=== PATIENT | female | born 1975 | race Hispanic/Latino ===

== ENCOUNTER 2018-03-28 14:39 | Observation (INO) | payer OTHER ==
[~2018-03-28] VITALS: Ht 162.6 cm; Wt 95.3 kg
[~2018-03-28 14:39] MED LIST: ASPIR 8181 MG PO; ATORVASTATIN CA20 MG PO; HYDROCHLOROTHIA25 MG PO; LORAZEPAM1 MG PO; LOSARTAN POTAS100 MG PO; METFORMIN HCL500 M2 PO; PEPCID20 MG PO; PLAVIX75 MG PO; REGLAN10 MG PO; VITAMIN B-12500 MCG PO; VITAMIN D250000 UNIT PO
[2018-03-28 15:24] LABS: BASOPHILS % 0.4 % (0.0-1.0); EOSINOPHILS # (AUTO) 0.1 (0.0-0.4); EOSINOPHILS % 0.4 % (0.0-6.0); HEMATOCRIT 39.6 % (34.2-44.1); HEMOGLOBIN 13.5 g/dL (12.0-16.0); LYMPHOCYTES # (AUTO) 2.6 (1.0-3.2); LYMPHOCYTES % 22.9 % (18.0-39.1); MEAN CORPUSCULAR HEMOGLOBIN 28.6 pg (28-32); MEAN CORPUSCULAR HGB CONC 34.1 g/dL (31-35); MEAN CORPUSCULAR VOLUME 83.9 fL (81-99); MONOCYTES # (AUTO) 0.6 (0.2-0.8); MONOCYTES % 5.4 % (4.4-11.3); NEUTROPHILS # (AUTO) 7.9 (2.1-6.9); NEUTROPHILS % 70.1 % (38.7-80.0); PLATELET COUNT 529 x10e3/uL (140-360); RED BLOOD COUNT 4.72 x10e6/uL (3.6-5.1); RED CELL DISTRIBUTION WIDTH 13.9 % (11.7-14.4)
[2018-03-28 15:41] LABS: ALANINE AMINOTRANSFERASE 32 IU/L (0-55); ALBUMIN 4.3 g/dL (3.5-5.0); ALBUMIN/GLOBULIN RATIO 1.2 (0.8-2.0); ALKALINE PHOSPHATASE 72 IU/L (40-150); BLOOD UREA NITROGEN 7 mg/dL (7-26); BUN/CREATININE RATIO 10 (6-25); CALCIUM 9.8 mg/dL (8.4-10.2); CARBON DIOXIDE 26 mmol/L (22-29); CHLORIDE 93 mmol/L (98-107); CREATINE KINASE 114 IU/L (29-168); CREATININE, SERUM 0.68 mg/dL (0.57-1.11); EST GLOMERULAR FILTRATION RATE > 60 ML/MIN (60-); GLUCOSE 130 mg/dL (74-118); SODIUM 135 mmol/L (136-145)
--- NOTE | 2018-03-28 16:10 | Diagnostic Imaging Report ---
Exam: Head CT without contrast History: Headache, hypertension, diabetes, moyamoya disease Comparison studies: Multiple prior head CTs which date to 06/01/2015, most recent 03/20/2017. Brain MRI 04/01/2017 Technique: Axial images were obtained from the skull base to the vertex. Coronal and sagittal images reconstructed from the axial data. Radiation dose: Total DLP: 728 mGy*cm. Estimated effective dose: DLP x 0.015 Intravenous contrast: None Findings: Scalp: No abnormalities. Bones: No fractures, blastic or lytic lesions. Brain sulci: Appropriate for age. Ventricles: Normal in size and configuration. No hydrocephalus. Extra-axial spaces: No masses, no fluid collection. Parenchyma: No mass, acute hemorrhage or acute cortical vascular insults. Small chronic lacunar insult in the head of the right caudate nucleus. A few subtle hypodensities in the supratentorial white matter are nonspecific most compatible with chronic microvascular ischemic changes. Sellar/suprasellar region: No abnormalities. Craniocervical junction: Patent foramen magnum. No Chiari one malformation. IMPRESSION: 1. No acute intracranial abnormalities. 2. No changes from the previous brain MRI of 04/01/2017 when allowing for differences in modality. 3. Small chronic lacunar infarct in the right caudate nucleus. 4. Mild chronic microvascular ischemic changes. Signed by: Dr. Jeremías Gore M.D. on 03/28/2018 4:07 PM
--- NOTE | 2018-03-28 16:23 | Diagnostic Imaging Report ---
EXAMINATION: CHEST 2 VIEWS INDICATION: Heart palpitations, hyperglycemia, hypertension COMPARISON: Chest x-ray 01/09/2017, chest x-ray 01/06/2016 FINDINGS: PA and lateral views TUBES and LINES: None. LUNGS: Lungs are well inflated. There is no evidence of pneumonia or pulmonary edema. PLEURA: No pleural effusion or pneumothorax. HEART AND MEDIASTINUM: The heart is normal in size. Aorta is mildly ectatic and stable in morphology. BONES AND SOFT TISSUES: No focal osseous lesions. Soft tissues are unremarkable. UPPER ABDOMEN: No free air under the diaphragm. IMPRESSION: No acute thoracic abnormality. Signed by: Dr. Kai Echavarria MD on 03/28/2018 4:20 PM
[2018-03-28] MEDS ORDERED: ASPIRIN 81 MG CHEW TAB PO ONE (17:15)
[2018-03-28 17:36] LABS: CLARITY,URINE CLEAR (CLEAR); COLOR,URINE YELLOW (YELLOW)
[2018-03-28 17:37] LABS: BILIRUBIN,URINE NEGATIVE (NEGATIVE); KETONES,URINE 1+ (NEGATIVE); LEUKOCYTE ESTERASE ,URINE NEGATIVE (NEGATIVE); NITRITE,URINE NEGATIVE (NEGATIVE); PROTEIN,URINE DIPSTICK NEGATIVE (NEGATIVE); URINE UROBILINOGEN 0.2 mg/dL (0.2 - 1)
[2018-03-28 17:41] LABS: AMPHETAMINES SCREEN,URINE NEGATIVE (NEGATIVE); BENZODIAZEPINES SCREEN,URINE NEGATIVE (NEGATIVE); PHENCYCLIDINE SCREEN,URINE NEGATIVE (NEGATIVE)
[2018-03-28] MEDS ORDERED: POTASSIUM CHLORIDE 20 MEQ TAB CR PO SCH (17:45)
[2018-03-28 17:50] LABS: BACTERIA,URINE MODERATE /HPF; EPITHELIAL CELLS,URINE FEW /LPF; RBC,URINE 0-5 /HPF (0-5)
[2018-03-28] MEDS ORDERED: DEXTROSE 50% SYRINGE 50 ML IV PRN (21:45)
[2018-03-29 01:45] LABS: CREATINE KINASE MB 0.6 ng/mL (0-5.0)
[2018-03-29 05:31] LABS: BASOPHILS # (AUTO) 0.1 (0.0-0.1); BASOPHILS % 0.6 % (0.0-1.0); EOSINOPHILS # (AUTO) 0.2 (0.0-0.4); EOSINOPHILS % 2.5 % (0.0-6.0); HEMOGLOBIN 11.8 g/dL (12.0-16.0); LYMPHOCYTES % 36.3 % (18.0-39.1); MEAN CORPUSCULAR HEMOGLOBIN 28.4 pg (28-32); MEAN CORPUSCULAR HGB CONC 33.7 g/dL (31-35); MEAN CORPUSCULAR VOLUME 84.1 fL (81-99); MONOCYTES # (AUTO) 0.8 (0.2-0.8); NEUTROPHILS # (AUTO) 4.3 (2.1-6.9); PLATELET COUNT 453 x10e3/uL (140-360); RED BLOOD COUNT 4.16 x10e6/uL (3.6-5.1); RED CELL DISTRIBUTION WIDTH 14.1 % (11.7-14.4)
[2018-03-29 05:49] LABS: ALANINE AMINOTRANSFERASE 26 IU/L (0-55); ALBUMIN 3.2 g/dL (3.5-5.0); ALBUMIN/GLOBULIN RATIO 1.1 (0.8-2.0); ALKALINE PHOSPHATASE 54 IU/L (40-150); ANION GAP 17.2 mmol/L (8-16); BLOOD UREA NITROGEN 7 mg/dL (7-26); BUN/CREATININE RATIO 12 (6-25); CALCIUM 8.4 mg/dL (8.4-10.2); CARBON DIOXIDE 22 mmol/L (22-29); CHLORIDE 101 mmol/L (98-107); CREATININE, SERUM 0.57 mg/dL (0.57-1.11); EST GLOMERULAR FILTRATION RATE > 60 ML/MIN (60-); GLUCOSE 135 mg/dL (74-118); POTASSIUM 3.2 mmol/L (3.5-5.1); SODIUM 137 mmol/L (136-145)
[2018-03-29 06:21] LABS: CREATINE KINASE MB 0.5 ng/mL (0-5.0)
[2018-03-29] MEDS: INSULIN REGULAR, HUMAN 100 UNIT/1 ML 3ML VIAL SQ SCH ×4 (07:30→21:00)
[2018-03-29 09:59] VITALS: BP 141/95
[2018-03-29 10:00] VITALS: BP 141/95
[2018-03-29] MEDS ORDERED: POTASSIUM CHLORIDE 20 MEQ TAB CR PO ONE (10:00)
[2018-03-29] MEDS: HYDROCHLOROTHIAZIDE 25 MG TAB PO SCH (10:25)
[2018-03-29] MEDS: ATORVASTATIN 20 MG TAB PO SCH (10:25)
[2018-03-29] MEDS: ASPIRIN 325 MG TAB PO SCH (10:25)
[2018-03-29] MEDS: LOSARTAN POTASSIUM 25 MG TAB PO SCH (10:25)
[2018-03-29] MEDS ORDERED: GLIPIZIDE5 MG PO (10:35)
[2018-03-29 12:18] VITALS: BP 133/73
[2018-03-29] MEDS: GLIPIZIDE 5 MG TAB PO SCH (12:41)
--- NOTE | 2018-03-29 13:27 | Consultation ---
DATE OF CONSULTATION: REASON FOR CONSULTATION: Chest pain. HISTORY OF PRESENT ILLNESS: Ms. Bain is a 43-year-old lady with a past medical history as listed below. Reportedly, was not feeling too good yesterday morning. She checked her blood sugar. It was 207. Then she went to work. At work, she reportedly developed chest pain. Chest pain lasted about 15-20 20 minutes and recurred a few times. She called EMS who took her to [facility]. They did some tests and wanted her to stay. However, the patient wanted to get here to [facility]. EMS apparently refused to get her here. She left there and a friend brought her home. Then her brought her to the hospital. She states she feels better now. She gets a little tired and some shortness of breath on exertion. No abdominal pain, vomiting or diarrhea. The chest pain has pretty much resolved. REVIEW OF SYSTEMS CONSTITUTIONAL: Has some fatigue and weakness. HEENT: No headache, blurring of vision, seizures, syncope. CARDIOVASCULAR: Had chest pain. Had some dyspnea. No orthopnea or PND. RESPIRATORY: No cough, fever or expectoration. GI: No abdominal pain, vomiting or diarrhea. : No dysuria, frequency or incontinence. ALLERGIES: NO KNOWN DRUG ALLERGIES. MEDICATIONS: See list. PAST MEDICAL HISTORY: History of hypertension, history of diabetes mellitus, history of hyperlipidemia, history of TIA, history of Moyamoya disease. SOCIAL HISTORY: Does not smoke or drink. FAMILY HISTORY: History of hypertension and diabetes. PHYSICAL EXAMINATION GENERAL: Slightly obese lady alert, oriented and not in any obvious distress. VITALS: Heart rate is 75, blood pressure 141/95, respiratory rate 18, temperature 97 8. HEENT: Atraumatic. NECK: No JVD, bruit, thyromegaly, or lymphadenopathy. CARDIOVASCULAR: First and 2nd heart sounds heard. No murmurs, rubs or gallops appreciated. CHEST: Clear to auscultation. ABDOMEN: Soft and nontender. EXTREMITIES: No edema. LABS: EKG shows sinus rhythm at 96 beats per minute. Normal axis. Prolonged QT interval and nonspecific ST-T changes. Sodium is 137, potassium 3.2, chloride 101, bicarb is 22, BUN is 7, creatinine 0.5, glucose 135. Hemoglobin 11.8, hematocrit 35 and platelets are 453,000. White count is 8.3. Total bili is 1.2, AST 32, ALT is 26, alk phos is 54. IMPRESSION 1. Chest pain. 2. Hypertension. 3. Diabetes mellitus. 4. History of transient ischemic attack. 5. History of hyperlipidemia. 6. Hypokalemia. PLAN 1. Follow serial cardiac enzymes. 2. Get echocardiogram to assess LV function and valvular function. 3. Replace potassium. 4. Continue with current medications. 5. If the patient rules out, she can get a stress test as an outpatient. Discussed my impression and plan of management with the patient. She understands. As always, I appreciate and thank you very much for your referral. Job#: [id number] [place]
[2018-03-29 15:23] LABS: CREATINE KINASE MB 0.5 ng/mL (0-5.0)
[2018-03-29 16:13] VITALS: BP 120/70
[2018-03-29 19:30] VITALS: BP 121/56
[2018-03-29] MEDS ORDERED: ASPIRIN 81 MG CHEW TAB PO SCH (21:00)
[2018-03-29] MEDS: CLOPIDOGREL BISULFATE 75 MG TAB PO SCH ×2 (21:46)
[2018-03-29 21:48] VITALS: BP 121/56
[2018-03-30 01:10] VITALS: BP 113/56
[2018-03-30 05:15] VITALS: BP 116/57
[2018-03-30 05:54] LABS: ANION GAP 17.2 mmol/L (8-16); BLOOD UREA NITROGEN 8 mg/dL (7-26); BUN/CREATININE RATIO 12 (6-25); CALCIUM 8.9 mg/dL (8.4-10.2); CARBON DIOXIDE 25 mmol/L (22-29); CHLORIDE 99 mmol/L (98-107); CREATININE, SERUM 0.69 mg/dL (0.57-1.11); EST GLOMERULAR FILTRATION RATE > 60 ML/MIN (60-); GLUCOSE 152 mg/dL (74-118); MAGNESIUM 1.7 MG/DL (1.3-2.1); POTASSIUM 3.2 mmol/L (3.5-5.1); SODIUM 138 mmol/L (136-145)
[2018-03-30 06:19] LABS: FREE T4 (FREE THYROXINE) 1.02 ng/dL (0.9-1.8); THYROID STIMULATING HORMONE 1.128 uIU/mL (0.350-4.940)
[2018-03-30 06:45] LABS: BASOPHILS # (AUTO) 0.1 (0.0-0.1); BASOPHILS % 0.7 % (0.0-1.0); EOSINOPHILS # (AUTO) 0.3 (0.0-0.4); EOSINOPHILS % 3.1 % (0.0-6.0); HEMATOCRIT 36.4 % (34.2-44.1); HEMOGLOBIN 12.2 g/dL (12.0-16.0); LYMPHOCYTES # (AUTO) 3.1 (1.0-3.2); LYMPHOCYTES % 33.7 % (18.0-39.1); MEAN CORPUSCULAR HEMOGLOBIN 28.6 pg (28-32); MEAN CORPUSCULAR HGB CONC 33.5 g/dL (31-35); MEAN CORPUSCULAR VOLUME 85.2 fL (81-99); MONOCYTES # (AUTO) 0.8 (0.2-0.8); MONOCYTES % 8.7 % (4.4-11.3); NEUTROPHILS # (AUTO) 4.8 (2.1-6.9); NEUTROPHILS % 52.9 % (38.7-80.0); PLATELET COUNT 462 x10e3/uL (140-360); RED BLOOD COUNT 4.27 x10e6/uL (3.6-5.1); RED CELL DISTRIBUTION WIDTH 14.4 % (11.7-14.4)
[2018-03-30] MEDS: INSULIN REGULAR, HUMAN 100 UNIT/1 ML 3ML VIAL SQ SCH (07:30)
[2018-03-30] MEDS ORDERED: POTASSIUM CHLORIDE 20 MEQ TAB CR PO STA (07:49)
[2018-03-30 08:02] VITALS: BP 121/59
[2018-03-30] MEDS ORDERED: POTASSIUM CHLORIDE 20 MEQ TAB CR PO ONE (10:00)
[2018-03-30] MEDS: LOSARTAN POTASSIUM 25 MG TAB PO SCH (10:21)
[2018-03-30] MEDS: HYDROCHLOROTHIAZIDE 25 MG TAB PO SCH (10:21)
[2018-03-30] MEDS: ASPIRIN 325 MG TAB PO SCH (10:21)
[2018-03-30] MEDS: ATORVASTATIN 20 MG TAB PO SCH (10:21)
[2018-03-30] MEDS: GLIPIZIDE 5 MG TAB PO SCH (10:32)
--- NOTE | 2018-03-30 22:12 | Discharge Summary ---
ADMISSION DIAGNOSES: 1. Chest pain. 2. Hypertension. 3. Hyperlipidemia. 4. Type 2 diabetes. 5. Hypokalemia. 6. Leukocytosis. 7. Moyamoya. DISCHARGE DIAGNOSES: 1. Chest pain. 2. Hypertension. 3. Hyperlipidemia. 4. Type 2 diabetes. 5. Hypokalemia. 6. Leukocytosis. 7. Moyamoya. 8. Rule out myocardial infarction. HISTORY: The patient has a history of hypertension, hyperlipidemia, type 2 diabetes, GERD, TIA in 2014 and moyamoya disease. Surgical history of hysterectomy. HOSPITAL COURSE: A 43-year-old female, complains of sharp constant left chest pain that started yesterday morning at work. There is no radiation. The pain lasted 25 minutes. No syncope. No diaphoresis. The patient admits to palpitations. She called in ambulance and was taken to [facility]. In the ambulance, the ENT was unable to get a blood pressure due to an arrhythmia. The workup at [facility] was negative. The patient left AMA when they said they wanted to keep her in observation in the hallway. On admission to [facility], the patient's blood pressure was in the 200s. Nothing improves her worsens her pain. On admission, the patient had troponins negative times 3. EKG, normal sinus rhythm, 96. Normal TSH and free T4. Cardiology was consulted who did not want to do a workup. The patient resumed on home medications for hypertension, hyperlipidemia, type 2 diabetes. Her leukocytosis resolved on its own and hypokalemia. Potassium was repleted. The patient was discharged home and per cardio, she is already on the right medications including aspirin, Lipitor and blood pressure medications. The patient remains asymptomatic during hospitalization and is ready and excited to go home. She agrees to discharge plan. The patient will follow up with cardiology in 1 to 2 weeks for stress test and primary care in 1 to 2 weeks. Vital signs stable. The patient afebrile at the time of discharge. Dictated by Alexandria Starr NP. FARZAD MITCHELL MD Job#: [id number] [place]
== END 2018-03-30 10:45 | disposition home or self-care (01) ==
LOC: ER 14:39 → ERHOLD 18:25 → IMCU 03-29 10:52
PROVIDERS: ADMIT Internal Medicine; ATTEND Internal Medicine
DX: R07.9 Chest pain, unspecified (principal); I10 Essential (primary) hypertension; E78.5 Hyperlipidemia, unspecified; E11.9 Type 2 diabetes mellitus without complications; K21.9 Gastro-esophageal reflux disease without esophagitis; Z86.73 Personal history of transient ischemic attack (TIA), and cerebral infarction without residual deficits; I67.5 Moyamoya disease; E87.6 Hypokalemia
CPT/HCPCS: 36415 ×2; 70450; 71046; 80048; 80053 ×2; 80307; 80320; 81001; 82550 ×2; 82553 ×2; 82948 ×2; 83036; 83735; 84439; 84443; 84484 ×2; 84702; 85025 ×3; 93005 ×2; 93306; 99284; G0378 ×3

== ENCOUNTER 2018-04-27 10:38 | Emergency (ER) | payer OTHER ==
[~2018-04-27] VITALS: Ht 162.6 cm; Wt 95.3 kg
[~2018-04-27 10:38] MED LIST changes: +GLIPIZIDE5 MG PO
[2018-04-27 11:16] LABS: BASOPHILS # (AUTO) 0.1 (0.0-0.1); BASOPHILS % 0.7 % (0.0-1.0); EOSINOPHILS # (AUTO) 0.1 (0.0-0.4); EOSINOPHILS % 1.6 % (0.0-6.0); HEMATOCRIT 39.5 % (34.2-44.1); HEMOGLOBIN 12.9 g/dL (12.0-16.0); LYMPHOCYTES # (AUTO) 2.6 (1.0-3.2); LYMPHOCYTES % 31.2 % (18.0-39.1); MEAN CORPUSCULAR HEMOGLOBIN 28.5 pg (28-32); MEAN CORPUSCULAR HGB CONC 32.7 g/dL (31-35); MEAN CORPUSCULAR VOLUME 87.2 fL (81-99); MONOCYTES # (AUTO) 0.6 (0.2-0.8); MONOCYTES % 7.1 % (4.4-11.3); NEUTROPHILS # (AUTO) 4.8 (2.1-6.9); NEUTROPHILS % 59.2 % (38.7-80.0); PLATELET COUNT 511 x10e3/uL (140-360); RED BLOOD COUNT 4.53 x10e6/uL (3.6-5.1)
[2018-04-27 11:23] LABS: INR 1.09; PROTHROMBIN TIME 13.3 seconds (11.9-14.5)
[2018-04-27 11:24] LABS: PARTIAL THROMBOPLASTIN TIME 27.5 seconds (23.8-35.5)
[2018-04-27 11:31] LABS: CLARITY,URINE HAZY (CLEAR); COLOR,URINE YELLOW (YELLOW); KETONES,URINE 2+ (NEGATIVE); LEUKOCYTE ESTERASE ,URINE NEGATIVE (NEGATIVE); NITRITE,URINE NEGATIVE (NEGATIVE); PROTEIN,URINE DIPSTICK NEGATIVE (NEGATIVE)
[2018-04-27 11:32] LABS: ALANINE AMINOTRANSFERASE 30 IU/L (0-55); ALBUMIN 4.1 g/dL (3.5-5.0); ALBUMIN/GLOBULIN RATIO 1.2 (0.8-2.0); ALKALINE PHOSPHATASE 53 IU/L (40-150); ANION GAP 14.8 mmol/L (8-16); BACTERIA,URINE MANY /HPF; BILIRUBIN,URINE NEGATIVE (NEGATIVE); BLOOD UREA NITROGEN 7 mg/dL (7-26); BUN/CREATININE RATIO 10 (6-25); CALCIUM 9.6 mg/dL (8.4-10.2); CARBON DIOXIDE 23 mmol/L (22-29); CHLORIDE 101 mmol/L (98-107); CREATINE KINASE 37 IU/L (29-168); CREATININE, SERUM 0.73 mg/dL (0.57-1.11); EPITHELIAL CELLS,URINE MANY /LPF; EST GLOMERULAR FILTRATION RATE > 60 ML/MIN (60-); GLUCOSE 133 mg/dL (74-118); POTASSIUM 3.8 mmol/L (3.5-5.1); SODIUM 135 mmol/L (136-145); URINE UROBILINOGEN 1 mg/dL (0.2 - 1)
[2018-04-27] MEDS ORDERED: SODIUM CHLORIDE 0.9% 1000ML 1,000 ML IV STA (11:38)
[2018-04-27 11:54] LABS: AMYLASE 42 U/L (25-125); LIPASE 14 U/L (8-78)
--- NOTE | 2018-04-27 12:04 | Diagnostic Imaging Report ---
EXAMINATION: CHEST SINGLE (PORTABLE) COMPARISON: Chest x-ray 03/28/2018 INDICATION: Chest pain, weakness DISCUSSION: Frontal view of the chest obtained at 1126 hours. HEART AND MEDIASTINUM: The cardiomediastinal silhouette is unremarkable. LINES: None. LUNGS: The lungs are well inflated and clear. No pneumonia or pulmonary edema. PLEURA: No pleural effusion or pneumothorax. BONES AND SOFT TISSUES: No focal osseous lesion. The soft tissues are normal. IMPRESSION: No acute cardiopulmonary disease. Signed by: Dr. Kai Echavarria MD on 04/27/2018 12:01 PM
[2018-04-27] MEDS ORDERED: CEFTRIAXONE SOD 1 GM VIAL IV ONE (12:30)
== END 2018-04-27 13:59 | disposition home or self-care (01) ==
LOC: ER 10:38
DX: R07.89 Other chest pain (principal); R10.12 Left upper quadrant pain; R42 Dizziness and giddiness; R51 Headache; I10 Essential (primary) hypertension; E11.9 Type 2 diabetes mellitus without complications; E78.5 Hyperlipidemia, unspecified
CPT/HCPCS: 36415; 71045; 80053; 81001; 82150; 82550; 82553; 83690; 84484; 85025; 85379; 85610; 85730; 93005; 99284; J0696; J7030

== ENCOUNTER 2019-01-11 11:13 | Emergency (ER) | payer OTHER ==
[~2019-01-11] VITALS: Ht 162.6 cm; Wt 97.1 kg
--- OUTSIDE RECORDS SUMMARY | 2019-01-11 11:15 | XMS REPORT | Clinical Summary ---
Author Author [facility] Organization [facility] Address Unknown Phone Unavailable Care Team Providers Care [employer] Marketing Executive Name Role Phone Rachel Leblanc MD PCP Unavailable Allergies Comments Active Allergy Reactions Severity Noted Date Apple Cider Vinegar Palpitations Low 2017 dizziness Iodine And Iodide Nausea Only 11/05/2014 Containing Products Medications End Date Status Medication Sig Dispensed Refills Start Date Active losartan (COZAAR) 25 MG Take 25 mg by 0 tablet mouth daily. Active atorvastatin (LIPITOR) 10 Take 20 mg by 0 MG tablet mouth nightly . Active aspirin 325 MG tablet Take 325 mg 0 by mouth daily. Active glipiZIDE-metFORMIN Take 2 0 (METAGLIP) 2.5-500 mg per tablets by tablet mouth 2 (two) times daily. Active clopidogrel (PLAVIX) 75 Take 75 mg by 0 mg tablet mouth nightly. Active cyanocobalamin 500 MCG Take 500 mcg 0 tablet by mouth every morning With food . Active ergocalciferol Take 50,000 0 (ERGOCALCIFEROL) 50,000 Units by unit capsule mouth once a week On . Active hydroCHLOROthiazide Take 25 mg by 0 (HYDRODIURIL) 25 MG mouth every tablet morning. Active omeprazole (PRILOSEC) 20 Take 20 mg by 0 MG capsule mouth 2 (two) times daily 1 tablet in the morning 30 minutes before breakfast 1 tablet at bedtime 1 hour before atorvastatin and plavix . Active Problems Problem Noted Date TIA (transient ischemic attack) 2017 Vasculitis 11/05/2014 Social History Date Tobacco Use Types Packs/Day Years Used Never Smoker Alcohol Use Drinks/Week oz/Week Comments No Sex Assigned at Date Recorded Not on file Industry Job Start Date Occupation Not on file Not on file Not on file Travel End Travel History Travel Start No recent travel history available. Last Filed Vital Signs Not on file Plan of Treatment Not on file Results Not on fileafter 01/10/2018 Insurance Payer Benefit Subscriber ID Type Phone Address Plan / Group [employer] - [employer] C[employer] xxxxxxxxxxx LOCAL PLUS Advance Directives For more information, please contact: [facility] [address] [place] [address] Date Inactivated Comments Code Status Date Activated 03/22/2017 3:31 PM Full Code 03/21/2017 6:35 PM This code status was determined by: Patient 03/21/2017 6:35 PM Full Code 2017 5:22 PM This code status was determined by: Patient 11/05/2014 8:21 PM Full Code 11/05/2014 4:12 PM This code status was determined by: Patient
--- OUTSIDE RECORDS SUMMARY | 2019-01-11 11:16 | XMS REPORT | Continuity of Care Document ---
Author Author [facility] Interface Address Unknown Phone Unavailable Problems Problem Status Onset Date Classification Date Reported Comments Source Chest pain, unspecified 04/04/2018 10/15/2018 [facility] OTHER Active 03/28/2018 [facility] MOYAMOYA DISEASE Active 12/25/2016 [facility] NUMBNESS Active 12/25/2016 [facility] TIA Active 03/29/2015 [facility] NOSE BLEEDS/OTHER Active 03/29/2015 [facility] Discharge Diagnosis: TIA 11/09/2014 11/12/2014 [facility] CHEST PAIN Active 11/09/2014 [facility] TIA, PARESTHESIAS Active 09/01/2014 [facility] WEAKNESS/HIGH BLOOD PRESSURE Active 09/01/2014 [facility] ALLERGIC REACTION Active 08/31/2014 [facility] HTN (<span ID="[id number]">Confirmed</span>) Active Problem 10/15/2018 [facility] Diabetes Resolved Problem 10/15/2018 [facility] HTN (<span ID="[id number]">Confirmed</span>) Resolved Problem 10/15/2018 [facility] Hyperlipidemia Resolved Problem 10/15/2018 [facility] Moyamoya disease Resolved Problem 10/15/2018 [facility] TRANS CEREB ISCHEMIA NEC Active [facility] MOYAMOYA DISEASE Active [facility] Medications Medication Details Route Status Patient Instructions Ordering Provider Order Date Source Losartan 50 mg, Route: PO, Drug form: TAB, Daily, Dosing Weight 97, kg, Start date: 12/27/16 9:00:00 CDT, Duration: 30 day, Stop date: 01/25/17 9:00:00 CDT No Longer Active 12/27/2016 [facility] Plavix 75 mg, Route: PO, Drug form: TAB, Daily, Dosing Weight 97, kg, Start date: 12/27/16 9:00:00 CDT, Duration: 30 day, Stop date: 01/25/17 9:00:00 CDT No Longer Active 12/27/2016 [facility] Aspirin 325 MG Oral Tablet 325 mg, 1 tab, Route: PO, Drug form: TAB, Daily, Dosing Weight 97, kg, Start date: 12/27/16 9:00:00 CDT, Duration: 30 day, Stop date: 01/25/17 9:00:00 CDT No Longer Active 12/27/2016 [facility] Valproic Acid 100 MG/ML Injectable Solution 500 mg, 5 mL, Route: IVPB, ONCE, Dosing Weight 97, kg, Start date: 12/26/16 9:52:00 CDT, Stop date: 12/26/16 9:52:00 CDTNotes: Dilute in at least 50ml D5W or NS. Infusion rate=20 mg/min (Same As: Depacon) Inactive 12/26/2016 [facility] Magnesium Sulfate 2 gm, 50 mL, Route: IVPB, Drug form: INJ, ONCE, Dosing Weight 97, kg, Start date: 12/26/16 9:52:00 CDT, Duration: 2 hr, Stop date: 12/26/16 9:52:00 CDTNotes: WASTE: F/P - Sink; E - Municipal Trash Bin Inactive 12/26/2016 [facility] Reglan 10 mg, 2 mL, Route: IVP, Drug form: INJ, ONCE, Dosing Weight 97, kg, Start date: 12/26/16 9:51:00 CDT, Stop date: 12/26/16 9:51:00 CDTNotes: (Same as: Reglan) Inactive 12/26/2016 [facility] Plavix 75 mg, 1 tab, Route: PO, Drug form: TAB, Daily, Dosing Weight 97, kg, Start date: 12/26/16 9:30:00 CDT, Duration: 30 day, Stop date: 01/25/17 9:00:00 CDTNotes: (Same As: Plavix) Inactive 12/26/2016 [facility] Aspirin 325 mg, 1 tab, Route: PO, Drug form: TAB, Daily, Dosing Weight 97, kg, Start date: 12/26/16 9:00:00 CDT, Duration: 30 day, Stop date: 01/24/17 9:00:00 CDTNotes: Take with food. Inactive 12/26/2016 [facility] Losartan 50 mg, 1 tab, Route: PO, Drug form: TAB, Daily, Dosing Weight 98.182, kg, Start date: 12/26/16 9:00:00 CDT, Duration: 30 day, Stop date: 01/24/17 9:00:00 CDTNotes: (Same as: Muna) Inactive 12/26/2016 [facility] Aspirin 325 MG Oral Tablet 325 mg=1 tab, PO, Daily, 0 Refill(s) Active 12/26/2016 [facility] clopidogrel 75 MG Oral Tablet [Plavix] 75 mg=1 tab, PO, Daily, 0 Refill(s) Active 12/26/2016 [facility] losartan 50 mg oral tablet 50 mg=1 tab, PO, Daily, 0 Refill(s) Active 12/26/2016 [facility] Morphine 1 mg, 0.5 mL, Route: IVP, Drug form: INJ, Q6H, Dosing Weight 98.182, kg, PRN Pain Score 6-10, Start date: 12/25/16 19:26:00 CDT, Duration: 30 day, Stop date: 01/24/17 19:25:00 CDTNotes: (Same as:MORPhine Sulfate) No Longer Active 12/26/2016 [facility] Tylenol 650 mg, 2 tab, Route: PO, Drug form: TAB, Q6H, Dosing Weight 98.182, kg, PRN Pain Score 1-3, Start date: 12/25/16 19:26:00 CDT, Duration: 30 day, Stop date: 01/24/17 19:25:00 CDTNotes: Do not exceed 4 gm/day. (Same as: Tylenol) No Longer Active 12/26/2016 [facility] sodium chloride 0.9% 1000 ml INJ 1,000 mL 1,000 mL, Rate: 40 ml/hr, Infuse over: 25 hr, Route: IV, Dosing Weight 98.182 kg, Total Volume: 1,000, Start date: 12/25/16 19:25:00 CDT, Duration: 30 day, Stop date: 01/24/17 19:24:00 CDT No Longer Active 12/26/2016 [facility] Morphine 4 mg, Route: IVP, ONCE, Dosing Weight 98.182, kg, Priority: STAT, Start date: 12/25/16 17:55:00 CDT, Stop date: 12/25/16 17:55:00 CDT Inactive 12/25/2016 [facility] Omnipaque 350 injectable solution 125 mL, Route: IVP, Drug Form: SOLN, Dosing Weight 98.182, kg, ONCALL, For CTA exam with GFR > 45 mL/min, STAT, Start date: 12/25/16 15:14:00 CDT, Duration: 1 doses or timesNotes: (same as:Omnipaque 350). WASTE: F/P - Black; E - Municipal Trash Bin Inactive 12/25/2016 [facility] Saline Flush 0.9% 10 mL, Route: IVP, Drug Form: INJ, Dosing Weight 100, kg, PRN, PRN Line Flush, Start date: 03/29/15 12:13:00, Duration: 30 day, Stop date: 04/28/15 12:12:00Notes: (Same as: BD Posiflush) No Longer Active 03/29/2015 [facility] Aspirin 81 MG Enteric Coated Tablet 81 mg=1 tab, PO, Daily, # 30 tab, 0 Refill(s) Active 09/04/2014 [facility] atorvastatin 20 mg oral tablet 20 mg=1 tab, PO, Bedtime, # 30 tab, 0 Refill(s) Active 09/04/2014 [facility] losartan 25 mg oral tablet 25 mg=1 tab, PO, Daily, # 30 tab, 0 Refill(s) Active 09/04/2014 [facility] Cozaar 25 mg, 1 tab, Route: PO, Drug form: TAB, Daily, Start date: 09/03/14 9:00:00, Duration: 30 day, Stop date: 10/02/14 9:00:00Notes: (Same as: Cozaar) No Longer Active 09/03/2014 [facility] atorvastatin 20 mg, 1 tab, Route: PO, Drug form: TAB, Bedtime, Dosing Weight 100, kg, Start date: 09/02/14 21:00:00, Duration: 30 day, Stop date: 10/01/14 21:00:00Notes: (Same As: Lipitor) No Longer Active 09/03/2014 [facility] Cozaar 25 mg, 1 tab, Route: PO, Drug form: TAB, ONCE, Start date: 09/02/14 21:00:00, Stop date: 09/02/14 21:00:00Notes: (Same as: Cozaar) Inactive 09/03/2014 [facility] Lovenox 40 mg, 0.4 mL, Route: SUB-Q, Drug form: INJ, Q24H, Start date: 09/02/14 17:00:00, Duration: 30 day, Stop date: 10/01/14 17:00:00Notes: (Same as: Lovenox) No Longer Active 09/02/2014 [facility] Protonix 40 mg, 1 tab, Route: PO, Drug form: ECTAB, Before Dinner, Start date: 09/02/14 16:30:00, Duration: 30 day, Stop date: 10/01/14 16:30:00Notes: Tablet should not be chewed or crushed. (Same as: Protonix) No Longer Active 09/02/2014 [facility] aspirin 81 mg, 1 tab, Route: PO, Drug form: ECTAB, Daily, Dosing Weight 100, kg, Start date: 09/02/14 12:42:00, Duration: 30 day, Stop date: 10/02/14 9:00:00Notes: Do not crush or chew. (Same As: Ecotrin) No Longer Active 09/02/2014 [facility] Rocephin 2 gm, Route: IVPB, [id number], Dosing Weight 100, kg, Start date: 09/02/14 6:00:00, Duration: 30 day, Stop date: 10/01/14 18:00:00Notes: (Same As: Rocephin). Inactive 09/02/2014 [facility] Sodium Chloride 0.9% IV 250 mL, Route: IVPB, Start date: 09/01/14 22:43:00, Duration: 30 day, Stop date: 10/01/14 22:42:00, PRN Line Flush No Longer Active 09/02/2014 [facility] BD Normal Saline Flush 10 mL, Route: IVP, Drug Form: INJ, PRN, PRN Line Flush, Start date: 09/01/14 22:43:00, Duration: 30 day, Stop date: 10/01/14 22:42:00Notes: (Same as: BD Posiflush) No Longer Active 09/02/2014 [facility] Saline Flush 0.9% 10 ml, Route: IVP, Drug Form: INJ, Dosing Weight 100, kg, PRN, PRN Line Flush, Start date: 09/01/14 22:40:00, Duration: 30 day, Stop date: 10/01/14 22:39:00Notes: (Same as: BD Posiflush) No Longer Active 09/02/2014 [facility] Tylenol 650 mg, 2 tab, Route: PO, Drug form: TAB, Q6H, Dosing Weight 100, kg, PRN Pain Score 1-3, Start date: 09/01/14 17:56:00, Duration: 30 day, Stop date: 10/01/14 17:55:00Notes: Do not exceed 4 gm/day. (Same as: Tylenol) No Longer Active 09/01/2014 [facility] NS 1,000 mL 1,000 mL, Rate: 40 ml/hr, Infuse over: 25 hr, Route: IV, Dosing Weight 100 kg, Total Volume: 1,000, Start date: 09/01/14 17:56:00, Duration: 30 day, Stop date: 10/01/14 17:55:00 No Longer Active 09/01/2014 [facility] Versed 3 mg, Route: IVP, ONCE, Dosing Weight 100, kg, Start date: 09/01/14 17:35:00, Stop date: 09/01/14 17:35:00 Inactive 09/01/2014 [facility] Lidocaine Hydrochloride 10 MG/ML Injectable Solution 1 mL, Route: SUB-Q, Drug Form: INJ, Dosing Weight 100, kg, ONCE, STAT, Start date: 09/01/14 17:25:00, Stop date: 09/01/14 17:25:00Notes: (Same as: Xylocaine) Inactive 09/01/2014 [facility] Vancomycin 1 gm, 200 mL, Route: IV, Drug form: INJ, ONCE, Dosing Weight 100, kg, Start date: 09/01/14 17:24:00, Stop date: 09/01/14 17:24:00 Inactive 09/01/2014 [facility] Rocephin 1 gm, Route: IVPB, Drug form: PDR/INJ, ONCE, Dosing Weight 100, kg, Start date: 09/01/14 17:24:00, Stop date: 09/01/14 17:24:00 Inactive 09/01/2014 [facility] aspirin 324 mg, 4 tab, Route: CHEW, Drug form: CHEWTAB, ONCE, Dosing Weight 100, kg, Priority: STAT, Start date: 09/01/14 13:09:00, Stop date: 09/01/14 13:09:00Notes: Take with food. Inactive 09/01/2014 [facility] Saline Flush 0.9% 10 mL, Route: IVP, Drug Form: INJ, Dosing Weight 100, kg, PRN, PRN Line Flush, Start date: 09/01/14 13:09:00, Duration: 30 day, Stop date: 10/01/14 13:08:00Notes: (Same as: BD Posiflush) No Longer Active 09/01/2014 [facility] Losartan 12.5 mg, PO, Daily, 0 Refill(s) No Longer Active 09/01/2014 [facility] Allergies, Adverse Reactions, Alerts Substance Category Reaction Severity Reaction type Status Date Reported Comments Source Immunizations Immunization Date Given Site Status Last Updated Comments Source Results Order Name Results Value Reference Range Date Interpretation Comments Source HEMATOLOGY Eosinophils # 0.2 K/CMM 0.0 - 0.5 12/26/2016 [facility] HEMATOLOGY Monocytes # 0.8 K/CMM 0.0 - 0.8 12/26/2016 [facility] HEMATOLOGY Basophils # 0.1 K/CMM 0.0 - 0.2 12/26/2016 [facility] Lymphocytes # 3.8 K/CMM 1.0 - 5.5 12/26/2016 [facility] Eosinophils 1.9 % 0.0 - 4.0 12/26/2016 [facility] Basophils 0.8 % 0.0 - 1.0 12/26/2016 [facility] Segs-Bands # 5.8 K/CMM 1.5 - 8.1 12/26/2016 [facility] Monocytes 7.9 % 2.0 - 12.0 12/26/2016 [facility] HEMATOLOGY Segs 54.2 % 45.0 - 75.0 12/26/2016 [facility] Lymphocytes 35.2 % 20.0 - 40.0 12/26/2016 [facility] RBC Morph Normal (12/26/16 4:27 AM) 12/26/2016 [facility] Plt Morph Normal (12/26/16 4:27 AM) 12/26/2016 [facility] WBC 10.7 K/CMM 3.7 - 10.4 12/26/2016 [facility] RBC 4.53 M/CMM 4.20 - 5.40 12/26/2016 [facility] Platelet 428 K/CMM 133 - 450 12/26/2016 [facility] MPV 7.8 fL 7.4 - 10.4 12/26/2016 [facility] Hgb 12.8 g/dL 12.0 - 16.0 12/26/2016 [facility] MCV 83.7 fL 80.0 - 98.0 12/26/2016 [facility] Hct 37.9 % 36.0 - 48.0 12/26/2016 [facility] MCHC 33.7 g/dL 32.0 - 36.0 12/26/2016 [facility] MCH 28.2 pg 27.0 - 31.0 12/26/2016 [facility] RDW 14.3 % 11.5 - 14.5 12/26/2016 [facility] Brain wo contrast MRI Brain wo contrast MRI EXAM: MRI BRAIN WITHOUT CONTRAST DATE: 12/25/2016 6:34 PM CDT INDICATION: Headache with Transient Cerebral Ischemia - stroke protocol ADDITIONAL INFORMATION AND CONTRAST: None. COMPARISON: CT angiogram head and neck of 12/25/2016. TECHNIQUE: Multiplanar, mutisequence MRI of the brain without contrast. FINDINGS: Diffusion weighted images demonstrate no focal signal abnormality. There are several scattered nonspecific foci of T2/FLAIR signal abnormality may reflect early minimal chronic small vessel ischemic change or migraine-related change. No acute intracranial hemorrhage detected. The ventricles are normal in size and symmetric. No extra-axial fluid collection identified. Richardson-white distinction is preserved. No mass lesion or midline shift detected. Stigmata of moyamoya is again noted. Mild mucosal thickening of the ethmoid air cells. Small anterior right maxillary mucous retention cyst or polyp is present. Minimal partial opacification of the inferior mastoid air cells. IMPRESSION: 1. No definite acute infarct or intracranial hemorrhage detected. 2. Several scattered nonspecific foci of T2/FLAIR signal abnormality may reflect early minimal chronic small vessel ischemic change or migraine-related change. 3. Stigmata of moyamoya is again noted. SL: JNGUYEN-PC 12/25/2016 - - Read by: Hector Chow MD Dictated Date/time: 12/25/16 20:02 Electronically Signed by: Hector Chow MD 12/25/16 20:07 FINAL REPORT [facility] CHEM PANEL Phosphorus 2.9 mg/dL 2.5 - 4.5 12/25/2016 [facility] CHEM PANEL Magnesium Lvl 2.1 mg/dL 1.8 - 2.4 12/25/2016 [facility] ELECTROLYTES AGAP 11.1 meq/L 10.0 - 20.0 12/25/2016 [facility] ELECTROLYTES Chloride Lvl 103 meq/L 95 - 109 12/25/2016 [facility] ELECTROLYTES CO2 27 meq/L 24 - 32 12/25/2016 [facility] ELECTROLYTES Calcium Lvl 9.0 mg/dL 8.5 - 10.5 12/25/2016 [facility] ELECTROLYTES Glucose Lvl 115 mg/dL 70 - 99 12/25/2016 [facility] ELECTROLYTES BUN 7 mg/dL 7 - 22 12/25/2016 [facility] ELECTROLYTES Creatinine Lvl 0.57 mg/dL 0.50 - 1.40 12/25/2016 [facility] ELECTROLYTES eGFR 117 mL/min/1.73m2 12/25/2016 Result Comment: The eGFR is calculated using the CKD-EPI formula. In most young, healthy individuals the eGFR will be >90 mL/min/1.73m2. The eGFR declines with age. An eGFR of 60-89 may be normal in some populations, particularly the elderly, for whom the CKD-EPI formula has not been extensively validated. Use of the eGFR is not recommended in the following populations: Individuals with unstable creatinine concentrations, including patients and those with serious co-morbid conditions. Patients with extremes in muscle mass or diet. The data above are obtained from the National Kidney Disease Education Program (NKDEP) which additionally recommends that when the eGFR is used in patients with extremes of body mass index for purposes of drug dosing, the eGFR should be multiplied by the estimated BMI. [facility] ELECTROLYTES Potassium Lvl 4.1 meq/L 3.5 - 5.1 12/25/2016 [facility] ELECTROLYTES Sodium Lvl 137 meq/L 135 - 145 12/25/2016 [facility] HEMATOLOGY MCV 84.7 fL 80.0 - 98.0 12/25/2016 [facility] HEMATOLOGY Hct 42.2 % 36.0 - 48.0 12/25/2016 [facility] HEMATOLOGY RBC 4.98 M/CMM 4.20 - 5.40 12/25/2016 [facility] HEMATOLOGY Hgb 13.9 g/dL 12.0 - 16.0 12/25/2016 [facility] HEMATOLOGY Platelet 465 K/CMM 133 - 450 12/25/2016 [facility] MCH 27.8 pg 27.0 - 31.0 12/25/2016 [facility] MPV 7.7 fL 7.4 - 10.4 12/25/2016 [facility] RDW 14.3 % 11.5 - 14.5 12/25/2016 [facility] MCHC 32.8 g/dL 32.0 - 36.0 12/25/2016 [facility] WBC 11.7 K/CMM 3.7 - 10.4 12/25/2016 [facility] PT 12.8 s 12.0 - 14.7 12/25/2016 [facility] INR 0.94 0.85 - 1.17 12/25/2016 [facility] Monocytes 5.0 % 2.0 - 12.0 12/25/2016 [facility] [place] Lymphocytes 21.4 % 20.0 - 40.0 12/25/2016 [facility] Segs 72.6 % 45.0 - 75.0 12/25/2016 [facility] Eosinophils 0.4 % 0.0 - 4.0 12/25/2016 [facility] [place] Basophils # 0.1 K/CMM 0.0 - 0.2 12/25/2016 [facility] [place] Eosinophils # 0.1 K/CMM 0.0 - 0.5 12/25/2016 [facility] [place] Monocytes # 0.6 K/CMM 0.0 - 0.8 12/25/2016 [facility] [place] Lymphocytes # 2.5 K/CMM 1.0 - 5.5 12/25/2016 [facility] [place] Basophils 0.6 % 0.0 - 1.0 12/25/2016 [facility] [place] Segs-Bands # 8.5 K/CMM 1.5 - 8.1 12/25/2016 [facility] URINE AND STOOL UA Urobilinogen <=1.0 mg/dL 0.1 - 1.0 12/25/2016 [facility] URINE AND STOOL UA Mucus Few /LPF None Seen /LPF 12/25/2016 [facility] URINE AND STOOL UA RBC 2 /HPF 0 - 2 12/25/2016 [facility] URINE AND STOOL UA Bacteria Moderate /HPF None Seen /HPF 12/25/2016 [facility] URINE AND STOOL UA WBC 1 /HPF 0 - 5 12/25/2016 [facility] URINE AND STOOL UA Sq Epi Many /LPF Few /LPF 12/25/2016 [facility] URINE AND STOOL UA Nitrite Negative (12/25/16 2:31 PM) Negative 12/25/2016 [facility] URINE AND STOOL UA Leuk Est Negative (12/25/16 2:31 PM) Negative 12/25/2016 [facility] URINE AND STOOL UA Blood Moderate *ABN* (12/25/16 2:31 PM) Negative 12/25/2016 [facility] URINE AND STOOL UA Bili Negative *NA* (12/25/16 2:31 PM) Negative 12/25/2016 [facility] URINE AND STOOL UA Ketones Negative mg/dL Negative mg/dL 12/25/2016 [facility] URINE AND STOOL UA Glucose Negative mg/dL Negative mg/dL 12/25/2016 [facility] URINE AND STOOL UA Protein Negative mg/dL Negative mg/dL 12/25/2016 [facility] URINE AND STOOL UA pH 6.0 5.0 - 8.0 12/25/2016 [facility] URINE AND STOOL UA Spec Grav 1.004 <=1.030 12/25/2016 [facility] URINE AND STOOL UA Turbidity Clear (12/25/16 2:31 PM) Clear 12/25/2016 [facility] URINE AND STOOL UA Color Light Yellow *NA* (12/25/16 2:31 PM) Yellow 12/25/2016 [facility] URINE CHEM U Preg Negative (12/25/16 2:31 PM) Negative 12/25/2016 [facility] Brain/Neck CTA Brain/Neck CTA EXAM: CTA BRAIN EXAM: CTA NECK Exam: CT brain DATE: 12/25/2016 2:23 PM CDT INDICATION: haley/ h/o gillespie gillespie - haley/ h/o gillespie gillespie. left arm weakness. injected 96 ml of omnipaque 350 via IV. DLP: 1204.65 mGy-cm COMPARISON: CT head of 03/29/2015. TECHNIQUE: Multiple contiguous axial CT brain were performed. Subsequently, Rapid acquisition spiral CT images of the brain and neck were obtained between the aortic arch and the cranial vertex during intravenous infusion of iodinated contrast for the purposes of CT angiography. 3-D CT angiographic images are created using MIP technique at the acquisition workstation. The source images are also presented for interpretation. 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 No origin stenosis is identified. The vertebral artery origins are patent bilaterally. Carotid arteries: The cervical common carotid arteries and cervical internal carotid arteries have a normal course, caliber, and contour. No hemodynamically significant stenosis of the carotid bifurcations or internal carotid arteries is present by NASCET criteria. There is no evidence of vascular injury. Vertebral arteries: The vertebral arteries are codominant. The vertebral arteries have a normal course, caliber and contour. The soft tissues of the neck and other incidental structures are normal. BRAIN CTA: Severe bilateral supraclinoid and carotid terminus intracranial internal carotid artery narrowing with small caliber cavernous and petrous segments. Significantly diminutive appearance of bilateral middle cerebral arteries with extensive collateral flows via prominent thalamostriate vasculatures compatible with clinically reported moyamoya appearance. Small diminutive flow is present within the bilateral MCA branches along the sylvian fissures. Small right and tiny left P-comm's are present. Aplastic right A1 segment is present. The deep cerebral veins and major venous sinuses are normal. CT head: No acute territorial infarction or intracranial hemorrhage detected. Stable ventricular system. IMPRESSION: 1. 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 Significantly diminutive appearance of bilateral middle cerebral arteries with extensive collateral flows via prominent thalamostriate vasculatures compatible with clinically reported moyamoya appearance. Etiology for moyamoya includes idiopathic, sickle cell disease, radiation induced or others. Please correlate clinically with patient's history. 2. No internal carotid artery stenosis detected. (All qualitative and quantitative assessments of carotid bifurcation and proximal internal carotid artery stenosis are made referencing the distal internal carotid artery {NASCET criteria}.) SL: JNGUYEN-PC 12/25/2016 - - Read by: Hector Chow MD Dictated Date/time: 12/25/16 16:44 Electronically Signed by: Hector Chow MD 12/25/16 16:52 FINAL REPORT [facility] CARDIAC ENZYMES Total CK 68 unit/L 12 - 191 03/29/2015 [facility] CARDIAC ENZYMES CK MB null 0.5 - 3.6 03/29/2015 [facility] CARDIAC ENZYMES Troponin-I null 0.00 - 0.40 03/29/2015 [facility] CARDIAC ENZYMES CK MB Index null 0.0 - 2.5 03/29/2015 [facility] CHEM PANEL eGFR 109 mL/min/1.73m2 03/29/2015 Result Comment: The eGFR is calculated using the CKD-EPI formula. In most young, healthy individuals the eGFR will be >90 mL/min/1.73m2. The eGFR declines with age. An eGFR of 60-89 may be normal in some populations, particularly the elderly, for whom the CKD-EPI formula has not been extensively validated. Use of the eGFR is not recommended in the following populations: Individuals with unstable creatinine concentrations, including patients and those with serious co-morbid conditions. Patients with extremes in muscle mass or diet. The data above are obtained from the National Kidney Disease Education Program (NKDEP) which additionally recommends that when the eGFR is used in patients with extremes of body mass index for purposes of drug dosing, the eGFR should be multiplied by the estimated BMI. [facility] CHEM PANEL Globulin 4.1 g/dL 2.0 - 4.0 03/29/2015 [facility] CHEM PANEL A/G Ratio 0.9 0.7 - 1.6 03/29/2015 [facility] CHEM PANEL B/C Ratio 9 6 - 25 03/29/2015 [facility] CHEM PANEL Alk Phos 93 unit/L 39 - 136 03/29/2015 [facility] CHEM PANEL Bili Total 0.8 mg/dL 0.2 - 1.3 03/29/2015 [facility] CHEM PANEL AGAP 8.6 meq/L 10.0 - 20.0 03/29/2015 [facility] CHEM PANEL Total Protein 7.8 g/dL 6.4 - 8.4 03/29/2015 [facility] CHEM PANEL Albumin Lvl 3.7 g/dL 3.5 - 5.0 03/29/2015 [facility] CHEM PANEL Calcium Lvl 8.7 mg/dL 8.5 - 10.5 03/29/2015 [facility] CHEM PANEL ALT 16 unit/L 0 - 65 03/29/2015 [facility] CHEM PANEL AST 12 unit/L 0 - 37 03/29/2015 [facility] CHEM PANEL Sodium Lvl 137 meq/L 135 - 145 03/29/2015 [facility] CHEM PANEL CO2 27 meq/L 24 - 32 03/29/2015 [facility] CHEM PANEL Potassium Lvl 3.6 meq/L 3.5 - 5.1 03/29/2015 [facility] CHEM PANEL Chloride Lvl 105 meq/L 95 - 109 03/29/2015 [facility] CHEM PANEL Creatinine Lvl 0.7 mg/dL 0.5 - 1.4 03/29/2015 [facility] CHEM PANEL Glucose Lvl 111 mg/dL 70 - 99 03/29/2015 [facility] CHEM PANEL BUN 6 mg/dL 7 - 22 03/29/2015 [facility] ENDOCRINOLOGY S Preg Negative *NA* (03/29/15 12:26 PM) Negative 03/29/2015 [facility] [place] INR 1.02 0.85 - 1.17 03/29/2015 [facility] [place] PT 13.4 s 12.0 - 14.7 03/29/2015 [facility] [place] PTT 32.6 s 22.9 - 35.8 03/29/2015 [facility] [place] RDW 14.5 % 11.5 - 14.5 03/29/2015 [facility] [place] Platelet 430 K/CMM 133 - 450 03/29/2015 [facility] [place] MCHC 32.3 g/dL 32.0 - 36.0 03/29/2015 [facility] [place] MPV 7.8 fL 7.4 - 10.4 03/29/2015 [facility] [place] MCV 85.7 fL 80.0 - 98.0 03/29/2015 [facility] [place] MCH 27.7 pg 27.0 - 31.0 03/29/2015 [facility] [place] Hgb 12.6 g/dL 12.0 - 16.0 03/29/2015 [facility] [place] Hct 38.9 % 36.0 - 48.0 03/29/2015 [facility] [place] RBC 4.54 M/CMM 4.20 - 5.40 03/29/2015 [facility] [place] WBC 10.1 K/CMM 3.7 - 10.4 03/29/2015 [facility] [place] Sed Rate 18 mm/h 0 - 20 03/29/2015 [facility] [place] Basophils # 0.1 K/CMM 0.0 - 0.2 03/29/2015 [facility] HEMATOLOGY Eosinophils # 0.1 K/CMM 0.0 - 0.5 03/29/2015 [facility] [place] Basophils 0.7 % 0.0 - 1.0 03/29/2015 [facility] [place] Segs-Bands # 7.0 K/CMM 1.5 - 8.1 03/29/2015 [facility] [place] Monocytes # 0.5 K/CMM 0.0 - 0.8 03/29/2015 [facility] [place] Lymphocytes # 2.4 K/CMM 1.0 - 5.5 03/29/2015 [facility] HEMATOLOGY Monocytes 5.4 % 2.0 - 12.0 03/29/2015 [facility] HEMATOLOGY Eosinophils 0.9 % 0.0 - 4.0 03/29/2015 [facility] HEMATOLOGY Lymphocytes 23.9 % 20.0 - 40.0 03/29/2015 [facility] HEMATOLOGY Segs 69.1 % 45.0 - 75.0 03/29/2015 [facility] Chest 1view DX Chest 1view DX EXAM: CHEST 1 VIEW DATE: Mar 29, 2015 01:16:36 PM INDICATION: Focal neurological deficit COMPARISON: None. TECHNIQUE: AP chest radiograph. FINDINGS: Lungs are clear bilaterally No pleural effusion or pneumothorax is identified . Prominence of cardio mediastinal contours is likely related to low lung volumes and AP technique.. The skeleton is intact IMPRESSION: 1. No acute intrathoracic abnormality SL: 12 03/29/2015 - - Read by: Jesika Kee MD Dictated Date/time: 03/29/15 13:25 Electronically Signed by: Jesika Kee MD 03/29/15 13:26 FINAL REPORT [facility] Brain wo contrast CT Brain wo contrast CT CRANIAL CT (without contrast) HISTORY: Focal neurologic deficit, left-sided arm and left lower extremity weakness. History of hypertension. TECHNIQUE: Helical CT images were obtained from the foramen magnum to the vertex without the use of intravenous contrast. Sagittal and coronal reconstructions were provided. The examination was performed from the emergency department. A prior study of 11/09/2014 was reviewed. FINDINGS: There is normal appearance of the ventricular system and extraventricular CSF spaces. There is no evidence of mass, midline shift, hemorrhage, extra-axial fluid collection, acute infarction, or other focal abnormal attenuation within the brain parenchyma. The calvarium is intact. The visualized sinuses and mastoids are clear. CONCLUSION: 1. Negative noncontrast cranial CT. Coding: Brain wo contrast CT CPT Code: 66792 SL: 13 Wally Harris M.D. 03/29/2015 - - Read by: Wally Harris MD Dictated Date/time: 03/29/15 13:03 Electronically Signed by: Wally Harris MD 03/29/15 13:05 FINAL REPORT [facility] CARDIAC ENZYMES BNP 2 pg/mL <=100 pg/mL 11/09/2014 3Interpretive Data: Elevated results are in line with increasing severity of congestive heart failure. Minor elevations between 100 and 300 may be seen with Myocardial Ischemia, Sodium retaining drugs, and compensated/treated heart failure. [facility] CARDIAC ENZYMES Troponin-I null 0.00 - 0.40 11/09/2014 [facility] CHEM PANEL Magnesium Lvl 1.6 mg/dL 1.8 - 2.4 11/09/2014 [facility] CHEM PANEL eGFR 110 mL/min/1.73m2 11/09/2014 1Result Comment: The eGFR is calculated using the CKD-EPI formula. In most young, healthy individuals the eGFR will be >90 mL/min/1.73m2. The eGFR declines with age. An eGFR of 60-89 may be normal in some populations, particularly the elderly, for whom the CKD-EPI formula has not been extensively validated. Use of the eGFR is not recommended in the following populations: Individuals with unstable creatinine concentrations, including patients and those with serious co-morbid conditions. Patients with extremes in muscle mass or diet. The data above are obtained from the National Kidney Disease Education Program (NKDEP) which additionally recommends that when the eGFR is used in patients with extremes of body mass index for purposes of drug dosing, the eGFR should be multiplied by the estimated BMI. [facility] CHEM PANEL Chloride Lvl 103 meq/L 95 - 109 11/09/2014 [facility] CHEM PANEL CO2 27 meq/L 24 - 32 11/09/2014 [facility] CHEM PANEL Calcium Lvl 9.1 mg/dL 8.5 - 10.5 11/09/2014 [facility] CHEM PANEL Sodium Lvl 137 meq/L 135 - 145 11/09/2014 [facility] CHEM PANEL Potassium Lvl 3.7 meq/L 3.5 - 5.1 11/09/2014 [facility] CHEM PANEL BUN 9 mg/dL 7 - 22 11/09/2014 [facility] CHEM PANEL Creatinine Lvl 0.7 mg/dL 0.5 - 1.4 11/09/2014 [facility] CHEM PANEL Glucose Lvl 103 mg/dL 70 - 99 11/09/2014 2Interpretive Data: Adult reference range values reflect the clinical guidelines of the [place] [employer]. [facility] CHEM PANEL AGAP 10.7 meq/L 10.0 - 20.0 11/09/2014 [facility] HEMATOLOGY MPV 7.4 fL 7.4 - 10.4 11/09/2014 [facility] HEMATOLOGY Platelet 457 K/CMM 133 - 450 11/09/2014 [facility] [place] RDW 13.8 % 11.5 - 14.5 11/09/2014 [facility] [place] MCHC 33.4 g/dL 32.0 - 36.0 11/09/2014 [facility] [place] WBC 13.5 K/CMM 3.7 - 10.4 11/09/2014 [facility] [place] RBC 4.34 M/CMM 4.20 - 5.40 11/09/2014 [facility] [place] Hgb 12.7 g/dL 12.0 - 16.0 11/09/2014 [facility] [place] MCH 29.2 pg 27.0 - 31.0 11/09/2014 [facility] [place] Hct 37.9 % 36.0 - 48.0 11/09/2014 [facility] [place] MCV 87.3 fL 80.0 - 98.0 11/09/2014 [facility] [place] PT 13.1 s 12.0 - 14.7 11/09/2014 [facility] [place] INR 0.99 0.85 - 1.17 11/09/2014 4Interpretive Data: RECOMMENDED RANGES FOR PROTIME INR: 2.0-3.0 for most medical and surgical thromboembolic states. 2.5-3.5 for artificial heart valves and recurrent embolism. INR SHOULD BE USED ONLY FOR PATIENTS ON STABLE ANTICOAGULANT THERAPY. [facility] [place] PTT 29.8 s 22.9 - 35.8 11/09/2014 5Interpretive Data: Heparin Therapeutic Range: 57 - 92 Seconds [facility] [place] Monocytes 5.1 % 2.0 - 12.0 11/09/2014 [facility] [place] Lymphocytes 16.4 % 20.0 - 40.0 11/09/2014 [facility] [place] Segs 77.0 % 45.0 - 75.0 11/09/2014 [facility] [place] Monocytes # 0.7 K/CMM 0.0 - 0.8 11/09/2014 [facility] [place] Lymphocytes # 2.2 K/CMM 1.0 - 5.5 11/09/2014 [facility] [place] Segs-Bands # 10.4 K/CMM 1.5 - 8.1 11/09/2014 [facility] [place] Basophils 0.9 % 0.0 - 1.0 11/09/2014 [facility] [place] Eosinophils 0.6 % 0.0 - 4.0 11/09/2014 [facility] [place] Basophils # 0.1 K/CMM 0.0 - 0.2 11/09/2014 [facility] HEMATOLOGY Eosinophils # 0.1 K/CMM 0.0 - 0.5 11/09/2014 [facility] URINE AND STOOL Micro? Not Indicated (11/09/14 3:50 PM) 11/09/2014 [facility] URINE AND STOOL UA Leuk Est Negative (11/09/14 3:50 PM) Negative 11/09/2014 [facility] URINE AND STOOL UA Blood Negative (11/09/14 3:50 PM) Negative 11/09/2014 [facility] URINE AND STOOL UA Urobilinogen 0.2 EU/dL 0.1 - 1.0 11/09/2014 [facility] URINE AND STOOL UA Nitrite Negative (11/09/14 3:50 PM) Negative 11/09/2014 [facility] URINE AND STOOL UA pH 6.0 5.0 - 8.0 11/09/2014 [facility] URINE AND STOOL UA Turbidity Clear (11/09/14 3:50 PM) Clear 11/09/2014 [facility] URINE AND STOOL UA Spec Grav <=1.005
*NA*
(11/09/14 3:50 PM) <=1.030 11/09/2014 [facility] URINE AND STOOL UA Color Yellow *NA* (11/09/14 3:50 PM) Yellow 11/09/2014 [facility] URINE AND STOOL UA Ketones Trace *ABN* (11/09/14 3:50 PM) Negative 11/09/2014 [facility] URINE AND STOOL UA Bili Negative *NA* (11/09/14 3:50 PM) Negative 11/09/2014 [facility] URINE AND STOOL UA Protein Negative (11/09/14 3:50 PM) Negative 11/09/2014 [facility] URINE AND STOOL UA Glucose Negative (11/09/14 3:50 PM) Negative 11/09/2014 [facility] URINE CHEM U Preg Negative (11/09/14 3:50 PM) Negative 11/09/2014 [facility] ELECTROLYTES AGAP 11.5 meq/L 10.0 - 20.0 09/04/2014 [facility] ELECTROLYTES eGFR 94 mL/min/1.73m2 09/04/2014 1Result Comment: The eGFR is calculated using the CKD-EPI formula. In most young, healthy individuals the eGFR will be >90 mL/min/1.73m2. The eGFR declines with age. An eGFR of 60-89 may be normal in some populations, particularly the elderly, for whom the CKD-EPI formula has not been extensively validated. Use of the eGFR is not recommended in the following populations: Individuals with unstable creatinine concentrations, including patients and those with serious co-morbid conditions. Patients with extremes in muscle mass or diet. The data above are obtained from the National Kidney Disease Education Program (NKDEP) which additionally recommends that when the eGFR is used in patients with extremes of body mass index for purposes of drug dosing, the eGFR should be multiplied by the estimated BMI. [facility] ELECTROLYTES Glucose Lvl 113 mg/dL 70 - 99 09/04/2014 4Interpretive Data: Adult reference range values reflect the clinical guidelines of the [place] [employer]. [facility] ELECTROLYTES Creatinine Lvl 0.8 mg/dL 0.5 - 1.4 09/04/2014 [facility] ELECTROLYTES BUN 14 mg/dL 7 - 22 09/04/2014 [facility] ELECTROLYTES Calcium Lvl 8.7 mg/dL 8.5 - 10.5 09/04/2014 [facility] ELECTROLYTES CO2 24 meq/L 24 - 32 09/04/2014 [facility] ELECTROLYTES Chloride Lvl 105 meq/L 95 - 109 09/04/2014 [facility] ELECTROLYTES Potassium Lvl 3.5 meq/L 3.5 - 5.1 09/04/2014 [facility] ELECTROLYTES Sodium Lvl 137 meq/L 135 - 145 09/04/2014 [facility] HEMATOLOGY Monocytes # 0.8 K/CMM 0.0 - 0.8 09/04/2014 [facility] HEMATOLOGY Eosinophils # 0.2 K/CMM 0.0 - 0.5 09/04/2014 [facility] [place] Lymphocytes # 3.3 K/CMM 1.0 - 5.5 09/04/2014 [facility] HEMATOLOGY Segs 61.0 % 45.0 - 75.0 09/04/2014 [facility] HEMATOLOGY Lymphocytes 29.8 % 20.0 - 40.0 09/04/2014 [facility] HEMATOLOGY Basophils # 0.1 K/CMM 0.0 - 0.2 09/04/2014 [facility] [place] Segs-Bands # 6.8 K/CMM 1.5 - 8.1 09/04/2014 [facility] HEMATOLOGY Eosinophils 1.6 % 0.0 - 4.0 09/04/2014 [facility] HEMATOLOGY Basophils 0.6 % 0.0 - 1.0 09/04/2014 [facility] [place] Monocytes 7.0 % 2.0 - 12.0 09/04/2014 [facility] [place] MPV 7.8 fL 7.4 - 10.4 09/04/2014 [facility] [place] RDW 14.4 % 11.5 - 14.5 09/04/2014 [facility] [place] Platelet 371 K/CMM 133 - 450 09/04/2014 [facility] [place] Hct 36.7 % 36.0 - 48.0 09/04/2014 [facility] [place] MCV 89.3 fL 80.0 - 98.0 09/04/2014 [facility] [place] MCH 29.7 pg 27.0 - 31.0 09/04/2014 [facility] [place] MCHC 33.3 g/dL 32.0 - 36.0 09/04/2014 [facility] [place] Hgb 12.2 g/dL 12.0 - 16.0 09/04/2014 [facility] [place] WBC 11.1 K/CMM 3.7 - 10.4 09/04/2014 [facility] [place] RBC 4.11 M/CMM 4.20 - 5.40 09/04/2014 [facility] CHEM PANEL eGFR 110 mL/min/1.73m2 09/03/2014 2Result Comment: The eGFR is calculated using the CKD-EPI formula. In most young, healthy individuals the eGFR will be >90 mL/min/1.73m2. The eGFR declines with age. An eGFR of 60-89 may be normal in some populations, particularly the elderly, for whom the CKD-EPI formula has not been extensively validated. Use of the eGFR is not recommended in the following populations: Individuals with unstable creatinine concentrations, including patients and those with serious co-morbid conditions. Patients with extremes in muscle mass or diet. The data above are obtained from the National Kidney Disease Education Program (NKDEP) which additionally recommends that when the eGFR is used in patients with extremes of body mass index for purposes of drug dosing, the eGFR should be multiplied by the estimated BMI. [facility] CHEM PANEL Calcium Lvl 8.6 mg/dL 8.5 - 10.5 09/03/2014 [facility] CHEM PANEL CO2 25 meq/L 24 - 32 09/03/2014 [facility] CHEM PANEL Chloride Lvl 106 meq/L 95 - 109 09/03/2014 [facility] CHEM PANEL Sodium Lvl 138 meq/L 135 - 145 09/03/2014 [facility] CHEM PANEL Potassium Lvl 3.4 meq/L 3.5 - 5.1 09/03/2014 [facility] CHEM PANEL Creatinine Lvl 0.7 mg/dL 0.5 - 1.4 09/03/2014 [facility] CHEM PANEL BUN 10 mg/dL 7 - 22 09/03/2014 [facility] CHEM PANEL Glucose Lvl 119 mg/dL 70 - 99 09/03/2014 5Interpretive Data: Adult reference range values reflect the clinical guidelines of the [place] [employer]. [facility] CHEM PANEL AGAP 10.4 meq/L 10.0 - 20.0 09/03/2014 [facility] HEMATOLOGY WBC 10.8 K/CMM 3.7 - 10.4 09/03/2014 [facility] [place] MCHC 33.7 g/dL 32.0 - 36.0 09/03/2014 [facility] [place] RDW 14.8 % 11.5 - 14.5 09/03/2014 [facility] [place] Platelet 336 K/CMM 133 - 450 09/03/2014 [facility] [place] MPV 7.6 fL 7.4 - 10.4 09/03/2014 [facility] [place] Hgb 12.4 g/dL 12.0 - 16.0 09/03/2014 [facility] [place] RBC 4.14 M/CMM 4.20 - 5.40 09/03/2014 [facility] [place] MCV 89.1 fL 80.0 - 98.0 09/03/2014 [facility] [place] Hct 36.9 % 36.0 - 48.0 09/03/2014 [facility] [place] MCH 30.0 pg 27.0 - 31.0 09/03/2014 [facility] [place] Eosinophils 0.9 % 0.0 - 4.0 09/03/2014 [facility] HEMATOLOGY Segs-Bands # 6.1 K/CMM 1.5 - 8.1 09/03/2014 [facility] HEMATOLOGY Basophils 0.6 % 0.0 - 1.0 09/03/2014 [facility] HEMATOLOGY Monocytes # 0.9 K/CMM 0.0 - 0.8 09/03/2014 [facility] HEMATOLOGY Lymphocytes # 3.5 K/CMM 1.0 - 5.5 09/03/2014 [facility] HEMATOLOGY Eosinophils # 0.1 K/CMM 0.0 - 0.5 09/03/2014 [facility] HEMATOLOGY Segs 57.0 % 45.0 - 75.0 09/03/2014 [facility] HEMATOLOGY Lymphocytes 33.0 % 20.0 - 40.0 09/03/2014 [facility] HEMATOLOGY Monocytes 8.5 % 2.0 - 12.0 09/03/2014 [facility] HEMATOLOGY Basophils # 0.1 K/CMM 0.0 - 0.2 09/03/2014 [facility] Brain/Neck CTA Brain/Neck CTA CTA HEAD AND NECK: CLINICAL HISTORY: Facial numbness TECHNIQUE AND FINDINGS: Multiple contiguous transaxial postcontrast CT images were obtained through the head neck. Additionally, 2 dimensional and 3 dimensional reformatted images were prepared. Any reported ICA stenoses reference the distal internal carotid diameter as the denominator for stenosis measurement. COMPARISON: No prior similar examinations are currently available for comparison. CTA NECK: 1. Aortic arch: The visualized portions of the aortic arch, brachiocephalic artery origin, left common carotid artery origin, and left subclavian artery origin are normal after accounting for mild streak artifact related to dense contrast in the adjacent vessels. 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 The right common carotid artery arises directly from the aortic arch immediately adjacent to the left common carotid artery origin. Mild streak artifact partially obscures the proximal aspect of the right common carotid artery. 2. Brachiocephalic trunk and visualized portions of the subclavian arteries: No abnormality. 3. Right carotid artery: No focal stenosis. 4. Left carotid artery: No focal stenosis. 5. Vertebral arteries: No focal stenosis. 6. Soft tissue findings: Scattered subcentimeter bilateral cervical lymph nodes without lymphadenopathy or mass. The parotid glands, submandibular glands, and thyroid are normal. The airway and visualized portions of the lung apices are clear. tiny mucous retention cyst in the right maxillary sinus. The visualized portions of the remaining paranasal sinuses and mastoids are clear. No acute fracture, dislocation, or focal osseous lesion is appreciated. CTA HEAD: 1. Internal carotid arteries: Right cervical internal carotid artery siphon extending into the supraclinoid ICA. Much milder irregularity and narrowing is questioned in the left supraclinoid ICA, most likely artifactual. 2. Middle cerebral arteries: The distal right supraclinoid ICA and right M1 segment are diffusely irregular and abnormal with multiple small adjacent irregular collateral vessels suspected. Irregularity is also seen extending into the right MCA bifurcation. Mild irregularity is seen peripherally in the right MCA branches. The left MCA is normal. 3. Anterior cerebral arteries: A normal right A1 segment is never identified. Some irregular collateral vessels are present at the expected location of the right A1 segment. The left A1 segment both A2 segments are normal with a normal anterior communicating artery. 4. Vertebrobasilar system: No focal stenosis or aneurysm. 5. Bilateral [employer]INEER, SCA, AICA, and PICA: No focal stenosis or aneurysm. 6. General findings: The brain volume and ventricle size are appropriate for age. Scattered areas of low-attenuation are seen in the right frontal lobe and right temporal lobe distribution similar to recent MRI findings. No definite intracranial hemorrhage, mass, mass-effect, or extra-axial fluid collection is appreciated. IMPRESSION: 1. Irregularity and narrowing seen involving the right internal carotid artery distally extending into the right MCA and right A1 segment with suspected small collateral vessels. Findings may be related to thrombosis with collaterals, vasculitis, or a moyamoya type pattern. Follow-up conventional angiogram would likely be helpful. 2. Scattered areas of low-attenuation in the right frontal lobe and right temporal lobe corresponding to recent MRI abnormality likely representing areas of ischemia. 3. 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 4. Minimal chronic sinusitis. Critical findings were discussed with Dr. Roca on 09/03/2014 at 0818 hours. SL:17 09/02/2014 - - Read by: Sandip Reid MD Dictated Date/time: 09/03/14 07:03 Electronically Signed by: Sandip Reid MD 09/03/14 08:18 FINAL REPORT [facility] ELECTROLYTES AGAP 14.7 meq/L 10.0 - 20.0 09/02/2014 [facility] ELECTROLYTES eGFR 110 mL/min/1.73m2 09/02/2014 3Result Comment: The eGFR is calculated using the CKD-EPI formula. In most young, healthy individuals the eGFR will be >90 mL/min/1.73m2. The eGFR declines with age. An eGFR of 60-89 may be normal in some populations, particularly the elderly, for whom the CKD-EPI formula has not been extensively validated. Use of the eGFR is not recommended in the following populations: Individuals with unstable creatinine concentrations, including patients and those with serious co-morbid conditions. Patients with extremes in muscle mass or diet. The data above are obtained from the National Kidney Disease Education Program (NKDEP) which additionally recommends that when the eGFR is used in patients with extremes of body mass index for purposes of drug dosing, the eGFR should be multiplied by the estimated BMI. [facility] ELECTROLYTES Calcium Lvl 8.7 mg/dL 8.5 - 10.5 09/02/2014 [facility] ELECTROLYTES Chloride Lvl 105 meq/L 95 - 109 09/02/2014 [facility] ELECTROLYTES CO2 23 meq/L 24 - 32 09/02/2014 [facility] ELECTROLYTES Sodium Lvl 139 meq/L 135 - 145 09/02/2014 [facility] ELECTROLYTES Potassium Lvl 3.7 meq/L 3.5 - 5.1 09/02/2014 [facility] ELECTROLYTES BUN 15 mg/dL 7 - 22 09/02/2014 [facility] ELECTROLYTES Creatinine Lvl 0.7 mg/dL 0.5 - 1.4 09/02/2014 [facility] ELECTROLYTES Glucose Lvl 114 mg/dL 70 - 99 09/02/2014 6Interpretive Data: Adult reference range values reflect the clinical guidelines of the [place] [employer]. [facility] Monocytes 2.0 % 2.0 - 12.0 09/02/2014 [facility] [place] Lymphocytes 42.0 % 20.0 - 40.0 09/02/2014 [facility] HEMATOLOGY Bands 0.0 % 0.0 - 11.0 09/02/2014 [facility] [place] Segs 56.0 % 45.0 - 75.0 09/02/2014 [facility] [place] RBC Morph Normal (09/02/14 4:42 AM) 09/02/2014 [facility] [place] Atypical Lymphs 0.0 % <=0.0 % 09/02/2014 [facility] [place] Plt Morph Normal (09/02/14 4:42 AM) 09/02/2014 [facility] [place] Monocytes # 0.2 K/CMM 0.0 - 0.8 09/02/2014 [facility] [place] Lymphocytes # 4.3 K/CMM 1.0 - 5.5 09/02/2014 [facility] [place] Segs-Bands # 5.8 K/CMM 1.5 - 8.1 09/02/2014 [facility] [place] MCHC 33.2 g/dL 32.0 - 36.0 09/02/2014 [facility] [place] MCH 29.6 pg 27.0 - 31.0 09/02/2014 [facility] [place] Platelet 333 K/CMM 133 - 450 09/02/2014 [facility] [place] MPV 7.7 fL 7.4 - 10.4 09/02/2014 [facility] HEMATOLOGY RDW 14.6 % 11.5 - 14.5 09/02/2014 [facility] HEMATOLOGY Hct 34.2 % 36.0 - 48.0 09/02/2014 [facility] HEMATOLOGY MCV 89.1 fL 80.0 - 98.0 09/02/2014 [facility] HEMATOLOGY Hgb 11.4 g/dL 12.0 - 16.0 09/02/2014 [facility] HEMATOLOGY RBC 3.84 M/CMM 4.20 - 5.40 09/02/2014 [facility] HEMATOLOGY WBC 10.3 K/CMM 3.7 - 10.4 09/02/2014 [facility] LIPIDS LDL (Calculated) 121 mg/dL <=99 mg/dL 09/02/2014 [facility] LIPIDS VLDL 53 09/02/2014 [facility] LIPIDS CHD Risk 6.12 3.90 - 5.80 09/02/2014 [facility] LIPIDS Chol 208 mg/dL <=199 mg/dL 09/02/2014 [facility] LIPIDS Trig 263 mg/dL <=149 mg/dL 09/02/2014 [facility] LIPIDS HDL 34 mg/dL >=61 mg/dL 09/02/2014 [facility] SPECIAL CHEMISTRY Hgb A1C 6.7 % <=5.6 % 09/02/2014 [facility] BODY FLUIDS RBC CSF 4 /mm3 0 - 03 09/02/2014 [facility] BODY FLUIDS Color CSF Colorless (09/01/14 6:10 PM) Colorless 09/02/2014 [facility] BODY FLUIDS WBC CSF 2 /mm3 0 - 53 09/02/2014 [facility] BODY FLUIDS Clarity CSF Clear (09/01/14 6:10 PM) Clear 09/02/2014 [facility] BODY FLUIDS Supernat CSF Colorless (09/01/14 6:10 PM) Colorless 09/02/2014 [facility] BODY FLUIDS Tube Num CSF 3 09/02/2014 [facility] BODY FLUIDS Protein CSF 49 mg/dL 15 - 45 09/02/2014 [facility] BODY FLUIDS Glucose CSF 74 mg/dL 45 - 80 09/02/2014 [facility] FUNGAL - SEROLOGY Crypto Ag CSF Negative (09/01/14 6:10 PM) Negative 09/02/2014 [facility] IMMUNOLOGY CSF Men A Negative (09/01/14 6:10 PM) Negative 09/02/2014 [facility] IMMUNOLOGY CSF H Influ B Negative 7 (09/01/14 6:10 PM) Negative 09/02/2014 7Interpretive Data: Testing includes polyclonal antibody to Haemophilus influenzae type b. [facility] CSF S pneumo Negative (09/01/14 6:10 PM) Negative 09/02/2014 [facility] CSF Men C Negative (09/01/14 6:10 PM) Negative 09/02/2014 [facility] CSF Strep B Negative (09/01/14 6:10 PM) Negative 09/02/2014 [facility] CSF Men B Negative (09/01/14 6:10 PM) Negative 09/02/2014 [facility] MOLECULAR DIAGNOSTIC Source HSV Cerebral Spinal Fluid 09/02/2014 [facility] MOLECULAR DIAGNOSTIC HSV 2 by PCR Not Performed 9, 10 (09/01/14 6:10 PM) Negative 09/02/2014 10Interpretive Data: All results should be used as an aid in diagnosis and used in correlation with clinical findings and patient symptoms. A negative result does not rule out the presence of Herpes Simplex Virus. The specimen may contain HSV below the detectable limits of the assay. An indeterminate result will be obtained if inhibitors of PCR are present. The test is performed using Analyte Specific Reagents (ASRs) for Real-Time nucleic acid amplification (PCR) from [employer] The performance characteristics of this assay were validated by the [facility] within [facility]. The [facility] is authorized under the Clinical Improvement Amendments of 1988 (CLIA-88) to perform high-complexity testing. This test has not been cleared by the U.S. Food and Drug Administration (FDA). However, FDA approval is not required and the use should not be considered investigational or research. [facility] MOLECULAR DIAGNOSTIC HSV 1 by PCR Not Performed 8 (09/01/14 6:10 PM) Negative 09/02/2014 8Result Comment: CSF contains less than 5 WBC'S and has a normal Protein level. [facility] VIRAL - SEROLOGY Enterovirus PCR CSF Negative 11 (09/01/14 6:10 PM) Negative 09/02/2014 11Interpretive Data: Interpretation: Negative.....No enterovirus DNA detected by PCR Positive.....Enterovirus DNA detected by PCR Assay Limitations: A negative result does not rule out the presence of PCR inhibitors in the patient specimen or Enterovirus nucleic acid in concentrations below the level of detection of the assay. [facility] CARDIAC ENZYMES Troponin-I null 0.00 - 0.40 09/01/2014 [facility] CARDIAC ENZYMES CK MB 0.6 ng/mL 0.5 - 3.6 09/01/2014 [facility] CARDIAC ENZYMES Total CK 61 unit/L 12 - 191 09/01/2014 [facility] CARDIAC ENZYMES CK MB Index 1.0 0.0 - 2.5 09/01/2014 [facility] CHEM PANEL A/G Ratio 1.0 0.7 - 1.6 09/01/2014 [facility] CHEM PANEL Globulin 4.2 g/dL 2.0 - 4.0 09/01/2014 [facility] CHEM PANEL Bili Total 0.8 mg/dL 0.2 - 1.3 09/01/2014 [facility] CHEM PANEL B/C Ratio 14 6 - 25 09/01/2014 [facility] CHEM PANEL Albumin Lvl 4.1 g/dL 3.5 - 5.0 09/01/2014 [facility] CHEM PANEL Total Protein 8.3 g/dL 6.4 - 8.4 09/01/2014 [facility] CHEM PANEL ALT 28 unit/L 0 - 65 09/01/2014 [facility] CHEM PANEL Alk Phos 77 unit/L 39 - 136 09/01/2014 [facility] CHEM PANEL AST 17 unit/L 0 - 37 09/01/2014 [facility] HEMATOLOGY Basophils # 0.0 K/CMM 0.0 - 0.2 09/01/2014 [facility] HEMATOLOGY Eosinophils # 0.0 K/CMM 0.0 - 0.5 09/01/2014 [facility] HEMATOLOGY Eosinophils 0.1 % 0.0 - 4.0 09/01/2014 [facility] HEMATOLOGY Basophils 0.1 % 0.0 - 1.0 09/01/2014 [facility] SPECIAL CHEMISTRY Hgb A1C 6.8 % <=5.6 % 09/01/2014 [facility] THYROID PANEL TSH 1.710 uIU/mL 0.360 - 3.740 09/01/2014 [facility] Brain wo contrast MRI Brain wo contrast MRI PROCEDURE: Brain wo contrast MRI CLINICAL INFORMATION Facial numbness COMPARISON: CAT scan 08/31/2014. Sulcal hyperintensity is noted in the right frontal lobe, temporal lobe, parietal lobe. Scattered foci of restricted diffusion in the right posterior temporal lobe. No midline shift. The sella and foramen magnum regions are normal. No definite mass. IMPRESSION: 1. 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 Superimposed small infarction is considered less likely. These findings are communicated to Dr. Clayton at 5:11 p.m. SL: 14 09/01/2014 - - Read by: Prince Fitzgreald MD Dictated Date/time: 09/01/14 16:59 Electronically Signed by: Prince Fitzgerald MD 09/01/14 17:12 FINAL REPORT [facility] Vital Signs Vital Sign Value Date Comments Source Weight 95.909 03/28/2018 [facility] BMI Calculated 36.29 03/28/2018 [facility] Height 162.56 cm 03/28/2018 [facility] Temperature Oral (F) 98.7 F 03/28/2018 [facility] Heart Rate 99 03/28/2018 [facility] Respitory Rate 16 03/28/2018 [facility] Systolic (mm Hg) 150 03/28/2018 [facility] Diastolic (mm Hg) 77 03/28/2018 [facility] Systolic (mm Hg) 127 12/26/2016 [facility] Diastolic (mm Hg) 80 12/26/2016 [facility] Respitory Rate 20 12/26/2016 [facility] Temperature Oral (F) 98.6 F 12/26/2016 [facility] Heart Rate 63 12/26/2016 [facility] Heart Rate 64 12/26/2016 [facility] Temperature Oral (F) 98.5 F 12/26/2016 [facility] Respitory Rate 20 12/26/2016 [facility] Systolic (mm Hg) 139 12/26/2016 [facility] Diastolic (mm Hg) 83 12/26/2016 [facility] Respitory Rate 20 12/26/2016 [facility] Systolic (mm Hg) 122 12/26/2016 [facility] Diastolic (mm Hg) 86 12/26/2016 [facility] Heart Rate 89 12/26/2016 [facility] Temperature Oral (F) 97.7 F 12/26/2016 [facility] Weight 97 12/26/2016 [facility] Height 162.56 cm 12/25/2016 [facility] Weight 98.182 12/25/2016 [facility] BMI Calculated 37.15 12/25/2016 [facility] Respitory Rate 20 03/29/2015 [facility] Systolic (mm Hg) 126 03/29/2015 [facility] Diastolic (mm Hg) 66 03/29/2015 [facility] Temperature Oral (F) 98.3 F 03/29/2015 [facility] Heart Rate 66 03/29/2015 [facility] Respitory Rate 18 03/29/2015 [facility] Heart Rate 77 03/29/2015 [facility] Systolic (mm Hg) 167 03/29/2015 [facility] Diastolic (mm Hg) 97 03/29/2015 [facility] Weight 100 03/29/2015 [facility] BMI Calculated 37.84 03/29/2015 [facility] Height 162.56 cm 03/29/2015 [facility] Temperature Oral (F) 99.1 F 03/29/2015 [facility] Respitory Rate 18 03/29/2015 [facility] Heart Rate 76 03/29/2015 [facility] Systolic (mm Hg) 183 03/29/2015 [facility] Diastolic (mm Hg) 101 03/29/2015 [facility] Heart Rate 66 11/09/2014 [facility] Respitory Rate 18 11/09/2014 [facility] Temperature Oral (F) 98.3 F 11/09/2014 [facility] Systolic (mm Hg) 137 11/09/2014 [facility] Diastolic (mm Hg) 66 11/09/2014 [facility] Heart Rate 67 11/09/2014 [facility] Respitory Rate 18 11/09/2014 [facility] Systolic (mm Hg) 135 11/09/2014 [facility] Diastolic (mm Hg) 73 11/09/2014 [facility] Systolic (mm Hg) 138 11/09/2014 [facility] Diastolic (mm Hg) 83 11/09/2014 [facility] Respitory Rate 16 11/09/2014 [facility] Heart Rate 77 11/09/2014 [facility] Weight 97.727 11/09/2014 [facility] BMI Calculated 36.98 11/09/2014 [facility] Height 162.56 cm 11/09/2014 [facility] Temperature Oral (F) 98.2 F 11/09/2014 [facility] Diastolic (mm Hg) 84 09/04/2014 [facility] Systolic (mm Hg) 131 09/04/2014 [facility] Respitory Rate 20 09/04/2014 [facility] Temperature Oral (F) 98.5 F 09/04/2014 [facility] Heart Rate 67 09/04/2014 [facility] Temperature Oral (F) 98.1 F 09/04/2014 [facility] Systolic (mm Hg) 140 09/04/2014 [facility] Heart Rate 61 09/04/2014 [facility] Respitory Rate 20 09/04/2014 [facility] Diastolic (mm Hg) 89 09/04/2014 [facility] Diastolic (mm Hg) 81 09/04/2014 [facility] Temperature Oral (F) 99.1 F 09/04/2014 [facility] Heart Rate 61 09/04/2014 [facility] Respitory Rate 20 09/04/2014 [facility] Systolic (mm Hg) 124 09/04/2014 [facility] Weight 101.7 09/03/2014 [facility] BMI Calculated 37.84 09/01/2014 [facility] Height 162.56 cm 09/01/2014 [facility] Weight 100 09/01/2014 [facility] Encounters Location Location Details Encounter Type Encounter Number Reason For Visit Attending Provider ADM Date DC Date Status Source [facility] Inpatient [id number] Papa Jesse 09/01/2014 09/05/2014 [facility] [id number] Mildredscout Reyes 11/09/2014 11/09/2014 [facility] OBS Observation Patient [id number] Miguelito Salazar 03/29/2015 03/29/2015 [facility] Observation [id number] Rachel Leblanc 12/25/2016 12/26/2016 [facility] Emergency [id number] Jeronimo Fowler 03/28/2018 03/28/2018 [facility] Procedures Procedure Code Date Perfomer Comments Source Partial hysterectomy [id number] [facility] Tubal ligation [id number] [facility]
--- OUTSIDE RECORDS SUMMARY | 2019-01-11 11:17 | XMS REPORT | Summary of Care ---
Author Author [facility] Organization [facility] Address Unknown Phone Unavailable Encounter LADONNA Ramesh(CODEY) [id number] Date(s): 03/28/18 - 03/28/18 [facility] [address] [place] [address]- [phone] Encounter Diagnosis Chest pain, unspecified (Final) - 04/03/18 Discharge Disposition: Left Without Being Seen Attending Physician: Jeronimo Fowler MD Vital Signs Most recent to 1 oldest [Reference Range]: Height 162.56 cm (03/28/18 12:34 PM) Temperature Oral 98.7 DegF [96.4-99.1 DegF] (03/28/18 12:34 PM) Blood Pressure 150/77 mmHg [90-140/60-90 mmHg] *HI* (03/28/18 12:34 PM) Respiratory Rate 16 BRMIN [14-20 BRMIN] (03/28/18 12:34 PM) Peripheral Pulse 99 bpm Rate [60-100 bpm] (03/28/18 12:34 PM) Weight 95.909 kg (03/28/18 12:34 PM) Body Mass Index 36.29 m2 (03/28/18 12:34 PM) Problem List Condition Effective Dates Status Health Status Informant Diabetes(Confirmed) Resolved HTN Resolved (hypertension)(Confi rmed) HTN Active (hypertension)(Confi rmed) Hyperlipidemia(Confi Resolved rmed) [place] Resolved disease(Confirmed) Allergies, Adverse Reactions, Alerts Substance Reaction Severity Status NKDA Active Medications No data available for this section Results No data available for this section Immunizations No data available for this section Procedures Procedure Date Related Diagnosis Body Site Status Partial hysterectomy Completed Tubal ligation Completed Social History Social History Type Response Alcohol Past Smoking Status Never smoker; Exposure to Tobacco Smoke None; Cigarette Smoking Last 365 Days No; Reg Smoking Cessation Counseling No entered on: 12/25/16 Assessment and Plan No data available for this section
[2019-01-11] MEDS ORDERED: CLONIDINE HCL 0.1 MG TAB PO NR (11:45)
[2019-01-11 12:53] LABS: BASOPHILS # (AUTO) 0.1 (0.0-0.1); BASOPHILS % 0.6 % (0.0-1.0); EOSINOPHILS # (AUTO) 0.2 (0.0-0.4); EOSINOPHILS % 1.7 % (0.0-6.0); HEMATOCRIT 39.3 % (34.2-44.1); HEMOGLOBIN 12.5 g/dL (12.0-16.0); LYMPHOCYTES # (AUTO) 2.4 (1.0-3.2); LYMPHOCYTES % 24.8 % (18.0-39.1); MEAN CORPUSCULAR HEMOGLOBIN 27.8 pg (28-32); MEAN CORPUSCULAR HGB CONC 31.8 g/dL (31-35); MEAN CORPUSCULAR VOLUME 87.3 fL (81-99); MONOCYTES # (AUTO) 0.6 (0.2-0.8); MONOCYTES % 6.4 % (4.4-11.3); NEUTROPHILS # (AUTO) 6.3 (2.1-6.9); NEUTROPHILS % 65.5 % (38.7-80.0); PLATELET COUNT 489 x10e3/uL (140-360); RED CELL DISTRIBUTION WIDTH 13.9 % (11.7-14.4)
--- NOTE | 2019-01-11 12:58 | Diagnostic Imaging Report ---
EXAMINATION: CHEST SINGLE (PORTABLE) INDICATION: ^HTN ^[id number] ^[id number] COMPARISON: 04/27/2018 FINDINGS: AP view TUBES and LINES: None. LUNGS: Limited by body habitus. Lungs are well inflated. There is no evidence of pneumonia or pulmonary edema. PLEURA: No pleural effusion or pneumothorax. HEART AND MEDIASTINUM: The cardiomediastinal silhouette is unremarkable. BONES AND SOFT TISSUES: No acute osseous lesion. Soft tissues are unremarkable. UPPER ABDOMEN: No free air under the diaphragm. IMPRESSION: No acute thoracic abnormality. Signed by: Dr. Salvatore Morris MD on 01/11/2019 12:55 PM
[2019-01-11 13:11] LABS: INR 0.94; PROTHROMBIN TIME 13.1 seconds (11.9-14.5)
[2019-01-11 13:12] LABS: PARTIAL THROMBOPLASTIN TIME 26.9 seconds (23.8-35.5)
[2019-01-11 13:19] LABS: ALANINE AMINOTRANSFERASE 16 IU/L (0-55); ALBUMIN 3.9 g/dL (3.5-5.0); ALBUMIN/GLOBULIN RATIO 1.2 (0.8-2.0); ALKALINE PHOSPHATASE 74 IU/L (40-150); ANION GAP 12.6 mmol/L (8-16); BLOOD UREA NITROGEN 5 mg/dL (7-26); BUN/CREATININE RATIO 8 (6-25); CALCIUM 8.8 mg/dL (8.4-10.2); CARBON DIOXIDE 22 mmol/L (22-29); CHLORIDE 103 mmol/L (98-107); CREATINE KINASE 65 IU/L (29-168); CREATININE, SERUM 0.65 mg/dL (0.57-1.11); EST GLOMERULAR FILTRATION RATE > 60 ML/MIN (60-); GLUCOSE 129 mg/dL (74-118); MAGNESIUM 1.9 MG/DL (1.3-2.1); POTASSIUM 3.6 mmol/L (3.5-5.1); SODIUM 134 mmol/L (136-145)
--- NOTE | 2019-01-11 13:33 | Diagnostic Imaging Report ---
Exam: Head CT without contrast History: Left-sided facial numbness Comparison studies: Head CT 03/28/2018. Technique: Axial images were obtained from the skull base to the vertex. Coronal and sagittal images reconstructed from the axial data. Dose modulation, iterative reconstruction, and/or weight based adjustment of the mA/kV was utilized to reduce the radiation dose to as low as reasonably achievable. Radiation dose: Total DLP: 921 mGy*cm. Estimated effective dose: DLP x 0.015 Intravenous contrast: None Findings: Scalp: No abnormalities. Bones: No fractures, blastic or lytic lesions. Brain sulci: Appropriate for age. Ventricles: Normal in size and configuration. No hydrocephalus. Extra-axial spaces: No masses, no fluid collection. Parenchyma: No mass, acute hemorrhage or acute or chronic cortical insults. Chronic lacunar infarct in head of the right caudate nucleus is unchanged. A few scattered subtle hypodensities in the supratentorial white matter are nonspecific most compatible chronic microvascular ischemic changes. Sellar/suprasellar region: No abnormalities. Craniocervical junction: Patent foramen magnum. No Chiari one malformation. IMPRESSION: 1. No acute intracranial abnormalities. 2. No changes from the prior head CT of 03/28/2018. 3. Small chronic lacunar infarct in the right caudate nucleus. 4. Mild chronic microvascular ischemic changes. Signed by: Dr. Jeremías Gore M.D. on 01/11/2019 1:29 PM
== END 2019-01-11 14:59 | disposition home or self-care (01) ==
LOC: ER 11:13
DX: R20.2 Paresthesia of skin (principal); I10 Essential (primary) hypertension; E11.9 Type 2 diabetes mellitus without complications; K21.9 Gastro-esophageal reflux disease without esophagitis
CPT/HCPCS: 36415; 70450; 71045; 80053; 82550; 82553; 83735; 84484; 85025; 85610; 85730; 93005; 99284

== ENCOUNTER 2019-01-19 12:55 | Emergency (ER) | payer OTHER ==
[~2019-01-19] VITALS: Ht 162.6 cm; Wt 97.1 kg
--- OUTSIDE RECORDS SUMMARY | 2019-01-19 12:57 | XMS REPORT | Clinical Summary ---
Author Author [facility] Organization [facility] Address Unknown Phone Unavailable Care Team Providers Care Block Mechanic Name Role Phone Rachel Leblanc MD PCP [...] Not on file Results Not on fileafter 01/18/2018 Insurance Payer Benefit Subscriber ID Type Phone Address Plan / Group [employer] - [employer] CARE C[employer] xxxxxxxxxxx LOCAL PLUS Advance Directives For more information, please contact: [facility] [address] [place] [address] Date Inactivated Comments Code Status Date Activated 03/22/2017 3:31 PM Full Code 03/21/2017 6:35 PM This code status was determined by: Patient 03/21/2017 6:35 PM Full Code 2017 5:22 PM This code status was determined by: Patient 11/05/2014 8:21 PM Full Code 11/05/2014 4:12 PM This code status was determined by: Patient
[2019-01-19] MEDS ORDERED: DEXAMETHASONE SOD PHOS 10 MG/1 ML VIAL IM ONE (13:15)
== END 2019-01-19 15:17 | disposition home or self-care (01) ==
LOC: ER 12:55
DX: T78.3XXA Angioneurotic edema, initial encounter (principal); I10 Essential (primary) hypertension; E11.9 Type 2 diabetes mellitus without complications; I67.5 Moyamoya disease
CPT/HCPCS: 99283; J1100

== ENCOUNTER 2019-02-15 10:40 | Emergency (ER) | payer OTHER ==
[~2019-02-15] VITALS: Ht 162.6 cm; Wt 97.1 kg
--- OUTSIDE RECORDS SUMMARY | 2019-02-15 10:43 | XMS REPORT | Clinical Summary ---
Author Author [facility] Organization [facility] Address Unknown Phone Unavailable Care Team Providers Care Sericulturist Name Role Phone Rachel Leblanc MD PCP [...] Not on file Results Not on fileafter 02/14/2018 Insurance Payer Benefit Subscriber ID Type Phone Address Plan / Group [employer] - [employer] CARE C[employer] xxxxxxxxxxx LOCAL PLUS Advance Directives For more information, please contact: [facility] [address] [place] [address] Date Inactivated Comments Code Status Date Activated 03/22/2017 3:31 PM Full Code 03/21/2017 6:35 PM This code status was determined by: Patient 03/21/2017 6:35 PM Full Code 2017 5:22 PM This code status was determined by: Patient 11/05/2014 8:21 PM Full Code 11/05/2014 4:12 PM This code status was determined by: Patient
--- OUTSIDE RECORDS SUMMARY | 2019-02-15 10:44 | XMS REPORT | Continuity of Care Document ---
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 Phone [employer] [facility]formerly [employer] Information Wote Unavailable Unavailable Problems Problem Status Onset Date Classification Date Reported Comments Source Chest pain, unspecified 04/04/2018 10/15/2018 [facility] OTHER Active 03/28/2018 [facility] NUMBNESS Active 12/25/2016 [facility] MOYAMOYA DISEASE Active 12/25/2016 [facility] NOSE BLEEDS/OTHER Active 03/29/2015 [facility] TIA Active 03/29/2015 [facility] Discharge Diagnosis: TIA 11/09/2014 11/12/2014 [facility] CHEST PAIN Active 11/09/2014 [facility] WEAKNESS/HIGH BLOOD PRESSURE Active 09/01/2014 [facility] TIA, PARESTHESIAS Active 09/01/2014 [facility] ALLERGIC REACTION Active 08/31/2014 [facility] HTN (Confirmed) Active Problem 10/15/2018 [facility] Diabetes Resolved Problem 10/15/2018 [facility] HTN (Confirmed) Resolved Problem 10/15/2018 [facility] Hyperlipidemia Resolved Problem 10/15/2018 [facility] Moyamoya disease Resolved Problem 10/15/2018 [facility] TRANS CEREB ISCHEMIA NEC Active [facility] MOYAMOYA DISEASE Active [facility] Medications Medication Details Route Status Patient Instructions Ordering Provider Order Date Source Losartan 50 mg, Route: PO, Drug form: TAB, Daily, Dosing Weight 97, kg, Start date: 12/27/16 9:00:00 CDT, Duration: 30 day, Stop date: 01/25/17 9:00:00 CDT No Longer Active 12/27/2016 [facility] Plavix 75 mg, Route: PO, Drug form: TAB, Daily, Dosing Weight 97, kg, Start date: 12/27/16 9:00:00 CDT, Duration: 30 day, Stop date: 01/25/17 9:00:00 CDT No Longer Active 12/27/2016 [facility] Aspirin 325 MG Oral Tablet 325 mg, 1 tab, Route: PO, Drug form: TAB, Daily, Dosing Weight 97, kg, Start date: 12/27/16 9:00:00 CDT, Duration: 30 day, Stop date: 01/25/17 9:00:00 CDT No Longer Active 12/27/2016 [facility] Valproic Acid 100 MG/ML Injectable Solution 500 mg, 5 mL, Route: IVPB, ONCE, Dosing Weight 97, kg, Start date: 12/26/16 9:52:00 CDT, Stop date: 12/26/16 9:52:00 CDTNotes: Dilute in at least 50ml D5W or NS. Infusion rate=20 mg/min (Same As: Depacon) Inactive 12/26/2016 [facility] Magnesium Sulfate 2 gm, 50 mL, Route: IVPB, Drug form: INJ, ONCE, Dosing Weight 97, kg, Start date: 12/26/16 9:52:00 CDT, Duration: 2 hr, Stop date: 12/26/16 9:52:00 CDTNotes: WASTE: F/P - Sink; E - Municipal Trash Bin Inactive 12/26/2016 [facility] Reglan 10 mg, 2 mL, Route: IVP, Drug form: INJ, ONCE, Dosing Weight 97, kg, Start date: 12/26/16 9:51:00 CDT, Stop date: 12/26/16 9:51:00 CDTNotes: (Same as: Reglan) Inactive 12/26/2016 [facility] Plavix 75 mg, 1 tab, Route: PO, Drug form: TAB, Daily, Dosing Weight 97, kg, Start date: 12/26/16 9:30:00 CDT, Duration: 30 day, Stop date: 01/25/17 9:00:00 CDTNotes: (Same As: Plavix) Inactive 12/26/2016 [facility] Aspirin 325 mg, 1 tab, Route: PO, Drug form: TAB, Daily, Dosing Weight 97, kg, Start date: 12/26/16 9:00:00 CDT, Duration: 30 day, Stop date: 01/24/17 9:00:00 CDTNotes: Take with food. Inactive 12/26/2016 [facility] Losartan 50 mg, 1 tab, Route: PO, Drug form: TAB, Daily, Dosing Weight 98.182, kg, Start date: 12/26/16 9:00:00 CDT, Duration: 30 day, Stop date: 01/24/17 9:00:00 CDTNotes: (Same as: Cozaar) Inactive 12/26/2016 [facility] Aspirin 325 MG Oral Tablet 325 mg=1 tab, PO, Daily, 0 Refill(s) Active 12/26/2016 [facility] clopidogrel 75 MG Oral Tablet [Plavix] 75 mg=1 tab, PO, Daily, 0 Refill(s) Active 12/26/2016 [facility] losartan 50 mg oral tablet 50 mg=1 tab, PO, Daily, 0 Refill(s) Active 12/26/2016 [facility] Morphine 1 mg, 0.5 mL, Route: IVP, Drug form: INJ, Q6H, Dosing Weight 98.182, kg, PRN Pain Score 6-10, Start date: 12/25/16 19:26:00 CDT, Duration: 30 day, Stop date: 01/24/17 19:25:00 CDTNotes: (Same as:MORPhine Sulfate) No Longer Active 12/26/2016 [facility] Tylenol 650 mg, 2 tab, Route: PO, Drug form: TAB, Q6H, Dosing Weight 98.182, kg, PRN Pain Score 1-3, Start date: 12/25/16 19:26:00 CDT, Duration: 30 day, Stop date: 01/24/17 19:25:00 CDTNotes: Do not exceed 4 gm/day. (Same as: Tylenol) No Longer Active 12/26/2016 [facility] sodium chloride 0.9% 1000 ml INJ 1,000 mL 1,000 mL, Rate: 40 ml/hr, Infuse over: 25 hr, Route: IV, Dosing Weight 98.182 kg, Total Volume: 1,000, Start date: 12/25/16 19:25:00 CDT, Duration: 30 day, Stop date: 01/24/17 19:24:00 CDT No Longer Active 12/26/2016 [facility] Morphine 4 mg, Route: IVP, ONCE, Dosing Weight 98.182, kg, Priority: STAT, Start date: 12/25/16 17:55:00 CDT, Stop date: 12/25/16 17:55:00 CDT Inactive 12/25/2016 [facility] Omnipaque 350 injectable solution 125 mL, Route: IVP, Drug Form: SOLN, Dosing Weight 98.182, kg, ONCALL, For CTA exam with GFR > 45 mL/min, STAT, Start date: 12/25/16 15:14:00 CDT, Duration: 1 doses or timesNotes: (same as:Omnipaque 350). WASTE: F/P - Black; E - Municipal Trash Bin Inactive 12/25/2016 [facility] Saline Flush 0.9% 10 mL, Route: IVP, Drug Form: INJ, Dosing Weight 100, kg, PRN, PRN Line Flush, Start date: 03/29/15 12:13:00, Duration: 30 day, Stop date: 04/28/15 12:12:00Notes: (Same as: BD Posiflush) No Longer Active 03/29/2015 [facility] Aspirin 81 MG Enteric Coated Tablet 81 mg=1 tab, PO, Daily, # 30 tab, 0 Refill(s) Active 09/04/2014 [facility] atorvastatin 20 mg oral tablet 20 mg=1 tab, PO, Bedtime, # 30 tab, 0 Refill(s) Active 09/04/2014 [facility] losartan 25 mg oral tablet 25 mg=1 tab, PO, Daily, # 30 tab, 0 Refill(s) Active 09/04/2014 [facility] Cozaar 25 mg, 1 tab, Route: PO, Drug form: TAB, Daily, Start date: 09/03/14 9:00:00, Duration: 30 day, Stop date: 10/02/14 9:00:00Notes: (Same as: Cozaar) No Longer Active 09/03/2014 [facility] atorvastatin 20 mg, 1 tab, Route: PO, Drug form: TAB, Bedtime, Dosing Weight 100, kg, Start date: 09/02/14 21:00:00, Duration: 30 day, Stop date: 10/01/14 21:00:00Notes: (Same As: Lipitor) No Longer Active 09/03/2014 [facility] Cozaar 25 mg, 1 tab, Route: PO, Drug form: TAB, ONCE, Start date: 09/02/14 21:00:00, Stop date: 09/02/14 21:00:00Notes: (Same as: Cozaar) Inactive 09/03/2014 [facility] Lovenox 40 mg, 0.4 mL, Route: SUB-Q, Drug form: INJ, Q24H, Start date: 09/02/14 17:00:00, Duration: 30 day, Stop date: 10/01/14 17:00:00Notes: (Same as: Lovenox) No Longer Active 09/02/2014 [facility] Protonix 40 mg, 1 tab, Route: PO, Drug form: ECTAB, Before Dinner, Start date: 09/02/14 16:30:00, Duration: 30 day, Stop date: 10/01/14 16:30:00Notes: Tablet should not be chewed or crushed. (Same as: Protonix) No Longer Active 09/02/2014 [facility] aspirin 81 mg, 1 tab, Route: PO, Drug form: ECTAB, Daily, Dosing Weight 100, kg, Start date: 09/02/14 12:42:00, Duration: 30 day, Stop date: 10/02/14 9:00:00Notes: Do not crush or chew. (Same As: Ecotrin) No Longer Active 09/02/2014 [facility] Rocephin 2 gm, Route: IVPB, [id number], Dosing Weight 100, kg, Start date: 09/02/14 6:00:00, Duration: 30 day, Stop date: 10/01/14 18:00:00Notes: (Same As: Rocephin). Inactive 09/02/2014 [facility] Sodium Chloride 0.9% IV 250 mL, Route: IVPB, Start date: 09/01/14 22:43:00, Duration: 30 day, Stop date: 10/01/14 22:42:00, PRN Line Flush No Longer Active 09/02/2014 [facility] BD Normal Saline Flush 10 mL, Route: IVP, Drug Form: INJ, PRN, PRN Line Flush, Start date: 09/01/14 22:43:00, Duration: 30 day, Stop date: 10/01/14 22:42:00Notes: (Same as: BD Posiflush) No Longer Active 09/02/2014 [facility] Saline Flush 0.9% 10 ml, Route: IVP, Drug Form: INJ, Dosing Weight 100, kg, PRN, PRN Line Flush, Start date: 09/01/14 22:40:00, Duration: 30 day, Stop date: 10/01/14 22:39:00Notes: (Same as: BD Posiflush) No Longer Active 09/02/2014 [facility] Tylenol 650 mg, 2 tab, Route: PO, Drug form: TAB, Q6H, Dosing Weight 100, kg, PRN Pain Score 1-3, Start date: 09/01/14 17:56:00, Duration: 30 day, Stop date: 10/01/14 17:55:00Notes: Do not exceed 4 gm/day. (Same as: Tylenol) No Longer Active 09/01/2014 [facility] NS 1,000 mL 1,000 mL, Rate: 40 ml/hr, Infuse over: 25 hr, Route: IV, Dosing Weight 100 kg, Total Volume: 1,000, Start date: 09/01/14 17:56:00, Duration: 30 day, Stop date: 10/01/14 17:55:00 No Longer Active 09/01/2014 [facility] Versed 3 mg, Route: IVP, ONCE, Dosing Weight 100, kg, Start date: 09/01/14 17:35:00, Stop date: 09/01/14 17:35:00 Inactive 09/01/2014 [facility] Lidocaine Hydrochloride 10 MG/ML Injectable Solution 1 mL, Route: SUB-Q, Drug Form: INJ, Dosing Weight 100, kg, ONCE, STAT, Start date: 09/01/14 17:25:00, Stop date: 09/01/14 17:25:00Notes: (Same as: Xylocaine) Inactive 09/01/2014 [facility] Vancomycin 1 gm, 200 mL, Route: IV, Drug form: INJ, ONCE, Dosing Weight 100, kg, Start date: 09/01/14 17:24:00, Stop date: 09/01/14 17:24:00 Inactive 09/01/2014 [facility] Rocephin 1 gm, Route: IVPB, Drug form: PDR/INJ, ONCE, Dosing Weight 100, kg, Start date: 09/01/14 17:24:00, Stop date: 09/01/14 17:24:00 Inactive 09/01/2014 [facility] aspirin 324 mg, 4 tab, Route: CHEW, Drug form: CHEWTAB, ONCE, Dosing Weight 100, kg, Priority: STAT, Start date: 09/01/14 13:09:00, Stop date: 09/01/14 13:09:00Notes: Take with food. Inactive 09/01/2014 [facility] Saline Flush 0.9% 10 mL, Route: IVP, Drug Form: INJ, Dosing Weight 100, kg, PRN, PRN Line Flush, Start date: 09/01/14 13:09:00, Duration: 30 day, Stop date: 10/01/14 13:08:00Notes: (Same as: BD Posiflush) No Longer Active 09/01/2014 [facility] Losartan 12.5 mg, PO, Daily, 0 Refill(s) No Longer Active 09/01/2014 [facility] Allergies, Adverse Reactions, Alerts No Known Medication Allergies Immunizations No Data Provided for This Section Results Order Name Results Value Reference Range Date Interpretation Comments [facility] HEMATOLOGY Eosinophils # 0.2 0.0 - 0.5 12/26/2016 [facility] HEMATOLOGY Monocytes # 0.8 0.0 - 0.8 12/26/[address] [facility] Basophils # 0.1 0.0 - 0.2 12/26/[address] [facility] Lymphocytes # 3.8 1.0 - 5.5 12/26/[address] [facility] Eosinophils 1.9 0.0 - 4.0 12/26/[address] [facility] Basophils 0.8 0.0 - 1.0 12/26/[address] [facility] Segs-Bands # 5.8 1.5 - 8.1 12/26/[address] [facility] Monocytes 7.9 2.0 - 12.0 12/26/[address] [facility] Segs 54.2 45.0 - 75.0 12/26/[address] [facility] Lymphocytes 35.2 20.0 - 40.0 12/26/[address] [facility] RBC Morph Normal (12/26/16 4:27 AM) 12/26/[address] [facility] Plt Morph Normal (12/26/16 4:27 AM) 12/26/[address] [facility] WBC 10.7 3.7 - 10.4 12/26/[address] [facility] RBC 4.53 4.20 - 5.40 12/26/[address] [facility] Platelet 428 133 - 450 12/26/[address] [facility] MPV 7.8 7.4 - 10.4 12/26/2016 [facility] HEMATOLOGY Hgb 12.8 12.0 - 16.0 12/26/2016 [facility] HEMATOLOGY MCV 83.7 80.0 - 98.0 12/26/2016 [facility] HEMATOLOGY Hct 37.9 36.0 - 48.0 12/26/[address] [facility] MCHC 33.7 32.0 - 36.0 12/26/[address] [facility] MCH 28.2 27.0 - 31.0 12/26/[address] [facility] RDW 14.3 11.5 - 14.5 12/26/2016 [facility] CHEM PANEL Phosphorus 2.9 2.5 - 4.5 12/25/2016 [facility] CHEM PANEL Magnesium Lvl 2.1 1.8 - 2.4 12/25/2016 [facility] ELECTROLYTES AGAP 11.1 10.0 - 20.0 12/25/2016 [facility] ELECTROLYTES Chloride Lvl 103 95 - 109 12/25/2016 [facility] ELECTROLYTES CO2 27 24 - 32 12/25/2016 [facility] ELECTROLYTES Calcium Lvl 9.0 8.5 - 10.5 12/25/2016 [facility] ELECTROLYTES Glucose Lvl 115 70 - 99 12/25/2016 [facility] ELECTROLYTES BUN 7 7 - 22 12/25/2016 [facility] ELECTROLYTES Creatinine Lvl 0.57 0.50 - 1.40 12/25/2016 [facility] ELECTROLYTES eGFR 117 12/25/2016 Result Comment: The eGFR is calculated [...] should be multiplied by the estimated BMI. [facility] ELECTROLYTES Potassium Lvl 4.1 3.5 - 5.1 12/25/2016 [facility] ELECTROLYTES Sodium Lvl 137 135 - 145 12/25/[address] [facility] MCV 84.7 80.0 - 98.0 12/25/[address] [facility] Hct 42.2 36.0 - 48.0 12/25/[address] [facility] RBC 4.98 4.20 - 5.40 12/25/[address] [facility] Hgb 13.9 12.0 - 16.0 12/25/[address] [facility] Platelet 465 133 - 450 12/25/[address] [facility] MCH 27.8 27.0 - 31.0 12/25/[address] [facility] MPV 7.7 7.4 - 10.4 12/25/[address] [facility] RDW 14.3 11.5 - 14.5 12/25/[address] [facility] MCHC 32.8 32.0 - 36.0 12/25/[address] [facility] WBC 11.7 3.7 - 10.4 12/25/[address] [facility] PT 12.8 12.0 - 14.7 12/25/[address] [facility] INR 0.94 0.85 - 1.17 12/25/[address] [facility] Monocytes 5.0 2.0 - 12.0 12/25/[address] [facility] Lymphocytes 21.4 20.0 - 40.0 12/25/[address] [facility] Segs 72.6 45.0 - 75.0 12/25/[address] [facility] Eosinophils 0.4 0.0 - 4.0 12/25/[address] [facility] Basophils # 0.1 0.0 - 0.2 12/25/[address] [facility] Eosinophils # 0.1 0.0 - 0.5 12/25/[address] [facility] [place] Monocytes # 0.6 0.0 - 0.8 12/25/[address] [facility] [place] Lymphocytes # 2.5 1.0 - 5.5 12/25/[address] [facility] Basophils 0.6 0.0 - 1.0 12/25/[address] [facility] Segs-Bands # 8.5 1.5 - 8.1 12/25/2016 [facility] URINE AND STOOL UA Urobilinogen <=1.0 mg/dL 0.1 - 1.0 12/25/2016 [facility] URINE AND STOOL UA Mucus Few /LPF None Seen /LPF 12/25/2016 [facility] URINE AND STOOL UA RBC 2 0 - 2 12/25/2016 [facility] URINE AND STOOL UA Bacteria Moderate /HPF None Seen /HPF 12/25/2016 [facility] URINE AND STOOL UA WBC 1 0 - 5 12/25/2016 [facility] URINE AND STOOL UA Sq Epi Many /LPF Few /LPF 12/25/2016 [facility] URINE AND STOOL UA Nitrite Negative (12/25/16 2:31 PM) Negative 12/25/2016 [facility] URINE AND STOOL UA Leuk Est Negative (12/25/16 2:31 PM) Negative 12/25/2016 [facility] URINE AND STOOL UA Blood Moderate *ABN* (12/25/16 2:31 PM) Negative 12/25/2016 [facility] URINE AND STOOL UA Bili Negative *NA* (12/25/16 2:31 PM) Negative 12/25/2016 [facility] URINE AND STOOL UA Ketones Negative mg/dL Negative mg/dL 12/25/2016 [facility] URINE AND STOOL UA Glucose Negative mg/dL Negative mg/dL 12/25/2016 [facility] URINE AND STOOL UA Protein Negative mg/dL Negative mg/dL 12/25/2016 [facility] URINE AND STOOL UA pH 6.0 5.0 - 8.0 12/25/2016 [facility] URINE AND STOOL UA Spec Grav 1.004 <=1.030 12/25/2016 [facility] URINE AND STOOL UA Turbidity Clear (12/25/16 2:31 PM) Clear 12/25/2016 [facility] URINE AND STOOL UA Color Light Yellow *NA* (12/25/16 2:31 PM) Yellow 12/25/2016 [facility] URINE CHEM U Preg Negative (12/25/16 2:31 PM) Negative 12/25/2016 [facility] CARDIAC ENZYMES Total CK 68 12 - 191 03/29/2015 [facility] CARDIAC ENZYMES CK MB <0.5 0.5 - 3.6 03/29/2015 [facility] CARDIAC ENZYMES Troponin-I <0.02 0.00 - 0.40 03/29/2015 [facility] CARDIAC ENZYMES CK MB Index <0.7 0.0 - 2.5 03/29/2015 [facility] CHEM PANEL eGFR 109 03/29/2015 Result Comment: The eGFR is calculated [...] should be multiplied by the estimated BMI. [facility] CHEM PANEL Globulin 4.1 2.0 - 4.0 03/29/2015 [facility] CHEM PANEL A/G Ratio 0.9 0.7 - 1.6 03/29/2015 [facility] CHEM PANEL B/C Ratio 9 6 - 25 03/29/2015 [facility] CHEM PANEL Alk Phos 93 39 - 136 03/29/2015 [facility] CHEM PANEL Bili Total 0.8 0.2 - 1.3 03/29/2015 [facility] CHEM PANEL AGAP 8.6 10.0 - 20.0 03/29/2015 [facility] CHEM PANEL Total Protein 7.8 6.4 - 8.4 03/29/2015 [facility] CHEM PANEL Albumin Lvl 3.7 3.5 - 5.0 03/29/2015 [facility] CHEM PANEL Calcium Lvl 8.7 8.5 - 10.5 03/29/2015 [facility] CHEM PANEL ALT 16 0 - 65 03/29/2015 [facility] CHEM PANEL AST 12 0 - 37 03/29/2015 [facility] CHEM PANEL Sodium Lvl 137 135 - 145 03/29/2015 [facility] CHEM PANEL CO2 27 24 - 32 03/29/2015 [facility] CHEM PANEL Potassium Lvl 3.6 3.5 - 5.1 03/29/2015 [facility] CHEM PANEL Chloride Lvl 105 95 - 109 03/29/2015 [facility] CHEM PANEL Creatinine Lvl 0.7 0.5 - 1.4 03/29/2015 [facility] CHEM PANEL Glucose Lvl 111 70 - 99 03/29/2015 [facility] CHEM PANEL BUN 6 7 - 22 03/29/2015 [facility] ENDOCRINOLOGY S Preg Negative *NA* (03/29/15 12:26 PM) Negative 03/29/2015 [facility] HEMATOLOGY INR 1.02 0.85 - 1.17 03/29/2015 [facility] HEMATOLOGY PT 13.4 12.0 - 14.7 03/29/[address] [facility] PTT 32.6 22.9 - 35.8 03/29/2015 [facility] HEMATOLOGY RDW 14.5 11.5 - 14.5 03/29/[address] [facility] Platelet 430 133 - 450 03/29/[address] [facility] MCHC 32.3 32.0 - 36.0 03/29/[address] [facility] MPV 7.8 7.4 - 10.4 03/29/[address] [facility] MCV 85.7 80.0 - 98.0 03/29/[address] [facility] MCH 27.7 27.0 - 31.0 03/29/[address] [facility] Hgb 12.6 12.0 - 16.0 03/29/[address] [facility] Hct 38.9 36.0 - 48.0 03/29/[address] [facility] RBC 4.54 4.20 - 5.40 03/29/[address] [facility] WBC 10.1 3.7 - 10.4 03/29/[address] [facility] Sed Rate 18 0 - 20 03/29/[address] [facility] Basophils # 0.1 0.0 - 0.2 03/29/2015 [facility] HEMATOLOGY Eosinophils # 0.1 0.0 - 0.5 03/29/2015 [facility] HEMATOLOGY Basophils 0.7 0.0 - 1.0 03/29/2015 [facility] HEMATOLOGY Segs-Bands # 7.0 1.5 - 8.1 03/29/[address] [facility] [place] Monocytes # 0.5 0.0 - 0.8 03/29/[address] [facility] Lymphocytes # 2.4 1.0 - 5.5 03/29/[address] [facility] Monocytes 5.4 2.0 - 12.0 03/29/2015 [facility] HEMATOLOGY Eosinophils 0.9 0.0 - 4.0 03/29/2015 [facility] HEMATOLOGY Lymphocytes 23.9 20.0 - 40.0 03/29/2015 [facility] HEMATOLOGY Segs 69.1 45.0 - 75.0 03/29/2015 [facility] CARDIAC ENZYMES BNP 2 <=100 pg/mL 11/09/2014 <sup>3</sup>Interpretive Data: Elevated results are in line with increasing severity of
congestive heart failure. Minor elevations between 100 and 300
may be seen with Myocardial Ischemia, Sodium retaining drugs,
and compensated/treated heart failure. [facility] CARDIAC ENZYMES Troponin-I <0.02 0.00 - 0.40 11/09/2014 [facility] CHEM PANEL Magnesium Lvl 1.6 1.8 - 2.4 11/09/2014 [facility] CHEM PANEL eGFR 110 11/09/2014 <sup>1</sup>Result Comment: The eGFR is calculated using the CKD-EPI formula. In most young, healthy individuals the eGFR will be >90 mL/min/1.73m2. The eGFR declines with age. An eGFR of 60-89 may be normal in some populations, particularly the elderly, for whom the CKD-EPI formula has not been extensively validated. Use of the eGFR is not recommended in the following populations:& lt;br/>
Individuals with unstable creatinine concentrations, including patients [...] should be multiplied by the estimated BMI. [facility] CHEM PANEL Chloride Lvl 103 95 - 109 11/09/2014 [facility] CHEM PANEL CO2 27 24 - 32 11/09/2014 [facility] CHEM PANEL Calcium Lvl 9.1 8.5 - 10.5 11/09/2014 [facility] CHEM PANEL Sodium Lvl 137 135 - 145 11/09/2014 [facility] CHEM PANEL Potassium Lvl 3.7 3.5 - 5.1 11/09/2014 [facility] CHEM PANEL BUN 9 7 - 22 11/09/2014 [facility] CHEM PANEL Creatinine Lvl 0.7 0.5 - 1.4 11/09/2014 [facility] CHEM PANEL Glucose Lvl 103 70 - 99 11/09/2014 <sup>2</sup>Interpretive Data: Adult reference range values reflect the clinical guidelines
of the [place] [employer]. [facility] CHEM PANEL AGAP 10.7 10.0 - 20.0 11/09/2014 [facility] HEMATOLOGY MPV 7.4 7.4 - 10.4 11/09/2014 [facility] HEMATOLOGY Platelet 457 133 - 450 11/09/2014 [facility] HEMATOLOGY RDW 13.8 11.5 - 14.5 11/09/[address] [facility] MCHC 33.4 32.0 - 36.0 11/09/[address] [facility] WBC 13.5 3.7 - 10.4 11/09/[address] [facility] RBC 4.34 4.20 - 5.40 11/09/[address] [facility] Hgb 12.7 12.0 - 16.0 11/09/[address] [facility] MCH 29.2 27.0 - 31.0 11/09/[address] [facility] Hct 37.9 36.0 - 48.0 11/09/[address] [facility] MCV 87.3 80.0 - 98.0 11/09/[address] [facility] PT 13.1 12.0 - 14.7 11/09/[address] [facility] INR 0.99 0.85 - 1.17 11/09/2014 <sup>4</sup>Interpretive Data: RECOMMENDED RANGES FOR PROTIME INR:
2.0-3.0 for most medical and surgical thromboembolic states.
2.5-3.5 for artificial heart valves and recurrent embolism.

INR SHOULD BE USED ONLY FOR PATIENTS ON STABLE ANTICOAGULANT THERAPY. [facility] PTT 29.8 22.9 - 35.8 11/09/2014 <sup>5</sup>Interpretive Data: Heparin Therapeutic Range: 57 - [address] [facility] Monocytes 5.1 2.0 - 12.0 11/09/[address] [facility] Lymphocytes 16.4 20.0 - 40.0 11/09/[address] [facility] Segs 77.0 45.0 - 75.0 11/09/[address] [facility] Monocytes # 0.7 0.0 - 0.8 11/09/[address] [facility] Lymphocytes # 2.2 1.0 - 5.5 11/09/[address] [facility] [place] Segs-Bands # 10.4 1.5 - 8.1 11/09/[address] [facility] Basophils 0.9 0.0 - 1.0 11/09/2014 [facility] HEMATOLOGY Eosinophils 0.6 0.0 - 4.0 11/09/[address] [facility] [place] Basophils # 0.1 0.0 - 0.2 11/09/[address] [facility] Eosinophils # 0.1 0.0 - 0.5 11/09/2014 [facility] URINE AND STOOL Micro? Not Indicated (11/09/14 3:50 PM) 11/09/2014 [facility] URINE AND STOOL UA Leuk Est Negative (11/09/14 3:50 PM) Negative 11/09/2014 [facility] URINE AND STOOL UA Blood Negative (11/09/14 3:50 PM) Negative 11/09/2014 [facility] URINE AND STOOL UA Urobilinogen 0.2 0.1 - 1.0 11/09/2014 [facility] URINE AND STOOL UA Nitrite Negative (11/09/14 3:50 PM) Negative 11/09/2014 [facility] URINE AND STOOL UA pH 6.0 5.0 - 8.0 11/09/2014 [facility] URINE AND STOOL UA Turbidity Clear (11/09/14 3:50 PM) Clear 11/09/2014 [facility] URINE AND STOOL UA Spec Grav <=1.005 *NA* (11/09/14 3:50 PM) <=1.030 11/09/2014 [facility] URINE AND STOOL UA Color Yellow *NA* (11/09/14 3:50 PM) Yellow 11/09/2014 [facility] URINE AND STOOL UA Ketones Trace *ABN* (11/09/14 3:50 PM) Negative 11/09/2014 [facility] URINE AND STOOL UA Bili Negative *NA* (11/09/14 3:50 PM) Negative 11/09/2014 [facility] URINE AND STOOL UA Protein Negative (11/09/14 3:50 PM) Negative 11/09/2014 [facility] URINE AND STOOL UA Glucose Negative (11/09/14 3:50 PM) Negative 11/09/2014 [facility] URINE CHEM U Preg Negative (11/09/14 3:50 PM) Negative 11/09/2014 [facility] ELECTROLYTES AGAP 11.5 10.0 - 20.0 09/04/2014 [facility] ELECTROLYTES eGFR 94 09/04/2014 <sup>1</sup>Result Comment: The eGFR is calculated using the CKD-EPI formula. In most young, healthy individuals the eGFR will be >90 mL/min/1.73m2. The eGFR declines with age. An eGFR of 60-89 may be normal in some populations, particularly the elderly, for whom the CKD-EPI formula has not been extensively validated. Use of the eGFR is not recommended in the following populations:& lt;br/>
Individuals with unstable creatinine concentrations, including patients [...] should be multiplied by the estimated BMI. [facility] ELECTROLYTES Glucose Lvl 113 70 - 99 09/04/2014 <sup>4</sup>Interpretive Data: Adult reference range values reflect the clinical guidelines
of the [place] [employer]. [facility] ELECTROLYTES Creatinine Lvl 0.8 0.5 - 1.4 09/04/2014 [facility] ELECTROLYTES BUN 14 7 - 22 09/04/2014 [facility] ELECTROLYTES Calcium Lvl 8.7 8.5 - 10.5 09/04/2014 [facility] ELECTROLYTES CO2 24 24 - 32 09/04/2014 [facility] ELECTROLYTES Chloride Lvl 105 95 - 109 09/04/2014 [facility] ELECTROLYTES Potassium Lvl 3.5 3.5 - 5.1 09/04/2014 [facility] ELECTROLYTES Sodium Lvl 137 135 - 145 09/04/[address] [facility] Monocytes # 0.8 0.0 - 0.8 09/04/2014 [facility] HEMATOLOGY Eosinophils # 0.2 0.0 - 0.5 09/04/[address] [facility] Lymphocytes # 3.3 1.0 - 5.5 09/04/2014 [facility] HEMATOLOGY Segs 61.0 45.0 - 75.0 09/04/[address] [facility] Lymphocytes 29.8 20.0 - 40.0 09/04/2014 [facility] HEMATOLOGY Basophils # 0.1 0.0 - 0.2 09/04/[address] [facility] Segs-Bands # 6.8 1.5 - 8.1 09/04/2014 [facility] HEMATOLOGY Eosinophils 1.6 0.0 - 4.0 09/04/2014 [facility] HEMATOLOGY Basophils 0.6 0.0 - 1.0 09/04/[address] [facility] Monocytes 7.0 2.0 - 12.0 09/04/[address] [facility] MPV 7.8 7.4 - 10.4 09/04/[address] [facility] RDW 14.4 11.5 - 14.5 09/04/2014 [facility] HEMATOLOGY Platelet 371 133 - 450 09/04/2014 [facility] HEMATOLOGY Hct 36.7 36.0 - 48.0 09/04/2014 [facility] HEMATOLOGY MCV 89.3 80.0 - 98.0 09/04/2014 [facility] HEMATOLOGY MCH 29.7 27.0 - 31.0 09/04/2014 [facility] HEMATOLOGY MCHC 33.3 32.0 - 36.0 09/04/2014 [facility] HEMATOLOGY Hgb 12.2 12.0 - 16.0 09/04/2014 [facility] HEMATOLOGY WBC 11.1 3.7 - 10.4 09/04/2014 [facility] HEMATOLOGY RBC 4.11 4.20 - 5.40 09/04/2014 [facility] CHEM PANEL eGFR 110 09/03/2014 <sup>2</sup>Result Comment: The eGFR is calculated using the CKD-EPI formula. In most young, healthy individuals the eGFR will be >90 mL/min/1.73m2. The eGFR declines with age. An eGFR of 60-89 may be normal in some populations, particularly the elderly, for whom the CKD-EPI formula has not been extensively validated. Use of the eGFR is not recommended in the following populations:& lt;br/>
Individuals with unstable creatinine concentrations, including patients [...] should be multiplied by the estimated BMI. [facility] CHEM PANEL Calcium Lvl 8.6 8.5 - 10.5 09/03/2014 [facility] CHEM PANEL CO2 25 24 - 32 09/03/2014 [facility] CHEM PANEL Chloride Lvl 106 95 - 109 09/03/2014 [facility] CHEM PANEL Sodium Lvl 138 135 - 145 09/03/2014 [facility] CHEM PANEL Potassium Lvl 3.4 3.5 - 5.1 09/03/2014 [facility] CHEM PANEL Creatinine Lvl 0.7 0.5 - 1.4 09/03/2014 [facility] CHEM PANEL BUN 10 7 - 22 09/03/2014 [facility] CHEM PANEL Glucose Lvl 119 70 - 99 09/03/2014 <sup>5</sup>Interpretive Data: Adult reference range values reflect the clinical guidelines
of the [place] [employer]. [facility] CHEM PANEL AGAP 10.4 10.0 - 20.0 09/03/2014 [facility] HEMATOLOGY WBC 10.8 3.7 - 10.4 09/03/[address] [facility] MCHC 33.7 32.0 - 36.0 09/03/[address] [facility] RDW 14.8 11.5 - 14.5 09/03/[address] [facility] Platelet 336 133 - 450 09/03/[address] [facility] MPV 7.6 7.4 - 10.4 09/03/[address] [facility] Hgb 12.4 12.0 - 16.0 09/03/[address] [facility] RBC 4.14 4.20 - 5.40 09/03/[address] [facility] MCV 89.1 80.0 - 98.0 09/03/[address] [facility] Hct 36.9 36.0 - 48.0 09/03/[address] [facility] MCH 30.0 27.0 - 31.0 09/03/2014 [facility] HEMATOLOGY Eosinophils 0.9 0.0 - 4.0 09/03/2014 [facility] HEMATOLOGY Segs-Bands # 6.1 1.5 - 8.1 09/03/2014 [facility] HEMATOLOGY Basophils 0.6 0.0 - 1.0 09/03/[address] [facility] Monocytes # 0.9 0.0 - 0.8 09/03/[address] [facility] Lymphocytes # 3.5 1.0 - 5.5 09/03/2014 [facility] HEMATOLOGY Eosinophils # 0.1 0.0 - 0.5 09/03/2014 [facility] HEMATOLOGY Segs 57.0 45.0 - 75.0 09/03/[address] [facility] Lymphocytes 33.0 20.0 - 40.0 09/03/[address] [facility] Monocytes 8.5 2.0 - 12.0 09/03/[address] [facility] Basophils # 0.1 0.0 - 0.2 09/03/2014 [facility] ELECTROLYTES AGAP 14.7 10.0 - 20.0 09/02/2014 [facility] ELECTROLYTES eGFR 110 09/02/2014 <sup>3</sup>Result Comment: The eGFR is calculated using the CKD-EPI formula. In most young, healthy individuals the eGFR will be >90 mL/min/1.73m2. The eGFR declines with age. An eGFR of 60-89 may be normal in some populations, particularly the elderly, for whom the CKD-EPI formula has not been extensively validated. Use of the eGFR is not recommended in the following populations:& lt;br/>
Individuals with unstable creatinine concentrations, including patients [...] should be multiplied by the estimated BMI. [facility] ELECTROLYTES Calcium Lvl 8.7 8.5 - 10.5 09/02/2014 [facility] ELECTROLYTES Chloride Lvl 105 95 - 109 09/02/2014 [facility] ELECTROLYTES CO2 23 24 - 32 09/02/2014 [facility] ELECTROLYTES Sodium Lvl 139 135 - 145 09/02/2014 [facility] ELECTROLYTES Potassium Lvl 3.7 3.5 - 5.1 09/02/2014 [facility] ELECTROLYTES BUN 15 7 - 22 09/02/2014 [facility] ELECTROLYTES Creatinine Lvl 0.7 0.5 - 1.4 09/02/2014 [facility] ELECTROLYTES Glucose Lvl 114 70 - 99 09/02/2014 <sup>6</sup>Interpretive Data: Adult reference range values reflect the clinical guidelines
of the [place] [employer]. [facility] HEMATOLOGY Monocytes 2.0 2.0 - 12.0 09/02/[address] [facility] Lymphocytes 42.0 20.0 - 40.0 09/02/2014 [facility] HEMATOLOGY Bands 0.0 0.0 - 11.0 09/02/2014 [facility] HEMATOLOGY Segs 56.0 45.0 - 75.0 09/02/2014 [facility] HEMATOLOGY RBC Morph Normal (09/02/14 4:42 AM) 09/02/2014 [facility] HEMATOLOGY Atypical Lymphs 0.0 <=0.0 % 09/02/[address] [facility] Plt Morph Normal (09/02/14 4:42 AM) 09/02/[address] [facility] Monocytes # 0.2 0.0 - 0.8 09/02/[address] [facility] Lymphocytes # 4.3 1.0 - 5.5 09/02/2014 [facility] HEMATOLOGY Segs-Bands # 5.8 1.5 - 8.1 09/02/2014 [facility] HEMATOLOGY MCHC 33.2 32.0 - 36.0 09/02/2014 [facility] HEMATOLOGY MCH 29.6 27.0 - 31.0 09/02/2014 [facility] HEMATOLOGY Platelet 333 133 - 450 09/02/2014 [facility] HEMATOLOGY MPV 7.7 7.4 - 10.4 09/02/2014 [facility] HEMATOLOGY RDW 14.6 11.5 - 14.5 09/02/2014 [facility] HEMATOLOGY Hct 34.2 36.0 - 48.0 09/02/2014 [facility] HEMATOLOGY MCV 89.1 80.0 - 98.0 09/02/2014 [facility] HEMATOLOGY Hgb 11.4 12.0 - 16.0 09/02/2014 [facility] HEMATOLOGY RBC 3.84 4.20 - 5.40 09/02/2014 [facility] HEMATOLOGY WBC 10.3 3.7 - 10.4 09/02/2014 [facility] LIPIDS LDL (Calculated) 121 <=99 mg/dL 09/02/2014 [facility] LIPIDS VLDL 53 09/02/2014 [facility] LIPIDS CHD Risk 6.12 3.90 - 5.80 09/02/2014 [facility] LIPIDS Chol 208 <=199 mg/dL 09/02/2014 [facility] LIPIDS Trig 263 <=149 mg/dL 09/02/2014 [facility] LIPIDS HDL 34 >=61 mg/dL 09/02/2014 [facility] SPECIAL CHEMISTRY Hgb A1C 6.7 <=5.6 % 09/02/2014 [facility] BODY FLUIDS RBC CSF 4 0 - 03 09/02/2014 [facility] BODY FLUIDS Color CSF Colorless (09/01/14 6:10 PM) Colorless 09/02/2014 [facility] BODY FLUIDS WBC CSF 2 0 - 53 09/02/2014 [facility] BODY FLUIDS Clarity CSF Clear (09/01/14 6:10 PM) Clear 09/02/2014 [facility] BODY FLUIDS Supernat CSF Colorless (09/01/14 6:10 PM) Colorless 09/02/2014 [facility] BODY FLUIDS Tube Num CSF 3 09/02/2014 [facility] BODY FLUIDS Protein CSF 49 15 - 45 09/02/2014 [facility] BODY FLUIDS Glucose CSF 74 45 - 80 09/02/2014 [facility] FUNGAL - SEROLOGY Crypto Ag CSF Negative (09/01/14 6:10 PM) Negative 09/02/2014 [facility] IMMUNOLOGY CSF Men A Negative (1/21/15 6:10 PM) Negative 09/02/2014 [facility] CSF H Influ B Negative 7 (09/01/14 6:10 PM) Negative 09/02/2014 <sup>7</sup>Interpretive Data: Testing includes polyclonal antibody to Haemophilus influenzae
type b. [facility] CSF S pneumo Negative (09/01/14 6:10 PM) Negative 09/02/2014 [facility] CSF Men C Negative (09/01/14 6:10 PM) Negative 09/02/2014 [facility] CSF Strep B Negative (09/01/14 6:10 PM) Negative 09/02/2014 [facility] CSF Men B Negative (09/01/14 6:10 PM) Negative 09/02/2014 [facility] MOLECULAR DIAGNOSTIC Source HSV Cerebral Spinal Fluid 09/02/2014 [facility] MOLECULAR DIAGNOSTIC HSV 2 by PCR Not Performed 9, 10 (09/01/14 6:10 PM) Negative 09/02/2014 <sup>9</sup>Result Comment: CSF contains less than 5 WBC'S and has a normal Protein level.
<sup>10</sup>Interpretive Data: All results should be used as [...] for Real-Time nucleic acid amplification (PCR) from [facility] The performance characteristics of this assay were validated by the [facility] within [facility]. The [facility] is authorized under the Clinical Improvement Amendments of 1988 (CLIA-88) to perform high-complexity testing. This test has not been cleared by the U.S. Food and Drug Administration (FDA). However, FDA approval is not required and the use should not be considered investigational or research. [facility] MOLECULAR DIAGNOSTIC HSV 1 by PCR Not Performed 8 (09/01/14 6:10 PM) Negative 09/02/2014 <sup>8</sup>Result Comment: CSF contains less than 5 WBC'S and has a normal Protein level. [facility] VIRAL - SEROLOGY Enterovirus PCR CSF Negative 11 (1/21/15 6:10 PM) Negative 09/02/2014 <sup>11</sup>Interpretive Data: Interpretation:
Negative.....No enterovirus DNA detected by PCR
Positive.....Enterovirus DNA detected by PCR
Assay Limitations:& lt;br/>A negative result does not rule out the presence of PCR inhibitors in the patient specimen or Enterovirus nucleic acid in concentrations below the level of detection of the assay. [facility] CARDIAC ENZYMES Troponin-I <0.02 0.00 - 0.40 09/01/2014 [facility] CARDIAC ENZYMES CK MB 0.6 0.5 - 3.6 09/01/2014 [facility] CARDIAC ENZYMES Total CK 61 12 - 191 09/01/2014 [facility] CARDIAC ENZYMES CK MB Index 1.0 0.0 - 2.5 09/01/2014 [facility] CHEM PANEL A/G Ratio 1.0 0.7 - 1.6 09/01/2014 [facility] CHEM PANEL Globulin 4.2 2.0 - 4.0 09/01/2014 [facility] CHEM PANEL Bili Total 0.8 0.2 - 1.3 09/01/2014 [facility] CHEM PANEL B/C Ratio 14 6 - 25 09/01/2014 [facility] CHEM PANEL Albumin Lvl 4.1 3.5 - 5.0 09/01/2014 [facility] CHEM PANEL Total Protein 8.3 6.4 - 8.4 09/01/2014 [facility] CHEM PANEL ALT 28 0 - 65 09/01/2014 [facility] CHEM PANEL Alk Phos 77 39 - 136 09/01/2014 [facility] CHEM PANEL AST 17 0 - 37 09/01/2014 [facility] HEMATOLOGY Basophils # 0.0 0.0 - 0.2 09/01/2014 [facility] HEMATOLOGY Eosinophils # 0.0 0.0 - 0.5 09/01/2014 [facility] HEMATOLOGY Eosinophils 0.1 0.0 - 4.0 09/01/2014 [facility] HEMATOLOGY Basophils 0.1 0.0 - 1.0 09/01/2014 [facility] SPECIAL CHEMISTRY Hgb A1C 6.8 <=5.6 % 09/01/2014 [facility] THYROID PANEL TSH 1.710 0.360 - 3.740 09/01/2014 [facility] Pathology Reports No Data Provided for This Section Diagnostic Reports Report Value Date Source Brain wo contrast MRI EXAM: MRI BRAIN [...] Stigmata of moyamoya is again noted. SL: JNGUYEJENY 12/25/2016 [facility] Brain/Neck CTA EXAM: CTA BRAIN EXAM: CTA [...] carotid artery {NASCET criteria}.) SL: JNGUYEN-PC 12/25/2016 [facility] Chest 1view DX EXAM: CHEST 1 VIEW [...] No acute intrathoracic abnormality SL: 12 03/29/2015 [facility] Brain wo contrast CT CRANIAL CT (without [...] Coding: Brain wo contrast CT CPT Code: 11077 SL: 13 Wally Harris M.D. 03/29/2015 [facility] Brain/Neck CTA CTA HEAD AND NECK: CLINICAL [...] No focal stenosis or aneurysm. 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 Critical findings were discussed with Dr. Roac on 09/03/2014 at 0818 hours. SL:17 09/02/2014 [facility] Brain wo contrast MRI PROCEDURE: Brain wo [...] Clayton at 5:11 p.m. SL: 14 09/01/2014 [facility] Consultation Notes No Data Provided for This Section Discharge Summaries No Data Provided for This Section History and Physicals No Data Provided for This Section Vital Signs Vital Sign Value Date Comments Source Weight 95.909 03/28/2018 [facility] BMI Calculated 36.29 03/28/2018 [facility] Height 162.56 cm 03/28/2018 [facility] Temperature Oral (F) 98.7 F 03/28/2018 [facility] Heart Rate 99 03/28/2018 [facility] Respitory Rate 16 03/28/2018 [facility] Systolic (mm Hg) 150 03/28/2018 [facility] Diastolic (mm Hg) 77 03/28/2018 [facility] Systolic (mm Hg) 127 12/26/2016 [facility] Diastolic (mm Hg) 80 12/26/2016 [facility] Respitory Rate 20 12/26/2016 [facility] Temperature Oral (F) 98.6 F 12/26/2016 [facility] Heart Rate 63 12/26/2016 [facility] Heart Rate 64 12/26/2016 [facility] Temperature Oral (F) 98.5 F 12/26/2016 [facility] Respitory Rate 20 12/26/2016 [facility] Systolic (mm Hg) 139 12/26/2016 [facility] Diastolic (mm Hg) 83 12/26/2016 [facility] Respitory Rate 20 12/26/2016 [facility] Systolic (mm Hg) 122 12/26/2016 [facility] Diastolic (mm Hg) 86 12/26/2016 [facility] Heart Rate 89 12/26/2016 [facility] Temperature Oral (F) 97.7 F 12/26/2016 [facility] Weight 97 12/26/2016 [facility] Height 162.56 cm 12/25/2016 [facility] Weight 98.182 12/25/2016 [facility] BMI Calculated 37.15 12/25/2016 [facility] Respitory Rate 20 03/29/2015 [facility] Systolic (mm Hg) 126 03/29/2015 [facility] Diastolic (mm Hg) 66 03/29/2015 [facility] Temperature Oral (F) 98.3 F 03/29/2015 [facility] Heart Rate 66 03/29/2015 [facility] Respitory Rate 18 03/29/2015 [facility] Heart Rate 77 03/29/2015 [facility] Systolic (mm Hg) 167 03/29/2015 [facility] Diastolic (mm Hg) 97 03/29/2015 [facility] Weight 100 03/29/2015 [facility] BMI Calculated 37.84 03/29/2015 [facility] Height 162.56 cm 03/29/2015 [facility] Temperature Oral (F) 99.1 F 03/29/2015 [facility] Respitory Rate 18 03/29/2015 [facility] Heart Rate 76 03/29/2015 [facility] Systolic (mm Hg) 183 03/29/2015 [facility] Diastolic (mm Hg) 101 03/29/2015 [facility] Heart Rate 66 11/09/2014 [facility] Respitory Rate 18 11/09/2014 [facility] Temperature Oral (F) 98.3 F 11/09/2014 [facility] Systolic (mm Hg) 137 11/09/2014 [facility] Diastolic (mm Hg) 66 11/09/2014 [facility] Heart Rate 67 11/09/2014 [facility] Respitory Rate 18 11/09/2014 [facility] Systolic (mm Hg) 135 11/09/2014 [facility] Diastolic (mm Hg) 73 11/09/2014 [facility] Systolic (mm Hg) 138 11/09/2014 [facility] Diastolic (mm Hg) 83 11/09/2014 [facility] Respitory Rate 16 11/09/2014 [facility] Heart Rate 77 11/09/2014 [facility] Weight 97.727 11/09/2014 [facility] BMI Calculated 36.98 11/09/2014 [facility] Height 162.56 cm 11/09/2014 [facility] Temperature Oral (F) 98.2 F 11/09/2014 [facility] Diastolic (mm Hg) 84 09/04/2014 [facility] Systolic (mm Hg) 131 09/04/2014 [facility] Respitory Rate 20 09/04/2014 [facility] Temperature Oral (F) 98.5 F 09/04/2014 [facility] Heart Rate 67 09/04/2014 [facility] Temperature Oral (F) 98.1 F 09/04/2014 [facility] Systolic (mm Hg) 140 09/04/2014 [facility] Heart Rate 61 09/04/2014 [facility] Respitory Rate 20 09/04/2014 [facility] Diastolic (mm Hg) 89 09/04/2014 [facility] Diastolic (mm Hg) 81 09/04/2014 [facility] Temperature Oral (F) 99.1 F 09/04/2014 [facility] Heart Rate 61 09/04/2014 [facility] Respitory Rate 20 09/04/2014 [facility] Systolic (mm Hg) 124 09/04/2014 [facility] Weight 101.7 09/03/2014 [facility] BMI Calculated 37.84 09/01/2014 [facility] Height 162.56 cm 09/01/2014 [facility] Weight 100 09/01/2014 [facility] Encounters Location Location Details Encounter Type Encounter Number Reason For Visit Attending Provider ADM Date DC Date Status Source [facility] Inpatient [id number] Papa Molina 09/01/2014 09/05/2014 [facility] [id number] Mildred Reyes 11/09/2014 11/09/2014 [facility] OBS Observation Patient [id number] Miguelito Salazar 03/29/2015 03/29/2015 [facility] Observation [id number] Rachel Leblanc 12/25/2016 12/26/2016 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 Reports bilateral posterior head and neck "pressure;" denies neck pain. also admits to intermittent LUE heaviness; d enies vision changes, denies problems with speech. SBP 130s-140s. MRI Brain negative for acute intracranial abnormality; CTA Brain also without acute findings. Further interivew with patient reveals that headache has gotten progressively better since onset last . Considering the findings above as well as lack of focal neurological deficits per exam, my suspicion for an acute intracranial process is thus low at this point. Impression: Headache, likely primary (?tension) vs. secondary. History of Gillespie Gillespie disease. Recommendations/Plan: -Continue current DAPT (ASA/Plavix) regimen. Recommend agressive BP management per primary team as well. -Recommend prompt outpatient follow-up with previously established neurologist for further surveillance/management/monitoring of Gillespie Gillespie. -Will give one time dose of VPA 500 mg, Reglan 10 mg, and Magnesium 2 mg for headache. The plan of care as above has been discussed with Dr. Jen Orellana, who agrees. Please call with questions/concerns. Thank you for the opportunity to participate in this patient's care. 12/26/2016 [facility] Extracted from:Title: Neurology Progress Note Author: Jennifer Coles NP Date: 09/04/14 Impression and Plan Ms. Penn is a 39 y/o female c PMH of HTN who presented to [facility] after onset of a recurrent episode of L facial and upper extremity numbness c mild L facial droop, now resolved. CT brain was without acute intracranial abnormality. MRI brain was performed and demonstrated small area in R temporal-parietal lobe c diminished perfusion, suggestive of small acute infarction. Flair axial sequences also demonstrated non-specific hyperintensity not well appreciated on coronal view, though possibility of cerebromeningitis was suggested. LP performed without significant findings thus far, though empiric antibiotic treatment was intiated. As pt presented outside of the window of initial onset of her symptoms, and symptoms were resolving, she was not considered an IV tPA candidate. 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 * ASA 81 mg PO daily * MRI of the brain performed, demonstrating R hemispheric acute infarction, c nonspecific R hemispheric hyperintesity, c some concern for meningitis (though, clinically pt has not appearred to be symptomatic) * CTA brain/neck ordered and completed demonstrating narrowing from distal R internal carotid artery to R MCA and A1 segment * conventional angiogram ordered for further evaluation of narrowing- Will not be done till Saturday pt is able to f/u outpt with neurology at [facility] with conventional angiorgram as well. * PT/OT consults. * pt ed reviewed regarding risk factor managment, healthy dietary/exercise habits 2) HTN: * HTN management per primary team, pt was taking Losartan at home, though had run out of this medication and has not taken for the last few days 3) HLP: * Lipid panel completed: LDL 121, HDL 34 * start atrovastatin 20mg qHS 4) DM: * HgB A1C 6.8. * management per primary team 5) Headache, positional, s/p LP * resolved * gentle IV fluid hydration 6) Question of meningitis * LP results reviewed: protein is marginally elevated at 49 in setting of untreated DM and presence of some RBCs in CSF * initial gram stain, bacterial studies negative 7) Prophylaxis: Lovenox, PPI Pt is stable per neurology standpoint and [facility] and S/P stroke. Time: 25 minutes. Extracted from:Title: Neurology Consultation Author: Eleni Jeffers Date: 09/01/14 Impression and Plan Ms. Penn is a 39 y/o female c PMH of HTN who presented to [facility] after onset of a recurrent episode of L facial and upper extremity numbness c mild L facial droop, now resolved. CT brain was performed yesterday and was without acute intracranial abnormality. Further evaluation for potential TIA vs CVA, vs hypertensive event vs other being further evaluated. -- neuro as described above, no focal neurological deficits observed -- CT brain results reviewed and discussed c pt -- MRI brain without contrast ordered and pending -- labs reviewed: cardiac enzymes WNL, elevated glucose and WBC noted, UA negative -- additional lab studies: lipid panel, Hgb A1C- TSH has also been ordered and is pending -- HTN management per primary team -- pt education regarding healthy habits including healthy nutrition and exercise reviewed -- will continue to follow Dictated by Eleni Jeffers PA-C on behalf of Dr. Audelia Roca. Thank you for including us in the care of this patient. Time: 70 minutes. 09/05/2014 [facility] Plan of Care No Data Provided for This Section Social History Social History Date Source Social History TypeResponse Alcohol Past Smoking Status Never smoker; Exposure to Tobacco Smoke None; Cigarette Smoking Last 365 Days No; Reg Smoking Cessation Counseling No entered on: 12/25/16 12/26/2016 [facility] Family History No Data Provided for This Section Advance Directives No Data Provided for This Section Functional Status No Data Provided for This Section
[2019-02-15] MEDS ORDERED: LORAZEPAM 1 MG TAB PO ONE (11:30)
--- NOTE | 2019-02-15 12:00 | Diagnostic Imaging Report ---
History:Right facial numbness Comparison studies: Head CT on 01/11/2019 Technique: Axial images were obtained from the skull base to the vertex. Coronal and sagittal images reconstructed from the axial data. Dose modulation, iterative reconstruction, and/or weight based adjustment of the mA/kV was utilized to reduce the radiation dose to as low as reasonably achievable. Intravenous contrast: None Findings: Scalp/skull: No abnormalities. Extra-axial spaces: No masses. No fluid collections. Brain sulci: Mildly prominent. Ventricles: Mild compensatory dilatation. No hydrocephalus. Parenchyma: Old lacunar insult, centered in the head of the right caudate, is associated with compensatory dilatation of the right frontal horn. Subtle hypodensities in the supratentorial white matter are small vessel ischemic changes. No masses, hemorrhage, acute or chronic cortical vascular insults. Sellar/suprasellar region: No abnormalities. Craniocervical junction: Patent foramen magnum. No Chiari one malformation. Incidental findings: Atherosclerotic calcifications in the carotid siphons . Impression: 1. No acute abnormalities. 2. No changes compared to the head CT on 01/11/2019 Persistent chronic findings: 1. Focal lacunar insult in the head of the right caudate 2. Mild supratentorial white matter small vessel ischemic changes. Signed by: Dr. Jhonathan Bills M.D. on 02/15/2019 11:56 AM
[2019-02-15] MEDS ORDERED: ACETAMIN/BUTALBITAL/CAFFEINE TAB PO ONE (13:30)
[2019-02-15 14:33] VITALS: BP 117/70
== END 2019-02-15 14:34 | disposition home or self-care (01) ==
LOC: ER 10:40
DX: R20.2 Paresthesia of skin (principal); I10 Essential (primary) hypertension; E11.9 Type 2 diabetes mellitus without complications; I67.5 Moyamoya disease
CPT/HCPCS: 70450; 99283

== ENCOUNTER 2019-03-24 07:50 | Emergency (ER) | payer OTHER ==
[~2019-03-24] VITALS: Ht 162.6 cm; Wt 97.1 kg
--- OUTSIDE RECORDS SUMMARY | 2019-03-24 07:54 | XMS REPORT | Continuity of Care Document ---
Author Author [employer] Organization [employer] Address Unknown Phone Unavailable Care Team Providers Care Evp Chief Exploration Officer Name Role Phone [employer] Information [employer] Unavailable Unavailable Problems Problem Status Onset Date Classification Date Reported Comments Source Chest pain, unspecified 04/04/2018 10/15/2018 [facility] OTHER Active 03/28/2018 [facility] NUMBNESS Active 12/25/2016 [facility] MOYAMOYA DISEASE Active 12/25/2016 [facility] NOSE BLEEDS/OTHER Active 03/29/2015 [facility] TIA Active 03/29/2015 [facility] Discharge Diagnosis: TIA 11/09/2014 11/12/2014 [facility] CHEST PAIN Active 11/09/2014 [facility] WEAKNESS/HIGH BLOOD PRESSURE Active 09/01/2014 [facility] TIA, PARESTHESIAS Active 09/01/2014 [facility] ALLERGIC REACTION Active 08/31/2014 [facility] HTN (Confirmed) Active Problem 10/15/2018 [facility] Diabetes Resolved Problem 10/15/2018 [facility] HTN (Confirmed) Resolved Problem 10/15/2018 [facility] Hyperlipidemia Resolved Problem 10/15/2018 [facility] Moyamoya disease Resolved Problem 10/15/2018 [facility] TRANS CEREB ISCHEMIA NEC Active [facility] MOYAMOYA DISEASE Active [facility] Medications Medication Details Route Status Patient Instructions Ordering Provider Order Date Source Losartan 50 mg, Route: PO, Drug form: TAB, Daily, Dosing Weight 97, kg, Start date: 12/27/16 9:00:00 CDT, Duration: 30 day, Stop date: 01/25/17 9:00:00 CDT No Longer Active 12/27/2016 [facility] Plavix 75 mg, Route: PO, Drug form: TAB, Daily, Dosing Weight 97, kg, Start date: 12/27/16 9:00:00 CDT, Duration: 30 day, Stop date: 01/25/17 9:00:00 CDT No Longer Active 12/27/2016 [facility] Aspirin 325 MG Oral Tablet 325 mg, 1 tab, Route: PO, Drug form: TAB, Daily, Dosing Weight 97, kg, Start date: 12/27/16 9:00:00 CDT, Duration: 30 day, Stop date: 01/25/17 9:00:00 CDT No Longer Active 12/27/2016 [facility] Valproic Acid 100 MG/ML Injectable Solution 500 mg, 5 mL, Route: IVPB, ONCE, Dosing Weight 97, kg, Start date: 12/26/16 9:52:00 CDT, Stop date: 12/26/16 9:52:00 CDTNotes: Dilute in at least 50ml D5W or NS. Infusion rate=20 mg/min (Same As: Depacon) Inactive 12/26/2016 [facility] Magnesium Sulfate 2 gm, 50 mL, Route: IVPB, Drug form: INJ, ONCE, Dosing Weight 97, kg, Start date: 12/26/16 9:52:00 CDT, Duration: 2 hr, Stop date: 12/26/16 9:52:00 CDTNotes: WASTE: F/P - Sink; E - Municipal Trash Bin Inactive 12/26/2016 [facility] Reglan 10 mg, 2 mL, Route: IVP, Drug form: INJ, ONCE, Dosing Weight 97, kg, Start date: 12/26/16 9:51:00 CDT, Stop date: 12/26/16 9:51:00 CDTNotes: (Same as: Reglan) Inactive 12/26/2016 [facility] Plavix 75 mg, 1 tab, Route: PO, Drug form: TAB, Daily, Dosing Weight 97, kg, Start date: 12/26/16 9:30:00 CDT, Duration: 30 day, Stop date: 01/25/17 9:00:00 CDTNotes: (Same As: Plavix) Inactive 12/26/2016 [facility] Aspirin 325 mg, 1 tab, Route: PO, Drug form: TAB, Daily, Dosing Weight 97, kg, Start date: 12/26/16 9:00:00 CDT, Duration: 30 day, Stop date: 01/24/17 9:00:00 CDTNotes: Take with food. Inactive 12/26/2016 [facility] Losartan 50 mg, 1 tab, Route: PO, Drug form: TAB, Daily, Dosing Weight 98.182, kg, Start date: 12/26/16 9:00:00 CDT, Duration: 30 day, Stop date: 01/24/17 9:00:00 CDTNotes: (Same as: Cozaar) Inactive 12/26/2016 [facility] Aspirin 325 MG Oral Tablet 325 mg=1 tab, PO, Daily, 0 Refill(s) Active 12/26/2016 [facility] clopidogrel 75 MG Oral Tablet [Plavix] 75 mg=1 tab, PO, Daily, 0 Refill(s) Active 12/26/2016 [facility] losartan 50 mg oral tablet 50 mg=1 tab, PO, Daily, 0 Refill(s) Active 12/26/2016 [facility] Morphine 1 mg, 0.5 mL, Route: IVP, Drug form: INJ, Q6H, Dosing Weight 98.182, kg, PRN Pain Score 6-10, Start date: 12/25/16 19:26:00 CDT, Duration: 30 day, Stop date: 01/24/17 19:25:00 CDTNotes: (Same as:MORPhine Sulfate) No Longer Active 12/26/2016 [facility] Tylenol 650 mg, 2 tab, Route: PO, Drug form: TAB, Q6H, Dosing Weight 98.182, kg, PRN Pain Score 1-3, Start date: 12/25/16 19:26:00 CDT, Duration: 30 day, Stop date: 01/24/17 19:25:00 CDTNotes: Do not exceed 4 gm/day. (Same as: Tylenol) No Longer Active 12/26/2016 [facility] sodium chloride 0.9% 1000 ml INJ 1,000 mL 1,000 mL, Rate: 40 ml/hr, Infuse over: 25 hr, Route: IV, Dosing Weight 98.182 kg, Total Volume: 1,000, Start date: 12/25/16 19:25:00 CDT, Duration: 30 day, Stop date: 01/24/17 19:24:00 CDT No Longer Active 12/26/2016 [facility] Morphine 4 mg, Route: IVP, ONCE, Dosing Weight 98.182, kg, Priority: STAT, Start date: 12/25/16 17:55:00 CDT, Stop date: 12/25/16 17:55:00 CDT Inactive 12/25/2016 [facility] Omnipaque 350 injectable solution 125 mL, Route: IVP, Drug Form: SOLN, Dosing Weight 98.182, kg, ONCALL, For CTA exam with GFR > 45 mL/min, STAT, Start date: 12/25/16 15:14:00 CDT, Duration: 1 doses or timesNotes: (same as:Omnipaque 350). WASTE: F/P - Black; E - Municipal Trash Bin Inactive 12/25/2016 [facility] Saline Flush 0.9% 10 mL, Route: IVP, Drug Form: INJ, Dosing Weight 100, kg, PRN, PRN Line Flush, Start date: 03/29/15 12:13:00, Duration: 30 day, Stop date: 04/28/15 12:12:00Notes: (Same as: BD Posiflush) No Longer Active 03/29/2015 [facility] Aspirin 81 MG Enteric Coated Tablet 81 mg=1 tab, PO, Daily, # 30 tab, 0 Refill(s) Active 09/04/2014 [facility] atorvastatin 20 mg oral tablet 20 mg=1 tab, PO, Bedtime, # 30 tab, 0 Refill(s) Active 09/04/2014 [facility] losartan 25 mg oral tablet 25 mg=1 tab, PO, Daily, # 30 tab, 0 Refill(s) Active 09/04/2014 [facility] Cozaar 25 mg, 1 tab, Route: PO, Drug form: TAB, Daily, Start date: 09/03/14 9:00:00, Duration: 30 day, Stop date: 10/02/14 9:00:00Notes: (Same as: Cozaar) No Longer Active 09/03/2014 [facility] atorvastatin 20 mg, 1 tab, Route: PO, Drug form: TAB, Bedtime, Dosing Weight 100, kg, Start date: 09/02/14 21:00:00, Duration: 30 day, Stop date: 10/01/14 21:00:00Notes: (Same As: Lipitor) No Longer Active 09/03/2014 [facility] Cozaar 25 mg, 1 tab, Route: PO, Drug form: TAB, ONCE, Start date: 09/02/14 21:00:00, Stop date: 09/02/14 21:00:00Notes: (Same as: Cozaar) Inactive 09/03/2014 [facility] Lovenox 40 mg, 0.4 mL, Route: SUB-Q, Drug form: INJ, Q24H, Start date: 09/02/14 17:00:00, Duration: 30 day, Stop date: 10/01/14 17:00:00Notes: (Same as: Lovenox) No Longer Active 09/02/2014 [facility] Protonix 40 mg, 1 tab, Route: PO, Drug form: ECTAB, Before Dinner, Start date: 09/02/14 16:30:00, Duration: 30 day, Stop date: 10/01/14 16:30:00Notes: Tablet should not be chewed or crushed. (Same as: Protonix) No Longer Active 09/02/2014 [facility] aspirin 81 mg, 1 tab, Route: PO, Drug form: ECTAB, Daily, Dosing Weight 100, kg, Start date: 09/02/14 12:42:00, Duration: 30 day, Stop date: 10/02/14 9:00:00Notes: Do not crush or chew. (Same As: Ecotrin) No Longer Active 09/02/2014 [facility] Rocephin 2 gm, Route: IVPB, [id number], Dosing Weight 100, kg, Start date: 09/02/14 6:00:00, Duration: 30 day, Stop date: 10/01/14 18:00:00Notes: (Same As: Rocephin). Inactive 09/02/2014 [facility] Sodium Chloride 0.9% IV 250 mL, Route: IVPB, Start date: 09/01/14 22:43:00, Duration: 30 day, Stop date: 10/01/14 22:42:00, PRN Line Flush No Longer Active 09/02/2014 [facility] BD Normal Saline Flush 10 mL, Route: IVP, Drug Form: INJ, PRN, PRN Line Flush, Start date: 09/01/14 22:43:00, Duration: 30 day, Stop date: 10/01/14 22:42:00Notes: (Same as: BD Posiflush) No Longer Active 09/02/2014 [facility] Saline Flush 0.9% 10 ml, Route: IVP, Drug Form: INJ, Dosing Weight 100, kg, PRN, PRN Line Flush, Start date: 09/01/14 22:40:00, Duration: 30 day, Stop date: 10/01/14 22:39:00Notes: (Same as: BD Posiflush) No Longer Active 09/02/2014 [facility] Tylenol 650 mg, 2 tab, Route: PO, Drug form: TAB, Q6H, Dosing Weight 100, kg, PRN Pain Score 1-3, Start date: 09/01/14 17:56:00, Duration: 30 day, Stop date: 10/01/14 17:55:00Notes: Do not exceed 4 gm/day. (Same as: Tylenol) No Longer Active 09/01/2014 [facility] NS 1,000 mL 1,000 mL, Rate: 40 ml/hr, Infuse over: 25 hr, Route: IV, Dosing Weight 100 kg, Total Volume: 1,000, Start date: 09/01/14 17:56:00, Duration: 30 day, Stop date: 10/01/14 17:55:00 No Longer Active 09/01/2014 [facility] Versed 3 mg, Route: IVP, ONCE, Dosing Weight 100, kg, Start date: 09/01/14 17:35:00, Stop date: 09/01/14 17:35:00 Inactive 09/01/2014 [facility] Lidocaine Hydrochloride 10 MG/ML Injectable Solution 1 mL, Route: SUB-Q, Drug Form: INJ, Dosing Weight 100, kg, ONCE, STAT, Start date: 09/01/14 17:25:00, Stop date: 09/01/14 17:25:00Notes: (Same as: Xylocaine) Inactive 09/01/2014 [facility] Vancomycin 1 gm, 200 mL, Route: IV, Drug form: INJ, ONCE, Dosing Weight 100, kg, Start date: 09/01/14 17:24:00, Stop date: 09/01/14 17:24:00 Inactive 09/01/2014 [facility] Rocephin 1 gm, Route: IVPB, Drug form: PDR/INJ, ONCE, Dosing Weight 100, kg, Start date: 09/01/14 17:24:00, Stop date: 09/01/14 17:24:00 Inactive 09/01/2014 [facility] aspirin 324 mg, 4 tab, Route: CHEW, Drug form: CHEWTAB, ONCE, Dosing Weight 100, kg, Priority: STAT, Start date: 09/01/14 13:09:00, Stop date: 09/01/14 13:09:00Notes: Take with food. Inactive 09/01/2014 [facility] Saline Flush 0.9% 10 mL, Route: IVP, Drug Form: INJ, Dosing Weight 100, kg, PRN, PRN Line Flush, Start date: 09/01/14 13:09:00, Duration: 30 day, Stop date: 10/01/14 13:08:00Notes: (Same as: BD Posiflush) No Longer Active 09/01/2014 [facility] Losartan 12.5 mg, PO, Daily, 0 Refill(s) No Longer Active 09/01/2014 [facility] Allergies, Adverse Reactions, Alerts No Known Medication Allergies Immunizations No Data Provided for This Section Results Order Name Results Value Reference Range Date Interpretation Comments [facility] HEMATOLOGY Eosinophils # 0.2 0.0 - 0.5 12/26/2016 [facility] HEMATOLOGY Monocytes # 0.8 0.0 - 0.8 12/26/2016 [facility] Basophils # 0.1 0.0 - 0.2 12/26/2016 [facility] Lymphocytes # 3.8 1.0 - 5.5 12/26/2016 [facility] Eosinophils 1.9 0.0 - 4.0 12/26/2016 [facility] [place] Basophils 0.8 0.0 - 1.0 12/26/2016 [facility] [place] Segs-Bands # 5.8 1.5 - 8.1 12/26/2016 [facility] [place] Monocytes 7.9 2.0 - 12.0 12/26/2016 [facility] [place] Segs 54.2 45.0 - 75.0 12/26/2016 [facility] [place] Lymphocytes 35.2 20.0 - 40.0 12/26/2016 [facility] [place] RBC Morph Normal (12/26/16 4:27 AM) 12/26/2016 [facility] [place] Plt Morph Normal (12/26/16 4:27 AM) 12/26/2016 [facility] [place] WBC 10.7 3.7 - 10.4 12/26/2016 [facility] [place] RBC 4.53 4.20 - 5.40 12/26/2016 [facility] Platelet 428 133 - 450 12/26/2016 [facility] MPV 7.8 7.4 - 10.4 12/26/2016 [facility] HEMATOLOGY Hgb 12.8 12.0 - 16.0 12/26/2016 [facility] HEMATOLOGY MCV 83.7 80.0 - 98.0 12/26/2016 [facility] HEMATOLOGY Hct 37.9 36.0 - 48.0 12/26/2016 [facility] [place] MCHC 33.7 32.0 - 36.0 12/26/2016 [facility] [place] MCH 28.2 27.0 - 31.0 12/26/2016 [facility] [place] RDW 14.3 11.5 - 14.5 12/26/2016 [facility] CHEM PANEL Phosphorus 2.9 2.5 - 4.5 12/25/2016 [facility] CHEM PANEL Magnesium Lvl 2.1 1.8 - 2.4 12/25/2016 [facility] ELECTROLYTES AGAP 11.1 10.0 - 20.0 12/25/2016 [facility] ELECTROLYTES Chloride Lvl 103 95 - 109 12/25/2016 [facility] ELECTROLYTES CO2 27 24 - 32 12/25/2016 [facility] ELECTROLYTES Calcium Lvl 9.0 8.5 - 10.5 12/25/2016 [facility] ELECTROLYTES Glucose Lvl 115 70 - 99 12/25/2016 [facility] ELECTROLYTES BUN 7 7 - 22 12/25/2016 [facility] ELECTROLYTES Creatinine Lvl 0.57 0.50 - 1.40 12/25/2016 [facility] ELECTROLYTES eGFR 117 12/25/2016 Result Comment: The [...] by the estimated BMI. [facility] ELECTROLYTES Potassium Lvl 4.1 3.5 - 5.1 12/25/2016 [facility] ELECTROLYTES Sodium Lvl 137 135 - 145 12/25/2016 [facility] [place] MCV 84.7 80.0 - 98.0 12/25/2016 [facility] [place] Hct 42.2 36.0 - 48.0 12/25/2016 [facility] [place] RBC 4.98 4.20 - 5.40 12/25/2016 [facility] [place] Hgb 13.9 12.0 - 16.0 12/25/2016 [facility] [place] Platelet 465 133 - 450 12/25/2016 [facility] [place] MCH 27.8 27.0 - 31.0 12/25/2016 [facility] [place] MPV 7.7 7.4 - 10.4 12/25/2016 [facility] [place] RDW 14.3 11.5 - 14.5 12/25/2016 [facility] [place] MCHC 32.8 32.0 - 36.0 12/25/2016 [facility] [place] WBC 11.7 3.7 - 10.4 12/25/2016 [facility] PT 12.8 12.0 - 14.7 12/25/2016 [facility] [place] INR 0.94 0.85 - 1.17 12/25/2016 [facility] [place] Monocytes 5.0 2.0 - 12.0 12/25/2016 [facility] [place] Lymphocytes 21.4 20.0 - 40.0 12/25/2016 [facility] [place] Segs 72.6 45.0 - 75.0 12/25/2016 [facility] [place] Eosinophils 0.4 0.0 - 4.0 12/25/2016 [facility] [place] Basophils # 0.1 0.0 - 0.2 12/25/2016 [facility] [place] Eosinophils # 0.1 0.0 - 0.5 12/25/2016 [facility] [place] Monocytes # 0.6 0.0 - 0.8 12/25/2016 [facility] [place] Lymphocytes # 2.5 1.0 - 5.5 12/25/2016 [facility] [place] Basophils 0.6 0.0 - 1.0 12/25/2016 [facility] [place] Segs-Bands # 8.5 1.5 - 8.1 12/25/2016 [facility] URINE AND STOOL UA Urobilinogen <=1.0 mg/dL 0.1 - 1.0 12/25/2016 [facility] URINE AND STOOL UA Mucus Few /LPF None Seen /LPF 12/25/2016 [facility] URINE AND STOOL UA RBC 2 0 - 2 12/25/2016 [facility] URINE AND STOOL UA Bacteria Moderate /HPF None Seen /HPF 12/25/2016 [facility] URINE AND STOOL UA WBC 1 0 - 5 12/25/2016 [facility] URINE AND STOOL UA Sq Epi Many /LPF Few /LPF 12/25/2016 [facility] URINE AND STOOL UA Nitrite Negative (12/25/16 2:31 PM) Negative 12/25/2016 [facility] URINE AND STOOL UA Leuk Est Negative (12/25/16 2:31 PM) Negative 12/25/2016 [facility] URINE AND STOOL UA Blood Moderate *ABN* (12/25/16 2:31 PM) Negative 12/25/2016 [facility] URINE AND STOOL UA Bili Negative *NA* (12/25/16 2:31 PM) Negative 12/25/2016 [facility] URINE AND STOOL UA Ketones Negative mg/dL Negative mg/dL 12/25/2016 [facility] URINE AND STOOL UA Glucose Negative mg/dL Negative mg/dL 12/25/2016 [facility] URINE AND STOOL UA Protein Negative mg/dL Negative mg/dL 12/25/2016 [facility] URINE AND STOOL UA pH 6.0 5.0 - 8.0 12/25/2016 [facility] URINE AND STOOL UA Spec Grav 1.004 <=1.030 12/25/2016 [facility] URINE AND STOOL UA Turbidity Clear (12/25/16 2:31 PM) Clear 12/25/2016 [facility] URINE AND STOOL UA Color Light Yellow *NA* (12/25/16 2:31 PM) Yellow 12/25/2016 [facility] URINE CHEM U Preg Negative (12/25/16 2:31 PM) Negative 12/25/2016 [facility] CARDIAC ENZYMES Total CK 68 12 - 191 03/29/2015 [facility] CARDIAC ENZYMES CK MB <0.5 0.5 - 3.6 03/29/2015 [facility] CARDIAC ENZYMES Troponin-I <0.02 0.00 - 0.40 03/29/2015 [facility] CARDIAC ENZYMES CK MB Index <0.7 0.0 - 2.5 03/29/2015 [facility] CHEM PANEL eGFR 109 03/29/2015 Result Comment: [...] by the estimated BMI. [facility] CHEM PANEL Globulin 4.1 2.0 - 4.0 03/29/2015 [facility] CHEM PANEL A/G Ratio 0.9 0.7 - 1.6 03/29/2015 [facility] CHEM PANEL B/C Ratio 9 6 - 25 03/29/2015 [facility] CHEM PANEL Alk Phos 93 39 - 136 03/29/2015 [facility] CHEM PANEL Bili Total 0.8 0.2 - 1.3 03/29/2015 [facility] CHEM PANEL AGAP 8.6 10.0 - 20.0 03/29/2015 [facility] CHEM PANEL Total Protein 7.8 6.4 - 8.4 03/29/2015 [facility] CHEM PANEL Albumin Lvl 3.7 3.5 - 5.0 03/29/2015 [facility] CHEM PANEL Calcium Lvl 8.7 8.5 - 10.5 03/29/2015 [facility] CHEM PANEL ALT 16 0 - 65 03/29/2015 [facility] CHEM PANEL AST 12 0 - 37 03/29/2015 [facility] CHEM PANEL Sodium Lvl 137 135 - 145 03/29/2015 [facility] CHEM PANEL CO2 27 24 - 32 03/29/2015 [facility] CHEM PANEL Potassium Lvl 3.6 3.5 - 5.1 03/29/2015 [facility] CHEM PANEL Chloride Lvl 105 95 - 109 03/29/2015 [facility] CHEM PANEL Creatinine Lvl 0.7 0.5 - 1.4 03/29/2015 [facility] CHEM PANEL Glucose Lvl 111 70 - 99 03/29/2015 [facility] CHEM PANEL BUN 6 7 - 22 03/29/2015 [facility] ENDOCRINOLOGY S Preg Negative *NA* (03/29/15 12:26 PM) Negative 03/29/2015 [facility] HEMATOLOGY INR 1.02 0.85 - 1.17 03/29/2015 [facility] HEMATOLOGY PT 13.4 12.0 - 14.7 03/29/2015 [facility] [place] PTT 32.6 22.9 - 35.8 03/29/2015 [facility] HEMATOLOGY RDW 14.5 11.5 - 14.5 03/29/2015 [facility] [place] Platelet 430 133 - 450 03/29/2015 [facility] MCHC 32.3 32.0 - 36.0 03/29/2015 [facility] [place] MPV 7.8 7.4 - 10.4 03/29/2015 [facility] [place] MCV 85.7 80.0 - 98.0 03/29/2015 [facility] [place] MCH 27.7 27.0 - 31.0 03/29/2015 [facility] [place] Hgb 12.6 12.0 - 16.0 03/29/2015 [facility] [place] Hct 38.9 36.0 - 48.0 03/29/2015 [facility] [place] RBC 4.54 4.20 - 5.40 03/29/2015 [facility] [place] WBC 10.1 3.7 - 10.4 03/29/2015 [facility] [place] Sed Rate 18 0 - 20 03/29/2015 [facility] [place] Basophils # 0.1 0.0 - 0.2 03/29/2015 [facility] HEMATOLOGY Eosinophils # 0.1 0.0 - 0.5 03/29/2015 [facility] HEMATOLOGY Basophils 0.7 0.0 - 1.0 03/29/2015 [facility] HEMATOLOGY Segs-Bands # 7.0 1.5 - 8.1 03/29/2015 [facility] [place] Monocytes # 0.5 0.0 - 0.8 03/29/2015 [facility] [place] Lymphocytes # 2.4 1.0 - 5.5 03/29/2015 [facility] [place] Monocytes 5.4 2.0 - 12.0 03/29/2015 [facility] HEMATOLOGY Eosinophils 0.9 0.0 - 4.0 03/29/2015 [facility] HEMATOLOGY Lymphocytes 23.9 20.0 - 40.0 03/29/2015 [facility] HEMATOLOGY Segs 69.1 45.0 - 75.0 03/29/2015 [facility] CARDIAC ENZYMES BNP 2 <=100 pg/mL 11/09/2014 <sup>3</sup>Interpretive Data: Elevated results are in line with increasing severity of
congestive heart failure. Minor elevations between 100 and 300
may be seen with Myocardial Ischemia, Sodium retaining drugs,
and compensated/treated heart failure. [facility] CARDIAC ENZYMES Troponin-I <0.02 0.00 - 0.40 11/09/2014 [facility] CHEM PANEL Magnesium Lvl 1.6 1.8 - 2.4 11/09/2014 [facility] CHEM PANEL eGFR 110 11/09/2014 <sup>1</sup>Result Comment: [...] by the estimated BMI. [facility] CHEM PANEL Chloride Lvl 103 95 - 109 11/09/2014 [facility] CHEM PANEL CO2 27 24 - 32 11/09/2014 [facility] CHEM PANEL Calcium Lvl 9.1 8.5 - 10.5 11/09/2014 [facility] CHEM PANEL Sodium Lvl 137 135 - 145 11/09/2014 [facility] CHEM PANEL Potassium Lvl 3.7 3.5 - 5.1 11/09/2014 [facility] CHEM PANEL BUN 9 7 - 22 11/09/2014 [facility] CHEM PANEL Creatinine Lvl 0.7 0.5 - 1.4 11/09/2014 [facility] CHEM PANEL Glucose Lvl 103 70 - 99 11/09/2014 <sup>2</sup>Interpretive Data: Adult reference range values reflect the clinical guidelines
of the [place] [employer]. [facility] CHEM PANEL AGAP 10.7 10.0 - 20.0 11/09/2014 [facility] HEMATOLOGY MPV 7.4 7.4 - 10.4 11/09/2014 [facility] HEMATOLOGY Platelet 457 133 - 450 11/09/2014 [facility] [facility] HEMATOLOGY RDW 13.8 11.5 - 14.5 11/09/2014 [facility] [place] MCHC 33.4 32.0 - 36.0 11/09/2014 [facility] [place] WBC 13.5 3.7 - 10.4 11/09/2014 [facility] [place] RBC 4.34 4.20 - 5.40 11/09/2014 [facility] [place] Hgb 12.7 12.0 - 16.0 11/09/2014 [facility] [place] MCH 29.2 27.0 - 31.0 11/09/2014 [facility] [place] Hct 37.9 36.0 - 48.0 11/09/2014 [facility] [place] MCV 87.3 80.0 - 98.0 11/09/2014 [facility] [place] PT 13.1 12.0 - 14.7 11/09/2014 [facility] [place] INR 0.99 0.85 - 1.17 11/09/2014 <sup>4</sup>Interpretive Data: RECOMMENDED RANGES FOR PROTIME INR:
2.0-3.0 for most medical and surgical thromboembolic states.
2.5-3.5 for artificial heart valves and recurrent embolism.

INR SHOULD BE USED ONLY FOR PATIENTS ON STABLE ANTICOAGULANT THERAPY. [facility] [place] PTT 29.8 22.9 - 35.8 11/09/2014 <sup>5</sup>Interpretive Data: Heparin Therapeutic Range: 57 - 92 Seconds [facility] [place] Monocytes 5.1 2.0 - 12.0 11/09/2014 [facility] [place] Lymphocytes 16.4 20.0 - 40.0 11/09/2014 [facility] [place] Segs 77.0 45.0 - 75.0 11/09/2014 [facility] [place] Monocytes # 0.7 0.0 - 0.8 11/09/2014 [facility] [place] Lymphocytes # 2.2 1.0 - 5.5 11/09/2014 [facility] [place] Segs-Bands # 10.4 1.5 - 8.1 11/09/2014 [facility] [place] Basophils 0.9 0.0 - 1.0 11/09/2014 [facility] HEMATOLOGY Eosinophils 0.6 0.0 - 4.0 11/09/2014 [facility] [place] Basophils # 0.1 0.0 - 0.2 11/09/2014 [facility] [place] Eosinophils # 0.1 0.0 - 0.5 11/09/2014 [facility] URINE AND STOOL Micro? Not Indicated (11/09/14 3:50 PM) 11/09/2014 [facility] URINE AND STOOL UA Leuk Est Negative (11/09/14 3:50 PM) Negative 11/09/2014 [facility] URINE AND STOOL UA Blood Negative (11/09/14 3:50 PM) Negative 11/09/2014 [facility] URINE AND STOOL UA Urobilinogen 0.2 0.1 - 1.0 11/09/2014 [facility] URINE AND STOOL UA Nitrite Negative (11/09/14 3:50 PM) Negative 11/09/2014 [facility] URINE AND STOOL UA pH 6.0 5.0 - 8.0 11/09/2014 [facility] URINE AND STOOL UA Turbidity Clear (11/09/14 3:50 PM) Clear 11/09/2014 [facility] URINE AND STOOL UA Spec Grav <=1.005 *NA* (11/09/14 3:50 PM) <=1.030 11/09/2014 [facility] URINE AND STOOL UA Color Yellow *NA* (11/09/14 3:50 PM) Yellow 11/09/2014 [facility] URINE AND STOOL UA Ketones Trace *ABN* (11/09/14 3:50 PM) Negative 11/09/2014 [facility] URINE AND STOOL UA Bili Negative *NA* (11/09/14 3:50 PM) Negative 11/09/2014 [facility] URINE AND STOOL UA Protein Negative (11/09/14 3:50 PM) Negative 11/09/2014 [facility] URINE AND STOOL UA Glucose Negative (11/09/14 3:50 PM) Negative 11/09/2014 [facility] URINE CHEM U Preg Negative (11/09/14 3:50 PM) Negative 11/09/2014 [facility] ELECTROLYTES AGAP 11.5 10.0 - 20.0 09/04/2014 [facility] ELECTROLYTES eGFR 94 09/04/2014 <sup>1</sup>Result Comment: The [...] by the estimated BMI. [facility] ELECTROLYTES Glucose Lvl 113 70 - 99 09/04/2014 <sup>4</sup>Interpretive Data: Adult reference range values reflect the clinical guidelines
of the [place] [employer]. [facility] ELECTROLYTES Creatinine Lvl 0.8 0.5 - 1.4 09/04/2014 [facility] ELECTROLYTES BUN 14 7 - 22 09/04/2014 [facility] ELECTROLYTES Calcium Lvl 8.7 8.5 - 10.5 09/04/2014 [facility] ELECTROLYTES CO2 24 24 - 32 09/04/2014 [facility] ELECTROLYTES Chloride Lvl 105 95 - 109 09/04/2014 [facility] ELECTROLYTES Potassium Lvl 3.5 3.5 - 5.1 09/04/2014 [facility] ELECTROLYTES Sodium Lvl 137 135 - 145 09/04/2014 [facility] [place] Monocytes # 0.8 0.0 - 0.8 09/04/2014 [facility] HEMATOLOGY Eosinophils # 0.2 0.0 - 0.5 09/04/2014 [facility] [place] Lymphocytes # 3.3 1.0 - 5.5 09/04/2014 [facility] HEMATOLOGY Segs 61.0 45.0 - 75.0 09/04/2014 [facility] [place] Lymphocytes 29.8 20.0 - 40.0 09/04/2014 [facility] HEMATOLOGY Basophils # 0.1 0.0 - 0.2 09/04/2014 [facility] [place] Segs-Bands # 6.8 1.5 - 8.1 09/04/2014 [facility] HEMATOLOGY Eosinophils 1.6 0.0 - 4.0 09/04/2014 [facility] HEMATOLOGY Basophils 0.6 0.0 - 1.0 09/04/2014 [facility] [place] Monocytes 7.0 2.0 - 12.0 09/04/2014 [facility] [place] MPV 7.8 7.4 - 10.4 09/04/2014 [facility] [place] RDW 14.4 11.5 - 14.5 09/04/2014 [facility] HEMATOLOGY Platelet 371 133 - 450 09/04/2014 [facility] HEMATOLOGY Hct 36.7 36.0 - 48.0 09/04/2014 [facility] HEMATOLOGY MCV 89.3 80.0 - 98.0 09/04/2014 [facility] HEMATOLOGY MCH 29.7 27.0 - 31.0 09/04/2014 [facility] HEMATOLOGY MCHC 33.3 32.0 - 36.0 09/04/2014 [facility] HEMATOLOGY Hgb 12.2 12.0 - 16.0 09/04/2014 [facility] HEMATOLOGY WBC 11.1 3.7 - 10.4 09/04/2014 [facility] HEMATOLOGY RBC 4.11 4.20 - 5.40 09/04/2014 [facility] CHEM PANEL eGFR 110 09/03/2014 <sup>2</sup>Result Comment: [...] by the estimated BMI. [facility] CHEM PANEL Calcium Lvl 8.6 8.5 - 10.5 09/03/2014 [facility] CHEM PANEL CO2 25 24 - 32 09/03/2014 [facility] CHEM PANEL Chloride Lvl 106 95 - 109 09/03/2014 [facility] CHEM PANEL Sodium Lvl 138 135 - 145 09/03/2014 [facility] CHEM PANEL Potassium Lvl 3.4 3.5 - 5.1 09/03/2014 [facility] CHEM PANEL Creatinine Lvl 0.7 0.5 - 1.4 09/03/2014 [facility] CHEM PANEL BUN 10 7 - 22 09/03/2014 [facility] CHEM PANEL Glucose Lvl 119 70 - 99 09/03/2014 <sup>5</sup>Interpretive Data: Adult reference range values reflect the clinical guidelines
of the [place] [employer]. [facility] CHEM PANEL AGAP 10.4 10.0 - 20.0 09/03/2014 [facility] HEMATOLOGY WBC 10.8 3.7 - 10.4 09/03/2014 [facility] [place] MCHC 33.7 32.0 - 36.0 09/03/2014 [facility] [place] RDW 14.8 11.5 - 14.5 09/03/2014 [facility] [place] Platelet 336 133 - 450 09/03/2014 [facility] [place] MPV 7.6 7.4 - 10.4 09/03/2014 [facility] [place] Hgb 12.4 12.0 - 16.0 09/03/2014 [facility] [place] RBC 4.14 4.20 - 5.40 09/03/2014 [facility] [place] MCV 89.1 80.0 - 98.0 09/03/2014 [facility] [place] Hct 36.9 36.0 - 48.0 09/03/2014 [facility] [place] MCH 30.0 27.0 - 31.0 09/03/2014 [facility] HEMATOLOGY Eosinophils 0.9 0.0 - 4.0 09/03/2014 [facility] HEMATOLOGY Segs-Bands # 6.1 1.5 - 8.1 09/03/2014 [facility] HEMATOLOGY Basophils 0.6 0.0 - 1.0 09/03/2014 [facility] [place] Monocytes # 0.9 0.0 - 0.8 09/03/2014 [facility] [place] Lymphocytes # 3.5 1.0 - 5.5 09/03/2014 [facility] HEMATOLOGY Eosinophils # 0.1 0.0 - 0.5 09/03/2014 [facility] HEMATOLOGY Segs 57.0 45.0 - 75.0 09/03/2014 [facility] [place] Lymphocytes 33.0 20.0 - 40.0 09/03/2014 [facility] [place] Monocytes 8.5 2.0 - 12.0 09/03/2014 [facility] [place] Basophils # 0.1 0.0 - 0.2 09/03/2014 [facility] ELECTROLYTES AGAP 14.7 10.0 - 20.0 09/02/2014 [facility] ELECTROLYTES eGFR 110 09/02/2014 <sup>3</sup>Result Comment: The [...] by the estimated BMI. [facility] ELECTROLYTES Calcium Lvl 8.7 8.5 - 10.5 09/02/2014 [facility] ELECTROLYTES Chloride Lvl 105 95 - 109 09/02/2014 [facility] ELECTROLYTES CO2 23 24 - 32 09/02/2014 [facility] ELECTROLYTES Sodium Lvl 139 135 - 145 09/02/2014 [facility] ELECTROLYTES Potassium Lvl 3.7 3.5 - 5.1 09/02/2014 [facility] ELECTROLYTES BUN 15 7 - 22 09/02/2014 [facility] ELECTROLYTES Creatinine Lvl 0.7 0.5 - 1.4 09/02/2014 [facility] ELECTROLYTES Glucose Lvl 114 70 - 99 09/02/2014 <sup>6</sup>Interpretive Data: Adult reference range values reflect the clinical guidelines
of the [place] [employer]. [facility] HEMATOLOGY Monocytes 2.0 2.0 - 12.0 09/02/2014 [facility] [place] Lymphocytes 42.0 20.0 - 40.0 09/02/2014 [facility] HEMATOLOGY Bands 0.0 0.0 - 11.0 09/02/2014 [facility] HEMATOLOGY Segs 56.0 45.0 - 75.0 09/02/2014 [facility] HEMATOLOGY RBC Morph Normal (09/02/14 4:42 AM) 09/02/2014 [facility] HEMATOLOGY Atypical Lymphs 0.0 <=0.0 % 09/02/2014 [facility] [place] Plt Morph Normal (09/02/14 4:42 AM) 09/02/2014 [facility] [place] Monocytes # 0.2 0.0 - 0.8 09/02/2014 [facility] [place] Lymphocytes # 4.3 1.0 - 5.5 09/02/2014 [facility] HEMATOLOGY Segs-Bands # 5.8 1.5 - 8.1 09/02/2014 [facility] HEMATOLOGY MCHC 33.2 32.0 - 36.0 09/02/2014 [facility] HEMATOLOGY MCH 29.6 27.0 - 31.0 09/02/2014 [facility] HEMATOLOGY Platelet 333 133 - 450 09/02/2014 [facility] HEMATOLOGY MPV 7.7 7.4 - 10.4 09/02/2014 [facility] HEMATOLOGY RDW 14.6 11.5 - 14.5 09/02/2014 [facility] HEMATOLOGY Hct 34.2 36.0 - 48.0 09/02/2014 [facility] HEMATOLOGY MCV 89.1 80.0 - 98.0 09/02/2014 [facility] HEMATOLOGY Hgb 11.4 12.0 - 16.0 09/02/2014 [facility] HEMATOLOGY RBC 3.84 4.20 - 5.40 09/02/2014 [facility] HEMATOLOGY WBC 10.3 3.7 - 10.4 09/02/2014 [facility] LIPIDS LDL (Calculated) 121 <=99 mg/dL 09/02/2014 [facility] LIPIDS VLDL 53 09/02/2014 [facility] LIPIDS CHD Risk 6.12 3.90 - 5.80 09/02/2014 [facility] LIPIDS Chol 208 <=199 mg/dL 09/02/2014 [facility] LIPIDS Trig 263 <=149 mg/dL 09/02/2014 [facility] LIPIDS HDL 34 >=61 mg/dL 09/02/2014 [facility] SPECIAL CHEMISTRY Hgb A1C 6.7 <=5.6 % 09/02/2014 [facility] BODY FLUIDS RBC CSF 4 0 - 03 09/02/2014 [facility] BODY FLUIDS Color CSF Colorless (09/01/14 6:10 PM) Colorless 09/02/2014 [facility] BODY FLUIDS WBC CSF 2 0 - 53 09/02/2014 [facility] BODY FLUIDS Clarity CSF Clear (09/01/14 6:10 PM) Clear 09/02/2014 [facility] BODY FLUIDS Supernat CSF Colorless (09/01/14 6:10 PM) Colorless 09/02/2014 [facility] BODY FLUIDS Tube Num CSF 3 09/02/2014 [facility] BODY FLUIDS Protein CSF 49 15 - 45 09/02/2014 [facility] BODY FLUIDS Glucose CSF 74 45 - 80 09/02/2014 [facility] FUNGAL - SEROLOGY Crypto Ag CSF Negative (09/01/14 6:10 PM) Negative 09/02/2014 [facility] IMMUNOLOGY CSF Men A Negative (1/21/15 6:10 PM) Negative 09/02/2014 [facility] CSF H Influ B Negative 7 (09/01/14 6:10 PM) Negative 09/02/2014 <sup>7</sup>Interpretive Data: Testing includes polyclonal antibody to Haemophilus influenzae
type b. [facility] CSF S pneumo Negative (09/01/14 6:10 PM) Negative 09/02/2014 [facility] CSF Men C Negative (09/01/14 6:10 PM) Negative 09/02/2014 [facility] CSF Strep B Negative (09/01/14 6:10 PM) Negative 09/02/2014 [facility] CSF Men B Negative (09/01/14 6:10 PM) Negative 09/02/2014 [facility] MOLECULAR DIAGNOSTIC Source HSV Cerebral Spinal Fluid 09/02/2014 [facility] MOLECULAR DIAGNOSTIC HSV 2 by PCR [...] validated by the [facility] within [facility]. The [facility] is authorized under the Clinical Improvement Amendments of 1988 (CLIA-88) to perform high-complexity testing. This test has not been cleared by the U.S. Food and Drug Administration (FDA). However, FDA approval is not required and the use should not be considered investigational or research. [facility] MOLECULAR DIAGNOSTIC HSV 1 by PCR Not Performed 8 (09/01/14 6:10 PM) Negative 09/02/2014 <sup>8</sup>Result Comment: CSF contains less than 5 WBC'S and has a normal Protein level. [facility] VIRAL - SEROLOGY Enterovirus PCR CSF Negative 11 (1/21/15 6:10 PM) Negative 09/02/2014 <sup>11</sup>Interpretive Data: Interpretation:
Negative.....No enterovirus DNA detected by PCR
Positive.....Enterovirus DNA detected by PCR
Assay Limitations:& lt;br/>A negative result does not rule out the presence of PCR inhibitors in the patient specimen or Enterovirus nucleic acid in concentrations below the level of detection of the assay. [facility] CARDIAC ENZYMES Troponin-I <0.02 0.00 - 0.40 09/01/2014 [facility] CARDIAC ENZYMES CK MB 0.6 0.5 - 3.6 09/01/2014 [facility] CARDIAC ENZYMES Total CK 61 12 - 191 09/01/2014 [facility] CARDIAC ENZYMES CK MB Index 1.0 0.0 - 2.5 09/01/2014 [facility] CHEM PANEL A/G Ratio 1.0 0.7 - 1.6 09/01/2014 [facility] CHEM PANEL Globulin 4.2 2.0 - 4.0 09/01/2014 [facility] CHEM PANEL Bili Total 0.8 0.2 - 1.3 09/01/2014 [facility] CHEM PANEL B/C Ratio 14 6 - 25 09/01/2014 [facility] CHEM PANEL Albumin Lvl 4.1 3.5 - 5.0 09/01/2014 [facility] CHEM PANEL Total Protein 8.3 6.4 - 8.4 09/01/2014 [facility] CHEM PANEL ALT 28 0 - 65 09/01/2014 [facility] CHEM PANEL Alk Phos 77 39 - 136 09/01/2014 [facility] CHEM PANEL AST 17 0 - 37 09/01/2014 [facility] HEMATOLOGY Basophils # 0.0 0.0 - 0.2 09/01/2014 [facility] HEMATOLOGY Eosinophils # 0.0 0.0 - 0.5 09/01/2014 [facility] HEMATOLOGY Eosinophils 0.1 0.0 - 4.0 09/01/2014 [facility] HEMATOLOGY Basophils 0.1 0.0 - 1.0 09/01/2014 [facility] SPECIAL CHEMISTRY Hgb A1C 6.8 <=5.6 % 09/01/2014 [facility] THYROID PANEL TSH 1.710 0.360 - 3.740 09/01/2014 [facility] Pathology Reports No Data Provided for This [...] moyamoya is again noted. SL: JNGUYEJENY 12/25/2016 [facility] Brain/Neck CTA EXAM: CTA BRAIN EXAM: CTA [...] carotid artery {NASCET criteria}.) SL: JNGUYEN-PC 12/25/2016 [facility] Chest 1view DX EXAM: CHEST 1 VIEW [...] No acute intrathoracic abnormality SL: 12 03/29/2015 [facility] Brain wo contrast CT CRANIAL CT (without [...] Coding: Brain wo contrast CT CPT Code: 06770 SL: 13 Wally Harris M.D. 03/29/2015 [facility] Brain/Neck CTA CTA HEAD AND NECK: CLINICAL [...] No focal stenosis or aneurysm. 5. 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 SL:17 09/02/2014 [facility] Brain wo contrast MRI PROCEDURE: Brain wo [...] Clayton at 5:11 p.m. SL: 14 09/01/2014 [facility] Consultation Notes No Data Provided for This Section Discharge Summaries No Data Provided for This Section History and Physicals No Data Provided for This Section Vital Signs Vital Sign Value Date Comments Source Weight 95.909 03/28/2018 [facility] BMI Calculated 36.29 03/28/2018 [facility] Height 162.56 cm 03/28/2018 [facility] Temperature Oral (F) 98.7 F 03/28/2018 [facility] Heart Rate 99 03/28/2018 [facility] Respitory Rate 16 03/28/2018 [facility] Systolic (mm Hg) 150 03/28/2018 [facility] Diastolic (mm Hg) 77 03/28/2018 [facility] Systolic (mm Hg) 127 12/26/2016 [facility] Diastolic (mm Hg) 80 12/26/2016 [facility] Respitory Rate 20 12/26/2016 [facility] Temperature Oral (F) 98.6 F 12/26/2016 [facility] Heart Rate 63 12/26/2016 [facility] Heart Rate 64 12/26/2016 [facility] Temperature Oral (F) 98.5 F 12/26/2016 [facility] Respitory Rate 20 12/26/2016 [facility] Systolic (mm Hg) 139 12/26/2016 [facility] Diastolic (mm Hg) 83 12/26/2016 [facility] Respitory Rate 20 12/26/2016 [facility] Systolic (mm Hg) 122 12/26/2016 [facility] Diastolic (mm Hg) 86 12/26/2016 [facility] Heart Rate 89 12/26/2016 [facility] Temperature Oral (F) 97.7 F 12/26/2016 [facility] Weight 97 12/26/2016 [facility] Height 162.56 cm 12/25/2016 [facility] Weight 98.182 12/25/2016 [facility] BMI Calculated 37.15 12/25/2016 [facility] Respitory Rate 20 03/29/2015 [facility] Systolic (mm Hg) 126 03/29/2015 [facility] Diastolic (mm Hg) 66 03/29/2015 [facility] Temperature Oral (F) 98.3 F 03/29/2015 [facility] Heart Rate 66 03/29/2015 [facility] Respitory Rate 18 03/29/2015 [facility] Heart Rate 77 03/29/2015 [facility] Systolic (mm Hg) 167 03/29/2015 [facility] Diastolic (mm Hg) 97 03/29/2015 [facility] Weight 100 03/29/2015 [facility] BMI Calculated 37.84 03/29/2015 [facility] Height 162.56 cm 03/29/2015 [facility] Temperature Oral (F) 99.1 F 03/29/2015 [facility] Respitory Rate 18 03/29/2015 [facility] Heart Rate 76 03/29/2015 [facility] Systolic (mm Hg) 183 03/29/2015 [facility] Diastolic (mm Hg) 101 03/29/2015 [facility] Heart Rate 66 11/09/2014 [facility] Respitory Rate 18 11/09/2014 [facility] Temperature Oral (F) 98.3 F 11/09/2014 [facility] Systolic (mm Hg) 137 11/09/2014 [facility] Diastolic (mm Hg) 66 11/09/2014 [facility] Heart Rate 67 11/09/2014 [facility] Respitory Rate 18 11/09/2014 [facility] Systolic (mm Hg) 135 11/09/2014 [facility] Diastolic (mm Hg) 73 11/09/2014 [facility] Systolic (mm Hg) 138 11/09/2014 [facility] Diastolic (mm Hg) 83 11/09/2014 [facility] Respitory Rate 16 11/09/2014 [facility] Heart Rate 77 11/09/2014 [facility] Weight 97.727 11/09/2014 [facility] BMI Calculated 36.98 11/09/2014 [facility] Height 162.56 cm 11/09/2014 [facility] Temperature Oral (F) 98.2 F 11/09/2014 [facility] Diastolic (mm Hg) 84 09/04/2014 [facility] Systolic (mm Hg) 131 09/04/2014 [facility] Respitory Rate 20 09/04/2014 [facility] Temperature Oral (F) 98.5 F 09/04/2014 [facility] Heart Rate 67 09/04/2014 [facility] Temperature Oral (F) 98.1 F 09/04/2014 [facility] Systolic (mm Hg) 140 09/04/2014 [facility] Heart Rate 61 09/04/2014 [facility] Respitory Rate 20 09/04/2014 [facility] Diastolic (mm Hg) 89 09/04/2014 [facility] Diastolic (mm Hg) 81 09/04/2014 [facility] Temperature Oral (F) 99.1 F 09/04/2014 [facility] Heart Rate 61 09/04/2014 [facility] Respitory Rate 20 09/04/2014 [facility] Systolic (mm Hg) 124 09/04/2014 [facility] Weight 101.7 09/03/2014 [facility] BMI Calculated 37.84 09/01/2014 [facility] Height 162.56 cm 09/01/2014 [facility] Weight 100 09/01/2014 [facility] Encounters Location Location Details Encounter Type Encounter Number Reason For Visit Attending Provider ADM Date DC Date Status Source [facility] Inpatient [id number] Papa Molina 09/01/2014 09/05/2014 [facility] [id number] Mildred Reyes 11/09/2014 11/09/2014 [facility] OBS Observation Patient [id number] Miguelito Salazar 03/29/2015 03/29/2015 [facility] Observation [id number] Rachel Leblanc 12/25/2016 12/26/2016 [facility] Emergency [id number] Jeronimo Fowler 03/28/2018 03/28/2018 [facility] Procedures Procedure Code Date Perfomer Comments Source Partial hysterectomy [id number] [facility] Tubal ligation [id number] [facility] Assessment and Plan Assessment and Plan Date Source Extracted from:Title: Neurology Consultation Author: Sonia Dietrich EXTRACTOR OPERATOR Date: 12/26/16 Impression and Plan 41 year old female with 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 12/26/2016 [facility] Extracted from:Title: Neurology Progress Note Author: Jennifer Coles NP Date: 09/04/14 Impression and Plan Ms. Penn is a 39 y/o female c PMH of HTN who presented to [facility] after onset of a recurrent [...] able to f/u outpt with neurology at [facility] with conventional angiorgram as well. * [...] [facility] S/P [facility]. Time: 25 minutes. Extracted from:Title: Neurology Consultation Author: Eleni Jeffers Date: 09/01/14 Impression and Plan Ms. Penn is a 39 y/o female c PMH of HTN who presented to [facility] after onset of a recurrent [...] of this patient. Time: 70 minutes. 09/05/2014 [facility] Plan of Care No Data Provided for This Section Social History Social History Date Source Social History TypeResponse Alcohol Past Smoking Status Never smoker; Exposure to Tobacco Smoke None; Cigarette Smoking Last 365 Days No; Reg Smoking Cessation Counseling No entered on: 12/25/16 12/26/2016 [facility] Family History No Data Provided for This Section Advance Directives No Data Provided for This Section Functional Status No Data Provided for This Section
[2019-03-24] MEDS ORDERED: SODIUM CHLORIDE 0.9% 1000ML 1,000 ML IV SCH (08:00)
--- NOTE | 2019-03-24 08:33 | Diagnostic Imaging Report ---
CT BRAIN WO HISTORY: Right-sided numbness COMPARISON: Head CT 02/15/2019 and 01/11/2019; report from MRI of the brain 04/01/2017 and MRA of the head 03/20/2017 (images not available) TECHNIQUE: Noncontrast axial scans were obtained from skull base to the vertex. Coronal and sagittal reconstructions obtained from the axial data. One or more of the following dose reduction techniques were used: Automated exposure control, adjustment of the mA and/or kV according to patient size, and/or utilization of iterative reconstruction technique. DISCUSSION: Scalp/Skull: Unremarkable. Brain sulci: Appropriate for patient's age. Ventricles: Normal in size and configuration. No hydrocephalus. Extra-axial spaces: No masses or fluid collections. Parenchyma: Small hypodensities in the right frontal periventricular white matter and left anterior centrum semiovale are more conspicuous. These may be due to age indeterminate lacunar infarcts. The posterior left middle frontal gyrus is likely involved. Mild periventricular white matter hypodensities are likely chronic microvascular ischemic changes. There is an old right caudate head lacunar infarct. Otherwise, no mass, hemorrhage, or large vascular territory acute infarct. Dural sinuses: No abnormal densities. Sellar/Suprasellar region: Intact. Skull base: Intact. Incidental findings: None. IMPRESSION: 1. More conspicuous, small hypodensities in the right frontal periventricular white matter and left anterior centrum semiovale may be due to age indeterminate lacunar infarcts. 2. Otherwise, no acute intracranial abnormalities. 3. Mild supratentorial chronic microvascular ischemic change. Old right caudate head lacunar infarct. Signed by: Dr. Eugene Granados M.D. on 03/24/2019 8:30 AM
[2019-03-24] MEDS ORDERED: ASPIRIN 325 MG TAB PO ONE (09:00)
[2019-03-24 09:13] LABS: BASOPHILS # (AUTO) 0.1 (0.0-0.1); BASOPHILS % 0.5 % (0.0-1.0); EOSINOPHILS # (AUTO) 0.2 (0.0-0.4); EOSINOPHILS % 2.1 % (0.0-6.0); HEMATOCRIT 39.5 % (34.2-44.1); HEMOGLOBIN 13.1 g/dL (12.0-16.0); LYMPHOCYTES # (AUTO) 2.1 (1.0-3.2); LYMPHOCYTES % 20.6 % (18.0-39.1); MEAN CORPUSCULAR HEMOGLOBIN 28.4 pg (28-32); MEAN CORPUSCULAR HGB CONC 33.2 g/dL (31-35); MEAN CORPUSCULAR VOLUME 85.5 fL (81-99); MONOCYTES # (AUTO) 0.5 (0.2-0.8); MONOCYTES % 5.4 % (4.4-11.3); NEUTROPHILS # (AUTO) 7.1 (2.1-6.9); NEUTROPHILS % 70.7 % (38.7-80.0); PLATELET COUNT 489 x10e3/uL (140-360); RED BLOOD COUNT 4.62 x10e6/uL (3.6-5.1); RED CELL DISTRIBUTION WIDTH 13.4 % (11.7-14.4)
--- NOTE | 2019-03-24 09:13 | Diagnostic Imaging Report ---
EXAMINATION: CHEST SINGLE (PORTABLE) INDICATION: CVA COMPARISON: None FINDINGS: LINES/TUBES:None LUNGS:The lungs are well-inflated. No focal consolidation or pulmonary edema. PLEURA:No pleural effusion or pneumothorax. MEDIASTINUM:The cardiomediastinal silhouette appears normal in size and shape. BONES/SOFT TISSUES:No acute osseous injury. ABDOMEN:No free air under the diaphragm. IMPRESSION: No focal pneumonia or pulmonary edema. Signed by: Tara Tovar MD on 03/24/2019 9:09 AM
[2019-03-24 09:37] LABS: ANION GAP 15.7 mmol/L (8-16); BLOOD UREA NITROGEN 7 mg/dL (7-26); BUN/CREATININE RATIO 11 (6-25); CALCIUM 9.4 mg/dL (8.4-10.2); CARBON DIOXIDE 25 mmol/L (22-29); CHLORIDE 100 mmol/L (98-107); CREATININE, SERUM 0.64 mg/dL (0.57-1.11); EST GLOMERULAR FILTRATION RATE > 60 ML/MIN (60-); GLUCOSE 143 mg/dL (74-118); POTASSIUM 3.7 mmol/L (3.5-5.1); SODIUM 137 mmol/L (136-145)
[2019-03-24 10:24] LABS: BILIRUBIN,URINE NEGATIVE (NEGATIVE); CLARITY,URINE CLEAR (CLEAR); COLOR,URINE YELLOW (YELLOW); KETONES,URINE 1+ (NEGATIVE); LEUKOCYTE ESTERASE ,URINE NEGATIVE (NEGATIVE); NITRITE,URINE NEGATIVE (NEGATIVE); PROTEIN,URINE DIPSTICK NEGATIVE (NEGATIVE); URINE UROBILINOGEN 0.2 mg/dL (0.2 - 1)
[2019-03-24 10:36] LABS: BACTERIA,URINE MODERATE /HPF; EPITHELIAL CELLS,URINE FEW /LPF; WBC,URINE (MAN) 0-5 /HPF (0-5)
== END 2019-03-24 11:08 | disposition home or self-care (01) ==
LOC: ER 07:50
DX: R20.0 Anesthesia of skin (principal); G45.9 Transient cerebral ischemic attack, unspecified
CPT/HCPCS: 36415; 70450; 71045; 80048; 81001; 81025; 85025; 99284; J7030

== ENCOUNTER 2020-04-08 04:11 | Emergency (ER) | payer OTHER ==
[~2020-04-08] VITALS: Ht 162.6 cm; Wt 97.1 kg
--- OUTSIDE RECORDS SUMMARY | 2020-04-08 04:30 | XMS REPORT | Clinical Summary ---
Author Author [facility] Organization [facility] Address Unknown Phone Unavailable Care Team Providers Care Physical Therapist Center Manager Name Role Phone Rachel Leblanc MD PCP Unavailable Rachel Leblanc MD Unavailable Unavailable Allergies Comments Active Allergy Reactions Severity Noted Date hives Apple Cider Vinegar Palpitations Low 2017 Iodinated Contrast Media Nausea Only Low 03/16 dizziness Iodine And Iodide Nausea Only Low 11/05/2014 Containing Products hives Olmesartan Swelling High 03/16/2019 Medications End Date Status Medication Sig Dispensed Refills Start Date Active aspirin 325 MG tablet Take 325 mg 0 by mouth daily. Active cyanocobalamin 500 MCG Take 500 mcg 0 tablet by mouth every morning With food . Active ergocalciferol Take 50,000 0 (ERGOCALCIFEROL) 50,000 Units by unit capsule mouth once a week On . Active atorvastatin (LIPITOR) 10 Take 10 mg by 0 MG tablet mouth daily. Active metFORMIN (GLUMETZA) 500 Take 500 mg 0 MG (MOD) 24 hr tablet by mouth 2 (two) times daily with breakfast and dinner. Active amLODIPine (NORVASC) 5 MG Take 5 mg by 0 tablet mouth daily. Active metoprolol (TOPROL-XL) 50 Take 50 mg by 0 MG 24 hr tablet mouth daily. 06/19/2020 Active acetaminophen (TYLENOL) Take 2 30 tablet 0 325 MG tablet tablets (650 9 mg total) by mouth every 6 (six) hours as needed for up to 360 days. 06/19/2020 Active acetaminophen (TYLENOL) Take 2 30 tablet 0 325 MG tablet tablets (650 9 mg total) by mouth every 6 (six) hours as needed for Pain for up to 360 days. 06/25/2019 Discontinued losartan (COZAAR) 25 MG Take 25 mg by 0 tablet mouth daily. 06/25/2019 Discontinued atorvastatin (LIPITOR) 10 Take 20 mg by 0 MG tablet mouth nightly . 06/25/2019 Discontinued glipiZIDE-metFORMIN Take 2 0 (METAGLIP) 2.5-500 mg per tablets by tablet mouth 2 (two) times daily. 06/25/2019 Discontinued clopidogrel (PLAVIX) 75 Take 75 mg by 0 mg tablet mouth nightly. 06/25/2019 Discontinued hydroCHLOROthiazide Take 25 mg by 0 (HYDRODIURIL) 25 MG mouth every tablet morning. 06/25/2019 Discontinued omeprazole (PRILOSEC) 20 Take 20 mg by 0 MG capsule mouth 2 (two) times daily 1 tablet in the morning 30 minutes before breakfast 1 tablet at bedtime 1 hour before atorvastatin and plavix . 06/25/2019 Discontinued aspirin 325 MG tablet Take 325 mg 0 by mouth daily. 06/25/2019 Discontinued clopidogrel (PLAVIX) 75 Take 75 mg by 0 mg tablet mouth daily. 06/25/2019 Discontinued atorvastatin (LIPITOR) 10 Take 1 tablet 90 tablet 3 06/26/201 MG tablet (10 mg total) 9 by mouth daily. 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 TIA (transient ischemic attack) 2017 Vasculitis 11/05/2014 Encounters Care Team Description Date Type Specialty 06/25/2019 Travel Regan Pretty MD 06/23/2019 Anesthesia Event [facility] Morrison MD BYPASS,EXTRACRANIAL-INTERCRANIAL ARTERIE S 06/23/2019 Surgery [facility] Morrison MD Pre-op testing (Primary Dx) 06/23/2019 Hospital Intensive Care - Encounter 06/25/2019 Adams Morrison MD 06/03/2019 Hospital Encounter Adams Morrison MD 06/03/2019 Hospital Cardiology Encounter Adams Morrison MD Gillespie gillespie disease; Pre-op testing 06/03/2019 Hospital Pre-Admission Testi ng Encounter Rachel Leblanc MD 06/03/2019 Outside Orders Adams Morrison MD Gillespie gillespie disease (Primary Dx); Pre-op testing 06/02/2019 Orders Only Family Medicine after 04/08/2019 Social History Date Tobacco Use Types Packs/Day Years Used Never Smoker Smokeless Tobacco: Never Used Alcohol Use Drinks/Week oz/Week Comments No Alcohol Habits Answer Date Recorded How often do you have a drink containing alcohol? Never 03/19/2019 How many drinks containing alcohol do you have on Not aske d 03/19/2019 a typical day when you are drinking? How often do you have six or more drinks on one Not asked 03/19/2019 occasion? Sex Assigned at Date Recorded Not on file Industry Job Start Date Occupation Not on file Not on file Not on file Travel End Travel History Travel Start No recent travel history available. Last Filed Vital Signs Time Taken Vital Sign Reading 06/25/2019 12:00 PM SBA UNDERWRITER Blood Pressure 127/76 06/25/2019 12:00 PM SBA UNDERWRITER Pulse 60 06/25/2019 11:00 AM SBA UNDERWRITER Temperature 36.9 C (98.5 F) 06/25/2019 12:00 PM SBA UNDERWRITER Respiratory Rate 18 06/25/2019 12:00 PM SBA UNDERWRITER Oxygen Saturation 100% - Inhaled Oxygen - Concentration 06/23/2019 6:12 AM SBA UNDERWRITER Weight 96.5 kg (212 lb 11.9 oz) 06/23/2019 6:12 AM SBA UNDERWRITER Height 162.6 cm (5' 4.02") 06/23/2019 6:12 AM SBA UNDERWRITER Body Mass Index 36.5 Plan of Treatment Not on file Implants Device Identifier Shelf Expiration Date Model / Serial / L ot Implanted Type Area Manufactur er [id number] 08/11/2021 [id number] / / [id number] Graft Matrix Dura Plus 2x2 Dmop22 - IMPLANTS Left: Head COLLAGEN [id number] [employer] Implanted: Qty: 1 on 06/23/2019 by [facility] Morrison MD [id number] / / Plt Str Un3 2h W/Tab [id number] - IMPLANTS Left: Head MARLYS:CR [id number] ANIOMAXILL Implanted: Qty: 2 on 06/23/2019 by [place] Millan MD [id number] / / Cvr [place] Lp 10mm W/Tab [id number] IMPLANTS Left: Head MARLYS:CR - [id number] ANIOMAXILL Implanted: Qty: 1 on 06/23/2019 by [place] Millan MD [id number] / / Scr Un3 [place] Self Drl 1.5x4mm IMPLANTS Left: Head MARLYS:CR [id number] - [id number] ANIOMAXILL Implanted: Qty: 7 on 06/23/2019 by [place] Millan MD Device Identifier Shelf Expiration Date Model / Serial / L ot Explanted Type Area Manufactur er [id number] 06/11/2028 [id number] / 27AWB / Clip Anuer 7.0mm [id number] - [id number] IMPLANTS Left: Head B RODRIGUES Explanted: Qty: 1 on 06/23/2019 by MED:Linsey Craig MD AP:CRANIO Procedures Comments Procedure Name Priority Date/Time Associated Diag nosis RHYTHM STRIP - SCAN 06/26/2019 2:20 PM SBA UNDERWRITER POCT-GLUCOSE METER Routine 06/25/2019 12:12 PM SBA UNDERWRITER POCT-GLUCOSE METER Routine 06/25/2019 7:23 AM SBA UNDERWRITER BASIC METABOLIC PANEL (7) Routine 06/25/2019 1:04 AM SBA UNDERWRITER MAGNESIUM Routine 06/25/2019 1:04 AM SBA UNDERWRITER PHOSPHORUS Routine 06/25/2019 1:04 AM SBA UNDERWRITER CBC (HEMOGRAM ONLY) Routine 06/25/2019 1:04 AM SBA UNDERWRITER POCT-GLUCOSE METER Routine 06/24/2019 9:52 PM SBA UNDERWRITER POCT-GLUCOSE METER Routine 06/24/2019 5:53 PM SBA UNDERWRITER TRANSFUSION SERVICE 06/24/2019 REPORT - SCAN 5:44 PM SBA UNDERWRITER POCT-GLUCOSE METER Routine 06/24/2019 11:41 AM SBA UNDERWRITER CTA BRAIN Routine 06/24/2019 10:26 AM SBA UNDERWRITER POCT-GLUCOSE METER Routine 06/24/2019 8:03 AM SBA UNDERWRITER BASIC METABOLIC PANEL (7) Routine 06/24/2019 5:20 AM SBA UNDERWRITER MAGNESIUM Routine 06/24/2019 5:20 AM SBA UNDERWRITER PHOSPHORUS Routine 06/24/2019 5:20 AM SBA UNDERWRITER CBC (HEMOGRAM ONLY) Routine 06/24/2019 5:20 AM SBA UNDERWRITER POCT-GLUCOSE METER Routine 06/24/2019 1:14 AM SBA UNDERWRITER POCT-GLUCOSE METER Routine 06/23/2019 9:[address] BRAIN WITHOUT IV STAT 06/23/2019 CONTRAST 5:17 PM SBA UNDERWRITER SHORT LATENCY SEP ALL Routine 06/23/2019 LIMBS 2:21 PM SBA UNDERWRITER HGB/HCT (H&H) - STAT LAB STAT 06/23/2019 10:13 AM SBA UNDERWRITER GLUCOSE-STAT LAB STAT 06/23/2019 10:13 AM SBA UNDERWRITER POTASSIUM-STAT LAB STAT 06/23/2019 10:13 AM SBA UNDERWRITER SODIUM NA-STAT LAB STAT 06/23/2019 10:13 AM SBA UNDERWRITER BLOOD GAS, ARTERIAL STAT 06/23/2019 10:13 AM SBA UNDERWRITER CALCIUM, IONIZED STAT 06/23/2019 10:13 AM SBA UNDERWRITER RRL CRITICAL LABS STAT 06/23/2019 (ABG,NA,K,H&H,GLUCOSE) 10:13 AM SBA UNDERWRITER PREPARE LEUKO-REDUCED RBC Routine 06/23/2019 7:31 AM SBA UNDERWRITER PROCEDURE W/ 06/23/2019 Moyamoya disease INTRAOPERATIVE 7:30 AM SBA UNDERWRITER NEUROMONITORING Case Notes EMERGENCY ROOM APPROVED BY MARIMAR Keitajamey goodman Special Needs (NEURO MONITORING : MEP, SSEP,EEG, MICROSCOPE , BYPASS SET, MICRO INSTRUMENT S, ICG, DOPPLER, PALMER CLAMPS, FLOW METER, ICU BED) PROCEDURE W/ OPERATING 06/23/2019 Moyamoya disea se MICROSCOPE 7:30 AM SBA UNDERWRITER Case Notes EMERGENCY ROOM APPROVED BY MARIMAR Keitajamey goodman Special Needs (NEURO MONITORING : MEP, SSEP,EEG, MICROSCOPE , BYPASS SET, MICRO INSTRUMENT S, ICG, DOPPLER, PALMER CLAMPS, FLOW METER, ICU BED) BYPASS,EXTRACRANIAL-INTER 06/23/2019 Moyamoya di sease CRANIAL ARTERIES 7:30 AM SBA UNDERWRITER Case Notes EMERGENCY ROOM APPROVED BY MARIMAR maxine Special Needs (NEURO MONITORING : MEP, SSEP,EEG, MICROSCOPE , BYPASS SET, MICRO INSTRUMENT S, ICG, DOPPLER, PALMER CLAMPS, FLOW METER, ICU BED) POCT-GLUCOSE METER Routine 06/23/2019 6:26 AM SBA UNDERWRITER POCT , URINE Routine 06/23/2019 6:06 AM SBA UNDERWRITER TRANSFUSION SERVICE 06/04/2019 REPORT - SCAN 6:05 PM CDT XR CHEST 2 VIEWS Routine 06/03/2019 Gillespie gillespie dis ease 9:26 AM CDT ECG 12-LEAD Routine 06/03/2019 9:04 AM CDT Procedure Note - Interface, External Ris In - 06/03/2019 4:55 PM CDT Ventricula r Rate 73 BPM Atrial Rate 73 BPM P-R Interval 148 ms QRS Duration 68 ms Q-T Interval 412 ms QTC Calculatio n(Bazett) 453 ms P [place] 22 degrees R [place] 22 degrees T [place] 24 degrees Normal sinus rhythm Normal ECG When compared with ECG of 9 12:36, No significan t change was found ECG 12-LEAD Routine 06/03/2019 Pre-op testing 9:04 AM CDT CBC W/PLT COUNT & AUTO Routine 06/03/2019 Pre-op testing DIFFERENTIAL 9:04 AM CDT TYPE AND SCREEN, Routine 06/03/2019 Pre-op testin g AUTOMATED 9:04 AM CDT URINALYSIS W/ REFLEX Routine 06/03/2019 Pre-op te sting URINE CULTURE 9:04 AM CDT CBC W/PLT COUNT & AUTO Routine 06/03/2019 Pre-op testing DIFFERENTIAL 9:04 AM CDT BASIC METABOLIC PANEL (7) Routine 06/03/2019 Pre- op testing 9:04 AM CDT PROTHROMBIN TIME/INR Routine 06/03/2019 Pre-op te sting 9:04 AM CDT APTT Routine 06/03/2019 Pre-op testing 9:04 AM CDT after 04/08/2019 Results * RHYTHM STRIP - SCAN (06/26/2019 2:20 PM SBA UNDERWRITER) Narrative Performed At This result has an attachment that is n ot available. * POC-Glucose meter (06/25/2019 12:12 PM SBA UNDERWRITER) Only the most recent of 9 results within the time period is included. POC-Glucose Meter 179 (H)Comment: : TESTED AT 70 - 110 mg/dL [address] [address]: Slot Floorman/Engraver Wood ID = [id number] for ANJU TADEO Specimen Blood Performing Organization Address City/State/[facility] Ph one Number [address] [facility] * CBC (Hemogram only) (06/25/2019 1:04 AM SBA UNDERWRITER) Only the most recent of 2 results within the time period is included. WBC 18.4 (H) 3.5 - 10.5 K/L [facility] RBC 3.91 (L) 3.93 - 5.22 M/L [facility] Hemoglobin 10.8 (L) 11.2 - 15.7 GM/DL [facility] Hematocrit 34.7 34.1 - 44.9 % [facility] MCV 88.7 79.4 - 94.8 fL [facility] MCH 27.6 25.6 - 32.2 pg [facility] MCHC 31.1 (L) 32.2 - 35.5 GM/DL [facility] RDW 14.6 (H) 11.7 - 14.4 % [facility] Platelets 445 150 - 450 K/CU MM [facility] MPV 9.0 (L) 9.4 - 12.3 fL [facility] nRBC 0 0 - 0 /100 WBC [facility] Specimen Blood Performing Organization Address [facility] one Number [place] [address] 0 [phone] * Phosphorus (06/25/2019 1:04 AM SBA UNDERWRITER) Only the most recent of 2 results within the time period is included. Phosphorus 2.2 (L) 2.3 - 4.7 mg/dL [facility] Specimen Blood Performing Organization Address [facility] Ph one Number [place] [phone] 0 [phone] [place] [address] * Magnesium (06/25/2019 1:04 AM SBA UNDERWRITER) Only the most recent of 2 results within the time period is included. Magnesium 2.0 1.6 - 2.6 mg/dL [facility] Specimen Blood Performing Organization Address [facility] one Number [place] [address] 0 [phone] [address] * Basic Metabolic Panel (06/25/2019 1:04 AM SBA UNDERWRITER) Only the most recent of 3 results within the time period is included. Sodium 137 136 - 145 meq/L [facility] Potassium 3.9 3.5 - 5.1 meq/L [facility] Chloride 109 (H) 98 - 107 meq/L [facility] CO2 20 (L) 22 - 29 meq/L [facility] BUN 15 7 - 21 mg/dL [facility] Creatinine 0.73 0.57 - 1.25 mg/dL [facility] Glucose 169 (H) 70 - 105 mg/dL [facility] Calcium 8.8 8.4 - 10.2 mg/dL [facility] EGFR 87Comment: ESTIMATED GFR IS mL/min/1.73 sq m [facility] NOT ACCURATE CREATININE [facility] CLEARANCE IN PREDICTING GLOMERULAR FILTRATION RATE. ESTIMATED GFR IS NOT APPLICABLE FOR DIALYSIS PATIENTS. Specimen Blood Performing Organization Address City/State/Zipcode Ph one Number [facility] [address] [place], [place] [address] [facility] * TRANSFUSION SERVICE REPORT - SCAN (06/24/2019 5:44 PM SBA UNDERWRITER) Only the most recent of 2 results within the time period is included. Narrative Performed At This result has an attachment that is n ot available. * CTA brain (06/24/2019 10:26 AM SBA UNDERWRITER) Specimen Narrative Performed At FINAL REPORT [employer] CLINICAL HISTORY: Headache, abnormal IC P suspected s/p L STA-MCA bypass TECHNIQUE: Initially, noncontrast head CT images were performed. Contiguous contrast-enhanced axial imag es through the head with coronal and sagittal reformations to as sess the arterial circulation. 3-D reconstructions were performed usin g a volume rendered technique separately on a workstation. This exam was performed according to the departmental dose optimization program which includes automated exposure control, adjustment of the mA and/or kV according to the patient size, and/or use of an iterativ e reconstruction technique. COMPARISON: CT head 06/23/2019, CT perf usion 03/19/2019, diagnostic angiogram 03/19/2019 FINDINGS: Evolving post surgical changes of left- sided STA MCA, with expected pneumocephalus, trace extra-axial blood products, and air and edema within the overlying scalp. There is no CT evidence of acute infarct. Chronic lacunar infarct in the right ca udate head. There is no hydrocephalus or midline shift. Occlusion of the bilateral terminal int ernal carotid arteries, with ill-defined lenticulostriate collateral s, consistent with moyamoya. There is robust opacification of the bi lateral DAVIDE and MCA branches. The left STA-MCA bypass is patent. Posterior circulation is unremarkable. The major intradural venous sinuses are patent. 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 2.Left STA-MCA bypass is patent. There is robust filling of the bilateral MCA branches. 3.Expected recent postoperative finding s with no evidence of complication. Signed: Claudio Martinez MD Report Verified Date/Time: 9 12:57:57 Procedure Note Interface, External Ris In - 06/24/2019 1:00 PM SBA UNDERWRITER FINAL REPORT CLINICAL HISTORY: Headache, abnormal ICP suspected s/p L STA-MCA bypass TECHNIQUE: Initially, noncontrast head CT images were performed. Contiguous contrast-enhanced axial images through the head with coronal and sagittal reformations to assess the arterial circulation. 3-D reconstructions were performed using a volume rendered technique separately on a workstation. This exam was performed according to the departmental dose optimization program which includes automated exposure control, adjustment of the mA and/or kV according to the patient size, and/or use of an iterative reconstruction technique. COMPARISON: CT head 06/23/2019, CT perfusion 03/19/2019, diagnostic angiogram 03/19/2019 FINDINGS: Evolving post surgical changes of left-sided STA MCA, with expected pneumocephalus, trace extra-axial blood products, and air and edema within the overlying scalp. There is no CT evidence of acute infarct. Chronic lacunar infarct in the right caudate head. There is no hydrocephalus or midline shift. Occlusion of the bilateral terminal internal carotid arteries, with ill-defined lenticulostriate collaterals, consistent with moyamoya. There is robust opacification of the bilateral DAVIDE and MCA branches. The left STA-MCA bypass is patent. Posterior circulation is unremarkable. The major intradural venous sinuses are patent. 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 2.Left STA-MCA bypass is patent. There i s robust filling of the bilateral MCA branches. 3.Expected recent postoperative findings with no evidence of complication. Signed: Claudio Martinez MD Report Verified Date/Time: 06/24/2019 12:57:57 Performing Organization Address City/State/Zipcode Ph one Number [facility] * CT brain without IV contrast (06/23/2019 5:17 PM SBA UNDERWRITER) Specimen Narrative Performed At FINAL REPORT [employer] CT, BRAIN, WITHOUT CONTRAST INDICATION: Headache, acute, normal roman ro exam s/p left craniotomy for sta-mca bypass TECHNIQUE: Noncontrast axial imaging wa s obtained from the vertex to the skull base. Axial images were recon structed using a bone algorithm. DOSE REDUCTION: Dose modulation, iterat edwin reconstruction, and/or weight-based adjustment of the mA/kV wa s utilized to reduce the radiation dose to as low as reasonably achievable. COMPARISON: CT 03/19/2019 FINDINGS: Intracranial: Interval left-sided crani otomy for STA-MCA bypass. There is expected postoperative pneumoc ephalus and trace hyperdense extra-axial collection immediately unde rlying the craniotomy site. Overall no significant mass effect. No evidence of acute territorial infarct. Chronic right caudate head lac unar infarct. No hydrocephalus. Osseous structures: Interval postoperat edwin changes. Paranasal sinuses and mastoid air cells : No evidence of sinusitis. Mastoids are clear. Orbital contents: Globes are intact. IMPRESSION: Expected postoperative changes followin g left STA-MCA bypass. Signed: Claudio Martinez MD Report Verified Date/Time: 9 17:31:19 Procedure Note Interface, External Ris In - 06/23/2019 5:33 PM SBA UNDERWRITER FINAL REPORT CT, BRAIN, WITHOUT CONTRAST INDICATION: Headache, acute, normal neuro exam s/p left craniotomy for sta-mca bypass TECHNIQUE: Noncontrast axial imaging was obtained from the vertex to the skull base. Axial images were reconstructed using a bone algorithm. DOSE REDUCTION: Dose modulation, iterative reconstruction, and/or weight-based adjustment of the mA/kV was utilized to reduce the radiation dose to as low as reasonably achievable. COMPARISON: CT 03/19/2019 FINDINGS: Intracranial: Interval left-sided craniotomy for STA-MCA bypass. There is expected postoperative pneumocephalus and trace hyperdense extra-axial collection immediately underlying the craniotomy site. Overall no significant mass effect. No evidence of acute territorial infarct. Chronic right caudate head lacunar infarct. No hydrocephalus. Osseous structures: Interval postoperative changes. Paranasal sinuses and mastoid air cells: No evidence of sinusitis. Mastoids are clear. Orbital contents: Globes are intact. IMPRESSION: Expected postoperative changes following left STA-MCA bypass. Signed: Claudio Martinez MD Report Verified Date/Time: 06/23/2019 17:31:19 Performing Organization Address City/State/Zipcode Ph one Number [facility] * SHORT LATENCY SEP ALL LIMBS (06/23/2019 2:21 PM SBA UNDERWRITER) Specimen Narrative Performed At [facility] INTRAOPERATIVE MONITORING REPORT Patient Name: Margy Bain [address] [facility] Surgery Date: 06/23/19 Thais Pro S/N [id number] Monitoring began at 07:54 and ended at 14:21 Surgeon: Bi Samuel MD; [place] Morrison MD Examining Neurologist: Gianna Hoffman; Domi Bhatti M.D. Monitoring Technologist: WYATT Jarrell Procedure: Craniotomy for Bypass Stimulation Parameters: Median nerves i ndividually stimulated at the wrist Rate 4.7Hz, Intensity 30-50 mA, Duratio n 0.3ms Posterior Tibial nerves individually st imulated at the ankle Rate 4.7Hz, Intensity 60-75 mA, Duratio n 0.3ms Filters 30-500Hz, Notch Off Motor strip stimulated anterior to C3 a nd C4 with alternating polarities Intensity 100-800V, Train Number 9, DENILSON 2-3ms Filters 30-2KHz, Notch Off Recording Parameters: CV, CP3, CP4, CPz , and FPz, FP1-C3, C3-O1, FP1-T3, T3-O1, FP2-C4, C4-O2, FP2-T4, a nd T4-O2 Transcranial electrical Motor Evoked Po tentials recorded from Abductor Pollicis Brevis, Tibialis Ante rior-Lateral Gastrocnemius and the Adductor Hallucis muscle groups Free-running EEG recorded with bipolar derivation, using modified International 10/20 placements: FP1-C3, C3-O1, FP1-T3, T3-O1, FP2-C4, C4-O2, FP2-T4, and T4-O2 Description: Intraoperative neurophysio logical monitoring was performed using a combination of free r unning EEG, upper and lower extremity somatosensory evoked potentia ls (SSEP) and transcranial electrical motor evoked potentials (Tce MEP). A connection with an examining neurologist was established a nd maintained throughout the operative procedure by the monitoring t echnologist. Upper and lower extremity somatosensory evoked potentials were recorded at the subcortical and cortica l levels following median nerve stimulation at the wrist and post erior tibial nerve stimulation at the ankle. SSEP responses were prese nt and reproducible in all extremities at baselines. SSEPs remaine d stable with baselines throughout the procedure. At closing, a ll SSEPs were stable with baseline responses. TceMEPs were recorded peripherally from the upper and lower extremities following alternating polar ity motor strip stimulation. TceMEPs were obtained in all extremitie s at baselines. TceMEPs remained stable with baselines througho ut the case and at closing. Surgeon aware of all responses througho ut the case and at closing. EEGs were symmetrical throughout the ca se and at closing. There was a period of burst-suppression before the scope was brought in to start work on the bypass. EEGs returned to ba selines afterward completion of bypass. At closing, free-running EEG remained symmetrical and at baseline frequencies with no focal bullock ges noted to occur throughout the operative procedure. Missy Topete M.D.;Monica Zheng I67.5 Procedure Note Interface, External Ris In - 07/24/2019 1:15 PM SBA UNDERWRITER INTRAOPERATIVE MONITORING REPORT Patient Name: Margy Bain [facility] Surgery Date: 06/23/19 Thais Pro S/N [id number] Monitoring began at 07:54 and ended at 14:21 Surgeon: Bi Samuel MD; [place] Morrison MD Examining Neurologist: Missy Topete M.D.; Domi Bhatti M.D. Monitoring Technologist: WYATT Jarrell Procedure: Craniotomy for Bypass Stimulation Parameters: Median nerves individually stimulated at the wrist Rate 4.7Hz, Intensity 30-50 mA, Duration 0.3ms Posterior Tibial nerves individually stimulated at the ankle Rate 4.7Hz, Intensity 60-75 mA, Duration 0.3ms Filters 30-500Hz, Notch Off Motor strip stimulated anterior to C3 and C4 with alternating polarities Intensity 100-800V, Train Number 9, DENILSON 2-3ms Filters 30-2KHz, Notch Off Recording Parameters: CV, CP3, CP4, CPz, and FPz, FP1-C3, C3-O1, FP1-T3, T3-O1, FP2-C4, C4-O2, FP2-T4, and T4-O2 Transcranial electrical Motor Evoked Potentials recorded from Abductor Pollicis Brevis, Tibialis Anterior-Lateral Gastrocnemius and the Adductor Hallucis muscle groups Free-running EEG recorded with bipolar derivation, using modified International 10/20 placements: FP1-C3, C3-O1, FP1-T3, T3-O1, FP2-C4, C4-O2, FP2-T4, and T4-O2 Description: Intraoperative neurophysiological monitoring was performed using a combination of free running EEG, upper and lower extremity somatosensory evoked potentials (SSEP) and transcranial electrical motor evoked potentials (TceMEP). A connection with an examining neurologist was established and maintained throughout the operative procedure by the monitoring technologist. Upper and lower extremity somatosensory evoked potentials were recorded at the subcortical and cortical levels following median nerve stimulation at the wrist and posterior tibial nerve stimulation at the ankle. SSEP responses were present and reproducible in all extremities at baselines. SSEPs remained stable with baselines throughout the procedure. At closing, all SSEPs were stable with baseline responses. TceMEPs were recorded peripherally from the upper and lower extremities following alternating polarity motor strip stimulation. TceMEPs were obtained in all extremities at baselines. TceMEPs remained stable with baselines throughout the case and at closing. Surgeon aware of all responses throughout the case and at closing. EEGs were symmetrical throughout the case and at closing. There was a period of burst-suppression before the scope was brought in to start work on the bypass. EEGs returned to baselines afterward completion of bypass. At closing, free-running EEG remained symmetrical and at baseline frequencies with no focal changes noted to occur throughout the operative procedure. Missy Topete M.D.; Domi Bhatti M.D. I67.5 Performing Organization Address City/State/[facility] Ph one Number GE RIS * Potassium-Stat Lab (06/23/2019 10:13 AM SBA UNDERWRITER) Potassium 4.3 3.6 - 5.5 meq/L [facility] Specimen Blood, Arterial Narrative Performed At Temp 36.7 [facility] Performing Organization Address [facility] Ph one Number [address] [facility] * Sodium Na-Stat Lab (06/23/2019 10:13 AM SBA UNDERWRITER) Sodium 134 (L) 135 - 148 meq/L [facility] Specimen Blood, Arterial Narrative Performed At Temp 36.7 [facility] Performing Organization Address City/[facility] Ph one Number [address] [facility] * Glucose-Stat Lab (06/23/2019 10:13 AM SBA UNDERWRITER) Glucose 153 (H) 70 - 110 mg/dL [facility] Specimen Blood, Arterial Narrative Performed At Temp 36.7 [facility] Performing Organization Address [facility] Ph one Number [address] [facility] * HGB/HCT (H&H)-Stat Lab (06/23/2019 10:13 AM SBA UNDERWRITER) Hemoglobin 12.0 12.0 - 15.0 g/dL [facility] Hematocrit 35.0 (L) 36.0 - 45.0 % [facility] Specimen Blood, Arterial Narrative Performed At Temp 36.7 [facility] Performing Organization Address [facility] Ph one Number [address] 0 [phone] [place] [address] * Calcium, Ionized (06/23/2019 10:13 AM SBA UNDERWRITER) Calcium, Ion 0.91 (L) 1.12 - 1.27 mmol/L [facility] pH, Blood 7.38 [facility] Specimen Blood Performing Organization Address [facility] Ph one Number [address] 0 [phone] [place] [address] * Blood gas, arterial (06/23/2019 10:13 AM SBA UNDERWRITER) pH, Arterial 7.38 7.35 - 7.45 [facility] pCO2, Arterial 36 35 - 45 mmHg [facility] pO2, Arterial 170 (H) 80 - 90 mmHg [facility] O2 Sat, Arterial 99.1 (H) 96.0 - 97.0 % [facility] HCO3, Arterial 21 21 - 29 mmol/L [facility] Base Excess, Arterial -3.8 (L) -2.0 - 3.0 mmol/L [facility] Patient Temperature 37.0 C [facility] FIO2 60.0 % [facility] Specimen Blood, Arterial Narrative Performed At Temp 36.[address] [facility] Performing Organization Address City/State/[facility] Ph one Number [facility] [address] [place], [place] [address] [facility]ENTER * Prepare Leuko-Red RBC (06/23/2019 7:31 AM SBA UNDERWRITER) CROSSMATCH COMPATIBLE SAFETRACE TX Unit ABO O Pos SAFETRACE TX UNIT NUMBER [id number] SAFETRACE TX Status READY SAFETRACE TX Blood Bank Product RED BLOOD CELLS SAFETRACE TX PRODUCT CODE [id number] SAFETRACE TX CROSSMATCH COMPATIBLE SAFETRACE TX Unit ABO O Pos SAFETRACE TX UNIT NUMBER [id number] SAFETRACE TX Status READY SAFETRACE TX Blood Bank Product RED BLOOD CELLS SAFETRACE TX PRODUCT CODE [id number] SAFETRACE [place] Specimen Other Performing Organization Address City/[facility] one Number SAFETRACE [place] * POCT , urine (06/23/2019 6:06 AM SBA UNDERWRITER) Test Urine, POC Negative Control line present?, Yes POC Background clear?, POC Yes UPT Cassette Lot #, POC [id number] UPT Cassette Expiration Date, POC Specimen * XR chest 2 views (06/03/2019 9:26 AM CDT) Specimen Narrative Performed At FINAL REPORT GE RIS Chest, 2 views. 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 Degenerative changes are seen. Impression: No active cardiopulmonary d isease. Signed: Wally Stringer MD Report Verified Date/Time: 9 09:59:51 Reading Location: [address] gy Reading Room Procedure Note Interface, External Ris In - 06/03/2019 10:02 AM CDT FINAL REPORT Chest, 2 views. 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 The pleural spaces are clear. Degenerative changes are seen. Impression: No active cardiopulmonary disease. Signed: Wally Stringer MD Report Verified Date/Time: 06/03/2019 09:59:51 Reading Location: [address] Radiology Reading Room Performing Organization Address City/State/[facility] Ph one Number GE RIS * ECG 12 lead (06/03/2019 9:04 AM CDT) Specimen Narrative Performed At Ventricular Rate 73 BPM GE MUSE Atrial Rate 73 BPM P-R Interval 148 ms QRS Duration 68 ms Q-T Interval 412 ms QTC Calculation(Bazett) 453 ms P [place] 22 degrees R [place] 22 degrees T [place] 24 degrees Normal sinus rhythm Normal ECG When compared with ECG of 19-MAR-2019 1 2:36, No significant change was found Confirmed by MD RODRIGUES JOSEPH P ([id number]) on 06/04/2019 10:57:55 AM Procedure Note Interface, External Ris In - 06/04/2019 10:58 AM CDT Ventricular Rate 73 BPM Atrial Rate 73 BPM P-R Interval 148 ms QRS Duration 68 ms Q-T Interval 412 ms QTC Calculation(Bazett) 453 ms P [place] 22 degrees R [place] 22 degrees T [place] 24 degrees Normal sinus rhythm Normal ECG When compared with ECG of 19-MAR-2019 12:36, No significant change was found Confirmed by MD RODRIGUES JOSEPH P ([id number]) on 06/04/2019 10:57:55 AM Performing Organization Address City/State/[facility] Ph one Number GE MUSE * Urinalysis w/Microscopic + Reflex to Culture (06/03/2019 9:04 AM CDT) Color, UA Light Yellow [facility] Clarity, UA Clear [facility] Specific [place], UA 1.012 1.001 - 1.035 [facility] pH, UA 5.0 5.0 - 8.0 [facility] Protein[facility] UA Negative Negative [facility] Glucose, UA Negative Negative [facility] Ketones, UA Negative Negative [facility] Bilirubin, UA Negative Negative [facility] Blood, UA Small (A) Negative [facility] Nitrite, UA Negative Negative [facility] Leukocytes, UA Negative Negative [facility] Urobilinogen, UA 0.2 0.2 - 1.0 mg/dL [facility] RBC, UA 0 /HPF [facility] WBC, UA <1 /HPF [facility] Mucus Rare [facility] Squam Epithel, UA 8 /HPF [facility] Specimen Source [facility] Specimen Urine Performing Organization Address [facility] Ph one Number [address] [facility] * Type and screen, automated (06/03/2019 9:04 AM CDT) ABO/RH AUTOMATED (BEAKER) O POSITIVE [facility] Ab Scrn NEGATIVE [facility] Specimen Blood Performing Organization Address City/[facility] Ph one Number [address] [address] [facility] * CBC with platelet count + automated diff (06/03/2019 9:04 AM CDT) WBC 9.9 3.5 - 10.5 K/L [facility] RBC 4.47 3.93 - 5.22 M/L [facility] Hemoglobin 12.6 11.2 - 15.7 GM/DL [facility] Hematocrit 38.6 34.1 - 44.9 % [facility] MCV 86.4 79.4 - 94.8 fL [facility] MCH 28.2 25.6 - 32.2 pg [facility] MCHC 32.6 32.2 - 35.5 GM/DL [facility] RDW 13.9 11.7 - 14.4 % [facility] Platelets 473 (H) 150 - 450 K/CU MM [facility] MPV 9.1 (L) 9.4 - 12.3 fL [facility] nRBC 0 0 - 0 /100 WBC [facility] % Neutros 64 % [facility] % Lymphs 27 % [facility] % Monos 6 % [facility] % Eos 2 % [facility] % Baso 1 % [facility] # Neutros 6.39 (H) 1.56 - 6.13 K/L [facility] # Lymphs 2.63 1.18 - 3.74 K/L [facility] # Monos 0.55 (H) 0.24 - 0.36 K/L [facility] # Eos 0.19 0.04 - 0.36 K/L [facility] # Baso 0.07 0.01 - 0.08 K/L [facility] Immature 1 0 - 1 % [facility] Granulocytes-Relative [facility] Specimen Blood Performing Organization Address City/State/Zipcode Ph one Number [facility] [address] [place], [place] [address] [facility] * aPTT (06/03/2019 9:04 AM CDT) PTT 28.9 22.5 - 36.0 seconds [facility] Specimen Blood Performing Organization Address City/[facility]/Zipcode Ph one Number [facility] [address] [place], [place] [address] [facility] * Prothrombin time/INR (06/03/2019 9:04 AM CDT) Protime 12.7 11.9 - 14.2 seconds [facility] INR 1.0 <=5.9 [facility] Specimen Blood Narrative Performed At Effective 01/07/2019: PT Reference Range Change [facility] New: 11.9-14.2Previous: 11.7-14.7 [facility] CE NTER RECOMMENDED COUMADIN/WARFARIN INR THERA PY RANGES STANDARD DOSE: 2.0-3.0Includes: PRO PHYLAXIS for venous thrombosis, systemic embolization; TREATMENT for venous thro mbosis and/or pulmonary embolus. HIGH RISK: Target INR is 2.5-3.5 for pa tients wiht mechanical heart valves. Performing Organization Address [facility] Ph one Number [facility] [address] [place], [place] [address] [facility] after 04/08/2019 Insurance Payer Benefit Subscriber ID Type Phone Address Plan / Group [employer] - MGD CARE CIGNA xxxxxxxxxxx LOCAL PLUS C[employer] - [place] CARE CIGNA xxxxxxxxxxx LOCAL PLUS C[employer] - [place]GD CARE CIGNA xxxxxxxxxxx LOCAL PLUS Advance Directives For more information, please contact: [address] [address] Date Inactivated Comments Code Status Date Activated 06/25/2019 4:20 PM Full Code 06/23/2019 2:49 PM This code status was determined by: Patient 06/23/2019 2:48 PM Full Code 06/23/2019 5:39 AM This code status was determined by: Patient 03/19/2019 9:49 PM Full Code 03/19/2019 2:54 PM This code status was determined by: Patient 03/22/2017 3:31 PM Full Code 03/21/2017 6:35 PM This code status was determined by: Patient 03/21/2017 6:35 PM Full Code 2017 5:22 PM This code status was determined by: Patient
--- OUTSIDE RECORDS SUMMARY | 2020-04-08 04:31 | XMS REPORT | Continuity of Care Document ---
Author Author [facility] Address Unknown Phone Unavailable Care Team Providers Care Chief Knowledge Officer Name Role Phone [facility] [employer] Unavailable Un available Problems Problem Status Onset Date Classification Date Reported Comments Source Chest pain, unspecified 04/04/2018 10/15/2018 [facility] OTHER Active 03/28/2018 [facility] MOYAMOYA DISEASE Active 12/25/2016 [facility] NUMBNESS Active 12/25/2016 [facility] NOSE BLEEDS/OTHER Active 03/29/2015 [facility] TIA Active 0 03/29/2015 [facility] Discharge Diagnosis: TIA (transient ischemic attack) 11/09/2014 11/12/2014 [facility] CHEST PAIN Active 11/09/2014 [facility] TIA, PARESTHESIAS Active 09/01/2014 [facility] WEAKNESS/HIGH BLOOD PRESSURE A ctive 09/01/2014 [facility] ALLERGIC REACTION Active 08/31/2014 [facility] Diabetes mellitus (disorder) R esolved Problem 01/2019 [facility] Hypertensive disorder, systemic arterial (disorder) Resolved Problem 10/15/2018 [facility] Hyperlipidemia (disorder) Reso lved Problem 01/2019 [facility] Moyamoya disease (disorder) Re solved Problem 01/2019 [facility] MOYAMOYA DISEASE Active [facility] TRANS CEREB ISCHEMIA NEC Active [facility] Medications Medication Details Route Status Patient Instructions Ordering Provider Order Date Source Losartan 50 mg, Route: PO, Benjy g form: TAB, Daily, Dosing Weight 97, kg, Start date: 12/27/16 9:00:00 CDT, Duration: 30 day, Stop date: 01/25/17 9:00:00 CDT No Longer Active 12/27/2016 [facility] Plavix 75 mg, Route: PO, Drug form: TAB, Daily, Dosing Weight 97, kg, Start date: 12/27/16 9:00:00 CDT, Duration: 30 day, Stop date: 01/25/17 9:00:00 CDT No Longer Active 12/27/2016 [facility] Aspirin 325 MG Oral Tablet 325 mg, 1 tab, Route: PO, Drug form: TAB, Daily, Dosing Weight 97, kg, Start date: 12/27/16 9:00:00 CDT, Duration: 30 day, Stop date: 01/25/17 9:00:00 CDT No Longer Active 12/27/2016 [facility] Valproic Acid 100 MG/ML Injectable Solution Notes: Dilute in at least 50ml D5W or NS. Infusion rate = 20 mg/min (Same As: Depacon) Inactive 12/26/2016 [facility] Magnesium Sulfate Notes: WASTE : F/P - Sink; E - Municipal Trash Bin Inactive 12/26/2016 [facility] Reglan Notes: (Same as: Reglan) Inactive 12/26/2016 [facility] Plavix Notes: (Same As: Plavix) Inactive 12/26/2016 [facility] Aspirin Notes: Take with food. Inactive 12/26/2016 [facility] Losartan Notes: (Same as: Coza ar) Inactive 12/26/2016 [facility] Aspirin 325 MG Oral Tablet 325 mg = 1 tab, PO, Daily, 0 Refill(s) Active 12/26/2016 [facility] clopidogrel 75 MG Oral Tablet [Plavix] 75 mg = 1 tab, PO, Daily, 0 Refill(s) Active 12/26/2016 [facility] losartan 50 mg oral tablet 50 mg = 1 tab, PO, Daily, 0 Refill(s) Active 12/26/2016 [facility] Morphine Notes: (Same as:MORPh ine Sulfate) No Longer Active 12/26/2016 [facility] Tylenol Notes: Do not exceed 4 gm/day. (Same as: Tylenol) No Longer Active 12/26/2016 [facility] sodium chloride 0.9% 1000 ml INJ 1,000 mL 1,000 mL, Rate: 40 ml/hr, Infuse over: 25 hr, Route: IV, Dosing Weight 98.182 kg, Total Volume: 1,000, Start date: 12/25/16 19:25:00 CDT, Duration: 30 day, Stop date: 01/24/17 19:24:00 CDT No Longe r Active 12/26/2016 [facility] Morphine 4 mg, Route: IVP, ONC E, Dosing Weight 98.182, kg, Priority: STAT, Start date: 12/25/16 17:55:00 CDT, Stop date: 12/25/16 17:55:00 CDT Inactive 12/25/2016 [facility] Omnipaque 350 injectable solution Notes: (same as:Omnipaque 350). WASTE: F/P - Black; E - Municipal Trash Bin Inactive 12/25/2016 [facility] Saline Flush 0.9% Notes: (Same as: BD Posiflush) No Longer Active 03/29/2015 [facility] Aspirin 81 MG Enteric Coated Tablet 81 mg = 1 tab, PO, Daily, # 30 tab, 0 Refill(s) Active 09/04/2014 [facility] atorvastatin 20 mg oral tablet 20 mg = 1 tab, PO, Bedtime, # 30 tab, 0 Refill(s) Active 09/04/2014 [facility] losartan 25 mg oral tablet 25 mg = 1 tab, PO, Daily, # 30 tab, 0 Refill(s) Active 09/04/2014 [facility] Cozaar Notes: (Same as: Cozaar) No Longer Active 09/03/2014 [facility] atorvastatin Notes: (Same As: Lipitor) No Longer Active 09/03/2014 [facility] Cozaar Notes: (Same as: Cozaar) Inactive 09/03/2014 [facility] Lovenox Notes: (Same as: Loven ox) No Longer Active 09/02/2014 [facility] Protonix Notes: Tablet should not be chewed or crushed. (Same as: Protonix) No Longer Active 09/02/2014 [facility] aspirin Notes: Do not crush or chew. (Same As: Ecotrin) No Longer Active 09/02/2014 [facility] Rocephin Notes: (Same As: Roce phin). Inactive 09/02/2014 [facility] Sodium Chloride 0.9% IV 250 mL , Route: IVPB, Start date: 09/01/14 22:43:00, Duration: 30 day, Stop date: 10/01/14 22:42:00, PRN Line Flush No Longer Active 09/02/2014 [facility] BD Normal Saline Flush Notes: (Same as: BD Posiflush) No Longer Active 09/02/2014 [facility] Saline Flush 0.9% Notes: (Same as: BD Posiflush) No Longer Active 09/02/2014 [facility] Tylenol Notes: Do not exceed 4 gm/day. (Same as: Tylenol) No Longer Active 09/01/2014 [facility] NS 1,000 mL 1,000 mL, Rate: 40 ml/hr, Infuse over: 25 hr, Route: IV, Dosing Weight 100 kg, Total Volume: 1,000, Start date: 09/01/14 17:56:00, Duration: 30 day, Stop date: 10/01/14 17:55:00 No Longer Active 09/01/2014 [facility] Versed 3 mg, Route: IVP, ONCE, Dosing Weight 100, kg, Start date: 09/01/14 17:35:00, Stop date: 09/01/14 17:35:00 Inactive 09/01/2014 [facility] Lidocaine Hydrochloride 10 MG/ML Injectable Solution Notes: (Same as: Xylocaine) Inactive 09/01/2014 [facility] Vancomycin 1 gm, 200 mL, Route : IV, Drug form: INJ, ONCE, Dosing Weight 100, kg, Start date: 09/01/14 17:24:00, Stop date: 09/01/14 17:24:00 Inactive 09/01/2014 [facility] Rocephin 1 gm, Route: IVPB, ug form: PDR/INJ, ONCE, Dosing Weight 100, kg, Start date: 09/01/14 17:24:00, Stop date: 09/01/14 17:24:00 Inactive 09/01/2014 [facility] aspirin Notes: Take with food. Inactive 09/01/2014 [facility] Saline Flush 0.9% Notes: (Same as: BD Posiflush) No Longer Active 09/01/2014 [facility] Losartan 12.5 mg, PO, Daily, 0 Refill(s) No Longer Active 09/01/2014 [facility] Allergies, Adverse Reactions, Alerts No Known Medication Allergies Immunizations No Data Provided for This Section Results Order Name Results Value Reference Range Date Interpretation Comments Source HEMATOLOGY Eosinophils # 0.2 0.0 - 0.5 12/26/2016 [facility] HEMATOLOGY Monocytes # 0.8 0.0 - 0.8 12/26/2016 [facility] HEMATOLOGY Basophils # 0.1 0.0 - 0.2 12/26/2016 [facility] HEMATOLOGY Lymphocytes # 3.8 1.0 - 5.5 12/26/2016 [facility] HEMATOLOGY Eosinophils 1.9 0.0 - 4.0 12/26/2016 [facility] HEMATOLOGY Basophils 0.8 0.0 - 1.0 12/26/2016 [facility] HEMATOLOGY Segs-Bands # 5.8 1.5 - 8.1 12/26/2016 [facility] Monocytes 7.9 2.0 - 12.0 12/26/2016 [facility] Segs 54.2 45.0 - 75.0 12/26/2016 [facility] Lymphocytes 35.2 20.0 - 40.0 12/26/2016 [facility] RBC Morph Jenny l (12/26/16 4:27 AM) 12/26/2016 [facility] Plt Morph Jenny l (12/26/16 4:27 AM) 12/26/2016 [facility] WBC 10.7 3.7 - 10.4 12/26/2016 [facility] RBC 4.53 4.20 - 5.40 12/26/2016 [facility] Platelet 428 133 - 450 12/26/2016 [facility] MPV 7.8 7.4 - 10.4 12/26/2016 [facility] Hgb 12.8 12.0 - 16.0 12/26/2016 [facility] MCV 83.7 80.0 - 98.0 12/26/2016 [facility] Hct 37.9 36.0 - 48.0 12/26/2016 [facility] MCHC 33.7 32.0 - 36.0 12/26/2016 [facility] MCH 28.2 27.0 - 31.0 12/26/2016 [facility] RDW 14.3 11.5 - 14.5 12/26/2016 [facility] CHEM PANEL Phosphorus 2.9 2.5 - 4.5 12/25/2016 [facility] CHEM PANEL Magnesium Lvl 2.1 1.8 - 2.4 12/25/2016 [facility] ELECTROLYTES AGAP 11.1 10.0 - 20.0 12/25/2016 [facility] ELECTROLYTES Chloride Lvl 103 95 - 109 12/25/2016 [facility] ELECTROLYTES CO2 27 24 - 32 12/25/2016 [facility] ELECTROLYTES Calcium Lvl 9.0 8.5 - 10.5 12/25/2016 [facility] ELECTROLYTES Glucose Lvl 115 70 - 99 12/25/2016 [facility] ELECTROLYTES BUN 7 7 - 22 12/25/2016 [facility] ELECTROLYTES Creatinine Lvl 0.5 7 0.50 - 1.40 12/25/2016 [facility] ELECTROLYTES eGFR 117 12/25/2016 Result [...] should be multiplied by the estimated BMI. [facility] ELECTROLYTES Potassium Lvl 4.1 3.5 - 5.1 12/25/2016 [facility] ELECTROLYTES Sodium Lvl 137 135 - 145 12/25/2016 [facility] MCV 84.7 80.0 - 98.0 12/25/2016 [facility] Hct 42.2 36.0 - 48.0 12/25/2016 [facility] RBC 4.98 4.20 - 5.40 12/25/2016 [facility] Hgb 13.9 12.0 - 16.0 12/25/2016 [facility] Platelet 465 133 - 450 12/25/2016 [facility] MCH 27.8 27.0 - 31.0 12/25/2016 [facility] MPV 7.7 7.4 - 10.4 12/25/2016 [facility] RDW 14.3 11.5 - 14.5 12/25/2016 [facility] MCHC 32.8 32.0 - 36.0 12/25/2016 [facility] WBC 11.7 3.7 - 10.4 12/25/2016 [facility] PT 12.8 12.0 - 14.7 12/25/2016 [facility] INR 0.94 0.85 - 1.17 12/25/2016 [facility] Monocytes 5.0 2.0 - 12.0 12/25/2016 [facility] Lymphocytes 21.4 20.0 - 40.0 12/25/2016 [facility] Segs 72.6 45.0 - 75.0 12/25/2016 [facility] Eosinophils 0.4 0.0 - 4.0 12/25/2016 [facility] HEMATOLOGY Basophils # 0.1 0.0 - 0.2 12/25/2016 [facility] HEMATOLOGY Eosinophils # 0.1 0.0 - 0.5 12/25/2016 [facility] HEMATOLOGY Monocytes # 0.6 0.0 - 0.8 12/25/2016 [facility] HEMATOLOGY Lymphocytes # 2.5 1.0 - 5.5 12/25/2016 [facility] HEMATOLOGY Basophils 0.6 0.0 - 1.0 12/25/2016 [facility] HEMATOLOGY Segs-Bands # 8.5 1.5 - 8.1 12/25/2016 [facility] URINE AND STOOL UA Urobilinogen <=1.0 mg/dL 0.1 - 1.0 12/25/2016 [facility] URINE AND STOOL UA Mucus Few /LPF None Seen /LPF 12/25/2016 [facility] URINE AND STOOL UA RBC 2 0 - 2 12/25/2016 [facility] URINE AND STOOL UA Bacteria Moderate /HPF None Seen /HPF 12/25/2016 [facility] URINE AND STOOL UA WBC 1 0 - 5 12/25/2016 [facility] URINE AND STOOL UA Sq Epi Many /LPF Few /LPF 12/25/2016 [facility] URINE AND STOOL UA Nitrite Negative (12/25/16 2:31 PM) Negative 12/25/2016 [facility] URINE AND STOOL UA Leuk Est Negative (12/25/16 2:31 PM) Negative 12/25/2016 [facility] URINE AND STOOL UA Blood Moderate *ABN* (12/25/16 2:31 PM) Negative 12/25/2016 [facility] URINE AND STOOL UA Bili Negative *NA* (12/25/16 2:31 PM) Negative 12/25/2016 [facility] URINE AND STOOL UA Ketones Negative mg/dL Negative mg/dL 12/25/2016 [facility] URINE AND STOOL UA Glucose Negative mg/dL Negative mg/dL 12/25/2016 [facility] URINE AND STOOL UA Protein Negative mg/dL Negative mg/dL 12/25/2016 [facility] URINE AND STOOL UA pH 6.0 5.0 - 8.0 12/25/2016 [facility] URINE AND STOOL UA Spec Grav 1.004 <=1.030 12/25/2016 [facility] URINE AND STOOL UA Turbidity Clear (12/25/16 2:31 PM) Clear 12/25/2016 [facility] URINE AND STOOL UA Color Light Yellow *NA* (12/25/16 2:31 PM) Yellow 12/25/2016 [facility] URINE CHEM U Preg Negat edwin (12/25/16 2:31 PM) Negative 12/25/2016 [facility] CARDIAC ENZYMES Total CK 68 12 - 191 03/29/2015 [facility] CARDIAC ENZYMES CK MB <0.5 0.5 - 3.6 03/29/2015 [facility] CARDIAC ENZYMES Troponin-I <0.02 0.00 - 0.40 03/29/2015 [facility] CARDIAC ENZYMES CK MB Index <0.7 0.0 - 2.5 03/29/2015 [facility] CHEM PANEL eGFR 109 03/29/2015 [...] should be multiplied by the estimated BMI. [facility] CHEM PANEL Globulin 4.1 2.0 - 4.0 03/29/2015 [facility] CHEM PANEL A/G Ratio 0.9 0.7 - 1.6 03/29/2015 [facility] CHEM PANEL B/C Ratio 9 6 - 25 03/29/2015 [facility] CHEM PANEL Alk Phos 93 39 - 136 03/29/2015 [facility] CHEM PANEL Bili Total 0.8 0.2 - 1.3 03/29/2015 [facility] CHEM PANEL AGAP 8.6 10.0 - 20.0 03/29/2015 [facility] CHEM PANEL Total Protein 7.8 6.4 - 8.4 03/29/2015 [facility] CHEM PANEL Albumin Lvl 3.7 3.5 - 5.0 03/29/2015 [facility] CHEM PANEL Calcium Lvl 8.7 8.5 - 10.5 03/29/2015 [facility] CHEM PANEL ALT 16 0 - 65 03/29/2015 [facility] CHEM PANEL AST 12 0 - 37 03/29/2015 [facility] CHEM PANEL Sodium Lvl 137 135 - 145 03/29/2015 [facility] CHEM PANEL CO2 27 24 - 32 03/29/2015 [facility] CHEM PANEL Potassium Lvl 3.6 3.5 - 5.1 03/29/2015 [facility] CHEM PANEL Chloride Lvl 105 95 - 109 03/29/2015 [facility] CHEM PANEL Creatinine Lvl 0.7 0.5 - 1.4 03/29/2015 [facility] CHEM PANEL Glucose Lvl 111 70 - 99 03/29/2015 [facility] CHEM PANEL BUN 6 7 - 22 03/29/2015 [facility] ENDOCRINOLOGY S Preg Ne gative *NA* (03/29/15 12:26 PM) Negative 03/29/2015 [facility] HEMATOLOGY INR 1.02 0.85 - 1.17 03/29/2015 [facility] HEMATOLOGY PT 13.4 12.0 - 14.7 03/29/2015 [facility] HEMATOLOGY PTT 32.6 22.9 - 35.8 03/29/2015 [facility] HEMATOLOGY RDW 14.5 11.5 - 14.5 03/29/2015 [facility] HEMATOLOGY Platelet 430 133 - 450 03/29/2015 [facility] MCHC 32.3 32.0 - 36.0 03/29/2015 [facility] HEMATOLOGY MPV 7.8 7.4 - 10.4 03/29/2015 [facility] MCV 85.7 80.0 - 98.0 03/29/2015 [facility] MCH 27.7 27.0 - 31.0 03/29/2015 [facility] HEMATOLOGY Hgb 12.6 12.0 - 16.0 03/29/2015 [facility] HEMATOLOGY Hct 38.9 36.0 - 48.0 03/29/2015 [facility] HEMATOLOGY RBC 4.54 4.20 - 5.40 03/29/2015 [facility] WBC 10.1 3.7 - 10.4 03/29/2015 [facility] HEMATOLOGY Sed Rate 18 0 - 20 03/29/2015 [facility] HEMATOLOGY Basophils # 0.1 0.0 - 0.2 03/29/2015 [facility] HEMATOLOGY Eosinophils # 0.1 0.0 - 0.5 03/29/2015 [facility] HEMATOLOGY Basophils 0.7 0.0 - 1.0 03/29/2015 [facility] HEMATOLOGY Segs-Bands # 7.0 1.5 - 8.1 03/29/2015 [facility] HEMATOLOGY Monocytes # 0.5 0.0 - 0.8 03/29/2015 [facility] HEMATOLOGY Lymphocytes # 2.4 1.0 - 5.5 03/29/2015 [facility] HEMATOLOGY Monocytes 5.4 2.0 - 12.0 03/29/2015 [facility] HEMATOLOGY Eosinophils 0.9 0.0 - 4.0 03/29/2015 [facility] HEMATOLOGY Lymphocytes 23.9 20.0 - 40.0 03/29/2015 [facility] HEMATOLOGY Segs 69.1 45.0 - 75.0 03/29/2015 [facility] CARDIAC ENZYMES BNP 2 <=100 pg/mL 11/09/2014 <sup>3</sup>Interpretive Data: Elevated results are in line with increasing severity of
congestive heart failure. Minor elevations between 100 and 300
may be seen with Myocardial Ischemia, Sodium retaining drugs,
and compensated/treated heart failure. [facility] CARDIAC ENZYMES Troponin-I <0.02 0.00 - 0.40 11/09/2014 [facility] CHEM PANEL Magnesium Lvl 1.6 1.8 - 2.4 11/09/2014 [facility] CHEM PANEL eGFR 110 11/09/2014 [...] should be multiplied by the estimated BMI. [facility] CHEM PANEL Chloride Lvl 103 95 - 109 11/09/2014 [facility] CHEM PANEL CO2 27 24 - 32 11/09/2014 [facility] CHEM PANEL Calcium Lvl 9.1 8.5 - 10.5 11/09/2014 [facility] CHEM PANEL Sodium Lvl 137 135 - 145 11/09/2014 [facility] CHEM PANEL Potassium Lvl 3.7 3.5 - 5.1 11/09/2014 [facility] CHEM PANEL BUN 9 7 - 22 11/09/2014 [facility] CHEM PANEL Creatinine Lvl 0.7 0.5 - 1.4 11/09/2014 [facility] CHEM PANEL Glucose Lvl 103 70 - 99 11/09/2014 <sup>2</sup>Interpretive Data: Adult ref erence range values reflect the clinical guidelines
of the [employer]. [facility] CHEM PANEL AGAP 10.7 10.0 - 20.0 11/09/2014 [facility] HEMATOLOGY MPV 7.4 7.4 - 10.4 11/09/2014 [facility] Platelet 457 133 - 450 11/09/2014 [facility] RDW 13.8 11.5 - 14.5 11/09/2014 [facility] MCHC 33.4 32.0 - 36.0 11/09/2014 [facility] WBC 13.5 3.7 - 10.4 11/09/2014 [facility] RBC 4.34 4.20 - 5.40 11/09/2014 [facility] Hgb 12.7 12.0 - 16.0 11/09/2014 [facility] MCH 29.2 27.0 - 31.0 11/09/2014 [facility] Hct 37.9 36.0 - 48.0 11/09/2014 [facility] MCV 87.3 80.0 - 98.0 11/09/2014 [facility] PT 13.1 12.0 - 14.7 11/09/2014 [facility] INR 0.99 0.85 - 1.17 11/09/2014 <sup>4</sup>Interpretive Data: RECOMMEND ED RANGES FOR PROTIME INR:
2.0-3.0 for most medical and surgical thromboembolic states.
2.5-3.5 for artificial heart valves and recurrent embolism.

INR SHOULD BE USED ONLY FOR PATIENTS ON STABLE ANTICOAGULANT THERAPY. [facility] HEMATOLOGY PTT 29.8 22.9 - 35.8 11/09/2014 <sup>5</sup>Interpretive Data: Heparin T herapeutic Range: 57 - 92 Seconds [facility] HEMATOLOGY Monocytes 5.1 2.0 - 12.0 11/09/2014 [facility] HEMATOLOGY Lymphocytes 16.4 20.0 - 40.0 11/09/2014 [facility] HEMATOLOGY Segs 77.0 45.0 - 75.0 11/09/2014 [facility] HEMATOLOGY Monocytes # 0.7 0.0 - 0.8 11/09/2014 [facility] HEMATOLOGY Lymphocytes # 2.2 1.0 - 5.5 11/09/2014 [facility] HEMATOLOGY Segs-Bands # 10.4 1.5 - 8.1 11/09/2014 [facility] HEMATOLOGY Basophils 0.9 0.0 - 1.0 11/09/2014 [facility] HEMATOLOGY Eosinophils 0.6 0.0 - 4.0 11/09/2014 [facility] HEMATOLOGY Basophils # 0.1 0.0 - 0.2 11/09/2014 [facility] HEMATOLOGY Eosinophils # 0.1 0.0 - 0.5 11/09/2014 [facility] URINE AND STOOL Micro? Not Indicated (11/09/14 3:50 PM) 11/09/2014 [facility] URINE AND STOOL UA Leuk Est Negative (11/09/14 3:50 PM) Negative 11/09/2014 [facility] URINE AND STOOL UA Blood Negative (11/09/14 3:50 PM) Negative 11/09/2014 [facility] URINE AND STOOL UA Urobilinogen 0.2 0.1 - 1.0 11/09/2014 [facility] URINE AND STOOL UA Nitrite Negative (11/09/14 3:50 PM) Negative 11/09/2014 [facility] URINE AND STOOL UA pH 6.0 5.0 - 8.0 11/09/2014 [facility] URINE AND STOOL UA Turbidity Clear (11/09/14 3:50 PM) Clear 11/09/2014 [facility] URINE AND STOOL UA Spec Grav <=1.005 *NA* (11/09/14 3:50 PM) <=1.030 11/09/2014 [facility] URINE AND STOOL UA Color Yellow *NA* (11/09/14 3:50 PM) Yellow 11/09/2014 [facility] URINE AND STOOL UA Ketones Trace *ABN* (11/09/14 3:50 PM) Negative 11/09/2014 [facility] URINE AND STOOL UA Bili Negative *NA* (11/09/14 3:50 PM) Negative 11/09/2014 [facility] URINE AND STOOL UA Protein Negative (11/09/14 3:50 PM) Negative 11/09/2014 [facility] URINE AND STOOL UA Glucose Negative (11/09/14 3:50 PM) Negative 11/09/2014 [facility] URINE CHEM U Preg Negat edwin (11/09/14 3:50 PM) Negative 11/09/2014 [facility] ELECTROLYTES AGAP 11.5 10.0 - 20.0 09/04/2014 [facility] ELECTROLYTES eGFR 94 09/04/2014 <sup>1</sup>Result [...] should be multiplied by the estimated BMI. [facility] ELECTROLYTES Glucose Lvl 113 70 - 99 09/04/2014 <sup>4</sup>Interpretive Data: Adult ref erence range values reflect the clinical guidelines
of the [employer]. [facility] ELECTROLYTES Creatinine Lvl 0.8 0.5 - 1.4 09/04/2014 [facility] ELECTROLYTES BUN 14 7 - 22 09/04/2014 [facility] ELECTROLYTES Calcium Lvl 8.7 8.5 - 10.5 09/04/2014 [facility] ELECTROLYTES CO2 24 24 - 32 09/04/2014 [facility] ELECTROLYTES Chloride Lvl 105 95 - 109 09/04/2014 [facility] ELECTROLYTES Potassium Lvl 3.5 3.5 - 5.1 09/04/2014 [facility] ELECTROLYTES Sodium Lvl 137 135 - 145 09/04/2014 [facility] HEMATOLOGY Monocytes # 0.8 0.0 - 0.8 09/04/2014 [facility] HEMATOLOGY Eosinophils # 0.2 0.0 - 0.5 09/04/2014 [facility] Lymphocytes # 3.3 1.0 - 5.5 09/04/2014 [facility] HEMATOLOGY Segs 61.0 45.0 - 75.0 09/04/2014 [facility] Lymphocytes 29.8 20.0 - 40.0 09/04/2014 [facility] Basophils # 0.1 0.0 - 0.2 09/04/2014 [facility] Segs-Bands # 6.8 1.5 - 8.1 09/04/2014 [facility] Eosinophils 1.6 0.0 - 4.0 09/04/2014 [facility] Basophils 0.6 0.0 - 1.0 09/04/2014 [facility] Monocytes 7.0 2.0 - 12.0 09/04/2014 [facility] MPV 7.8 7.4 - 10.4 09/04/2014 [facility] RDW 14.4 11.5 - 14.5 09/04/2014 [facility] Platelet 371 133 - 450 09/04/2014 [facility] Hct 36.7 36.0 - 48.0 09/04/2014 [facility] MCV 89.3 80.0 - 98.0 09/04/2014 [facility] MCH 29.7 27.0 - 31.0 09/04/2014 [facility] MCHC 33.3 32.0 - 36.0 09/04/2014 [facility] Hgb 12.2 12.0 - 16.0 09/04/2014 [facility] WBC 11.1 3.7 - 10.4 09/04/2014 [facility] RBC 4.11 4.20 - 5.40 09/04/2014 [facility] CHEM PANEL eGFR 110 09/03/2014 [...] should be multiplied by the estimated BMI. [facility] CHEM PANEL Calcium Lvl 8.6 8.5 - 10.5 09/03/2014 [facility] CHEM PANEL CO2 25 24 - 32 09/03/2014 [facility] CHEM PANEL Chloride Lvl 106 95 - 109 09/03/2014 [facility] CHEM PANEL Sodium Lvl 138 135 - 145 09/03/2014 [facility] CHEM PANEL Potassium Lvl 3.4 3.5 - 5.1 09/03/2014 [facility] CHEM PANEL Creatinine Lvl 0.7 0.5 - 1.4 09/03/2014 [facility] CHEM PANEL BUN 10 7 - 22 09/03/2014 [facility] CHEM PANEL Glucose Lvl 119 70 - 99 09/03/2014 <sup>5</sup>Interpretive Data: Adult ref erence range values reflect the clinical guidelines
of the [employer]. [facility] CHEM PANEL AGAP 10.4 10.0 - 20.0 09/03/2014 [facility] HEMATOLOGY WBC 10.8 3.7 - 10.4 09/03/2014 [facility] MCHC 33.7 32.0 - 36.0 09/03/2014 [facility] HEMATOLOGY RDW 14.8 11.5 - 14.5 09/03/2014 [facility] Platelet 336 133 - 450 09/03/2014 [facility] MPV 7.6 7.4 - 10.4 09/03/2014 [facility] HEMATOLOGY Hgb 12.4 12.0 - 16.0 09/03/2014 [facility] HEMATOLOGY RBC 4.14 4.20 - 5.40 09/03/2014 [facility] HEMATOLOGY MCV 89.1 80.0 - 98.0 09/03/2014 [facility] HEMATOLOGY Hct 36.9 36.0 - 48.0 09/03/2014 [facility] MCH 30.0 27.0 - 31.0 09/03/2014 [facility] HEMATOLOGY Eosinophils 0.9 0.0 - 4.0 09/03/2014 [facility] HEMATOLOGY Segs-Bands # 6.1 1.5 - 8.1 09/03/2014 [facility] HEMATOLOGY Basophils 0.6 0.0 - 1.0 09/03/2014 [facility] HEMATOLOGY Monocytes # 0.9 0.0 - 0.8 09/03/2014 [facility] HEMATOLOGY Lymphocytes # 3.5 1.0 - 5.5 09/03/2014 [facility] HEMATOLOGY Eosinophils # 0.1 0.0 - 0.5 09/03/2014 [facility] HEMATOLOGY Segs 57.0 45.0 - 75.0 09/03/2014 [facility] HEMATOLOGY Lymphocytes 33.0 20.0 - 40.0 09/03/2014 [facility] HEMATOLOGY Monocytes 8.5 2.0 - 12.0 09/03/2014 [facility] HEMATOLOGY Basophils # 0.1 0.0 - 0.2 09/03/2014 [facility] ELECTROLYTES AGAP 14.7 10.0 - 20.0 09/02/2014 [facility] ELECTROLYTES eGFR 110 09/02/2014 <sup>3</sup>Result [...] should be multiplied by the estimated BMI. [facility] ELECTROLYTES Calcium Lvl 8.7 8.5 - 10.5 09/02/2014 [facility] ELECTROLYTES Chloride Lvl 105 95 - 109 09/02/2014 [facility] ELECTROLYTES CO2 23 24 - 32 09/02/2014 [facility] ELECTROLYTES Sodium Lvl 139 135 - 145 09/02/2014 [facility] ELECTROLYTES Potassium Lvl 3.7 3.5 - 5.1 09/02/2014 [facility] ELECTROLYTES BUN 15 7 - 22 09/02/2014 [facility] ELECTROLYTES Creatinine Lvl 0.7 0.5 - 1.4 09/02/2014 [facility] ELECTROLYTES Glucose Lvl 114 70 - 99 09/02/2014 <sup>6</sup>Interpretive Data: Adult ref erence range values reflect the clinical guidelines
of the [employer]. [facility] HEMATOLOGY Monocytes 2.0 2.0 - 12.0 09/02/2014 [facility] Lymphocytes 42.0 20.0 - 40.0 09/02/2014 [facility] HEMATOLOGY Bands 0.0 0.0 - 11.0 09/02/2014 [facility] HEMATOLOGY Segs 56.0 45.0 - 75.0 09/02/2014 [facility] RBC Morph Jenny l (09/02/14 4:42 AM) 09/02/2014 [facility] Atypical Lymphs 0.0 <=0.0 % 09/02/2014 [facility] Plt Morph Jenny l (09/02/14 4:42 AM) 09/02/2014 [facility] Monocytes # 0.2 0.0 - 0.8 09/02/2014 [facility] Lymphocytes # 4.3 1.0 - 5.5 09/02/2014 [facility] Segs-Bands # 5.8 1.5 - 8.1 09/02/2014 [facility] MCHC 33.2 32.0 - 36.0 09/02/2014 [facility] MCH 29.6 27.0 - 31.0 09/02/2014 [facility] Platelet 333 133 - 450 09/02/2014 [facility] MPV 7.7 7.4 - 10.4 09/02/2014 [facility] RDW 14.6 11.5 - 14.5 09/02/2014 [facility] Hct 34.2 36.0 - 48.0 09/02/2014 [facility] MCV 89.1 80.0 - 98.0 09/02/2014 [facility] Hgb 11.4 12.0 - 16.0 09/02/2014 [facility] RBC 3.84 4.20 - 5.40 09/02/2014 [facility] WBC 10.3 3.7 - 10.4 09/02/2014 [facility] LIPIDS LDL (Calculated) 121 <=99 mg/dL 09/02/2014 [facility] LIPIDS VLDL 53 09/02/2014 [facility] LIPIDS CHD Risk 6.12 3.90 - 5.80 09/02/2014 [facility] LIPIDS Chol 208 <=199 mg/dL 09/02/2014 [facility] LIPIDS Trig 263 <=149 mg/dL 09/02/2014 [facility] LIPIDS HDL 34 >=61 mg/dL 09/02/2014 [facility] SPECIAL CHEMISTRY Hgb A1C 6.7 <=5.6 % 09/02/2014 [facility] BODY FLUIDS RBC CSF 4 0 - 03 09/02/2014 [facility] BODY FLUIDS Color CSF Warren rless (09/01/14 6:10 PM) Colorless 09/02/2014 [facility] BODY FLUIDS WBC CSF 2 0 - 53 09/02/2014 [facility] BODY FLUIDS Clarity CSF Jo r (09/01/14 6:10 PM) Clear 09/02/2014 [facility] BODY FLUIDS Supernat CSF Warren rless (09/01/14 6:10 PM) Colorless 09/02/2014 [facility] BODY FLUIDS Tube Num CSF 3 09/02/2014 [facility] BODY FLUIDS Protein CSF 49 15 - 45 09/02/2014 [facility] BODY FLUIDS Glucose CSF 74 45 - 80 09/02/2014 [facility] FUNGAL - SEROLOGY Crypto Ag CSF Negative (09/01/14 6:10 PM) Negative 09/02/2014 [facility] CSF Men A Negat edwin (09/01/14 6:10 PM) Negative 09/02/2014 [facility] CSF H Influ B Negat edwin 7 (09/01/14 6:10 PM) Negative 09/02/2014 <sup>7</sup>Interpretive Data: Testing includes polyclonal antibody to Haemophilus influenzae
type b. [facility] CSF S pneumo Negat edwin (09/01/14 6:10 PM) Negative 09/02/2014 [facility] CSF Men C Negat edwin (09/01/14 6:10 PM) Negative 09/02/2014 [facility] CSF Strep B Negat edwin (09/01/14 6:10 PM) Negative 09/02/2014 [facility] CSF Men B Negat edwin (09/01/14 6:10 PM) Negative 09/02/2014 [facility] MOLECULAR DIAGNOSTIC Source HSV Cerebral Spinal Fluid 09/02/2014 [facility] MOLECULAR DIAGNOSTIC HSV 2 by PCR [...] validated by the [facility] within [facility]. The [facility] is authorized under the Clinical Improvement Amendments of 1988 (CLIA-88) to perform high-complexity testing. This test has not been cleared by the U.S. Food and Drug Administration (FDA). However, FDA approval is not required and the use should not be considered investigational or research. [facility] MOLECULAR DIAGNOSTIC HSV 1 by PCR Not Performed 8 (09/01/14 6:10 PM) Negative 09/02/2014 <sup>8</sup>Result Comment: CSF contains less than 5 WBC'S and has a normal Protein level. [facility] VIRAL - SEROLOGY Enterovirus PCR CSF Negative 11 (09/01/14 6:10 PM) Negative 09/02/2014 <sup>11</sup>Interpretive Data: Interpretation:
Negative.....No enterovirus DNA detected by PCR
Positive.....Enterovirus DNA detected by PCR
Assay Limitations:
A negative result does not rule out the presence of PCR inhibitors in the patient specimen or Enterovirus nucleic acid in concentrations below the level of detection of the assay. [facility] CARDIAC ENZYMES Troponin-I <0.02 0.00 - 0.40 09/01/2014 [facility] CARDIAC ENZYMES CK MB 0.6 0.5 - 3.6 09/01/2014 [facility] CARDIAC ENZYMES Total CK 61 12 - 191 09/01/2014 [facility] CARDIAC ENZYMES CK MB Index 1.0 0.0 - 2.5 09/01/2014 [facility] CHEM PANEL A/G Ratio 1.0 0.7 - 1.6 09/01/2014 [facility] CHEM PANEL Globulin 4.2 2.0 - 4.0 09/01/2014 [facility] CHEM PANEL Bili Total 0.8 0.2 - 1.3 09/01/2014 [facility] CHEM PANEL B/C Ratio 14 6 - 25 09/01/2014 [facility] CHEM PANEL Albumin Lvl 4.1 3.5 - 5.0 09/01/2014 [facility] CHEM PANEL Total Protein 8.3 6.4 - 8.4 09/01/2014 [facility] CHEM PANEL ALT 28 0 - 65 09/01/2014 [facility] CHEM PANEL Alk Phos 77 39 - 136 09/01/2014 [facility] CHEM PANEL AST 17 0 - 37 09/01/2014 [facility] HEMATOLOGY Basophils # 0.0 0.0 - 0.2 09/01/2014 [facility] HEMATOLOGY Eosinophils # 0.0 0.0 - 0.5 09/01/2014 [facility] HEMATOLOGY Eosinophils 0.1 0.0 - 4.0 09/01/2014 [facility] HEMATOLOGY Basophils 0.1 0.0 - 1.0 09/01/2014 [facility] SPECIAL CHEMISTRY Hgb A1C 6.8 <=5.6 % 09/01/2014 [facility] THYROID PANEL TSH 1.710 0.360 - 3.740 09/01/2014 [facility] Pathology Reports No Data Provided for This Section Diagnostic Reports Report Value Date Source Brain wo contrast MRI EXAM: MR I BRAIN WITHOUT CONTRAST DATE: 12/25/2016 6:34 PM [...] IMPRESSION: 1. No definite acute infarct or intracra nial hemorrhage detected. 2. Several scattered nonspecific foci of T2/FLAIR signal abnormality may reflect early minimal chronic small vessel ischemic change or migraine-related change. 3. Stigmata of moyamoya is again noted. SL: JNGUYEN-PC 12/25/2016 [facility] Brain/Neck CTA EXAM: CTA BRAIN [...] system. IMPRESSION: 1. Severe bilateral supraclinoid and car otid terminus intracranial internal carotid artery narrowing with small caliber cavernous and petrous segments. Significantly diminutive appearance of bilateral middle cerebral arteries with extensive collateral flows via prominent thalamostriate vasculatures compatible with clinically reported moyamoya appearance. Etiology for moyamoya includes idiopathic, sickle cell disease, radiation induced or others. Please correlate clinically with patient's history. 2. No internal carotid artery stenosis d etected. (All qualitative and quantitative assess ments of carotid bifurcation and proximal internal carotid artery stenosis are made referencing the distal internal carotid artery {NASCET criteria}.) SL: JNGUYEN-PC 12/25/2016 [facility] Chest 1view DX EXAM: CHEST 1 V IEW DATE: Mar 29, 2015 01:16:36 PM INDICATION: Focal neurological deficit COMPARISON: None. TECHNIQUE: AP chest radiograph. FINDINGS: Lungs are clear bilaterally No pleural effusion or pneumothorax is identified . Prominence of cardio mediastinal contours is likely related to low lung volumes and AP technique.. The skeleton is intact IMPRESSION: 1. No acute intrathoracic abnormality SL: 12 03/29/2015 [facility] Brain wo contrast CT CRANIAL [...] Coding: Brain wo contrast CT CPT Code: 06426 SL: 13 Wally Harris M.D. 03/29/2015 [facility] Brain/Neck CTA CTA HEAD AND NE CK: CLINICAL HISTORY: Facial numbness TECHNIQUE AND FINDINGS: [...] abnormality. 3. Right carotid artery: No focal stenos is. 4. Left carotid artery: No focal stenosi s. 5. Vertebral arteries: No focal stenosis . 6. Soft tissue findings: Scattered subce ntimeter bilateral cervical lymph nodes without lymphadenopathy or [...] CTA HEAD: 1. Internal carotid arteries: Right cerv ical internal carotid artery siphon extending into the [...] communicating artery. 4. Vertebrobasilar system: No focal sten osis or aneurysm. 5. Bilateral MANAGER ER, SCA, AICA, and PICA: N o focal stenosis or aneurysm. 6. General findings: The brain volume an d ventricle size are appropriate for age. Scattered areas of low-attenuation are seen in the right frontal lobe and right temporal lobe distribution similar to recent MRI findings. No definite intracranial hemorrhage, mass, mass-effect, or extra-axial fluid collection is appreciated. IMPRESSION: 1. Irregularity and narrowing seen invol ving the right internal carotid artery distally extending [...] on 09/03/2014 at 0818 hours. SL:17 09/02/2014 [facility] Brain wo contrast MRI PROCEDUR E: Brain wo contrast MRI CLINICAL INFORMATION Facial numbness COMPARISON: CAT scan 08/31/2014. Sulcal hyperintensity is noted in the right frontal lobe, temporal lobe, parietal lobe. Scattered foci of restricted diffusion in the right posterior temporal lobe. No midline shift. The sella and foramen magnum regions are normal. No definite mass. IMPRESSION: 1. Changes in the right frontal, tempora l and parietal lobe suspicious for cerebromeningitis with restricted diffusion likely due to the underlying process. Superimposed small infarction is considered less likely. These findings are communicated to Dr. Clayton at 5:11 p.m. SL: 14 09/01/2014 [facility] Consultation Notes No Data Provided for This Section Discharge Summaries No Data Provided for This Section History and Physicals No Data Provided for This Section Vital Signs Vital Sign Value Date Comments Source Weight 95.909 03/28/2018 [facility] BMI Calculated 36.29 03/28/2018 [facility] Height 162.56 cm 03/28/2018 [facility] Temperature Oral (F) 98.7 F 03/28/2018 [facility] Heart Rate 99 03/28/2018 [facility] Respitory Rate 16 03/28/2018 [facility] Systolic (mm Hg) 150 03/28/2018 [facility] Diastolic (mm Hg) 77 03/28/2018 [facility] Systolic (mm Hg) 127 12/26/2016 [facility] Diastolic (mm Hg) 80 12/26/2016 [facility] Respitory Rate 20 12/26/2016 [facility] Temperature Oral (F) 98.6 F 12/26/2016 [facility] Heart Rate 63 12/26/2016 [facility] Heart Rate 64 12/26/2016 [facility] Temperature Oral (F) 98.5 F 12/26/2016 [facility] Respitory Rate 20 12/26/2016 [facility] Systolic (mm Hg) 139 12/26/2016 [facility] Diastolic (mm Hg) 83 12/26/2016 [facility] Respitory Rate 20 12/26/2016 [facility] Systolic (mm Hg) 122 12/26/2016 [facility] Diastolic (mm Hg) 86 12/26/2016 [facility] Heart Rate 89 12/26/2016 [facility] Temperature Oral (F) 97.7 F 12/26/2016 [facility] Weight 97 0 12/26/2016 [facility] Height 162.56 cm 12/25/2016 [facility] Weight 98.182 12/25/2016 [facility] BMI Calculated 37.15 12/25/2016 [facility] Respitory Rate 20 03/29/2015 [facility] Systolic (mm Hg) 126 03/29/2015 [facility] Diastolic (mm Hg) 66 03/29/2015 [facility] Temperature Oral (F) 98.3 F 03/29/2015 [facility] Heart Rate 66 03/29/2015 [facility] Respitory Rate 18 03/29/2015 [facility] Heart Rate 77 03/29/2015 [facility] Systolic (mm Hg) 167 03/29/2015 [facility] Diastolic (mm Hg) 97 03/29/2015 [facility] Weight 100 03/29/2015 [facility] BMI Calculated 37.84 03/29/2015 [facility] Height 162.56 cm 03/29/2015 [facility] Temperature Oral (F) 99.1 F 03/29/2015 [facility] Respitory Rate 18 03/29/2015 [facility] Heart Rate 76 03/29/2015 [facility] Systolic (mm Hg) 183 03/29/2015 [facility] Diastolic (mm Hg) 101 03/29/2015 [facility] Heart Rate 66 11/09/2014 [facility] Respitory Rate 18 11/09/2014 [facility] Temperature Oral (F) 98.3 F 11/09/2014 [facility] Systolic (mm Hg) 137 11/09/2014 [facility] Diastolic (mm Hg) 66 11/09/2014 [facility] Heart Rate 67 11/09/2014 [facility] Respitory Rate 18 11/09/2014 [facility] Systolic (mm Hg) 135 11/09/2014 [facility] Diastolic (mm Hg) 73 11/09/2014 [facility] Systolic (mm Hg) 138 11/09/2014 [facility] Diastolic (mm Hg) 83 11/09/2014 [facility] Respitory Rate 16 11/09/2014 [facility] Heart Rate 77 11/09/2014 [facility] Weight 97.727 11/09/2014 [facility] BMI Calculated 36.98 11/09/2014 [facility] Height 162.56 cm 11/09/2014 [facility] Temperature Oral (F) 98.2 F 11/09/2014 [facility] Diastolic (mm Hg) 84 09/04/2014 [facility] Systolic (mm Hg) 131 09/04/2014 [facility] Respitory Rate 20 09/04/2014 [facility] Temperature Oral (F) 98.5 F 09/04/2014 [facility] Heart Rate 67 09/04/2014 [facility] Temperature Oral (F) 98.1 F 09/04/2014 [facility] Systolic (mm Hg) 140 09/04/2014 [facility] Heart Rate 61 09/04/2014 [facility] Respitory Rate 20 09/04/2014 [facility] Diastolic (mm Hg) 89 09/04/2014 [facility] Diastolic (mm Hg) 81 09/04/2014 [facility] Temperature Oral (F) 99.1 F 09/04/2014 [facility] Heart Rate 61 09/04/2014 [facility] Respitory Rate 20 09/04/2014 [facility] Systolic (mm Hg) 124 09/04/2014 [facility] Weight 101.7 09/03/2014 [facility] BMI Calculated 37.84 09/01/2014 [facility] Height 162.56 cm 09/01/2014 [facility] Weight 100 09/01/2014 [facility] Encounters Location Location Details Encounter Type Encounter Number Reason For Visit Attending Provider ADM Date DC Date Status Source [facility] Inpatient [id number] Papa Jesse 09/01/2014 09/05/2014 [facility] [id number] 00 Mildred Reyes 11/09/2014 11/09/2014 [facility] OBS Observation Patient [id number] Miguelito Salazar 03/29/2015 03/29/2015 [facility] Observation [id number] Rachel Leblanc 12/25/2016 12/26/2016 [facility] Emergency [id number] Jeronimo Fowler 03/28/2018 03/28/2018 [facility] Procedures Procedure Code Date Perfomer Comments Source Partial hysterectomy [id number] [facility] Tubal ligation [id number] [facility] st Assessment and Plan Assessment and Plan Date Source Extracted from:Title: Neurology Consulta tion Author: Sonia Dietrich NP Date: 12/26/16 Impression and Plan 41 year old female with 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 Recommendations/Plan: -Continue current DAPT (ASA/Plavix) renetta men. Recommend agressive BP management per primary team as well. -Recommend prompt outpatient follow-up w ith previously established neurologist for further surveillance/management/monitoring of Gillespie Gillespie. -Will give one time dose of VPA 500 mg, Reglan 10 mg, and Magnesium 2 mg for headache. The plan of care as above has been discussed with Dr. Jen Orellana, who agrees. Please call with questions/concerns. Thank you for the opportunity to participate in this patient's care. 12/26/2016 [facility] Extracted from:Title: Neurology Progress Note Author: Jennifer Coles DIRECTOR DIETETICS DEPARTMENT Date: 09/04/14 Impression and Plan Ms. Penn is a 39 y/o female c PMH of HTN who presented to [facility] after onset of a recurrent episode of [...] Recommendations: 1) Likely small, acute R hemispheric inf arction- not an IV tPA candidate as pt [...] able to f/u outpt with neurology at [facility] with conventional angiorgram as well. * [...] neurology standpoint and can follow up at [facility] with [facility] for conventional angiogram and S/P stroke. Time: 25 minutes. Extracted from:Title: Neurology Consultation Author: Eleni Jeffers Date: 09/01/14 Impression and Plan Ms. Penn is a 39 y/o female c PMH of HTN who presented to [facility] after onset of a recurrent episode of L facial and upper extremity numbness c mild L facial droop, now resolved. CT brain was performed yesterday and was without acute intracranial abnormality. Further evaluation for potential TIA vs CVA, vs hypertensive event vs other being further evaluated. -- neuro as described above, no focal ne urological deficits observed -- CT brain results reviewed and discuss ed c pt -- MRI brain without contrast ordered an d pending -- labs reviewed: cardiac enzymes WNL, e levated glucose and WBC noted, UA negative -- [...] of this patient. Time: 70 minutes. 09/05/2014 [facility] Plan of Care No Data Provided for This Section Social History Social History Date Source Social History TypeResponse Alcohol Past Smoking Status Never smoker; Exposure to Tobacco Smoke None; Cigarette Smoking Last 365 Days No; Reg Smoking Cessation Counseling No entered on: 12/25/16 12/26/2016 [facility] Family History No Data Provided for This Section Advance Directives No Data Provided for This Section Functional Status No Data Provided for This Section
--- OUTSIDE RECORDS SUMMARY | 2020-04-08 04:32 | XMS REPORT | Continuity of Care Document ---
Author Author [facility] t Organization [facility] Address [address] [place] [address] Phone Unavailable Care Team Providers Care Check Cashier Name Role Phone STEW BOX PCP Charisma Elizalde MD Attphys Pieter Pretty MD Attphys [phone] CHARISMA ELIZALDE Attphys Unavailable Stew Box MD Attphys Charisma Elizalde MD Attphys CASEY MAIER Attphys Unavailable HUSBYLuz Maria Attphys Unavailable BEATRIZ A LAIKODY Attphys Unavailable BECKY T VINH Attphys Unavailable NOLBERTO, S AMBICA Attphys Unavailable Chilo Fowler Attphys Jae NI CHAPO Attphys Unavailable TERI LINDSAY Attphys Unavailable Ambrocio Molina Attphys Miguelito Salazar Attphys Angie Reyes Attphys CHARISMA ELIZALDE Admphys Unavailable ANGÉLICA, TERI Admphys Unavailable Miguelito Salazar Admphys Ambrocio Molina Admphys Payers Payer Name Policy Type Policy Number Effective Date Expiration Date Ninoska BORDEN - MGD CARECIGNA LOCAL PLUSxxxxxxxxxxx xxxxxxxxxxx [facility] Cigna [facility] [place] [id number] 2012 00:00:00 [facility] [id number] [facility] Cigna [facility] [id number] [facility] Problems Condition Name Condition Details Condition Category Status Onset Date Resolution Date Last Treatment Date Treating Clinician Comments Source Pre-op testing Pre-op testing Disease Active 2019-06-23 00:00:00 [facility] OTHER OTHE R Active 03/28/2018 [facility] Diagnosis Active 2018-03-28 00:00:00 2018-03-31 20:51:00 [facility] T[facility] TIA (transient ischemic attack) TIA (transient ischemic attack) Dis ease Active 2017 00:00:00 [facility] MOYAMOYA DISEASE GILLESPIE GILLESPIE DISEASE Active 12/25/2016 [facility] Diagnosis Active 2016-12-25 00:00:00 2016-12-26 14:29:00 [facility] Toni NUMBNESS NUMB NESS Active 12/25/2016 [facility] Diagnosis Active 2016-12-25 00:00:00 2016-12-25 18:35:00 [facility] NOSE BLEEDS/OTHER NOSE BLEEDS/OTHER Active 03/29/2015 [facility] Diagnosis Active 2015-03-29 00:00:00 2015-03-29 13:56:00 [facility] TIA TIA Active 03/29/2015 [facility] Diagnosis Active 2015-03-29 00:00:00 2015-03-30 13:22:00 [facility] CHEST PAIN CHES T PAIN Active 11/09/2014 [facility] Diagnosis Active 2014-11-09 00:00:00 2014-11-09 16:19:00 [facility] Vasculitis Vasculitis Disease Active 2014-11-05 00:00:00 [facility] TIA, PARESTHESIAS TIA, PARESTHESIAS Active 09/01/2014 [facility] Diagnosis Active 2014-09-01 00:00:00 2014-09-03 16:16:00 [facility] WEAKNESS/HIGH BLOOD PRESSURE W EAKNESS/HIGH BLOOD PRESSURE Active 09/01/2014 [facility] Diagnosis Active 2014-09-01 00:0 0:00 2014-09-01 14:25:00 [facility] ALLERGIC REACTION AMEENA RGIC REACTION Active 08/31/2014 [facility] Diagnosis Active 2014-08-31 13:00:00 2014-08-31 18:23:00 [facility] Chest pain Chest pain Problem Active [facility] Diabetes mellitus (disorder) D iabetes mellitus (disorder) Resolved Problem 10/15/2018 [facility] Problem Resolved 2018-10-15 15:51:08 [facility] Hypertensive disorder, systemic arterial (disorder) Hypertensive disorder, systemic arterial (disorder) Resolved Problem 10/15/2018 [facility] Problem Resolved 2018-10-15 15:51:08 [facility] Hyperlipidemia (disorder) Hype rlipidemia (disorder) Resolved Problem 10/15/2018 [facility] Problem Resolved 2018-10-15 15:51:08 [facility] Moyamoya disease (disorder) Mo yamoya disease (disorder) Resolved Problem 10/15/2018 [facility] Problem Resolved 2018-10-15 15:51:08 [facility] TRANS CEREB ISCHEMIA NEC MAIER S CEREB ISCHEMIA NEC Active [facility] Diagnosis Active 2014-09-03 16:16:00 [facility] Chest pain, unspecified Ches t pain, unspecified 04/04/2018 10/15/2018 [facility] Problem 2018-04-04 03:18:35 2018 15:51:08 2018-10-15 15:51:08 [facility] Discharge Diagnosis: TIA (transient ischemic attack) Discharge Diagnosis: TIA (transient ischemic attack) 11/09/2014 11/12/2014 [facility] Problem 2014-11-09 05:00:00 2014-11-12 00:26:00 2014-11 00:26:00 [facility] Allergies, Adverse Reactions, Alerts Allergy Name Allergy Type Status Severity Reaction(s) Onset Date Inacti ve Date Treating Clinician Comments Source Iodinated Contrast Media Drug Allergy Active Nausea Only 2019-03-16 00:00:00 [facility] Olmesartan Drug Allergy Active Swelling 2019-03-16 00:00:00 hives [facility] Iodine and Iodide Containing Produc Propensity to adverse reactions Active Mild NAUSEA 2019-01-19 00:00:00 [facility] Olmesartan Allergy to Substance Active Severe 2019-01-19 00:00:00 [facility] Apple Cider Vinegar Drug Allergy Active Palpitations 2017 00:00:00 hives [facility] Iodine And Iodide Containing Products Drug Allergy Active Nausea Only 2014-11-05 00:00:00 dizziness [facility] Social History Social Habit Start Date Stop Date Quantity Comments Source Sex Assigned At [facility] History SDOH Alcohol Frequency 2019-03-19 00:00:00 2019-03-19 00:00:0 0 1 [facility] History SDOH Alcohol Std Drinks 2019-03-19 00:00:00 2019-03-19 00:00: 00 [facility] History SDOH Alcohol Binge 2019-03-19 00:00:00 2019-03-19 00:00:00 [facility] Social History 2016-12-26 02:27:06 2016-12-26 02:27:06 [facility] Smoking Status Start Date Stop Date Source Never smoker [facility] Medications Ordered Medication Name Filled Medication Name Start Date Stop Da te Current Medication? Ordering Clinician Indication Dosage Frequency Signature (SIG) Comments Components Source atorvastatin (LIPITOR) 10 MG tablet 2019-06-26 00:00:0 0 2019-06-25 00:00:00 No 10mg QD Take 1 tablet (10 mg total) by mouth giana flanagan. [facility] aspirin 325 MG tablet 2019-06-25 11:42:57 2019-06-25 00:00:00 No 325mg QD Take 325 mg by mouth daily. [facility] losartan (COZAAR) 25 MG tablet 2019-06-25 11:34:50 2019-06-25 00 :00:00 No 25mg QD Take 25 mg by mouth daily. [facility] atorvastatin (LIPITOR) 10 MG tablet 2019-06-25 11:34:5 0 2019-06-25 00:00:00 No 20mg QD Take 20 mg by mouth nightly . [facility] glipiZIDE-metFORMIN (METAGLIP) 2.5-500 mg per tablet 2019-06-25 11:34:50 2019-06-25 00:00:00 No 2{tbl} Q.5D Take 2 tablets by mouth 2 (two) times daily. [facility] clopidogrel (PLAVIX) 75 mg tablet 2019-06-25 11:34:50 2018 00:00:00 No 75mg QD Take 75 mg by mouth nightly. [facility] hydroCHLOROthiazide (HYDRODIURIL) 25 MG tablet 2 11:34:50 2019-06-25 00:00:00 No 25mg QD Take 25 mg by mouth every morni ng. [facility] omeprazole (PRILOSEC) 20 MG capsule 2019-06-25 11:34:5 0 2019-06-25 00:00:00 No 20mg Q.5D Take 20 mg by m outh 2 (two) times daily 1 tablet in the morning 30 minutes before breakfast1 tablet at bedtime 1 hour before atorvastatin and plavix . [facility] clopidogrel (PLAVIX) 75 mg tablet 2019-06-25 11:34:50 2018 00:00:00 No 75mg QD Take 75 mg by mouth daily. [facility] acetaminophen (TYLENOL) 325 MG tablet 2019-06-25 00:00 :00 2020-06-19 23:59:00 No 650mg Take 2 tablets (650 mg total) by mouth every 6 (six) hours as needed for up to 360 days. [facility] acetaminophen (TYLENOL) 325 MG tablet 2019-06-25 00:00 :00 2020-06-19 23:59:00 No 650mg Take 2 tablets (650 mg total) by mouth every 6 (six) hours as needed for Pain for up to 360 days. [facility] atorvastatin (LIPITOR) 10 MG tablet 2019-03-19 12:10:04 Yes 10mg QD Take 10 mg by mouth daily. [facility] metFORMIN (GLUMETZA) 500 MG (MOD) 24 hr tablet 2019-03-19 12:10: 04 Yes 500mg Take 500 mg by mouth 2 (two) times daily with breakfas t and dinner. [facility] amLODIPine (NORVASC) 5 MG tablet 2019-03-19 12:10:04 Yes 5mg QD Take 5 mg by mouth daily. [facility] metoprolol (TOPROL-XL) 50 MG 24 hr tablet 2019-03-19 12:10:04 Yes 50mg QD Take 50 mg by mouth daily. [facility] cyanocobalamin 500 MCG tablet 2017 17:07:32 Yes 500ug QD Take 500 mcg by mouth every morning With food . [facility] ergocalciferol (ERGOCALCIFEROL) 50,000 unit capsule 03-20 17:07:32 Yes 65089L Q7D Take 50,000 Units by mouth once a week . [facility] aspirin 325 MG tablet 2017 17:07:31 Yes 325mg QD Take 325 mg by mouth daily. [facility] Famotidine (Pepcid) 20 Mg Tablet, 40 Mg Oral Famotidin e (Pepcid) 20 Mg Tablet, 40 Mg Oral 2017-01-10 00:00:00 2017 00:00:00 No Wally Dorado Md 40 Twice Daily Before Meals [facility] Metoclopramide Hcl (Reglan) 10 Mg Tablet, 10 Mg Oral M etoclopramide Hcl (Reglan) 10 Mg Tablet, 10 Mg Oral 2017-01-10 00:00:00 2017 00:00:00 No Wally Dorado Md 10 Twice Daily Before Meals [facility] Losartan 2016-12-27 14:00:00 No 50 mg, Route: PO, Drug form: TAB, Daily, Dosing Weight 97, kg, Start date: 12/27/16 9:00:00 CDT, Duration: 30 day, Stop date: 01/25/17 9:00:00 CDT [facility] Plavix 2016-12-27 14:00:00 No 75 mg, Route: PO, Drug form: TAB, Daily, Dosing Weight 97, kg, Start date: 12/27/16 9:00:00 CDT, Duration: 30 day, Stop date: 01/25/17 9:00:00 CDT [facility] Aspirin 325 MG Oral Tablet 2016-12-27 14:00:00 No 325 mg, 1 tab, Route: PO, Drug form: TAB, Daily, Dosing Weight 97, kg, Start date: 12/27/16 9:00:00 CDT, Duration: 30 day, Stop date: 01/25/17 9:00:00 CDT Arturo Muñoz Valproic Acid 100 MG/ML Injectable Solution 2016-12-26 14:52:00 No Notes: Dilute in at least 50ml D5W or NS. Infusion rate = 20 mg/min (Same As: Depacon) [facility] Magnesium Sulfate 2016-12-26 14:52:00 No Notes: WASTE: F/P - Sink; E - Municipal Trash Bin [facility] Reglan 2016-12-26 14:51:00 No Notes: (Same as: Reglan) [facility] [place] Plavix 2016-12-26 14:30:00 No Notes: (Same As: Plavix) [facility] Aspirin 2016-12-26 14:00:00 No Notes: Take with food. [facility] Losartan 2016-12-26 14:00:00 No Notes: (Hector e as: Muna) [facility] Aspirin 325 MG Oral Tablet 2016-12-26 02:20:00 Yes 325 mg = 1 tab, PO, Daily, 0 Refill(s) [facility] clopidogrel 75 MG Oral Tablet [Plavix] 2016-12-26 02:20:00 Yes 75 mg = 1 tab, PO, Daily, 0 Refill(s) Angella Muñoz losartan 50 mg oral tablet 2016-12-26 02:20:00 Yes 50 mg = 1 tab, PO, Daily, 0 Refill(s) [facility] Morphine 2016-12-26 00:26:00 No Not es: (Same as:MORPhine Sulfate) [facility] Tylenol 2016-12-26 00:26:00 No Notes: Do not exceed 4 gm/day. (Same as: Tylenol) [facility] sodium chloride 0.9% 1000 ml INJ 1,000 mL 2016-12-26 00:25:00 No 1,000 mL, Rate: 40 ml/hr, Infuse over: 25 hr, Route: IV, Dosing Weight 98.182 kg, Total Volume: 1,000, Start date: 12/25/16 19:25:00 CDT, Duration: 30 day, Stop date: 01/24/17 19:24:00 CDT [facility] [place] Morphine 2016-12-25 22:55:00 No 4 mg, Route: IVP, ONCE, Dosing Weight 98.182, kg, Priority: STAT, Start date: 12/25/16 17:55:00 CDT, Stop date: 12/25/16 17:55:00 CDT Arturo Muñoz Omnipaque 350 injectable solution 2016-12-25 20:14:00 No Notes: (same as:Omnipaque 350). WASTE: F/P - Black; E - Municipal Trash Bin [facility] Saline Flush 0.9% 2015-03-29 17:13:00 No Notes: (Same as: BD Posiflush) Arturo Muñoz Aspirin 81 MG Enteric Coated Tablet 2014-09-04 23:46:00 Yes 81 mg = 1 tab, PO, Daily, # 30 tab, 0 Refill(s) [facility] atorvastatin 20 mg oral tablet 2014-09-04 23:46:00 Yes 20 mg = 1 tab, PO, Bedtime, # 30 tab, 0 Refill(s) [facility] [place] losartan 25 mg oral tablet 2014-09-04 23:46:00 Yes 25 mg = 1 tab, PO, Daily, # 30 tab, 0 Refill(s) [facility] Cozaar 2014-09-03 15:00:00 No Notes: (Same as: Cozaar) [facility] atorvastatin 2014-09-03 03:00:00 No Notes: (Same As: Lipitor) [facility] Cozaar 2014-09-03 03:00:00 No Notes: (Same as: Cozaar) [facility] Lovenox 2014-09-02 23:00:00 No Notes: (Same as: Lovenox) [facility] Protonix 2014-09-02 22:30:00 No Notes: Tablet should not be chewed or crushed. (Same as: Protonix) [facility] [place] aspirin 2014-09-02 18:42:00 No Notes: Do not crush or chew. (Same As: Ecotrin) [facility] [place] Rocephin 2014-09-02 12:00:00 No Notes: (Hector e As: Rocephin). [facility] [place] Sodium Chloride 0.9% IV 2014-09-02 04:43:00 No 250 mL, Route: IVPB, Start date: 09/01/14 22:43:00, Duration: 30 day, Stop date: 10/01/14 22:42:00, PRN Line Flush [facility] BD Normal Saline Flush 2014-09-02 04:43:00 No Notes: (Same as: BD Posiflush) [facility] Saline Flush 0.9% 2014-09-02 04:40:00 No Notes: (Same as: BD Posiflush) [facility] Tylenol 2014-09-01 23:56:00 No Notes: Do not exceed 4 gm/day. (Same as: Tylenol) [facility] NS 1,000 mL 2014-09-01 23:56:00 No 1,000 mL, Rate: 40 ml/hr, Infuse over: 25 hr, Route: IV, Dosing Weight 100 kg, Total Volume: 1,000, Start date: 09/01/14 17:56:00, Duration: 30 day, Stop date: 10/01/14 17:55:00 [facility] Versed 2014-09-01 23:35:00 No 3 mg, Route: IVP, ONCE, Dosing Weight 100, kg, Start date: 09/01/14 17:35:00, Stop date: 09/01/14 17:35:00 [facility] Lidocaine Hydrochloride 10 MG/ML Injectable Solution 09-01 23:25:00 No Notes: (Same as: Xylocaine) [facility] Vancomycin 2014-09-01 23:24:00 No 1 gm, 200 mL, Route: IV, Drug form: INJ, ONCE, Dosing Weight 100, kg, Start date: 09/01/14 17:24:00, Stop date: 09/01/14 17:24:00 [facility] Rocephin 2014-09-01 23:24:00 No 1 gm, Route: IVPB, Drug form: PDR/INJ, ONCE, Dosing Weight 100, kg, Start date: 09/01/14 17:24:00, Stop date: 09/01/14 17:24:00 [facility] aspirin 2014-09-01 19:09:00 No Notes: Take with food. [facility] Saline Flush 0.9% 2014-09-01 19:09:00 No Notes: (Same as: BD Posiflush) [facility] Losartan 2014-09-01 16:07:00 No 12.5 mg, PO , Daily, 0 Refill(s) [facility] Atorvastatin Calcium 20 Mg Tablet Atorvastatin Calcium 20 Mg Tablet Yes [address] [facility] Clopidogrel Bisulfate (Plavix) 75 Mg Tablet Clopidogre l Bisulfate (Plavix) 75 Mg Tablet Yes 75 Bedtime [facility] Ergocalciferol (Vitamin D2) (Vitamin D2) 50,000 Unit C apsule Ergocalciferol (Vitamin D2) (Vitamin D2) 50,000 Unit Capsule Yes [address] [facility] Glipizide 5 Mg Tablet Glipizide 5 Mg Tablet Yes 2.[address] [facility] Losartan Potassium 100 Mg Tablet Losartan Potassium 100 Mg Tablet Yes [address] [facility] Metformin Hcl (Metformin Hcl Er) 500 Mg Tab.er.24 Metf ormin Hcl (Metformin Hcl Er) 500 Mg Tab.er.24 Yes [address] [facility] Hydrochlorothiazide 25 Mg Tablet, 25 Mg Oral Hydrochlo rothiazide 25 Mg Tablet, 25 Mg Oral 2018-04-27 00:00:[address] [facility] Aspirin (Aspir 81) 81 Mg Tablet., 81 Mg Oral Aspirin (Aspir 81) 81 Mg Tablet.dr 81 Mg Oral 2018-03-29 00:00:[address] [facility] Cyanocobalamin (Vitamin B-12) (Vitamin B-12) 500 Mcg T ablet, 500 Mcg Oral Cyanocobalamin (Vitamin B-12) (Vitamin B-12) 500 Mcg Tablet, 500 Mcg Oral 2018-03-29 00:00:[address] [facility] Vital Signs Vital Name Observation Time Observation Value Comments Source Systolic blood pressure 2019-06-25 12:00:00 127 mm[Hg] [facility] Diastolic blood pressure 2019-06-25 12:00:00 76 mm[Hg] [facility] Heart rate 2019-06-25 12:00:00 60 /min [facility] Respiratory rate 2019-06-25 12:00:00 18 /min [facility] Oxygen saturation in Arterial blood by Pulse oximetry 2018-08 12:00:00 100 /[facility] Body temperature 2019-06-25 11:00:00 36.94 Radha [facility] Body height 2019-06-23 06:12:00 162.6 cm [facility] Body weight Measured 2019-06-23 06:12:00 96.5 kg [facility] BMI 2019-06-23 06:12:00 36.50 kg/m2 [facility] Weight 2018-03-28 17:34:00 [facility] BMI Calculated 2018-03-28 17:34:00 [facility] [place] Height 2018-03-28 17:34:00 162.56 cm [facility] [place] Temperature Oral (F) 2018-03-28 17:34:00 98.7 F [facility] [place] Heart Rate 2018-03-28 17:34:00 [facility] Respitory Rate 2018-03-28 17:34:00 [facility] [place] Systolic (mm Hg) 2018-03-28 17:34:00 [facility] Diastolic (mm Hg) 2018-03-28 17:34:00 [facility] Systolic (mm Hg) 2016-12-26 17:58:00 [facility]oss [facility] Diastolic (mm Hg) 2016-12-26 17:58:00 [facility] [place] Respitory Rate 2016-12-26 17:58:00 [facility] [place] Temperature Oral (F) 2016-12-26 17:58:00 98.6 F [facility] [place] Heart Rate 2016-12-26 17:58:00 [facility] Heart Rate 2016-12-26 13:13:00 [facility] [place] Temperature Oral (F) 2016-12-26 13:13:00 98.5 F [facility] Respitory Rate 2016-12-26 13:13:00 [facility] Systolic (mm Hg) 2016-12-26 13:13:00 Joss [facility] Diastolic (mm Hg) 2016-12-26 13:13:00 [facility] [place] Respitory Rate 2016-12-26 09:25:00 [facility] [place] Systolic (mm Hg) 2016-12-26 09:25:00 [facility] [place] Diastolic (mm Hg) 2016-12-26 09:25:00 [facility] [place] Heart Rate 2016-12-26 09:25:00 [facility] [place] Temperature Oral (F) 2016-12-26 09:25:00 97.7 F [facility] Weight 2016-12-26 01:34:00 [facility] Height 2016-12-25 16:47:00 162.56 cm [facility] Weight 2016-12-25 16:47:00 [facility] [place] BMI Calculated 2016-12-25 16:47:00 [facility] [place] Respitory Rate 2015-03-29 18:41:00 [facility] Systolic (mm Hg) 2015-03-29 18:41:00 [facility] [place] Diastolic (mm Hg) 2015-03-29 18:41:00 [facility] [place] Temperature Oral (F) 2015-03-29 18:41:00 98.3 F [facility] [place] Heart Rate 2015-03-29 18:41:00 [facility] [place] Respitory Rate 2015-03-29 17:04:00 [facility] Heart Rate 2015-03-29 17:04:00 [facility] Systolic (mm Hg) 2015-03-29 17:04:00 Joss [facility] Diastolic (mm Hg) 2015-03-29 17:04:00 [facility] [place] Weight 2015-03-29 16:43:00 [facility] BMI Calculated 2015-03-29 16:43:00 [facility] Height 2015-03-29 16:43:00 162.56 cm [facility] [place] Temperature Oral (F) 2015-03-29 16:43:00 99.1 F [facility] [place] Respitory Rate 2015-03-29 16:43:00 [facility] Heart Rate 2015-03-29 16:43:00 [facility] Systolic (mm Hg) 2015-03-29 16:43:00 [facility] [place] Diastolic (mm Hg) 2015-03-29 16:43:00 [facility] [place] Heart Rate 2014-11-09 23:07:00 [facility] [place] Respitory Rate 2014-11-09 23:07:00 [facility] [place] Temperature Oral (F) 2014-11-09 23:07:00 98.3 F [facility] [place] Systolic (mm Hg) 2014-11-09 23:07:00 [facility] [place] Diastolic (mm Hg) 2014-11-09 23:07:00 [facility] [place] Heart Rate 2014-11-09 22:25:00 [facility] Respitory Rate 2014-11-09 22:25:00 [facility] Systolic (mm Hg) 2014-11-09 22:25:00 [facility] [place] Diastolic (mm Hg) 2014-11-09 22:25:00 [facility] Systolic (mm Hg) 2014-11-09 20:30:00 Joss [facility] Diastolic (mm Hg) 2014-11-09 20:30:00 [facility] Respitory Rate 2014-11-09 20:30:00 [facility] [place] Heart Rate 2014-11-09 20:30:00 [facility] Weight 2014-11-09 18:45:00 [facility] BMI Calculated 2014-11-09 18:45:00 [facility] [place] Height 2014-11-09 18:45:00 162.56 cm [facility] Temperature Oral (F) 2014-11-09 18:45:00 98.2 F [facility] [place] Diastolic (mm Hg) 2014-09-04 21:33:00 [facility] Systolic (mm Hg) 2014-09-04 21:33:00 Joss [facility] [place] Respitory Rate 2014-09-04 21:33:00 [facility] [place] Temperature Oral (F) 2014-09-04 21:33:00 98.5 F [facility] [place] Heart Rate 2014-09-04 21:33:00 [facility] [place] Temperature Oral (F) 2014-09-04 17:28:00 98.1 F [facility] [place] Systolic (mm Hg) 2014-09-04 17:28:00 Joss [facility] Heart Rate 2014-09-04 17:28:00 [facility] Respitory Rate 2014-09-04 17:28:00 [facility] [place] Diastolic (mm Hg) 2014-09-04 17:28:00 [facility] [place] Diastolic (mm Hg) 2014-09-04 13:41:00 [facility] Temperature Oral (F) 2014-09-04 13:41:00 99.1 F [facility] Heart Rate 2014-09-04 13:41:00 Arturo Muñoz Respitory Rate 2014-09-04 13:41:00 Kayden Zavala Systolic (mm Hg) 2014-09-04 13:41:00 Joss Muñoz Weight 2014-09-03 10:55:00 Arturo Muñoz BMI Calculated 2014-09-01 15:52:00 Kayden Zavala Height 2014-09-01 15:52:00 162.56 cm [facility] Weight 2014-09-01 15:52:00 [facility] Procedures Procedure Date / Time Performed Performing Clinician [facility] e RHYTHM STRIP - SCAN 2019-06-26 14:20:20 Provider, Negra giles [facility] POCT-GLUCOSE METER 2019-06-25 12:12:00 Chandra Elizalde [facility] POCT-GLUCOSE METER 2019-06-25 07:23:00 Chandra Elizalde [facility] CBC (HEMOGRAM ONLY) 2019-06-25 01:04:00 Uday Chandler [facility] PHOSPHORUS 2019-06-25 01:04:00 Uday Chandler [facility] MAGNESIUM 2019-06-25 01:04:00 Uday Chandler [facility] BASIC METABOLIC PANEL (7) 2019-06-25 01:04:00 Uday Chandler [facility] POCT-GLUCOSE METER 2019-06-24 21:52:00 Chandra Elizalde [facility] POCT-GLUCOSE METER 2019-06-24 17:53:00 Chandra Elizalde [facility] TRANSFUSION SERVICE REPORT - SCAN 2019-06-24 17:44:24 Provid er, Default Scanning [facility] POCT-GLUCOSE METER 2019-06-24 11:41:00 Chandra Elizalde [facility] CTA BRAIN 2019-06-24 10:26:00 Uday Chandler [facility] POCT-GLUCOSE METER 2019-06-24 08:03:00 Chandra Elizalde [facility] CBC (HEMOGRAM ONLY) 2019-06-24 05:20:00 Uday Chandler [facility] PHOSPHORUS 2019-06-24 05:20:00 Uday Chandler Omar [facility] MAGNESIUM 2019-06-24 05:20:00 Ramesh Uday Nelson [facility] BASIC METABOLIC PANEL (7) 2019-06-24 05:20:00 Ramesh Uday bright [facility] POCT-GLUCOSE METER 2019-06-24 01:14:00 Chandra Elizalde [facility] POCT-GLUCOSE METER 2019-06-23 21:57:00 Chandra Elizalde [facility] CT BRAIN WITHOUT IV CONTRAST 2019-06-23 17:17:00 Uday Chandler [facility] SHORT LATENCY SEP ALL LIMBS 2019-06-23 14:21:00 Danielle Samuel [facility] CALCIUM, IONIZED 2019-06-23 10:13:18 Chandra Elizalde [facility] BLOOD GAS, ARTERIAL 2019-06-23 10:13:18 Chandra Elizalde [facility] SODIUM NA-STAT LAB 2019-06-23 10:13:18 Chandra Elizalde [facility] POTASSIUM-STAT LAB 2019-06-23 10:13:18 Chandra Elizalde [facility] GLUCOSE-STAT LAB 2019-06-23 10:13:18 Chandra Elizalde [facility] HGB/HCT (H&H) - STAT LAB 2019-06-23 10:13:18 Chandra Elizalde [facility] PREPARE LEUKO-REDUCED RBC 2019-06-23 07:31:00 Jerri Molina [facility] BYPASS,EXTRACRANIAL-INTERCRANIAL ARTERIES 2019-06-23 07:30:0 0 Chandra Elizalde [facility] PROCEDURE W/ OPERATING MICROSCOPE 2019-06-23 07:30:00 Chandra Elizalde [facility] PROCEDURE W/ INTRAOPERATIVE NEUROMONITORING 2019-06-23 07:30 :00 Chandra Elizalde [facility] POCT-GLUCOSE METER 2019-06-23 06:26:00 Chandra Elizalde [facility] POCT , URINE 2019-06-23 06:06:00 Peter Pleitez [facility] TRANSFUSION SERVICE REPORT - SCAN 2019-06-04 18:05:11 Provid er, Default Scanning [facility] XR CHEST 2 VIEWS 2019-06-03 09:26:00 Chandra Elizalde [facility] ECG 12-LEAD 2019-06-03 09:04:38 Unknown, Hl7 Doctor [facility] APTT 2019-06-03 09:04:00 Chandra Elizalde [facility] PROTHROMBIN TIME/INR 2019-06-03 09:04:00 Chandra Elizalde [facility] BASIC METABOLIC PANEL (7) 2019-06-03 09:04:00 Chandra Elizalde [facility] URINALYSIS W/ REFLEX URINE CULTURE 2019-06-03 09:04:00 Micky Elizalde [facility] TYPE AND SCREEN, AUTOMATED 2019-06-03 09:04:00 Chandra Elizalde Ma [facility] CBC W/PLT COUNT & AUTO DIFFERENTIAL 2019-06-03 09:04:00 Gael Elizalde [facility] Computed tomography of brain without radiopaque contrast 201 04-19-13 00:00:[address] [facility] Computed tomography of brain without radiopaque contrast 201 04-18-07 00:00:[address] [facility] Computed tomography of brain without radiopaque contrast 201 04-17-02 00:00:[address] [facility] Partial hysterectomy [facility] Tubal ligation [facility] Encounters Start Date/Time End Date/Time Encounter Type Admission Type Attendi [facility] Facility Care Department Encounter ID Source 2019-04-22 09:46:22 2019-04-22 11:26:37 Office Visit Chandra Elizalde [facility] [id number] 2019-03-25 12:44:27 2019-03-25 16:37:07 Office Visit Chandra Elizalde [facility] [id number] 2019-03-24 07:50:00 2019-03-24 11:08:00 Departed Emergency Room 1 CASEY MAIER [facility] [id number] [facility] 2019-02-15 10:40:00 2019-02-15 14:34:00 Departed Emergency Room 1 EDWARD SILVA [facility] [id number] [facility] 2019-01-19 12:55:00 2019-01-19 15:17:00 Departed Emergency Room [facility] [id number] [facility] 2019-01-11 11:13:00 2019-01-11 14:59:00 Departed Emergency Room 1 AI HENDERSON [facility] [id number] [facility] 2018-04-27 10:38:00 2018-04-27 13:59:00 Departed Emergency Room 1 VNIH PENA [facility] [id number] [facility] 2018-03-28 18:25:00 2018-03-30 10:45:00 Discharged Inpatient (obs) 1 BRAD ARVIZU [facility] [id number] [facility] 2018-03-28 12:34:00 2018-03-28 12:48:00 Outpatient Jeronimo Fowler [facility] [id number] 2016-12-25 11:37:00 2016-12-26 15:34:00 Outpatient Papa Molina [facility] [id number] 2015-03-29 11:30:00 2015-03-29 16:15:00 Outpatient Miguelito Salazar [facility] [id number] 2014-11-09 13:38:00 2014-11-09 18:18:00 Outpatient Mildred Chandra i ANTHONY ANTHONY [id number] 2014-09-01 09:43:00 2014-09-04 19:00:00 Outpatient Papa Molina ANTHONY ANTHONY [id number] Results Test Description Test Time Test Comments Results Result Comments Source SHORT-LATENCY SPE, ALL LIMBS 2019-07-24 13:15:00 IOM INTRAOPERATIVE MONITORING REPORT Patient Name: Margy Bain [facility] Surgery Date: 06/23/19 [place] S/N [id number] Monitoring began at 07:54 and ended at 14:21 Surgeon: Bi Samuel MD; Chandra Elizalde MD Examining Neurologist: Missy Topete M.D.; Domi Bhatti M.D. Monitoring Technologist: WYATT Jarrell Procedure: Craniot nohelia for Bypass Stimulation Parameters: Median nerves individually [...] Missy Topete M.D.; Domi Bhatti M.D. I67.5 T LATENCY SEP ALL LIMBS 2019-07-24 13:15:00 Interface, External Ris In - 07/24/2019 1:15 PM [employer]ANCH[employer]SULTANT INTRAOPERATIVE MONITORING REPORT Patient Name: Margy Bain [facility] Surgery Date: 06/23/19 [place] S/N [id number] Monitoring began at 07:54 and ended at 14:21 Surgeon: Bi Saumel MD; Chandra Elizalde MD Examining Neurologist: Missy Topete M.D.; Domi Bhatti M.D. Monitoring Technologist: WYATT Jarrell Procedure: Craniotomy for Bypass Stimulation Parameters: Median nerves individually stimulated at the wrist Rate 4.7Hz, Intensity 30-50 mA, Duration 0.3ms Posterior Tibial nerves individually stimulated at the ankle Rate 4.7Hz, Intensity 60-75 mA, Duration 0.3ms Filters 30-500Hz, Notch Off Motor strip stimulated anterior to C3 and C4 with alternating polarities I ntensity 100-800V, Train Number 9, DENILSON 2-3ms Filters [...] Missy Topete M.D.; Domi Bhatti M.D. I67.5 [facility]-Glucose [facility] 2019-06-25 12:23:00 Test Item POC-Glucose Meter (test code = 1538) 179 mg/dL 70-110 H : TESTED AT [address], [address]: [employer] Tester/Bag Filler ID = [id number] for ANJU TADEO Lab Interpretation (test code = 34226-0) [facility]normal [facility] [id number] 12:23:00* Test Item Value Reference Range Interpretation Comments POC-GLUCOSE METER (BEAKER) (test code = 1538) 179 mg/dL 70-110 H : TESTED AT [address], [address]: [employer] T[employer]/Bag Filler ID = [id number] for ANJU TADEO POCT-GLUCOSE [id number] 07:49:00* Test Item Value Reference Range Interpretation Comments POC-GLUCOSE METER (BEAKER) (test code = 1538) 133 mg/dL 70-110 H : TESTED AT [address], [address]: [employer] T[employer]/Bag Filler ID = [id number] for ANJU TADEO Basic Metabolic [id number] 01:40:00* Test Item Value Reference Range Interpretation Comments Sodium (test code = 2951-2) 137 meq/L 136-145 Potassium (test code = 2823-3) 3.9 meq/L 3.5-5.1 Chloride (test code = 2075-0) 109 meq/L 98-107 H CO2 (test code = 2027-9) 20 meq/L 22-29 L BUN (test code = 3094-0) 15 mg/dL 7-21 Creatinine (test code = 2160-0) 0.73 mg/dL 0.57-1.25 Glucose (test code = 2345-7) 169 mg/dL 70-105 H Calcium (test code = 71066-5) 8.8 mg/dL 8.4-10.2 EGFR (test code = 93342-1) 87 mL/min/1.73 sq m ESTIMATED GFR IS NOT ACCURATE CREATININE CLEARANCE IN PREDICTING GLOMERULAR FILTRATION RATE. ESTIMATED GFR IS NOT APPLICABLE FOR DIALYSIS PATIENTS. Lab Interpretation (test code = 25179-1) [facility]normal [facility] 01:40:00* Test Item Value Reference Range Interpretation Comments Magnesium (test code = 38625-3) 2.0 mg/dL 1.6-2.6 Lab Interpretation (test code = 51186-4) Normal [facility]2019-[facility]-14 01:40:00* Test Item Value Reference Range Interpretation Comments Phosphorus (test code = 2777-1) 2.2 mg/dL 2.3-4.7 L Lab Interpretation (test code = 40772-7) Abnormal [facility]US2019-11-14 01:40:00* Test Item Value Reference Range Interpretation Comments PHOSPHORUS (BEAKER) (test code = 604) 2.2 mg/dL 2.3-4.7 L [id number] 01:40:00* Test Item Value Reference Range Interpretation Comments MAGNESIUM (BEAKER) (test code = 627) 2.0 mg/dL 1.6-2.6 BASIC METABOLIC [id number] 01:40:00* Test Item Value Reference Range Interpretation Comments SODIUM (BEAKER) (test code = 381) 137 meq/L 136-145 POTASSIUM (BEAKER) (test code = 379) 3.9 meq/L 3.5-5.1 CHLORIDE (BEAKER) (test code = 382) 109 meq/L 98-107 H CO2 (BEAKER) (test code = 355) 20 meq/L 22-29 L BLOOD UREA NITROGEN (BEAKER) (test code = 354) 15 mg/dL 7-21 CREATININE (BEAKER) (test code = 358) 0.73 mg/dL 0.57-1.25 GLUCOSE RANDOM (BEAKER) (test code = 652) 169 mg/dL 70-105 H CALCIUM (BEAKER) (test code = 697) 8.8 mg/dL 8.4-10.2 EGFR (BEAKER) (test code = 1092) 87 mL/min/1.73 sq m ESTIMATED GFR IS NOT ACCURATE CREATININE CLEARANCE IN PREDICTING GLOMERULAR FILTRATION RATE. ESTIMATED GFR IS NOT APPLICABLE FOR DIALYSIS PATIENTS. CBC (Hemogram only)2019-06-25 01:19:00* Test Item Value Reference Range Interpretation Comments WBC (test code = 6690-2) 18.4 3.5- 10.5 K/L H RBC (test code = 789-8) 3.91 3.93- 5.22 M/L L MCHC (test code = 786-4) 31.1 32.2- 35.5 GM/DL L Hematocrit (test code = 4544-3) 34.7 % 34.1-44.9 MCV (test code = 787-2) 88.7 fL 79.4-94.8 MCH (test code = 785-6) 27.6 pg 25.6-32.2 RDW (test code = 788-0) 14.6 % 11.7-14.4 H Platelets (test code = 777-3) 445 150- 450 K/CU MM MPV (test code = 06168-6) 9.0 fL 9.4-12.3 L nRBC (test code = 413) 0 0- 0 /100 WBC Lab Interpretation (test code = 87134-4) Abnormal [facility] (HEMOGRAM ONLY)2019-06-25 01:19:00* Test Item Value Reference Range Interpretation Comments WHITE BLOOD CELL COUNT (BEAKER) (test code = 775) 18.4 K/ L 3.5- 10.5 H RED BLOOD CELL COUNT (BEAKER) (test code = 761) 3.91 M/ L 3.93-5 .22 L HEMOGLOBIN (BEAKER) (test code = 410) 10.8 GM/DL 11.2-15.7 L HEMATOCRIT (BEAKER) (test code = 411) 34.7 % 34.1-44.9 MEAN CORPUSCULAR VOLUME (BEAKER) (test code = 753) 88.7 fL 79. 4-94.8 MEAN CORPUSCULAR HEMOGLOBIN (BEAKER) (test code = 751) 27.6 pg 25.6-32.2 MEAN CORPUSCULAR HEMOGLOBIN CONC (BEAKER) (test code = 752) 31.1 GM/DL 32.2-35.5 L RED CELL DISTRIBUTION WIDTH (BEAKER) (test code = 412) 14.6 % 11.7-14.4 H PLATELET COUNT (BEAKER) (test code = 756) 445 K/CU MM 150-450 MEAN PLATELET VOLUME (BEAKER) (test code = 754) 9.0 fL 9.4-12 .3 L NUCLEATED RED BLOOD CELLS (BEAKER) (test code = 413) 0 /100 WBC 0 -0 POCT-GLUCOSE [id number] 22:04:00* Test Item Value Reference Range Interpretation Comments POC-GLUCOSE METER (BEAKER) (test code = 1538) 258 mg/dL 70-110 H : Notified RN/MD: TESTED AT [place] [id number] [facility], [address]: [employer] Tester/Bag Filler ID = [id number] for ZENAIDA WAYNE POCT-GLUCOSE [id number] 18:06:00* Test Item Value Reference Range Interpretation Comments POC-GLUCOSE METER (BEAKER) (test code = 1538) 242 mg/dL 70-110 H : TESTED AT [address], [address]: [employer] Tester/Bag Filler ID = [id number] for BONI SINGH, CTANGIO [id number] 12:57:00Patient is receiving iodine contrast allergy pretreatmentFINAL REPORT CLINICAL HISTORY: Headache, abnormal ICP suspecteds/p L STA-MCA bypass TECHNIQUE: Initially, noncontrast head [...] 06/23/2019, CT perfusion 03/19/2019, diagnostic angiogram 03/19/2019 FINDINGS:Evolving post surgical changes of left-sided STA MCA, [...] The major intradural venous sinuses are patent. 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 There is robust filling of the bilateral MCA branches.3.Expected recent post operative findings with no evidence of complication. Signed: Yasmin Martinez port Verified Date/Time: 06/24/2019 12:57:57 [id number] 12:57:00 Interface, External Ris In - 06/24/2019 1:00 PM CSTFINAL REPORT PATIENT ID: [id number] CLINICAL HISTORY: Headache, abnormal ICP suspecteds/p L STA-MCA bypass T ECHNIQUE: Initially, noncontrast head CT images were performed. Contiguous contr ast-enhanced axial images through the head with coronal and sagittal reformation s to assess the arterial circulation. 3-D reconstructions were performed using a volume rendered technique separately on a workstation. This exam was performed according to the departmental dose optimization program which includes automated exposure control, adjustment of the mA and/or kV according to the patient size, and/or use of an iterative reconstruction technique. COMPARISON: CT head 2018, CT perfusion 03/19/2019, diagnostic angiogram 03/19/2019 FINDINGS:Evolving pos t surgical changes of left-sided STA MCA, with expected pneumocephalus, trace ex tra-axial blood products, and air and edema within the overlying scalp. There is no CT evidence of acute infarct. Chronic lacunar infarct in the right caudate h ead. There is no hydrocephalus or midline shift. 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 There is robust opacification of the bilateral DAVIDE and MCA branches. The left STA-MCA bypass is patent. Posterior circulation is unrem arkable. The major intradural venous sinuses are patent. IMPRESSION:1.Bilateral terminal ICA occlusion with MCAs and ACAs supplied by collaterals, consistent wi th moyamoya physiology.2.Left STA-MCA bypass is patent. There is robust filling of the bilateral MCA branches.3.Expected recent postoperative findings with no e vidence of complication. Signed: Yasmin Martinez MDReport Verified Date/Time: 12:57:57 Electronically signed by: YASMIN MARTINEZ MD on 12:57 PM [facility] [id number] 11:52:00* Test Item Value Reference Range Interpretation Comments POC-GLUCOSE METER (BEAKER) (test code = 1538) 238 mg/dL 70-110 H : TESTED AT [facility] [address] [facility], [address]: [employer] Tester/Bag Filler ID = [id number] for BONI SINGH POCT-GLUCOSE [id number] 08:14:00* Test Item Value Reference Range Interpretation Comments POC-GLUCOSE METER (BEAKER) (test code = 1538) 195 mg/dL 70-110 H : TESTED AT [place] [id number] [facility], [address]: [employer] T[employer]/Bag Filler ID = [id number] for BONI SINGH [id number] 06:43:00* Test Item Value Reference Range Interpretation Comments MAGNESIUM (BEAKER) (test code = 627) 1.9 mg/dL 1.6-2.6 Specimen moderately hemolyzed [id number] 06:43:00* Test Item Value Reference Range Interpretation Comments PHOSPHORUS (BEAKER) (test code = 604) 2.5 mg/dL 2.3-4.7 Specimen moderately hemolyzed BASIC METABOLIC [id number] 06:43:00* Test Item Value Reference Range Interpretation Comments SODIUM (BEAKER) (test code = 381) 136 meq/L 136-145 POTASSIUM (BEAKER) (test code = 379) 4.3 meq/L 3.5-5.1 Specimen moderately hemolyzed CHLORIDE (BEAKER) (test code = 382) 108 meq/L 98-107 H CO2 (BEAKER) (test code = 355) 20 meq/L 22-29 L BLOOD UREA NITROGEN (BEAKER) (test code = 354) 5 mg/dL 7-21 L CREATININE (BEAKER) (test code = 358) 0.65 mg/dL 0.57-1.25 Specimen moderately hemolyzed GLUCOSE RANDOM (BEAKER) (test code = 652) 193 mg/dL 70-105 H CALCIUM (BEAKER) (test code = 697) 8.7 mg/dL 8.4-10.2 EGFR (BEAKER) (test code = 1092) 99 mL/min/1.73 sq m ESTIMATED GFR IS NOT ACCURATE CREATININE CLEARANCE IN PREDICTING GLOMERULAR FILTRATION RATE. ESTIMATED GFR IS NOT APPLICABLE FOR DIALYSIS PATIENTS. CBC (HEMOGRAM ONLY)2019-06-24 05:44:00* Test Item Value Reference Range Interpretation Comments WHITE BLOOD CELL COUNT (BEAKER) (test code = 775) 14.2 K/ L 3.5- 10.5 H RED BLOOD CELL COUNT (BEAKER) (test code = 761) 4.07 M/ L 3.93-5 .22 HEMOGLOBIN (BEAKER) (test code = 410) 11.5 GM/DL 11.2-15.7 HEMATOCRIT (BEAKER) (test code = 411) 34.7 % 34.1-44.9 MEAN CORPUSCULAR VOLUME (BEAKER) (test code = 753) 85.3 fL 79. 4-94.8 MEAN CORPUSCULAR HEMOGLOBIN (BEAKER) (test code = 751) 28.3 pg 25.6-32.2 MEAN CORPUSCULAR HEMOGLOBIN CONC (BEAKER) (test code = 752) 33.1 GM/DL 32.2-35.5 RED CELL DISTRIBUTION WIDTH (BEAKER) (test code = 412) 14.2 % 11.7-14.4 PLATELET COUNT (BEAKER) (test code = 756) 458 K/CU MM 150-450 H MEAN PLATELET VOLUME (BEAKER) (test code = 754) 9.0 fL 9.4-12 .3 L NUCLEATED RED BLOOD CELLS (BEAKER) (test code = 413) 0 /100 WBC 0 -0 POCT-GLUCOSE [id number] 01:26:00* Test Item Value Reference Range Interpretation Comments POC-GLUCOSE METER (BEAKER) (test code = 1538) 168 mg/dL 70-110 H : TESTED AT [facility] [address] [place] [address], [address]: [employer] Tester/Bag Filler ID = [id number] for COLLEEN KERR POCT-GLUCOSE [id number] 22:08:00* Test Item Value Reference Range Interpretation Comments POC-GLUCOSE METER (BEAKER) (test code = 1538) 204 mg/dL 70-110 H : Notified RN/MD: TESTED AT [facility] [address] [facility], [address]: [employer] Tester/Bag Filler ID = [id number] for COLLEEN KERR CT, BRAIN, WITHOUT [id number] 17:31:00FINAL REPORT CT, BRAIN, WITHOUT CONTRAST INDICATION: Headache, acute, normal neuro exams/p left craniotomy for sta-mca bypass TECHNIQUE: Noncontrast [...] is expected postoperative pneumocephalus and trace hyperdense ex tra-axial collection immediately underlying the craniotomy site. Overall no sign ificant mass effect. No evidence of acute territorial infarct. Chronic right cau date head lacunar infarct. No hydrocephalus. Osseous structures: Interval postop erative changes. Paranasal sinuses and mastoid air cells: No evidence of sinusit is. Mastoids are clear. Orbital contents: Globes are intact. IMPRESSION: Expecte d postoperative changes following left STA-MCA bypass. Signed: Yasmin Martinez MD Report Verified Date/Time: 06/23/2019 17:31:19 brain without IV contrast 2019-06-23 17:31:00Interface, External Ris In - 06/23/2019 5:[address], BRAIN, WITHOUT CONTRAST INDICATION: Headache, acute, normal neuro exams/p left craniotomy for sta-mca bypass TECHNIQUE: Noncontrast [...] hydrocephalus. Osseous structures: Interval postoperative changes. Paranasal s inuses and mastoid air cells: No evidence of sinusitis. Mastoids are clear. Orbi moo contents: Globes are intact. IMPRESSION: Expected postoperative changes foll owing left STA-MCA bypass. Signed: Yasmin Martinez Verified Date/Time: 06/23/2019 17:31:19 [facility], [id number] 10:26:00* Test Item Value Reference Range Interpretation Comments Calcium, Ion (test code = 1993-3) 0.91 mmol/L 1.12-1.27 L pH, Blood (test code = 58337-5) 7.38 Lab Interpretation (test code = 25804-9) Abnormal [facility] HospitalCALCIUM, [id number] 10:26:00* Test Item Value Reference Range Interpretation Comments CALCIUM IONIZED (BEAKER) (test code = 698) 0.91 mmol/L 1.12-1.27 L PH, BLOOD (BEAKER) (test code = 1810) 7.38 Blood gas, [id number] 10:25:00* Test Item Value Reference Range Interpretation Comments pH, Arterial (test code = 2744-1) 7.38 7.35-7.45 pCO2, Arterial (test code = 2019-03) 36 35- 45 mmHg pO2, Arterial (test code = 2703-7) 170 80- 90 mmHg H O2 Sat, Arterial (test code = 2708-6) 99.1 % 96-97 H HCO3, Arterial (test code = 1960-4) 21 mmol/L 21-29 Base Excess, Arterial (test code = 1925-7) -3.8 mmol/L -2-3 L Patient Temperature (test code = 8310-5) 37.0 C FIO2 (test code = 1819) 60 % FREDO (test code = FREDO) Temp 36.7 Lab Interpretation (test code = 12289-1) Abnormal [facility] (H&H)-Stat [id number] 10:25:00* Test Item Value Reference Range Interpretation Comments Hemoglobin (test code = 786-4) 12.0 g/dL 12-15 Hematocrit (test code = 4544-3) 35.0 % 36-45 L FREDO (test code = FREDO) Temp 36.7 Lab Interpretation (test code = 58737-4) Abnormal [facility] HospitalGlucose-Stat [id number] 10:25:00* Test Item Value Reference Range Interpretation Comments Glucose (test code = 2345-7) 153 mg/dL 70-110 H FREDO (test code = FREDO) Temp 36.7 Lab Interpretation (test code = 81090-3) [facility] [id number] 10:25:00* Test Item Value Reference Range Interpretation Comments Sodium (test code = 2951-2) 134 meq/L 135-148 L FREDO (test code = FREDO) Temp 36.7 Lab Interpretation (test code = 72411-6) Abnormal [facility] HospitalBLOOD GAS, [id number] 10:25:00* Test Item Value Reference Range Interpretation Comments PH ARTERIAL (BEAKER) (test code = 383) 7.38 7.35-7.45 PCO2 ARTERIAL (BEAKER) (test code = 384) 36 mmHg 35-45 PO2 ARTERIAL (BEAKER) (test code = 385) 170 mmHg 80-90 H O2 SATURATION ARTERIAL (BEAKER) (test code = 386) 99.1 % 96.0 -97.0 H HCO3 ARTERIAL (BEAKER) (test code = 388) 21 mmol/L 21-29 BASE EXCESS ARTERIAL (BEAKER) (test code = 387) -3.8 mmol/L -2.0-3 .0 L PATIENT TEMPERATURE (BEAKER) (test code = 1818) 37.0 C FIO2 (BEAKER) (test code = 1819) 60.0 % Temp 36.7SODIUM NA-STAT [id number] 10:25:00* Test Item Value Reference Range Interpretation Comments SODIUM (BEAKER) (test code = 381) 134 meq/L 135-148 L Temp 36.7GLUCOSE-STAT [id number] 10:25:00* Test Item Value Reference Range Interpretation Comments GLUCOSE RANDOM (BEAKER) (test code = 652) 153 mg/dL 70-110 H Temp 36.7HGB/HCT (H&H) - STAT [id number] 10:25:00* Test Item Value Reference Range Interpretation Comments HEMOGLOBIN (BEAKER) (test code = 410) 12.0 g/dL 12.0-15.0 HEMATOCRIT (BEAKER) (test code = 411) 35.0 % 36.0-45.0 L Temp 36.7Potassium-Stat [id number] 10:24:00* Test Item Value Reference Range Interpretation Comments Potassium (test code = 2823-3) 4.3 meq/L 3.6-5.5 FREDO (test code = FREDO) Temp 36.7 Lab Interpretation (test code = 72298-0) Normal [facility] HospitalPOTASSIUM-STAT [id number] 10:24:00* Test Item Value Reference Range Interpretation Comments POTASSIUM (BEAKER) (test code = 379) 4.3 meq/L 3.6-5.5 Temp 36.7Prepare Leuko-Red [id number] 07:31:00* Test Item Value Reference Range Interpretation Comments CROSSMATCH (test code = 2264) COMPATIBLE Unit ABO (test code = 7081300) O Pos UNIT NUMBER (test code = 934-0) [id number] Status (test code = 2683686) READY Blood Bank Product (test code = 2263) RED BLOOD CELLS PRODUCT CODE (test code = 933-2) [id number] [facility] HospitalPOCT-GLUCOSE [id number] 06:39:00* Test Item Value Reference Range Interpretation Comments POC-GLUCOSE METER (BEAKER) (test code = 1538) 125 mg/dL 70-110 H : TESTED AT [address], [address]: [employer] T[employer]/Bag Filler ID = [id number] for BRADY HARPER POCT , [id number] 06:06:00* Test Item Value Reference Range Interpretation Comments Test Urine, POC (test code = 3827446) Negative Control line present?, POC (test code = 9130694) Yes Background clear?, POC (test code = 6400869) Yes UPT Cassette Lot #, POC (test code = 1697749) [id number] UPT Cassette Expiration Date, POC (test code = 9656954) [facility] HospitalECG 12 [id number] 10:57:59Interface, External Ris In - 06/04/2019 10:58 AM CDTVentricular Rate 73 BPMAtrial Rate 73 BPMP-R Interval 148 msQRS Duration 68 msQ-T Interval 412 msQTC Calculation(Bazett) 453 msP Crucible 22 degreesR Crucible 22 degreesT Crucible 24 degreesNormal sinus rhythmNormal ECGWhen compared with ECG of 19-MAR-2019 12:36,No significant change was foundConfirmed by MD RAVI, BONI Li ([id number]) on 06/04/2019 10:57:55 [facility]Type [facility], [id number] 10:33:00* Test Item Value Reference Range Interpretation Comments ABO/RH AUTOMATED (BEAKER) (test code = 2260) O POSITIVE Ab Scrn (test code = 890-4) NEGATIVE [facility]Ur[facility]/Microscopic + Reflex to Culture 2019-06-03 10:14:00* Test Item Value Reference Range Interpretation Comments Color, UA (test code = 5778-6) Light Yellow Clarity, UA (test code = 5767-9) Clear Specific [place], UA (test code = 5811-5) 1.012 1.001-1.035 pH, UA (test code = 5803-2) 5.0 5.0-8.0 Protein, UA (test code = 40583-2) Negative Negative Glucose, UA (test code = 365) Negative Negative Ketones, UA (test code = 2514-8) Negative Negative Bilirubin, UA (test code = 01733-2) Negative Negative Blood, UA (test code = 90415-2) Small Negative A Nitrite, UA (test code = 5802-4) Negative Negative Leukocytes, UA (test code = 5799-2) Negative Negative Urobilinogen, UA (test code = 89632-9) 0.2 mg/dL 0.2-1 RBC, UA (test code = 45563-1) 0 /HPF WBC, UA (test code = 5821-4) <1 /HPF Mucus (test code = 8247-9) Rare Squam Epithel, UA (test code = 65412-7) 8 /HPF Specimen Source (test code = 2795) Lab Interpretation (test code = 78002-3) [facility] [id number] 10:14:00* Test Item Value Reference Range Interpretation Comments COLOR (BEAKER) (test code = 470) Light Yellow CLARITY (BEAKER) (test code = 469) Clear SPECIFIC GRAVITY UA (BEAKER) (test code = 468) 1.012 1.001-1 .035 PH UA (BEAKER) (test code = 467) 5.0 5.0-8.0 PROTEIN UA (BEAKER) (test code = 464) Negative Negative GLUCOSE UA (BEAKER) (test code = 365) Negative Negative KETONES UA (BEAKER) (test code = 371) Negative Negative BILIRUBIN UA (BEAKER) (test code = 462) Negative Negative BLOOD UA (BEAKER) (test code = 461) Small Negative A NITRITE UA (BEAKER) (test code = 465) Negative Negative LEUKOCYTE ESTERASE UA (BEAKER) (test code = 466) Negative Negat dani UROBILINOGEN UA (BEAKER) (test code = 463) 0.2 mg/dL 0.2-1.0 RBC UA (BEAKER) (test code = 519) 0 /HPF WBC UA (BEAKER) (test code = 520) < /HPF MUCUS (BEAKER) (test code = 1574) Rare SQUAMOUS EPITHELIAL (BEAKER) (test code = 516) 8 /HPF SOURCE(BEAKER) (test code = 2795) RAD, CHEST, 2 [id number] 09:59:00Reason for exam:->Gillespie Gillespie DiseaseFINAL REPORT Chest, 2 views. 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 The pleural spaces are clear. Degenerative changes are seen. Impression: No active cardiopulmonary disease. Signed: Chacha Stringer MDReport Verified Date/Time: 06/03/2019 09:59:51 Reading Location: [address] Radiolo gy Reading Room Electronically signed by: CHACHA STRINGER M.D. on 09:59 AM XR chest 2 [id number] 09:59:00Interface, External Ris In - 06/03/2019 10:02 AM CDTFINAL REPORT Chest, 2 views. 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 The pleural spaces are clear. Degenerative changes are seen. Impression: No active cardiopulmonary disease. Signed: Chacha Stringer MDReport Verified Date/Time: 06/03/2019 09:59:51 Reading Location: [address] Radiology Reading [facility] [id number] 09:54:00* Test Item Value Reference Range Interpretation Comments SODIUM (BEAKER) (test code = 381) 138 meq/L 136-145 POTASSIUM (BEAKER) (test code = 379) 4.2 meq/L 3.5-5.1 CHLORIDE (BEAKER) (test code = 382) 104 meq/L 98-107 CO2 (BEAKER) (test code = 355) 25 meq/L 22-29 BLOOD UREA NITROGEN (BEAKER) (test code = 354) 8 mg/dL 7-21 CREATININE (BEAKER) (test code = 358) 0.67 mg/dL 0.57-1.25 GLUCOSE RANDOM (BEAKER) (test code = 652) 130 mg/dL 70-105 H CALCIUM (BEAKER) (test code = 697) 9.4 mg/dL 8.4-10.2 EGFR (BEAKER) (test code = 1092) 96 mL/min/1.73 sq m ESTIMATED GFR IS NOT ACCURATE CREATININE CLEARANCE IN PREDICTING GLOMERULAR FILTRATION RATE. ESTIMATED GFR IS NOT APPLICABLE FOR DIALYSIS PATIENTS. [id number] 09:48:00* Test Item Value Reference Range Interpretation Comments PTT (test code = 74635-7) 28.9 22.5- 36.0 seconds Lab Interpretation (test code = 42165-4) Normal [facility] 09:48:00* Test Item Value Reference Range Interpretation Comments PARTIAL THROMBOPLASTIN TIME (BEAKER) (test code = 760) 28.9 seconds 22.5-36.0 Prothrombin time/[id number] 09:47:00* Test Item Value Reference Range Interpretation Comments Protime (test code = 5902-2) 12.7 11.9- 14.2 seconds INR (test code = 6301-6) 1.0 <=5.9 FREDO (test code = FREDO) Effective 01/07/2019: PT Refe rence Range ChangeNew: 11.9- 14.2 Previous: 11.7-14.7 RECOMMENDED COUMADIN/WARFARIN INR THERAPY RANGESSTANDARD DOSE: 2.0-3.0 Includes: PROPHYLAXIS for venous thrombosis, sys temic embolization; TREATMENT for venous thrombosis and/or pulmonary embolus.HIGH RISK: Target INR is 2.5-3.5 for patients wiht mechanical heart valves. Lab Interpretation (test code = 52412-4) Normal [facility] HospitalPROTHROMBIN TIME/[id number] 09:47:00* Test Item Value Reference Range Interpretation Comments PROTIME (BEAKER) (test code = 759) 12.7 seconds 11.9-14.2 INR (BEAKER) (test code = 370) 1.0 <=5.9 Effective 01/07/2019: PT Reference Range ChangeNew: 11.9-14.2 Previous: 11.7-14. 7RECOMMENDED COUMADIN/WARFARIN INR THERAPY RANGESSTANDARD DOSE: 2.0-3.0 Include s: PROPHYLAXIS for venous thrombosis, systemic embolization; TREATMENT for venou s thrombosis and/or pulmonary embolus.HIGH RISK: Target INR is 2.5-3.5 for patie nts wiht mechanical heart valves.CBC with platelet count + automated diff 2019-06-03 09:40:00* Test Item Value Reference Range Interpretation Comments WBC (test code = 6690-2) 9.9 3.5- 10.5 K/L RBC (test code = 789-8) 4.47 3.93- 5.22 M/L MCHC (test code = 786-4) 32.6 32.2- 35.5 GM/DL Hematocrit (test code = 4544-3) 38.6 % 34.1-44.9 MCV (test code = 787-2) 86.4 fL 79.4-94.8 MCH (test code = 785-6) 28.2 pg 25.6-32.2 RDW (test code = 788-0) 13.9 % 11.7-14.4 Platelets (test code = 777-3) 473 150- 450 K/CU MM H MPV (test code = 56654-7) 9.1 fL 9.4-12.3 L nRBC (test code = 413) 0 0- 0 /100 WBC % Neutros (test code = 429) 64 % % Lymphs (test code = 430) 27 % % Monos (test code = 431) 6 % % Eos (test code = 432) 2 % % Baso (test code = 437) 1 % # Neutros (test code = 670) 6.39 1.56- 6.13 K/L H # Lymphs (test code = 414) 2.63 1.18- 3.74 K/L # Monos (test code = 415) 0.55 0.24- 0.36 K/L H # Eos (test code = 416) 0.19 0.04- 0.36 K/L # Baso (test code = 417) 0.07 0.01- 0.08 K/L Immature Granulocytes-Relative (test code = 2801) 1 % 0-1 Lab Interpretation (test code = 24191-9) Abnormal [facility] W/PLT COUNT & AUTO [id number] 09:40:00* Test Item Value Reference Range Interpretation Comments WHITE BLOOD CELL COUNT (BEAKER) (test code = 775) 9.9 K/ L 3.5- 10.5 RED BLOOD CELL COUNT (BEAKER) (test code = 761) 4.47 M/ L 3.93-5 .22 HEMOGLOBIN (BEAKER) (test code = 410) 12.6 GM/DL 11.2-15.7 HEMATOCRIT (BEAKER) (test code = 411) 38.6 % 34.1-44.9 MEAN CORPUSCULAR VOLUME (BEAKER) (test code = 753) 86.4 fL 79. 4-94.8 MEAN CORPUSCULAR HEMOGLOBIN (BEAKER) (test code = 751) 28.2 pg 25.6-32.2 MEAN CORPUSCULAR HEMOGLOBIN CONC (BEAKER) (test code = 752) 32.6 GM/DL 32.2-35.5 RED CELL DISTRIBUTION WIDTH (BEAKER) (test code = 412) 13.9 % 11.7-14.4 PLATELET COUNT (BEAKER) (test code = 756) 473 K/CU MM 150-450 H MEAN PLATELET VOLUME (BEAKER) (test code = 754) 9.1 fL 9.4-12 .3 L NUCLEATED RED BLOOD CELLS (BEAKER) (test code = 413) 0 /100 WBC 0 -0 NEUTROPHILS RELATIVE PERCENT (BEAKER) (test code = 429) 64 % LYMPHOCYTES RELATIVE PERCENT (BEAKER) (test code = 430) 27 % MONOCYTES RELATIVE PERCENT (BEAKER) (test code = 431) 6 % EOSINOPHILS RELATIVE PERCENT (BEAKER) (test code = 432) 2 % BASOPHILS RELATIVE PERCENT (BEAKER) (test code = 437) 1 % NEUTROPHILS ABSOLUTE COUNT (BEAKER) (test code = 670) 6.39 K/ L 1.56-6.13 H LYMPHOCYTES ABSOLUTE COUNT (BEAKER) (test code = 414) 2.63 K/ L 1.18-3.74 MONOCYTES ABSOLUTE COUNT (BEAKER) (test code = 415) 0.55 K/ L 0. 24-0.36 H EOSINOPHILS ABSOLUTE COUNT (BEAKER) (test code = 416) 0.19 K/ L 0.04-0.36 BASOPHILS ABSOLUTE COUNT (BEAKER) (test code = 417) 0.07 K/ L 0. 01-0.08 IMMATURE GRANULOCYTES-RELATIVE PERCENT (BEAKER) (test code = 2801) 1 % 0-1 NV, ANGIOGRAM, [id number] 06:43:00Reason for Exam:->gillespie gillespie disease FINAL REPORT DATE OF PROCEDURE: 03/19/2019 SURGEON: Chandra Elizalde M.D. CRUSHER MACHINE OPERATOR: Nery Boles MD PREOPERATIVE DIAGNOSIS: Moyamoya dis ease POST OPERATIVE DIAGNOSIS: Moyamoya disease PROCEDURE: Cerebral Angiogram ANESTHESIA: MAC ESTIMATED BLOOD LOSS: Minimal COMPLICATIONS: None INDICATIONS: T he patient is a 44 years year old Female with history of moyamoya disease on med ical therapy who has intermittent tingling of her tongue, fingers and toes. She is indicated for diagnostic angiogram. PROCEDURE: Following explanation of the benefits, risks and alternatives for the procedure, informed consent was obtaine d from the patient. The risks including but not limited to stroke, intracranial hemorrhage, vascular injury to the cervical or femoral vessels and groin hematom a were discussed with the patient. A time-out was performed. Both groins were pr epped in the usual sterile fashion using Chloraprep, and sterilely draped. The s kin over the right femoral artery was anesthetized with 1% lidocaine. A single w all puncture of the right femoral artery was performed using a micropuncture set and dilator and a 5-Fr short sheath was inserted into the right common femoral artery and maintained on heparinized flush. Using coaxial technique, a 5-Fr Angl ed glide catheter was advanced into the descending aorta, back-bled, and flushed in the usual fashion. Using coaxial technique, the catheter was advanced into t he aortic arch, and with the aid of the roadmapping, digital fluoroscopy, and ca reful guidewire manipulation the right vertebral, right common carotid, right in ternal carotid, right external carotid, left common carotid, left internal carot id, left external carotid, and left vertebral arteries were catheterized. Upon e ach successive selective catheterization, digital subtraction angiography using the appropriate rate and volume of contrast in multiple projections was performe d. The catheter was removed. The femoral sheath was removed and hemostasis was achieved with a 6-[place]gasque AngioSeal closure device. The patient tolerated the pro cedure well and was taken to recovery in stable condition. FINDINGS: RIGHT COMMO N FEMORAL ARTERY (DSA - PA, LATERAL - ILIAC) The sheath enters above the femoral bifurcation. The femoral artery and bifurcation are widely patent without evide nce of ulceration or stenosis. RIGHT VERTEBRAL ARTERY (DSA - PA, LATERAL - CERVI ROMI) Cervical course of the right vertebral artery has a normal course and appea sunny. Muscular branches arising from the distal segments are visualized. There is no arteriovenous shunting nor vascular malformations. There is filling of shivam ateral DAVIDE and MCA territories via the splenial artery which reconstitutes the A CA and braches from the BINDERY ASSISTANT filling the MCA territory. There are no other abnorm alities of the capillary or venous phase. The venous phase demonstrates patent t ransverse and sigmoid sinuses bilaterally. RIGHT COMMON CAROTID ARTERY (DSA - P A, LATERAL - CERVICAL) The origins of the right internal and external carotid ar teries are widely patent without evidence of ulceration or stenosis. RIGHT INTER NAL CAROTID ARTERY (DSA - PA, LATERAL, OBLIQUE - HEAD) There is near complete oc clusion of the right internal carotid artery after the origin of the posterior c ommunicating artery, which is of medium size. There is some filling of the right M1, but the right A1 is nearly entirely reconstituted via moyamoya vessels. The re is also filling from collaterals from the ophthalmic artery which is of large caliber. No significant abnormalities are seen in the capillary and venous phas es. The venous phase demonstrates patent transverse and sigmoid sinuses. RIGHT EXTERNAL CAROTID ARTERY (DSA - PA, LATERAL, OBLIQUE - HEAD) The visualized porti ons of the external carotid artery and its branches are normal without evidence of ulceration or stenosis. This includes the distal ascending pharyngeal artery superficial temporal artery and the proximal portions of the internal maxillary artery and the occipital artery. There is no evidence of arteriovenous shunting. The venous phase is normal. LEFT COMMON CAROTID ARTERY (DSA - PA, LATERAL - CER VICAL) The origins of the left internal and external carotid arteries are widely patent without evidence of ulceration or stenosis. LEFT INTERNAL CAROTID ARTERY (DSA - PA, LATERAL, OBLIQUE - HEAD) There is occlusion of the left internal car otid artery at the posterior communicating artery, which is large. There is kelli nstitution of the DAVIDE and MCA via moyamoya vessels. No other significant abnorma lities are seen in the capillary and venous phases. The venous phase demonstrate s patent transverse and sigmoid sinuses. The visualized portions of the external carotid artery and its branches are normal without evidence of ulceration or st enosis. There is no evidence of arteriovenous shunting. The venous phase is norm al. LEFT EXTERNAL CAROTID ARTERY (DSA - PA, LATERAL, OBLIQUE - HEAD) The visuali zed portions of the external carotid artery and its branches are normal without evidence of ulceration or stenosis. This includes the distal ascending pharyngea l artery superficial temporal artery and the proximal portions of the internal m axillary artery and the occipital artery. There are extracranial collaterals fro m the middle meningeal artery. There is no evidence of arteriovenous shunting. T he venous phase is normal. LEFT SUBCLAVIAN ARTERY (ROADMAP - PA - CERVICAL) The origin of the left vertebral artery is patent without significant stenosis. LEFT VERTEBRAL ARTERY (DSA - PA, LATERAL - HEAD) Cervical course of the left vertebr al artery has a normal course and appearance. Muscular branches arising from the distal segments are visualized. There is no arteriovenous shunting nor vascular malformations. There is filling of bilateral DAVIDE and MCA territories via the sp lenial artery which reconstitutes the DAVIDE and braches from the BINDERY ASSISTANT filling the M CA territory. There are no other abnormalities of the capillary or venous phase. The venous phase demonstrates patent transverse and sigmoid sinuses bilaterally . SUPERVISION AND INTERPRETATION: Angiographic study demonstrates: 1. Moyamoya disease with complete occlusion of left internal carotid artery, with filling of the DAVIDE and MCA territory via moyamoya vessels, posterior circulation collatera ls, and extracranial collaterals 2. Near occlusion of the right internal carotid artery, with some filling of the M1, and DAVIDE territory filled via moyamoya vess els and posterior circulation collaterals No immediate technical or clinical com plications. Signed: Chandra Elizalde MDReport Verified Date/Time: 03/27/2019 06:43:40 Reading Location: [facility] Y026 Neuro Angio Reading Room Electronically hazel d by: CHANDRA ELIZALDE MD on 03/27/2019 06:43 AM Urine [id number] 10:36:00 * Test Item Value Reference Range Interpretation Comments Urine WBC (test code = 5821-4) 0-5 0-5 [facility] [id number] 10:36:00* Test Item Value Reference Range Interpretation Comments Urine RBC (test code = 32073-6) 6-10 0-[address] [facility] [id number] 10:36:00* Test Item Value Reference Range Interpretation Comments Urine Bacteria (test code = 99518-6) MODERATE NONE H [facility] Epithelial [id number] 10:36:00 * Test Item Value Reference Range Interpretation Comments Urine Epithelial Cells (test code = 06929-7) FEW NONE [facility] [id number] 10:33:00* Test Item Value Reference Range Interpretation Comments Urine Test (test code = 2106-3) NEGATIVE NEGATIVE [facility] [id number] 10:28:00* Test Item Value Reference Range Interpretation Comments Urine Color (test code = 5778-6) YELLOW YELLOW [facility] [id number] 10:28:00* Test Item Value Reference Range Interpretation Comments Urine Clarity (test code = 94221-2) CLEAR CLEAR [facility] HospitalU[facility] Specific [id number] 10:28:00 * Test Item Value Reference Range Interpretation Comments Urine Specific [place] (test code = 5811-5) 1.010 1.010-1.[address] [facility] [id number] 10:28:00* Test Item Value Reference Range Interpretation Comments Urine pH (test code = 35799-1) 6 5-7 [facility] Leukocyte [id number] 10:28:00* Test Item Value Reference Range Interpretation Comments Urine Leukocyte Esterase (test code = 86028-1) NEGATIVE NEGATIV E [facility] [id number] 10:28:00* Test Item Value Reference Range Interpretation Comments Urine Nitrite (test code = 48904-4) NEGATIVE NEGATIVE [facility] [id number] 10:28:00* Test Item Value Reference Range Interpretation Comments Urine Protein (test code = 00809-3) NEGATIVE NEGATIVE [facility] Glucose (UA)2019-03-24 10:28:00* Test Item Value Reference Range Interpretation Comments Urine Glucose (UA) (test code = 93819-3) NEGATIVE NEGATIVE [facility] [id number] 10:28:00* Test Item Value Reference Range Interpretation Comments Urine Ketones (test code = 37885-0) 1+ NEGATIVE H [facility] [id number] 10:28:00* Test Item Value Reference Range Interpretation Comments Urine Urobilinogen (test code = 84724-3) 0.2 0.2-1 [facility] [id number] 10:28:00* Test Item Value Reference Range Interpretation Comments Urine Bilirubin (test code = 1977-8) NEGATIVE NEGATIVE [facility] [id number] 10:28:00* Test Item Value Reference Range Interpretation Comments Urine Blood (test code = 19960-7) MODERATE NEGATIVE [facility] Planoodium [id number] 09:39:00* Test Item Value Reference Range Interpretation Comments Sodium Level (test code = 2951-2) 137 136-145 [facility] HospitalPotassium [id number] 09:39:00* Test Item Value Reference Range Interpretation Comments Potassium Level (test code = 2823-3) 3.7 3.5-5.1 [facility] HospitalChloride [id number] 09:39:00* Test Item Value Reference Range Interpretation Comments Chloride Level (test code = 2075-0) 100 98-107 [facility] HospitalCarbon Dioxide [id number] 09:39:00* Test Item Value Reference Range Interpretation Comments Carbon Dioxide Level (test code = 2028-9) 25 22-29 [facility] HospitalAnion [id number] 09:39:00* Test Item Value Reference Range Interpretation Comments Anion Gap (test code = 28303-8) 15.7 8-16 [facility] HospitalBlood Urea [id number] 09:39:00* Test Item Value Reference Range Interpretation Comments Blood Urea Nitrogen (test code = 3094-0) 7 7-26 [facility] HospitalCreatinine2019-08-13 09:39:00* Test Item Value Reference Range Interpretation Comments Creatinine (test code = 2160-0) 0.64 0.57-1.11 [facility] HospitalBUN/Creatinine [id number] 09:39:00* Test Item Value Reference Range Interpretation Comments BUN/Creatinine Ratio (test code = 3097-3) 11 6-25 [facility] HospitalEstimat Glomerular Filtration Rate 2019-03-24 09:39:00* Test Item Value Reference Range Interpretation Comments Estimat Glomerular Filtration Rate (test code = 168592501) > 60 >60 Ranges were taken from the National Kidney Disease Education Program and the [facility] Kidney Foundation literature.Reference ranges:60 or greater: Cfdroe37-75 ( for 3 consecutive months): Chronic kidney disease 15 or less: Kidney failureSt. Luke's Health – Memorial Livingston HospitalGlucose Eoeks4929-74-78 09:39:00* Test Item Value Reference Range Interpretation Comments Glucose Level (test code = OGJ1576) 143 74-[address] [facility] HospitalCalcium [id number] 09:39:00* Test Item Value Reference Range Interpretation Comments Calcium Level (test code = 59731-8) 9.4 8.4-10.2 [facility] HospitalWhite Blood [id number] 09:13:00* Test Item Value Reference Range Interpretation Comments White Blood Count (test code = 6690-2) 10.08 4.8-10.8 [facility] HospitalRed Blood [id number] 09:13:00* Test Item Value Reference Range Interpretation Comments Red Blood Count (test code = 789-8) 4.62 3.6-5.1 [facility] HospitalHemoglobin2019-08-13 09:13:00* Test Item Value Reference Range Interpretation Comments Hemoglobin (test code = 68893-9) 13.1 12.0-16.0 [facility] HospitalHematocrit2019-08-13 09:13:00* Test Item Value Reference Range Interpretation Comments Hematocrit (test code = 4544-3) 39.5 34.2-44.1 [facility] HospitalMean Corpuscular Fmlcmx8775-03-29 09:13:00* Test Item Value Reference Range Interpretation Comments Mean Corpuscular Volume (test code = 787-2) 85.5 81-99 [facility] HospitalMean Corpuscular Kuqkpollwo5890-24-32 09:13:00* Test Item Value Reference Range Interpretation Comments Mean Corpuscular Hemoglobin (test code = 785-6) 28.4 28-32 [facility] Corpuscular Hemoglobin Concent 2019-03-24 09:13:00* Test Item Value Reference Range Interpretation Comments Mean Corpuscular Hemoglobin Concent (test code = 786-4) 33.2 31-35 [facility] HospitalRed Cell Distribution [id number] 09:13:00* Test Item Value Reference Range Interpretation Comments Red Cell Distribution Width (test code = 47552-8) 13.4 11.7 -14.4 [facility] HospitalPlatelet [id number] 09:13:00* Test Item Value Reference Range Interpretation Comments Platelet Count (test code = 777-3) 489 140-[address] [facility] HospitalNeutrophils (%) (Auto)2019-03-24 09:13:00 * Test Item Value Reference Range Interpretation Comments Neutrophils (%) (Auto) (test code = 88494-6) 70.7 38.7-80.0 [facility] HospitalLymphocytes (%) (Auto)2019-03-24 09:13:00 * Test Item Value Reference Range Interpretation Comments Lymphocytes (%) (Auto) (test code = 736-9) 20.6 18.0-39.1 [facility] HospitalMonocytes (%) (Auto)2019-03-24 09:13:00* Test Item Value Reference Range Interpretation Comments Monocytes (%) (Auto) (test code = 5905-5) 5.4 4.4-11.3 [facility] HospitalEosinophils (%) (Auto)2019-03-24 09:13:00 * Test Item Value Reference Range Interpretation Comments Eosinophils (%) (Auto) (test code = 713-8) 2.1 0.0-6.0 [facility] HospitalBasophils (%) (Auto)2019-03-24 09:13:00* Test Item Value Reference Range Interpretation Comments Basophils (%) (Auto) (test code = 706-2) 0.5 0.0-1.0 [facility] HospitalIM GRANULOCYTES %2019-03-24 09:13:00* Test Item Value Reference Range Interpretation Comments IM GRANULOCYTES % (test code = IM GRANULOCYTES %) 0.7 0.0- 1.0 [facility] HospitalNeutrophils # (Auto)2019-03-24 09:13:00* Test Item Value Reference Range Interpretation Comments Neutrophils # (Auto) (test code = 751-8) 7.1 2.1-6.[address] [facility] HospitalLymphocytes # (Auto)2019-03-24 09:13:00* Test Item Value Reference Range Interpretation Comments Lymphocytes # (Auto) (test code = 89508-9) 2.1 1.0-3.2 [facility] HospitalMonocytes # (Auto)2019-03-24 09:13:00* Test Item Value Reference Range Interpretation Comments Monocytes # (Auto) (test code = 742-7) 0.5 0.2-0.8 [facility] HospitalEosinophils # (Auto)2019-03-24 09:13:00* Test Item Value Reference Range Interpretation Comments Eosinophils # (Auto) (test code = 711-2) 0.2 0.0-0.4 [facility] [facility] HospitalBasophils # (Auto)2019-03-24 09:13:00* Test Item Value Reference Range Interpretation Comments Basophils # (Auto) (test code = 704-7) 0.1 0.0-0.1 [facility] HospitalAbsolute Immature Granulocyte (auto 2019-03-24 09:13:00* Test Item Value Reference Range Interpretation Comments Absolute Immature Granulocyte (auto (katie t code = Absolute Immature Granulocyte (auto) 0.07 0-0.1 [facility] HospitalCHEST SINGLE (PORTABLE)2019-03-24 09:08:00 [place] [address] Patient Name: MARGY BAIN MR #: [id number] : 1975 Age/Sex: 44/F Req #: [id number] Adm Physician: Ordered by: CASEY MAIER DO Report #: [id number] Location: ER Room/Bed: Procedure: DX/CH EST SINGLE (PORTABLE) Exam Date: 03/24/19 Exam Time: 08 REPORT STATUS: Signed EXAM INATION: CHEST SINGLE (PORTABLE) INDICATION: CVA COMPARISON: None FINDINGS: LINES/TUBES:None LUNGS:The lungs are well-inflate d. No focal consolidation or pulmonary edema. PLEURA:No pleural effusion or pneumothorax. MEDIASTINUM:The cardiomediastinal silhouette appears normal in size and shape. BONES/SOFT TISSUES:No acute osseous injury. ABDOMEN :No free air under the diaphragm. IMPRESSION: No focal pneumonia or p ulmonary edema. Signed by: Delaney Valenzuela MD on 03/24/2019 9:09 AM Dicta martita By: DELANEY VALENZUELA MD 8 Transcribed By: FRANCIS on 03/24/19908 COPY TO: CASEY MAIER DO CT BRAIN [id number] 08:20:00 [place] [address] Patient Name: MARGY BAIN MR #: [id number] : 1975 Age/Sex: 44/F Req #: [id number] Adm Physician: Ordered by: CASEY MAIER DO Report #: [id number] Location: ER Room/Bed: Procedure: CT/CT BRAIN WO Exam Date: 03/24/19 Exam Time: 0800 REPORT STATUS: Signed CT BRAIN WO HISTORY: Right-sided numbness COMPARISON: Head CT 02/15/2019 and 01/11/2019; report from MRI of the brain 04/01/2017 and MRA of the head 2017 (images no t available) TECHNIQUE: Noncontrast axial scans were obtained from skull base to the vertex. Coronal and sagittal reconstructions obtained from the a xia data. One or more of the following dose reduction techniques were used: Automated exposure control, adjustment of the mA and/or kV according to patien t size, and/or utilization of iterative reconstruction technique. DISCUSS ION: Scalp/Skull: Unremarkable. Brain sulci: Appropriate for patient's ag e. Ventricles: Normal in size and configuration. No hydrocephalus. Extra-ax ial spaces: No masses or fluid collections. Parenchyma: Small hypod ensities in the right frontal periventricular white matter and left anterior c entrum semiovale are more conspicuous. These may be due to age indeterminate l acunar infarcts. The posterior left middle frontal gyrus is likely involved. Mild periventricular white matter hypodensities are likely chronic microva scular ischemic changes. There is an old right caudate head lacunar infarct. Otherwise, no mass, hemorrhage, or large vascular territory acute infarct. Dural sinuses: No abnormal densities. Sellar/Suprasellar region: Intact. S kull base: Intact. Incidental findings: None. IMPRESSION: 1. More cons picuous, small hypodensities in the right frontal periventricular white matter and left anterior centrum semiovale may be due to age indeterminate lacunar i nfarcts. 2. Otherwise, no acute intracranial abnormalities. 3. Mild suprat entorial chronic microvascular ischemic change. Old right caudate head lacunar infarct. Signed by: Dr. Eugene Granados M.D. on 03/24/2019 8:30 AM D ictated By: EUGENE GRANADOS MD 9 COPY TO: CASEY MAIER, CEREBRAL PERFUSION [id number] 13:08:00FINAL REPORT CT Perfusion head with and without contrast CLINICAL HISTORY: gillespie gillespie disease TECHNIQUE: Initially, noncontrast head CT im aging was performed. CT perfusion utilizing dynamic contrast-enhanced axial imag es through the brain with data postprocessing performed separately on a work sta tion. This exam was performed according to the departmental dose optimization pr ogram which includes automated exposure control, adjustment of the mA and/or kV according to the patient size, and/or use of an iterative reconstruction techniq ue. COMPARISON: None FINDINGS: There is a chronic infarct of the right caudate h ead. There is a small chronic right parietal infarct. There is patchy white nathalia er disease in the left frontal lobe. There is mild sulcal prominence without hyd rocephalus, midline shift, or apparent mass effect. There is no intracranial hem orrhage. The skull is intact. The CT perfusion maps reveal symmetrically decrea sed cerebral blood flow and prolonged mean transit time/time to peak in the bila teral middle cerebral artery distributions. There is symmetrical preservation of the posterior circulation. The cerebral blood volumes are symmetrical appearing . IMPRESSION: Symmetrically decreased CT perfusion dynamics in the bilateral mid dle cerebral artery distributions, compatible with the history of moyamoya disea se. Chronic lacunar infarct right caudate head. Small chronic right parietal inf arct. Signed: Bharath Castro MDReport Verified Date/Time: 03/19/2019 13:08:57 Re ading Location: [facility] C013V Neuro Reading Room C METABOLIC [id number] 12:51:00* Test Item Value Reference Range Interpretation Comments SODIUM (BEAKER) (test code = 381) 136 meq/L 136-145 POTASSIUM (BEAKER) (test code = 379) 4.2 meq/L 3.5-5.1 CHLORIDE (BEAKER) (test code = 382) 105 meq/L 98-107 CO2 (BEAKER) (test code = 355) 21 meq/L 22-29 L BLOOD UREA NITROGEN (BEAKER) (test code = 354) 9 mg/dL 7-21 CREATININE (BEAKER) (test code = 358) 0.74 mg/dL 0.57-1.25 GLUCOSE RANDOM (BEAKER) (test code = 652) 160 mg/dL 70-105 H CALCIUM (BEAKER) (test code = 697) 9.5 mg/dL 8.4-10.2 EGFR (BEAKER) (test code = 1092) 86 mL/min/1.73 sq m ESTIMATED GFR IS NOT ACCURATE CREATININE CLEARANCE IN PREDICTING GLOMERULAR FILTRATION RATE. ESTIMATED GFR IS NOT APPLICABLE FOR DIALYSIS PATIENTS. PT/[id number] 12:48:00* Test Item Value Reference Range Interpretation Comments PROTIME (BEAKER) (test code = 759) 13.3 seconds 11.9-14.2 INR (BEAKER) (test code = 370) 1.1 <=5.9 PARTIAL THROMBOPLASTIN TIME (BEAKER) (test code = 760) 26.5 seconds 22.5-36.0 Effective 01/07/2019: PT Reference Range ChangeNew: 11.9-14.2 Previous: 11.7-14. 7RECOMMENDED COUMADIN/WARFARIN INR THERAPY RANGESSTANDARD DOSE: 2.0-3.0 Include s: PROPHYLAXIS for venous thrombosis, systemic embolization; TREATMENT for venou s thrombosis and/or pulmonary embolus.HIGH RISK: Target INR is 2.5-3.5 for patie nts wiht mechanical heart valves.CBC W/PLT COUNT & AUTO [id number] 12:45:00* Test Item Value Reference Range Interpretation Comments WHITE BLOOD CELL COUNT (BEAKER) (test code = 775) 16.7 K/ L 3.5- 10.5 H RED BLOOD CELL COUNT (BEAKER) (test code = 761) 4.51 M/ L 3.93-5 .22 HEMOGLOBIN (BEAKER) (test code = 410) 12.5 GM/DL 11.2-15.7 HEMATOCRIT (BEAKER) (test code = 411) 39.5 % 34.1-44.9 MEAN CORPUSCULAR VOLUME (BEAKER) (test code = 753) 87.6 fL 79. 4-94.8 MEAN CORPUSCULAR HEMOGLOBIN (BEAKER) (test code = 751) 27.7 pg 25.6-32.2 MEAN CORPUSCULAR HEMOGLOBIN CONC (BEAKER) (test code = 752) 31.6 GM/DL 32.2-35.5 L RED CELL DISTRIBUTION WIDTH (BEAKER) (test code = 412) 13.6 % 11.7-14.4 PLATELET COUNT (BEAKER) (test code = 756) 464 K/CU MM 150-450 H MEAN PLATELET VOLUME (BEAKER) (test code = 754) 9.0 fL 9.4-12 .3 L NUCLEATED RED BLOOD CELLS (BEAKER) (test code = 413) 0 /100 WBC 0 -0 NEUTROPHILS RELATIVE PERCENT (BEAKER) (test code = 429) 88 % LYMPHOCYTES RELATIVE PERCENT (BEAKER) (test code = 430) 9 % MONOCYTES RELATIVE PERCENT (BEAKER) (test code = 431) 3 % EOSINOPHILS RELATIVE PERCENT (BEAKER) (test code = 432) 0 % BASOPHILS RELATIVE PERCENT (BEAKER) (test code = 437) 0 % NEUTROPHILS ABSOLUTE COUNT (BEAKER) (test code = 670) 14.59 K/ L 1.56-6.13 H LYMPHOCYTES ABSOLUTE COUNT (BEAKER) (test code = 414) 1.46 K/ L 1.18-3.74 MONOCYTES ABSOLUTE COUNT (BEAKER) (test code = 415) 0.43 K/ L 0. 24-0.36 H EOSINOPHILS ABSOLUTE COUNT (BEAKER) (test code = 416) 0.00 K/ L 0.04-0.36 L BASOPHILS ABSOLUTE COUNT (BEAKER) (test code = 417) 0.03 K/ L 0. 01-0.08 IMMATURE GRANULOCYTES-RELATIVE PERCENT (BEAKER) (test code = 2801) 1 % 0-1 POCT-GLUCOSE [id number] 12:42:00* Test Item Value Reference Range Interpretation Comments POC-GLUCOSE METER (BEAKER) (test code = 1538) 157 mg/dL 70-110 H TESTED AT [facility] [address] [place] [address] BRAIN [id number] 11:54:00 [place] [address] Patient Name: MARGY BAIN MR #: [id number] : 1975 Age/Sex: 43/F Req #: [id number] Adm Physician: Ordered by: EDWARD SILVA MD Report #: [id number] Location: ER Room/Bed: Procedure: [id number] CT /CT BRAIN WO Exam Date: 02/15/19 Exam Time: 1135 REPORT STATUS: Signed History:Right facial numbness Comparison studies: Head CT on 01/11/2019 Technique: Axial images were obtained from the skull base to the vertex. Coronal and sa gittal images reconstructed from the axial data. Dose modulation, iterative re construction, and/or weight based adjustment of the mA/kV was utilized to red uce the radiation dose to as low as reasonably achievable. Intravenous c ontrast: None Findings: Scalp/skull: No abnormalities. Extra-a xial spaces: No masses. No fluid collections. Brain sulci: Mildly promi nent. Ventricles: Mild compensatory dilatation. No hydrocephalus. Parench yma: Old lacunar insult, centered in the head of the right caudate, is associ ated with compensatory dilatation of the right frontal horn. Subtle hypodensit ies in the supratentorial white matter are small vessel ischemic changes. No masses, hemorrhage, acute or chronic cortical vascular insults. Sellar /suprasellar region: No abnormalities. Craniocervical junction: Patent foramen magnum. No Chiari one malformation. Incidental findings: Atheroscleroti c calcifications in the carotid siphons . Impression: 1. No acute abn ormalities. 2. No changes compared to the head CT on 01/11/2019 Persistent chronic findings: 1. Focal lacunar insult in the head of the right caudate 2. Mild supratentorial white matter small vessel ischemic changes. Signed by: Dr. Alexia Swann M.D. on 02/15/2019 11:56 AM Dictated By: ALEXIA SWANN MD, MD Electronically Signed By: ALEXIA SWANN MD, MD on 0 02/15/19 1156 Transcribed By: FRANCIS on 02/15/19 1156 COPY TO: MADISON SILVA MD Creatine Kinase [id number] 13:27:00* Test Item Value Reference Range Interpretation Comments Creatine Kinase MB (test code = 37625-3) 0.90 0-5.0 [facility] [id number] 13:27:00* Test Item Value Reference Range Interpretation Comments Troponin I (test code = UDS1801) < 0.001 0-0.300 [facility] HospitalCreatine Kinase [id number] 13:27:00* Test Item Value Reference Range Interpretation Comments Creatine Kinase MB (test code = 19229-7) 0.90 0-5.0 [place] [id number] 13:27:00* Test Item Value Reference Range Interpretation Comments Troponin I (test code = NIW8870) < 0.001 0-0.300 [facility] HospitalCreatine Kinase [id number] 13:27:00* Test Item Value Reference Range Interpretation Comments Creatine Kinase MB (test code = 92220-2) 0.90 0-5.0 [place] [id number] 13:27:00* Test Item Value Reference Range Interpretation Comments Troponin I (test code = MPK4504) < 0.001 0-0.300 [facility] HospitalCreatine Kinase [id number] 13:27:00* Test Item Value Reference Range Interpretation Comments Creatine Kinase MB (test code = 95751-8) 0.90 0-5.0 [place] [id number] 13:27:00* Test Item Value Reference Range Interpretation Comments Troponin I (test code = ZBS2873) < 0.001 0-0.300 [facility] HospitalProthrombin [id number] 13:20:00* Test Item Value Reference Range Interpretation Comments Prothrombin Time (test code = 5902-2) 13.1 11.9-14.5 [facility] HospitalProthromb Time International Ratio 2019-01-11 13:20:00* Test Item Value Reference Range Interpretation Comments Prothromb Time International Ratio (test code = 6301-6) 0.94 Oral Anticoagulant Therapy INR Values:1. Low Intensity Therapy 1.5 - 2.02 . Moderate Intensity Therapy 2.0 - 3.03. High Intensity Therapy(1) 2.5 - 3. 54. High Intensity Therapy(2) 3.0 - 4.05. Panic Value INR > 5.0 [facility] HospitalActivated Partial Thromboplast Time 2019-01-11 13:20:00* Test Item Value Reference Range Interpretation Comments Activated Partial Thromboplast Time (test code = 96110-3) 26.9 23.8-35.5 [facility] [employer] [id number] 13:20:00* Test Item Value Reference Range Interpretation Comments Sodium Level (test code = 2951-2) 134 136-[address] [facility] HospitalPotassium [id number] 13:20:00* Test Item Value Reference Range Interpretation Comments Potassium Level (test code = 2823-3) 3.6 3.5-5.1 [facility] HospitalChloride [id number] 13:20:00* Test Item Value Reference Range Interpretation Comments Chloride Level (test code = 2075-0) 103 98-107 [facility] HospitalCarbon Dioxide [id number] 13:20:00* Test Item Value Reference Range Interpretation Comments Carbon Dioxide Level (test code = 2028-9) 22 22-29 [facility] HospitalAnion [id number] 13:20:00* Test Item Value Reference Range Interpretation Comments Anion Gap (test code = 81615-8) 12.6 8-16 [facility] HospitalBlood Urea [id number] 13:20:00* Test Item Value Reference Range Interpretation Comments Blood Urea Nitrogen (test code = 3094-0) 5 7-[address] [facility] HospitalCreatinine2019-06-02 13:20:00* Test Item Value Reference Range Interpretation Comments Creatinine (test code = 2160-0) 0.65 0.57-1.11 [facility] HospitalBUN/Creatinine [id number] 13:20:00* Test Item Value Reference Range Interpretation Comments BUN/Creatinine Ratio (test code = 3097-3) 8 6-25 [facility] HospitalEstimat Glomerular Filtration Rate 2019-01-11 13:20:00* Test Item Value Reference Range Interpretation Comments Estimat Glomerular Filtration Rate (test code = 846054207) > 60 >60 Ranges were taken from the National Kidney Disease Education Program and the [facility] literature.Reference ranges:60 or greater: Ivpgzp41-66 ( for 3 consecutive months): Chronic kidney disease 15 or less: Kidney failureSt. Luke's Health – Memorial Living[facility] HospitalGlucose Wwobn5233-27-58 13:20:00* Test Item Value Reference Range Interpretation Comments Glucose Level (test code = MCK2332) 129 74-[address] [facility] HospitalCalcium Igzhb0393-27-44 13:20:00* Test Item Value Reference Range Interpretation Comments Calcium Level (test code = 44732-3) 8.8 8.4-10.2 [facility] HospitalMagnesium Hfwra0763-07-09 13:20:00* Test Item Value Reference Range Interpretation Comments Magnesium Level (test code = 69311-4) 1.9 1.3-2.1 [facility] HospitalTotal Mbbbbhkdx5159-81-60 13:20:00* Test Item Value Reference Range Interpretation Comments Total Bilirubin (test code = 1975-2) 0.9 0.2-1.2 [facility] HospitalAspartate Amino Transf (AST/SGOT) 2019-01-11 13:20:00* Test Item Value Reference Range Interpretation Comments Aspartate Amino Transf (AST/SGOT) (test code = Aspartate Amino Transf (AST/SGOT)) 15 5-34 [facility] HospitalAlanine Aminotransferase (ALT/SGPT) 2019-01-11 13:20:00* Test Item Value Reference Range Interpretation Comments Alanine Aminotransferase (ALT/SGPT) (test code = 1742-6) 16 0-55 [facility] HospitalTotal [id number] 13:20:00* Test Item Value Reference Range Interpretation Comments Total Protein (test code = 2885-2) 7.2 6.5-8.1 [facility] HospitalAlbumin2019-06-02 13:20:00* Test Item Value Reference Range Interpretation Comments Albumin (test code = 1751-7) 3.9 3.5-5.0 [facility] HospitalGlobulin2019-06-02 13:20:00* Test Item Value Reference Range Interpretation Comments Globulin (test code = 26292-3) 3.3 2.3-3.5 [facility] HospitalAlbumin/Globulin [id number] 13:20:00 * Test Item Value Reference Range Interpretation Comments Albumin/Globulin Ratio (test code = 1759-0) 1.2 0.8-2.0 [facility] HospitalAlkaline Giiguigeicv5930-58-19 13:20:00* Test Item Value Reference Range Interpretation Comments Alkaline Phosphatase (test code = 6768-6) 74 40-150 [facility] HospitalCreatine [id number] 13:20:00* Test Item Value Reference Range Interpretation Comments Creatine Kinase (test code = 2157-6) 65 29-168 [facility] HospitalProthrombin [id number] 13:20:00* Test Item Value Reference Range Interpretation Comments Prothrombin Time (test code = 5902-2) 13.1 11.9-14.5 [facility] HospitalProthromb Time International Ratio 2019-01-11 13:20:00* Test Item Value Reference Range Interpretation Comments Prothromb Time International Ratio (test code = 6301-6) 0.94 Oral Anticoagulant Therapy INR Values:1. Low Intensity Therapy 1.5 - 2.02 . Moderate Intensity Therapy 2.0 - 3.03. High Intensity Therapy(1) 2.5 - 3. 54. High Intensity Therapy(2) 3.0 - 4.05. Panic Value INR > 5.0 [facility] HospitalActivated Partial Thromboplast Time 2019-01-11 13:20:00* Test Item Value Reference Range Interpretation Comments Activated Partial Thromboplast Time (test code = 01290-5) 26.9 23.8-35.5 [facility] Planoodium [id number] 13:20:00* Test Item Value Reference Range Interpretation Comments Sodium Level (test code = 2951-2) 134 136-[address] [facility] HospitalPotassium Xuyof3531-83-44 13:20:00* Test Item Value Reference Range Interpretation Comments Potassium Level (test code = 2823-3) 3.6 3.5-5.1 [facility] HospitalChloride Slzhp4633-30-07 13:20:00* Test Item Value Reference Range Interpretation Comments Chloride Level (test code = 2075-0) 103 98-107 [facility] HospitalCarbon Dioxide Isfzz9882-63-36 13:20:00* Test Item Value Reference Range Interpretation Comments Carbon Dioxide Level (test code = 2028-9) 22 22-29 [facility] HospitalAnion [id number] 13:20:00* Test Item Value Reference Range Interpretation Comments Anion Gap (test code = 00275-3) 12.6 8-16 [facility] HospitalBlood Urea Gcdaxwoe8427-21-79 13:20:00* Test Item Value Reference Range Interpretation Comments Blood Urea Nitrogen (test code = 3094-0) 5 7-[address] [facility] HospitalCreatinine2019-06-02 13:20:00* Test Item Value Reference Range Interpretation Comments Creatinine (test code = 2160-0) 0.65 0.57-1.11 [facility] HospitalBUN/Creatinine Xkkkj0370-65-69 13:20:00* Test Item Value Reference Range Interpretation Comments BUN/Creatinine Ratio (test code = 3097-3) 8 6-25 [facility] HospitalEstimat Glomerular Filtration Rate 2019-01-11 13:20:00* Test Item Value Reference Range Interpretation Comments Estimat Glomerular Filtration Rate (test code = 153390550) > 60 >60 Ranges were taken from the National Kidney Disease Education Program and the [facility] literature.Reference ranges:60 or greater: Kuzhxy45-86 ( for 3 consecutive months): Chronic kidney disease 15 or less: Kidney failureSt. Luke's Health – Memorial [facility] HospitalGlucose Bqpfm7709-09-58 13:20:00* Test Item Value Reference Range Interpretation Comments Glucose Level (test code = ZFF3792) 129 74-[address] [facility] HospitalCalcium Mjxyl2154-60-28 13:20:00* Test Item Value Reference Range Interpretation Comments Calcium Level (test code = 74881-1) 8.8 8.4-10.2 [facility] HospitalMagnesium Sfsav7330-56-60 13:20:00* Test Item Value Reference Range Interpretation Comments Magnesium Level (test code = 53862-0) 1.9 1.3-2.1 [facility] HospitalTotal Dyaecrglf5113-67-27 13:20:00* Test Item Value Reference Range Interpretation Comments Total Bilirubin (test code = 1975-2) 0.9 0.2-1.2 [facility] HospitalAspartate Amino Transf (AST/SGOT) 2019-01-11 13:20:00* Test Item Value Reference Range Interpretation Comments Aspartate Amino Transf (AST/SGOT) (test code = Aspartate Amino Transf (AST/SGOT)) 15 5-34 [facility] HospitalAlanine Aminotransferase (ALT/SGPT) 2019-01-11 13:20:00* Test Item Value Reference Range Interpretation Comments Alanine Aminotransferase (ALT/SGPT) (test code = 1742-6) 16 0-55 [facility] HospitalTotal Ojqiiru3348-36-47 13:20:00* Test Item Value Reference Range Interpretation Comments Total Protein (test code = 2885-2) 7.2 6.5-8.1 [facility] HospitalAlbumin2019-06-02 13:20:00* Test Item Value Reference Range Interpretation Comments Albumin (test code = 1751-7) 3.9 3.5-5.0 [facility] HospitalGlobulin2019-06-02 13:20:00* Test Item Value Reference Range Interpretation Comments Globulin (test code = 87918-3) 3.3 2.3-3.5 [facility] HospitalAlbumin/Globulin Hqewt2002-28-13 13:20:00 * Test Item Value Reference Range Interpretation Comments Albumin/Globulin Ratio (test code = 1759-0) 1.2 0.8-2.0 [facility] HospitalAlkaline Pzwvbtkewnz1248-82-04 13:20:00* Test Item Value Reference Range Interpretation Comments Alkaline Phosphatase (test code = 6768-6) 74 40-150 [facility] HospitalCreatine Raelsm3964-57-36 13:20:00* Test Item Value Reference Range Interpretation Comments Creatine Kinase (test code = 2157-6) 65 29-168 [facility] HospitalProthrombin Desq3788-00-08 13:20:00* Test Item Value Reference Range Interpretation Comments Prothrombin Time (test code = 5902-2) 13.1 11.9-14.5 [facility] HospitalProthromb Time International Ratio 2019-01-11 13:20:00* Test Item Value Reference Range Interpretation Comments Prothromb Time International Ratio (test code = 6301-6) 0.94 Oral Anticoagulant Therapy INR Values:1. Low Intensity Therapy 1.5 - 2.02 . Moderate Intensity Therapy 2.0 - 3.03. High Intensity Therapy(1) 2.5 - 3. 54. High Intensity Therapy(2) 3.0 - 4.05. Panic Value INR > 5.0 [facility] HospitalActivated Partial Thromboplast Time 2019-01-11 13:20:00* Test Item Value Reference Range Interpretation Comments Activated Partial Thromboplast Time (test code = 99349-4) 26.9 23.8-35.5 [facility] Planoodium Vglfh4953-96-22 13:20:00* Test Item Value Reference Range Interpretation Comments Sodium Level (test code = 2951-2) 134 136-[address] [facility] HospitalPotassium Xcwxc5491-52-51 13:20:00* Test Item Value Reference Range Interpretation Comments Potassium Level (test code = 2823-3) 3.6 3.5-5.1 [facility] HospitalChloride Oavim1329-76-74 13:20:00* Test Item Value Reference Range Interpretation Comments Chloride Level (test code = 2075-0) 103 98-107 [facility] HospitalCarbon Dioxide Evssb3852-83-43 13:20:00* Test Item Value Reference Range Interpretation Comments Carbon Dioxide Level (test code = 2028-9) 22 22-29 [facility] HospitalAnion [id number] 13:20:00* Test Item Value Reference Range Interpretation Comments Anion Gap (test code = 32881-9) 12.6 8-16 [facility] HospitalBlood Urea Thgqpdbd1988-97-19 13:20:00* Test Item Value Reference Range Interpretation Comments Blood Urea Nitrogen (test code = 3094-0) 5 7-[address] [facility] HospitalCreatinine2019-06-02 13:20:00* Test Item Value Reference Range Interpretation Comments Creatinine (test code = 2160-0) 0.65 0.57-1.11 [facility] HospitalBUN/Creatinine Wqaid2752-21-20 13:20:00* Test Item Value Reference Range Interpretation Comments BUN/Creatinine Ratio (test code = 3097-3) 8 6-25 [facility] HospitalEstimat Glomerular Filtration Rate 2019-01-11 13:20:00* Test Item Value Reference Range Interpretation Comments Estimat Glomerular Filtration Rate (test code = 545871376) > 60 >60 Ranges were taken from the National Kidney Disease Education Program and the [facility] [employer] literature.Reference ranges:60 or greater: Ngqbxd62-02 ( for 3 consecutive months): Chronic kidney disease 15 or less: Kidney failureSt. Luke's [facility] HospitalGlucose Lesjl9741-71-88 13:20:00* Test Item Value Reference Range Interpretation Comments Glucose Level (test code = EUB4773) 129 74-[address] [facility] HospitalCalcium Qepnf7350-31-83 13:20:00* Test Item Value Reference Range Interpretation Comments Calcium Level (test code = 25607-8) 8.8 8.4-10.2 [facility] HospitalMagnesium Laczm8754-66-60 13:20:00* Test Item Value Reference Range Interpretation Comments Magnesium Level (test code = 77103-6) 1.9 1.3-2.1 [facility] HospitalTotal Brtslifbb1281-71-05 13:20:00* Test Item Value Reference Range Interpretation Comments Total Bilirubin (test code = 1975-2) 0.9 0.2-1.2 [facility] HospitalAspartate Amino Transf (AST/SGOT) 2019-01-11 13:20:00* Test Item Value Reference Range Interpretation Comments Aspartate Amino Transf (AST/SGOT) (test code = Aspartate Amino Transf (AST/SGOT)) 15 5-34 [facility] HospitalAlanine Aminotransferase (ALT/SGPT) 2019-01-11 13:20:00* Test Item Value Reference Range Interpretation Comments Alanine Aminotransferase (ALT/SGPT) (test code = 1742-6) 16 0-55 [facility] HospitalTotal Ollxmce2396-67-17 13:20:00* Test Item Value Reference Range Interpretation Comments Total Protein (test code = 2885-2) 7.2 6.5-8.1 [facility] HospitalAlbumin2019-06-02 13:20:00* Test Item Value Reference Range Interpretation Comments Albumin (test code = 1751-7) 3.9 3.5-5.0 [facility] HospitalGlobulin2019-06-02 13:20:00* Test Item Value Reference Range Interpretation Comments Globulin (test code = 26319-4) 3.3 2.3-3.5 [facility] HospitalAlbumin/Globulin Efexj0099-26-35 13:20:00 * Test Item Value Reference Range Interpretation Comments Albumin/Globulin Ratio (test code = 1759-0) 1.2 0.8-2.0 [facility] HospitalAlkaline Qulnjdgvsnu2021-30-89 13:20:00* Test Item Value Reference Range Interpretation Comments Alkaline Phosphatase (test code = 6768-6) 74 40-150 [facility] HospitalCreatine Snnsrf1009-89-82 13:20:00* Test Item Value Reference Range Interpretation Comments Creatine Kinase (test code = 2157-6) 65 29-168 [facility] HospitalProthrombin Idnd8571-39-25 13:20:00* Test Item Value Reference Range Interpretation Comments Prothrombin Time (test code = 5902-2) 13.1 11.9-14.5 [facility] HospitalProthromb Time International Ratio 2019-01-11 13:20:00* Test Item Value Reference Range Interpretation Comments Prothromb Time International Ratio (test code = 6301-6) 0.94 Oral Anticoagulant Therapy INR Values:1. Low Intensity Therapy 1.5 - 2.02 . Moderate Intensity Therapy 2.0 - 3.03. High Intensity Therapy(1) 2.5 - 3. 54. High Intensity Therapy(2) 3.0 - 4.05. Panic Value INR > 5.0 [facility] HospitalActivated Partial Thromboplast Time 2019-01-11 13:20:00* Test Item Value Reference Range Interpretation Comments Activated Partial Thromboplast Time (test code = 62230-4) 26.9 23.8-35.5 [facility] HospitalMagnesium Zaenq7013-83-70 13:20:00* Test Item Value Reference Range Interpretation Comments Magnesium Level (test code = 68584-4) 1.9 1.3-2.1 [facility] HospitalTotal Cnbutpplf7469-79-24 13:20:00* Test Item Value Reference Range Interpretation Comments Total Bilirubin (test code = 1975-2) 0.9 0.2-1.2 [facility] HospitalAspartate Amino Transf (AST/SGOT) 2019-01-11 13:20:00* Test Item Value Reference Range Interpretation Comments Aspartate Amino Transf (AST/SGOT) (test code = Aspartate Amino Transf (AST/SGOT)) 15 5-34 [facility] HospitalAlanine Aminotransferase (ALT/SGPT) 2019-01-11 13:20:00* Test Item Value Reference Range Interpretation Comments Alanine Aminotransferase (ALT/SGPT) (test code = 1742-6) 16 0-55 [facility] HospitalTotal Rhylhhr7618-73-61 13:20:00* Test Item Value Reference Range Interpretation Comments Total Protein (test code = 2885-2) 7.2 6.5-8.1 [facility] HospitalAlbumin2019-06-02 13:20:00* Test Item Value Reference Range Interpretation Comments Albumin (test code = 1751-7) 3.9 3.5-5.0 [facility] HospitalGlobulin2019-06-02 13:20:00* Test Item Value Reference Range Interpretation Comments Globulin (test code = 91390-8) 3.3 2.3-3.5 [facility] HospitalAlbumin/Globulin Aegqp0161-70-44 13:20:00 * Test Item Value Reference Range Interpretation Comments Albumin/Globulin Ratio (test code = 1759-0) 1.2 0.8-2.0 [facility] HospitalAlkaline Ufcwptruyhc5915-31-67 13:20:00* Test Item Value Reference Range Interpretation Comments Alkaline Phosphatase (test code = 6768-6) 74 40-150 [facility] HospitalCreatine Qxanum6255-85-57 13:20:00* Test Item Value Reference Range Interpretation Comments Creatine Kinase (test code = 2157-6) 65 29-168 [facility] HospitalWhite Blood Hcmts2521-64-42 12:58:00* Test Item Value Reference Range Interpretation Comments White Blood Count (test code = 6690-2) 9.57 4.8-10.8 [facility] HospitalRed Blood Sokjx6015-73-31 12:58:00* Test Item Value Reference Range Interpretation Comments Red Blood Count (test code = 789-8) 4.50 3.6-5.1 [facility] HospitalHemoglobin2019-06-02 12:58:00* Test Item Value Reference Range Interpretation Comments Hemoglobin (test code = 62902-1) 12.5 12.0-16.0 [facility] HospitalHematocrit2019-06-02 12:58:00* Test Item Value Reference Range Interpretation Comments Hematocrit (test code = 4544-3) 39.3 34.2-44.1 [facility] HospitalMean Corpuscular Gtxxbo9881-74-32 12:58:00* Test Item Value Reference Range Interpretation Comments Mean Corpuscular Volume (test code = 787-2) 87.3 81-99 [facility] HospitalMean Corpuscular Nkhlxiyjxs4122-99-75 12:58:00* Test Item Value Reference Range Interpretation Comments Mean Corpuscular Hemoglobin (test code = 785-6) 27.8 28-32 [facility]an Corpuscular Hemoglobin Concent 2019-01-11 12:58:00* Test Item Value Reference Range Interpretation Comments Mean Corpuscular Hemoglobin Concent (test code = 786-4) 31.8 31-35 [facility] HospitalRed Cell Distribution Qfsde2482-07-89 12:58:00* Test Item Value Reference Range Interpretation Comments Red Cell Distribution Width (test code = 72650-1) 13.9 11.7 -14.4 [facility] HospitalPlatelet Yaguj6239-39-33 12:58:00* Test Item Value Reference Range Interpretation Comments Platelet Count (test code = 777-3) 489 140-[address] [facility] HospitalNeutrophils (%) (Auto)2019-01-11 12:58:00 * Test Item Value Reference Range Interpretation Comments Neutrophils (%) (Auto) (test code = 69867-9) 65.5 38.7-80.0 [facility] HospitalLymphocytes (%) (Auto)2019-01-11 12:58:00 * Test Item Value Reference Range Interpretation Comments Lymphocytes (%) (Auto) (test code = 736-9) 24.8 18.0-39.1 [facility] HospitalMonocytes (%) (Auto)2019-01-11 12:58:00* Test Item Value Reference Range Interpretation Comments Monocytes (%) (Auto) (test code = 5905-5) 6.4 4.4-11.3 [facility] HospitalEosinophils (%) (Auto)2019-01-11 12:58:00 * Test Item Value Reference Range Interpretation Comments Eosinophils (%) (Auto) (test code = 713-8) 1.7 0.0-6.0 [facility] HospitalBasophils (%) (Auto)2019-01-11 12:58:00* Test Item Value Reference Range Interpretation Comments Basophils (%) (Auto) (test code = 706-2) 0.6 0.0-1.0 [facility] HospitalIM GRANULOCYTES %2019-01-11 12:58:00* Test Item Value Reference Range Interpretation Comments IM GRANULOCYTES % (test code = IM GRANULOCYTES %) 1.0 0.0- 1.0 [facility] HospitalNeutrophils # (Auto)2019-01-11 12:58:00* Test Item Value Reference Range Interpretation Comments Neutrophils # (Auto) (test code = 751-8) 6.3 2.1-6.9 [facility] HospitalLymphocytes # (Auto)2019-01-11 12:58:00* Test Item Value Reference Range Interpretation Comments Lymphocytes # (Auto) (test code = 14742-9) 2.4 1.0-3.2 [facility] HospitalMonocytes # (Auto)2019-01-11 12:58:00* Test Item Value Reference Range Interpretation Comments Monocytes # (Auto) (test code = 742-7) 0.6 0.2-0.8 [facility] HospitalEosinophils # (Auto)2019-01-11 12:58:00* Test Item Value Reference Range Interpretation Comments Eosinophils # (Auto) (test code = 711-2) 0.2 0.0-0.4 [facility] HospitalBasophils # (Auto)2019-01-11 12:58:00* Test Item Value Reference Range Interpretation Comments Basophils # (Auto) (test code = 704-7) 0.1 0.0-0.1 [facility] HospitalAbsolute Immature Granulocyte (auto 2019-01-11 12:58:00* Test Item Value Reference Range Interpretation Comments Absolute Immature Granulocyte (auto (katie t code = Absolute Immature Granulocyte (auto) 0.10 0-0.1 [facility] HospitalWhite Blood Omqjr0435-65-12 12:58:00* Test Item Value Reference Range Interpretation Comments White Blood Count (test code = 6690-2) 9.57 4.8-10.8 [facility] HospitalRed Blood Beudc5097-58-42 12:58:00* Test Item Value Reference Range Interpretation Comments Red Blood Count (test code = 789-8) 4.50 3.6-5.1 [facility] HospitalHemoglobin2019-06-02 12:58:00* Test Item Value Reference Range Interpretation Comments Hemoglobin (test code = 90215-8) 12.5 12.0-16.0 [facility] HospitalHematocrit2019-06-02 12:58:00* Test Item Value Reference Range Interpretation Comments Hematocrit (test code = 4544-3) 39.3 34.2-44.1 [facility] HospitalMean Corpuscular Fosaso7591-22-49 12:58:00* Test Item Value Reference Range Interpretation Comments Mean Corpuscular Volume (test code = 787-2) 87.3 81-99 [facility]an Corpuscular Zjzgphggxh0491-76-91 12:58:00* Test Item Value Reference Range Interpretation Comments Mean Corpuscular Hemoglobin (test code = 785-6) 27.8 28-[address] [facility] HospitalMean Corpuscular Hemoglobin Concent 2019-01-11 12:58:00* Test Item Value Reference Range Interpretation Comments Mean Corpuscular Hemoglobin Concent (test code = 786-4) 31.8 31-35 [facility] HospitalRed Cell Distribution Tmqvd6165-15-50 12:58:00* Test Item Value Reference Range Interpretation Comments Red Cell Distribution Width (test code = 90526-1) 13.9 11.7 -14.4 [facility] HospitalPlatelet Jcwew7495-31-85 12:58:00* Test Item Value Reference Range Interpretation Comments Platelet Count (test code = 777-3) 489 140-[address] [facility] HospitalNeutrophils (%) (Auto)2019-01-11 12:58:00 * Test Item Value Reference Range Interpretation Comments Neutrophils (%) (Auto) (test code = 15302-0) 65.5 38.7-80.0 [facility] HospitalLymphocytes (%) (Auto)2019-01-11 12:58:00 * Test Item Value Reference Range Interpretation Comments Lymphocytes (%) (Auto) (test code = 736-9) 24.8 18.0-39.1 [facility] HospitalMonocytes (%) (Auto)2019-01-11 12:58:00* Test Item Value Reference Range Interpretation Comments Monocytes (%) (Auto) (test code = 5905-5) 6.4 4.4-11.3 [facility] HospitalEosinophils (%) (Auto)2019-01-11 12:58:00 * Test Item Value Reference Range Interpretation Comments Eosinophils (%) (Auto) (test code = 713-8) 1.7 0.0-6.0 [facility] HospitalBasophils (%) (Auto)2019-01-11 12:58:00* Test Item Value Reference Range Interpretation Comments Basophils (%) (Auto) (test code = 706-2) 0.6 0.0-1.0 [facility] HospitalIM GRANULOCYTES %2019-01-11 12:58:00* Test Item Value Reference Range Interpretation Comments IM GRANULOCYTES % (test code = IM GRANULOCYTES %) 1.0 0.0- 1.0 [facility] HospitalNeutrophils # (Auto)2019-01-11 12:58:00* Test Item Value Reference Range Interpretation Comments Neutrophils # (Auto) (test code = 751-8) 6.3 2.1-6.9 [facility] HospitalLymphocytes # (Auto)2019-01-11 12:58:00* Test Item Value Reference Range Interpretation Comments Lymphocytes # (Auto) (test code = 83988-3) 2.4 1.0-3.2 [facility] HospitalMonocytes # (Auto)2019-01-11 12:58:00* Test Item Value Reference Range Interpretation Comments Monocytes # (Auto) (test code = 742-7) 0.6 0.2-0.8 [facility] HospitalEosinophils # (Auto)2019-01-11 12:58:00* Test Item Value Reference Range Interpretation Comments Eosinophils # (Auto) (test code = 711-2) 0.2 0.0-0.4 [facility] HospitalBasophils # (Auto)2019-01-11 12:58:00* Test Item Value Reference Range Interpretation Comments Basophils # (Auto) (test code = 704-7) 0.1 0.0-0.1 [facility] HospitalAbsolute Immature Granulocyte (auto 2019-01-11 12:58:00* Test Item Value Reference Range Interpretation Comments Absolute Immature Granulocyte (auto (katie t code = Absolute Immature Granulocyte (auto) 0.10 0-0.1 [facility] HospitalWhite Blood Kkkyk0953-27-89 12:58:00* Test Item Value Reference Range Interpretation Comments White Blood Count (test code = 6690-2) 9.57 4.8-10.8 [facility] HospitalRed Blood Cmfuj9916-66-78 12:58:00* Test Item Value Reference Range Interpretation Comments Red Blood Count (test code = 789-8) 4.50 3.6-5.1 [facility] HospitalHemoglobin2019-06-02 12:58:00* Test Item Value Reference Range Interpretation Comments Hemoglobin (test code = 88016-8) 12.5 12.0-16.0 [facility] HospitalHematocrit2019-06-02 12:58:00* Test Item Value Reference Range Interpretation Comments Hematocrit (test code = 4544-3) 39.3 34.2-44.1 [facility] HospitalMean Corpuscular Zrrdsf2386-46-44 12:58:00* Test Item Value Reference Range Interpretation Comments Mean Corpuscular Volume (test code = 787-2) 87.3 81-99 [facility] HospitalMean Corpuscular Wdnhmhlsrf6713-62-08 12:58:00* Test Item Value Reference Range Interpretation Comments Mean Corpuscular Hemoglobin (test code = 785-6) 27.8 28-[address] [facility] HospitalMean Corpuscular Hemoglobin Concent 2019-01-11 12:58:00* Test Item Value Reference Range Interpretation Comments Mean Corpuscular Hemoglobin Concent (test code = 786-4) 31.8 31-35 [facility] HospitalRed Cell Distribution Nxoqh4208-17-68 12:58:00* Test Item Value Reference Range Interpretation Comments Red Cell Distribution Width (test code = 32216-3) 13.9 11.7 -14.4 [facility] HospitalPlatelet Zaxkx5142-29-31 12:58:00* Test Item Value Reference Range Interpretation Comments Platelet Count (test code = 777-3) 489 140-[address] [facility] HospitalNeutrophils (%) (Auto)2019-01-11 12:58:00 * Test Item Value Reference Range Interpretation Comments Neutrophils (%) (Auto) (test code = 60597-9) 65.5 38.7-80.0 [facility] HospitalLymphocytes (%) (Auto)2019-01-11 12:58:00 * Test Item Value Reference Range Interpretation Comments Lymphocytes (%) (Auto) (test code = 736-9) 24.8 18.0-39.1 [facility] HospitalMonocytes (%) (Auto)2019-01-11 12:58:00* Test Item Value Reference Range Interpretation Comments Monocytes (%) (Auto) (test code = 5905-5) 6.4 4.4-11.3 [facility] HospitalEosinophils (%) (Auto)2019-01-11 12:58:00 * Test Item Value Reference Range Interpretation Comments Eosinophils (%) (Auto) (test code = 713-8) 1.7 0.0-6.0 [facility] HospitalBasophils (%) (Auto)2019-01-11 12:58:00* Test Item Value Reference Range Interpretation Comments Basophils (%) (Auto) (test code = 706-2) 0.6 0.0-1.0 [facility] HospitalIM GRANULOCYTES %2019-01-11 12:58:00* Test Item Value Reference Range Interpretation Comments IM GRANULOCYTES % (test code = IM GRANULOCYTES %) 1.0 0.0- 1.0 [facility] HospitalNeutrophils # (Auto)2019-01-11 12:58:00* Test Item Value Reference Range Interpretation Comments Neutrophils # (Auto) (test code = 751-8) 6.3 2.1-6.9 [facility] HospitalLymphocytes # (Auto)2019-01-11 12:58:00* Test Item Value Reference Range Interpretation Comments Lymphocytes # (Auto) (test code = 08469-6) 2.4 1.0-3.2 [facility] HospitalMonocytes # (Auto)2019-01-11 12:58:00* Test Item Value Reference Range Interpretation Comments Monocytes # (Auto) (test code = 742-7) 0.6 0.2-0.8 [facility] HospitalEosinophils # (Auto)2019-01-11 12:58:00* Test Item Value Reference Range Interpretation Comments Eosinophils # (Auto) (test code = 711-2) 0.2 0.0-0.4 [facility] HospitalBasophils # (Auto)2019-01-11 12:58:00* Test Item Value Reference Range Interpretation Comments Basophils # (Auto) (test code = 704-7) 0.1 0.0-0.1 [facility] HospitalAbsolute Immature Granulocyte (auto 2019-01-11 12:58:00* Test Item Value Reference Range Interpretation Comments Absolute Immature Granulocyte (auto (katie t code = Absolute Immature Granulocyte (auto) 0.10 0-0.1 [facility] HospitalCHEST SINGLE (PORTABLE)2019-01-11 12:54:00 [place] [address] Patient Name: MARGY BAIN MR #: [id number] : 1975 Age/Sex: 43/F Req #: [id number] Adm Physician: Ordered by: AI HENDERSON MD Report #: [id number] Location: ER Room/Bed: Procedure: [id number] DX/C HEST SINGLE (PORTABLE) Exam Date: 01/11/19 Exam Time : 1155 REPORT STATUS: Signed EXA MINATION: CHEST SINGLE (PORTABLE) INDICATION: HTN [id number] COMPARISON: 04/27/2018 FINDINGS: AP view TUBES and LINES: None. LUNGS: Limited by body habitus. Lungs are well inflated. There is no evidence of pneumonia or pulmonary edema. PLEURA: No pleural effusion or pneumothorax. HEART AND MEDIASTINUM: The cardiomediast inal silhouette is unremarkable. BONES AND SOFT TISSUES: No acute osse ous lesion. Soft tissues are unremarkable. UPPER ABDOMEN: No free air un man the diaphragm. IMPRESSION: No acute thoracic abnormality. Signed by: Dr. Ana Alicia MD on 01/11/2019 12:55 PM Dictated By: BABA Shant ALICIA MD 1255 Trans cribed By: FRANCIS on 01/11/19 1255 COPY TO: AI HENDERSON MD CT BRAIN IN8735-86-41 12:12:00 [place] [address] Patient Name: MARGY BAIN MR #: [id number] : 1975 Age/Sex: 43/F Req #: [id number] Adm Physician: Ordered by: AI HENDERSON MD Report #: [id number] Location: ER Room/Bed: Procedure: [id number] CT/C T BRAIN WO Exam Date: Exam Time: REPORT STATUS: Signed Exam: Head CT without contr ast History: Left-sided facial numbness Comparison studies: Head CT 018. Technique: Axial images were obtained from the skull base to the marco gracie. Coronal and sagittal images reconstructed from the axial data. Dose mo dulation, iterative reconstruction, and/or weight based adjustment of the mA/k V was utilized to reduce the radiation dose to as low as reasonably achievable . Radiation dose: Total DLP: 921 mGy*cm. Estimated effective dose: DLP x 0.015 Intravenous contrast: None Findings: Scalp: No abnormal ities. Bones: No fractures, blastic or lytic lesions. Brain sulci: Approp riate for age. Ventricles: Normal in size and configuration. No hydrocephalus. Extra-axial spaces: No masses, no fluid collection. Parenchyma: No m ass, acute hemorrhage or acute or chronic cortical insults. Chronic lacunar in farct in head of the right caudate nucleus is unchanged. A few scattered subtl e hypodensities in the supratentorial white matter are nonspecific most compat ible chronic microvascular ischemic changes. Sellar/suprasellar region: No abnormalities. Craniocervical junction: Patent foramen magnum. No Chiari one m alformation. IMPRESSION: 1. No acute intracranial abnormalities. 2. No changes from the prior head CT of 03/28/2018. 3. 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 4. Mild chronic microvascular ischemi c changes. Signed by: Dr. Leslie Mcrae M.D. on 01/11/2019 1:29 PM Di ctated By: LESLIE MCRAE MD 1329 COPY TO: MAXIMO HENDERSON MD D-Dimer Quantitative (PE/DVT)2018-04-27 12:06:00* Test Item Value Reference Range Interpretation Comments D-Dimer Quantitative (PE/DVT) (test code = 59893-4) 0.10 0. 00-0.45 As with all in vitro diagnostic tests, the test results should be interpreted by the physician in conjunction with clinical findings and other test results.Test results are reported in NEW D-dimer units(ug/mLFEU).[facility] HospitalD-Dimer Quantitative (PE/DVT)2018-04-27 12:06:00* Test Item Value Reference Range Interpretation Comments D-Dimer Quantitative (PE/DVT) (test code = 92215-4) 0.10 0. 00-0.45 As with all in vitro diagnostic tests, the test results should be interpreted by the physician in conjunction with clinical findings and other test results.Test results are reported in NEW D-dimer units(ug/mLFEU).[facility] HospitalD-Dimer Quantitative (PE/DVT)2018-04-27 12:06:00* Test Item Value Reference Range Interpretation Comments D-Dimer Quantitative (PE/DVT) (test code = 43406-6) 0.10 0. 00-0.45 As with all in vitro diagnostic tests, the test results should be interpreted by the physician in conjunction with clinical findings and other test results.Test results are reported in NEW D-dimer units(ug/mLFEU).[facility] HospitalD-Dimer Quantitative (PE/DVT)2018-04-27 12:06:00* Test Item Value Reference Range Interpretation Comments D-Dimer Quantitative (PE/DVT) (test code = 48804-7) 0.10 0. 00-0.45 As with all in vitro diagnostic tests, the test results should be interpreted by the physician in conjunction with clinical findings and other test results.Test results are reported in NEW D-dimer units(ug/mLFEU).[facility] HospitalCHEST SINGLE (PORTABLE)2018-04-27 12:00:00 [place] [address] Patient Name: MARGY BAIN MR #: [id number] : 1975 Age/Sex: 43/F Req #: [id number] Adm Physician: Ordered by: MARI DIXON NP Report #: [id number] Location: ER Room/Bed: Procedure: [id number] DX/CHEST SINGLE (PORTABLE) Exam Date: 04/27/18 Exam Time: 1132 REPORT STA TUS: Signed EXAMINATION: CHEST SINGLE (PORTABLE) COMPARISON: Chest x-ray 03/28/2018 INDICATION: Chest pain, weakness DISCUSSION: Fr ontal view of the chest obtained at 1126 hours. HEART AND MEDIASTINUM: The cardiomediastinal silhouette is unremarkable. LINES: None. LUNGS: The lungs are well inflated and clear. No pneumonia or pulmonary edema. PL EURA: No pleural effusion or pneumothorax. BONES AND SOFT TISSUES: No foc al osseous lesion. The soft tissues are normal. IMPRESSION: No acute cardiopulmonary disease. Signed by: Dr. Kai Tadeo MD on 04/27/2018 12:01 PM Dictated By: KAI TADEO MD 1201 Transcribed By: FRANCIS on 04/27/18 1201 COPY TO: MARI DIXON NP Amylase Wxyzc2113-14-15 11:55:00* Test Item Value Reference Range Interpretation Comments Amylase Level (test code = 1798-8) 42 [facility]Lipase2018-09-16 11:55:00* Test Item Value Reference Range Interpretation Comments Lipase (test code = 3040-3) [facility] HospitalAmylase Olvtt4514-46-99 11:55:00* Test Item Value Reference Range Interpretation Comments Amylase Level (test code = 1798-8) 42 [facility] HospitalLipase2018-09-16 11:55:00* Test Item Value Reference Range Interpretation Comments Lipase (test code = 3040-3) [facility] HospitalAmylase Bhegt7363-91-14 11:55:00* Test Item Value Reference Range Interpretation Comments Amylase Level (test code = 1798-8) 42 [facility] HospitalLipase2018-09-16 11:55:00* Test Item Value Reference Range Interpretation Comments Lipase (test code = 3040-3) [facility] HospitalAmylase Mbxuj8558-05-66 11:55:00* Test Item Value Reference Range Interpretation Comments Amylase Level (test code = 1798-8) 42 [facility] HospitalLipase2018-09-16 11:55:00* Test Item Value Reference Range Interpretation Comments Lipase (test code = 3040-3) [facility] HospitalCreatine Kinase [id number] 11:40:00* Test Item Value Reference Range Interpretation Comments Creatine Kinase MB (test code = 72386-7) 0.30 0-5.0 [facility] HospitalTroponin E5953-06-24 11:40:00* Test Item Value Reference Range Interpretation Comments Troponin I (test code = EKG2828) -0.001 0-0.300 [facility] Planoodium Wkvus9245-48-62 11:33:00* Test Item Value Reference Range Interpretation Comments Sodium Level (test code = 2951-2) 135 136-[address] [facility] HospitalPotassium Nqmbu5758-25-29 11:33:00* Test Item Value Reference Range Interpretation Comments Potassium Level (test code = 2823-3) 3.8 3.5-5.1 [facility] HospitalChloride Xgcsh2980-79-89 11:33:00* Test Item Value Reference Range Interpretation Comments Chloride Level (test code = 2075-0) 101 98-107 [facility] HospitalCarbon Dioxide Gypia0117-29-44 11:33:00* Test Item Value Reference Range Interpretation Comments Carbon Dioxide Level (test code = 2028-9) 23 22-29 [facility] HospitalAnion Snc5331-35-85 11:33:00* Test Item Value Reference Range Interpretation Comments Anion Gap (test code = 74524-3) 14.8 8-16 [facility] HospitalBlood Urea Icezpywf7836-86-21 11:33:00* Test Item Value Reference Range Interpretation Comments Blood Urea Nitrogen (test code = 3094-0) 7 7-26 [facility] HospitalCreatinine2018-09-16 11:33:00* Test Item Value Reference Range Interpretation Comments Creatinine (test code = 2160-0) 0.73 0.57-1.11 [facility] HospitalBUN/Creatinine Cnzup1350-48-71 11:33:00* Test Item Value Reference Range Interpretation Comments BUN/Creatinine Ratio (test code = 3097-3) 10 6-25 [facility] HospitalEstimat Glomerular Filtration Rate 2018-04-27 11:33:00* Test Item Value Reference Range Interpretation Comments Estimat Glomerular Filtration Rate (test code = 645933598) 60- >60 Ranges were taken from the National Kidney Disease Education Program and the [facility] [employer] literature.Reference ranges:60 or greater: Wovumy66-57 ( for 3 consecutive months): Chronic kidney disease 15 or less: Kidney failureSt. Luke's Health – [facility] HospitalGlucose Fbkkb2537-47-75 11:33:00* Test Item Value Reference Range Interpretation Comments Glucose Level (test code = FGV3672) 133 74-[address] [facility] HospitalCalcium Fdhhw4708-24-44 11:33:00* Test Item Value Reference Range Interpretation Comments Calcium Level (test code = 42110-1) 9.6 8.4-10.2 [facility] HospitalTotal Zqtrneuuu5497-80-10 11:33:00* Test Item Value Reference Range Interpretation Comments Total Bilirubin (test code = 1975-2) 1.8 0.2-1.[address] [facility] HospitalAspartate Amino Transf (AST/SGOT) 2018-04-27 11:33:00* Test Item Value Reference Range Interpretation Comments Aspartate Amino Transf (AST/SGOT) (test code = Aspartate Amino Transf (AST/SGOT)) 26 5-34 [facility] HospitalAlanine Aminotransferase (ALT/SGPT) 2018-04-27 11:33:00* Test Item Value Reference Range Interpretation Comments Alanine Aminotransferase (ALT/SGPT) (test code = 1742-6) 30 0-55 [facility] HospitalTotal Pqbkpbn7023-66-21 11:33:00* Test Item Value Reference Range Interpretation Comments Total Protein (test code = 2885-2) 7.5 6.5-8.1 [facility] HospitalAlbumin2018-09-16 11:33:00* Test Item Value Reference Range Interpretation Comments Albumin (test code = 1751-7) 4.1 3.5-5.0 [facility] HospitalGlobulin2018-09-16 11:33:00* Test Item Value Reference Range Interpretation Comments Globulin (test code = 55611-1) 3.4 2.3-3.5 [facility] HospitalAlbumin/Globulin Znafr9413-60-69 11:33:00 * Test Item Value Reference Range Interpretation Comments Albumin/Globulin Ratio (test code = 1759-0) 1.2 0.8-2.0 [facility] HospitalAlkaline Lcvqwdopoxl7024-35-79 11:33:00* Test Item Value Reference Range Interpretation Comments Alkaline Phosphatase (test code = 6768-6) 53 40-150 [facility] HospitalCreatine Rnlped6251-25-56 11:33:00* Test Item Value Reference Range Interpretation Comments Creatine Kinase (test code = 2157-6) 37 29-168 [facility] HospitalUrine Fvoqs8426-32-88 11:32:00* Test Item Value Reference Range Interpretation Comments Urine Color (test code = 5778-6) YELLOW YELLOW [facility] HospitalUrine Essecid6436-20-62 11:32:00* Test Item Value Reference Range Interpretation Comments Urine Clarity (test code = 93228-7) HAZY CLEAR [facility] HospitalUrine Specific Ekghcuf7723-97-52 11:32:00 * Test Item Value Reference Range Interpretation Comments Urine Specific [place] (test code = 5811-5) 1.030 1.010-1.[address] [facility] HospitalUrine rB1372-60-63 11:32:00* Test Item Value Reference Range Interpretation Comments Urine pH (test code = 26788-7) 6 5-7 [facility] HospitalUrine Leukocyte Sigvgnlv4030-83-74 11:32:00* Test Item Value Reference Range Interpretation Comments Urine Leukocyte Esterase (test code = 5799-2) NEGATIVE NEGATIVE [facility] HospitalUrine Eezmvyw9681-80-58 11:32:00* Test Item Value Reference Range Interpretation Comments Urine Nitrite (test code = 86984-6) NEGATIVE NEGATIVE [facility] HospitalUrine Lqfaluv4604-67-13 11:32:00* Test Item Value Reference Range Interpretation Comments Urine Protein (test code = 5804-0) NEGATIVE NEGATIVE [facility] HospitalUrine Glucose (UA)2018-04-27 11:32:00* Test Item Value Reference Range Interpretation Comments Urine Glucose (UA) (test code = 2349-9) NEGATIVE NEGATIVE [facility] HospitalUrine Xwtbezy1335-33-56 11:32:00* Test Item Value Reference Range Interpretation Comments Urine Ketones (test code = 36524-9) 2+ NEGATIVE H [facility] HospitalUrine Wmmczosmjnmr5274-37-98 11:32:00* Test Item Value Reference Range Interpretation Comments Urine Urobilinogen (test code = 68834-6) 1 0.2-1 [facility] HospitalUrine Eqzdzedfy4174-41-09 11:32:00* Test Item Value Reference Range Interpretation Comments Urine Bilirubin (test code = 1978-6) NEGATIVE NEGATIVE [facility] HospitalUrine Tivcm2615-94-05 11:32:00* Test Item Value Reference Range Interpretation Comments Urine Blood (test code = 07482-2) 2+ NEGATIVE H [facility] HospitalUrine ISV1415-49-62 11:32:00* Test Item Value Reference Range Interpretation Comments Urine WBC (test code = 5821-4) 11-20 0-[address] [facility] HospitalUrine SZY2512-81-73 11:32:00* Test Item Value Reference Range Interpretation Comments Urine RBC (test code = 64006-0) 6-10 0-[address] [facility] HospitalUrine Xdhickbz1736-99-82 11:32:00* Test Item Value Reference Range Interpretation Comments Urine Bacteria (test code = 89643-8) MANY NONE H [facility] HospitalUrine Epithelial Yszkd9807-41-98 11:32:00 * Test Item Value Reference Range Interpretation Comments Urine Epithelial Cells (test code = 82122-3) MANY NONE [facility] HospitalUrine Atoxm6127-81-07 11:32:00* Test Item Value Reference Range Interpretation Comments Urine Color (test code = 5778-6) YELLOW YELLOW [facility] HospitalUrine Skrkbhv1934-16-20 11:32:00* Test Item Value Reference Range Interpretation Comments Urine Clarity (test code = 74631-1) HAZY CLEAR [facility] HospitalUrine Specific Gxhvpga6327-00-80 11:32:00 * Test Item Value Reference Range Interpretation Comments Urine Specific [place] (test code = 5811-5) 1.030 1.010-1.[address] [facility] HospitalUrine tK0590-78-96 11:32:00* Test Item Value Reference Range Interpretation Comments Urine pH (test code = 11086-3) 6 5-7 [facility] HospitalUrine Leukocyte Guwoybdn1783-48-58 11:32:00* Test Item Value Reference Range Interpretation Comments Urine Leukocyte Esterase (test code = 5799-2) NEGATIVE NEGATIVE [facility] Yjbvirp8811-29-81 11:32:00* Test Item Value Reference Range Interpretation Comments Urine Nitrite (test code = 33323-5) NEGATIVE NEGATIVE [facility] Clnlsxz4164-24-77 11:32:00* Test Item Value Reference Range Interpretation Comments Urine Protein (test code = 5804-0) NEGATIVE NEGATIVE [facility] Glucose (UA)2018-04-27 11:32:00* Test Item Value Reference Range Interpretation Comments Urine Glucose (UA) (test code = 2349-9) NEGATIVE NEGATIVE [facility] Kfegfrw2769-10-54 11:32:00* Test Item Value Reference Range Interpretation Comments Urine Ketones (test code = 57161-3) 2+ NEGATIVE H [facility] Pwsbcyrkqbeo0895-06-74 11:32:00* Test Item Value Reference Range Interpretation Comments Urine Urobilinogen (test code = 50980-0) 1 0.2-1 [facility] Aldpuirek8859-35-88 11:32:00* Test Item Value Reference Range Interpretation Comments Urine Bilirubin (test code = 1978-6) NEGATIVE NEGATIVE [facility] Abpil9300-97-87 11:32:00* Test Item Value Reference Range Interpretation Comments Urine Blood (test code = 58142-8) 2+ NEGATIVE H [facility] AWG6002-41-84 11:32:00* Test Item Value Reference Range Interpretation Comments Urine WBC (test code = 5821-4) 11-20 0-[address] [facility] THR5207-02-51 11:32:00* Test Item Value Reference Range Interpretation Comments Urine RBC (test code = 50453-6) 6-10 0-[address] [facility] Yvgkvuen0701-72-04 11:32:00* Test Item Value Reference Range Interpretation Comments Urine Bacteria (test code = 38356-6) MANY NONE H [facility] HospitalUrine Epithelial Qmojm1323-42-00 11:32:00 * Test Item Value Reference Range Interpretation Comments Urine Epithelial Cells (test code = 81774-9) MANY NONE [facility] Nrslu4424-52-15 11:32:00* Test Item Value Reference Range Interpretation Comments Urine Color (test code = 5778-6) YELLOW YELLOW [facility] Lxqygpa7358-08-67 11:32:00* Test Item Value Reference Range Interpretation Comments Urine Clarity (test code = 81706-8) HAZY CLEAR [facility] Specific Wzndjqj4648-78-09 11:32:00 * Test Item Value Reference Range Interpretation Comments Urine Specific [place] (test code = 5811-5) 1.030 1.010-1.[address] [facility] [id number] 11:32:00* Test Item Value Reference Range Interpretation Comments Urine pH (test code = 47273-5) 6 5-7 [facility] HospitalU[facility] Leukocyte Euetprzg4971-25-65 11:32:00* Test Item Value Reference Range Interpretation Comments Urine Leukocyte Esterase (test code = 5799-2) NEGATIVE NEGATIVE [facility] Cfagwho1911-59-16 11:32:00* Test Item Value Reference Range Interpretation Comments Urine Nitrite (test code = 26393-6) NEGATIVE NEGATIVE [facility] Rkokout1316-15-42 11:32:00* Test Item Value Reference Range Interpretation Comments Urine Protein (test code = 5804-0) NEGATIVE NEGATIVE [facility] Glucose (UA)2018-04-27 11:32:00* Test Item Value Reference Range Interpretation Comments Urine Glucose (UA) (test code = 2349-9) NEGATIVE NEGATIVE [facility] Ucfuuvx7069-45-22 11:32:00* Test Item Value Reference Range Interpretation Comments Urine Ketones (test code = 86508-3) 2+ NEGATIVE H [facility] Llbarehazzis1990-95-40 11:32:00* Test Item Value Reference Range Interpretation Comments Urine Urobilinogen (test code = 20993-8) 1 0.2-1 [facility] Ainqivfrk3612-82-96 11:32:00* Test Item Value Reference Range Interpretation Comments Urine Bilirubin (test code = 1978-6) NEGATIVE NEGATIVE [facility] Tckbn2983-93-90 11:32:00* Test Item Value Reference Range Interpretation Comments Urine Blood (test code = 62297-2) 2+ NEGATIVE H [facility] WSD8537-65-49 11:32:00* Test Item Value Reference Range Interpretation Comments Urine WBC (test code = 5821-4) 11-20 0-[address] [facility] HJS1750-60-73 11:32:00* Test Item Value Reference Range Interpretation Comments Urine RBC (test code = 55338-6) 6-10 0-[address] [facility] Qfgzmvwy2007-21-98 11:32:00* Test Item Value Reference Range Interpretation Comments Urine Bacteria (test code = 52074-2) MANY NONE H [facility] Epithelial Nfnai2409-87-10 11:32:00 * Test Item Value Reference Range Interpretation Comments Urine Epithelial Cells (test code = 89275-5) MANY NONE [facility] Vgedd9572-02-43 11:32:00* Test Item Value Reference Range Interpretation Comments Urine Color (test code = 5778-6) YELLOW YELLOW [facility] Oazilmu9907-60-64 11:32:00* Test Item Value Reference Range Interpretation Comments Urine Clarity (test code = 32615-6) HAZY CLEAR [facility] Specific Xbrqxof2251-10-49 11:32:00 * Test Item Value Reference Range Interpretation Comments Urine Specific [place] (test code = 5811-5) 1.030 1.010-1.[address] [facility] pG6002-03-02 11:32:00* Test Item Value Reference Range Interpretation Comments Urine pH (test code = 73859-3) 6 5-7 [facility] Leukocyte Zitzpspg6369-05-99 11:32:00* Test Item Value Reference Range Interpretation Comments Urine Leukocyte Esterase (test code = 5799-2) NEGATIVE NEGATIVE [facility] Rpkqhxk1093-98-82 11:32:00* Test Item Value Reference Range Interpretation Comments Urine Nitrite (test code = 55649-3) NEGATIVE NEGATIVE [facility] Xxovdgl5431-97-32 11:32:00* Test Item Value Reference Range Interpretation Comments Urine Protein (test code = 5804-0) NEGATIVE NEGATIVE [facility] Glucose (UA)2018-04-27 11:32:00* Test Item Value Reference Range Interpretation Comments Urine Glucose (UA) (test code = 2349-9) NEGATIVE NEGATIVE [facility] Wftzvny7737-18-73 11:32:00* Test Item Value Reference Range Interpretation Comments Urine Ketones (test code = 20225-8) 2+ NEGATIVE H [facility] Wlzwemohyiqu1019-76-86 11:32:00* Test Item Value Reference Range Interpretation Comments Urine Urobilinogen (test code = 89191-7) 1 0.2-1 [facility] Fuvxcxtfu1814-50-46 11:32:00* Test Item Value Reference Range Interpretation Comments Urine Bilirubin (test code = 1978-6) NEGATIVE NEGATIVE [facility] Irlan4791-99-68 11:32:00* Test Item Value Reference Range Interpretation Comments Urine Blood (test code = 05169-2) 2+ NEGATIVE H [facility] MUW9172-25-93 11:32:00* Test Item Value Reference Range Interpretation Comments Urine WBC (test code = 5821-4) 11-20 0-[address] [facility] IML4334-76-63 11:32:00* Test Item Value Reference Range Interpretation Comments Urine RBC (test code = 24909-1) 6-10 0-[address] [facility] Lpmamrtv9242-39-97 11:32:00* Test Item Value Reference Range Interpretation Comments Urine Bacteria (test code = 06000-2) MANY NONE H [facility] Epithelial Wnsgc8323-72-88 11:32:00 * Test Item Value Reference Range Interpretation Comments Urine Epithelial Cells (test code = 45487-7) MANY NONE [facility] HospitalActivated Partial Thromboplast Time 2018-04-27 11:28:00* Test Item Value Reference Range Interpretation Comments Activated Partial Thromboplast Time (test code = 44175-8) 27.5 23.8-35.5 [facility] HospitalProthrombin Pido0786-90-65 11:23:00* Test Item Value Reference Range Interpretation Comments Prothrombin Time (test code = 5902-2) 13.3 11.9-14.5 [facility] HospitalProthromb Time International Ratio 2018-04-27 11:23:00* Test Item Value Reference Range Interpretation Comments Prothromb Time International Ratio (test code = 6301-6) 1.09 Oral Anticoagulant Therapy INR Values:1. Low Intensity Therapy 1.5 - 2.02 . Moderate Intensity Therapy 2.0 - 3.03. High Intensity Therapy(1) 2.5 - 3. 54. High Intensity Therapy(2) 3.0 - 4.05. Panic Value INR > 5.0 [facility] HospitalWhite Blood Lftjk8129-15-88 11:17:00* Test Item Value Reference Range Interpretation Comments White Blood Count (test code = 6690-2) 8.18 4.8-10.8 [facility] HospitalRed Blood Dtzdv3425-77-19 11:17:00* Test Item Value Reference Range Interpretation Comments Red Blood Count (test code = 789-8) 4.53 3.6-5.1 [facility] HospitalHemoglobin2018-09-16 11:17:00* Test Item Value Reference Range Interpretation Comments Hemoglobin (test code = 88003-5) 12.9 12.0-16.0 [facility] HospitalHematocrit2018-09-16 11:17:00* Test Item Value Reference Range Interpretation Comments Hematocrit (test code = 4544-3) 39.5 34.2-44.1 [facility] HospitalMean Corpuscular Hnpucm7745-08-06 11:17:00* Test Item Value Reference Range Interpretation Comments Mean Corpuscular Volume (test code = 787-2) 87.2 81-99 [facility] HospitalMean Corpuscular Slimabyrha3209-96-54 11:17:00* Test Item Value Reference Range Interpretation Comments Mean Corpuscular Hemoglobin (test code = 785-6) 28.5 28-32 [facility] HospitalMean Corpuscular Hemoglobin Concent 2018-04-27 11:17:00* Test Item Value Reference Range Interpretation Comments Mean Corpuscular Hemoglobin Concent (test code = 786-4) 32.7 31-35 [facility] HospitalRed Cell Distribution Fqlph2181-27-93 11:17:00* Test Item Value Reference Range Interpretation Comments Red Cell Distribution Width (test code = 07457-5) 14.0 11.7 -14.4 [facility] HospitalPlatelet Xvuqg5447-77-30 11:17:00* Test Item Value Reference Range Interpretation Comments Platelet Count (test code = 777-3) 511 140-[address] [facility] HospitalNeutrophils (%) (Auto)2018-04-27 11:17:00 * Test Item Value Reference Range Interpretation Comments Neutrophils (%) (Auto) (test code = 09032-2) 59.2 38.7-80.0 [facility] HospitalLymphocytes (%) (Auto)2018-04-27 11:17:00 * Test Item Value Reference Range Interpretation Comments Lymphocytes (%) (Auto) (test code = 736-9) 31.2 18.0-39.1 [facility] HospitalMonocytes (%) (Auto)2018-04-27 11:17:00* Test Item Value Reference Range Interpretation Comments Monocytes (%) (Auto) (test code = 5905-5) 7.1 4.4-11.3 [facility] HospitalEosinophils (%) (Auto)2018-04-27 11:17:00 * Test Item Value Reference Range Interpretation Comments Eosinophils (%) (Auto) (test code = 713-8) 1.6 0.0-6.0 [facility] HospitalBasophils (%) (Auto)2018-04-27 11:17:00* Test Item Value Reference Range Interpretation Comments Basophils (%) (Auto) (test code = 706-2) 0.7 0.0-1.0 [facility] HospitalIM GRANULOCYTES %2018-04-27 11:17:00* Test Item Value Reference Range Interpretation Comments IM GRANULOCYTES % (test code = IM GRANULOCYTES %) 0.2 0.0- 1.0 [facility] HospitalNeutrophils # (Auto)2018-04-27 11:17:00* Test Item Value Reference Range Interpretation Comments Neutrophils # (Auto) (test code = 751-8) 4.8 2.1-6.9 [facility] HospitalLymphocytes # (Auto)2018-04-27 11:17:00* Test Item Value Reference Range Interpretation Comments Lymphocytes # (Auto) (test code = 73263-7) 2.6 1.0-3.2 [facility] HospitalMonocytes # (Auto)2018-04-27 11:17:00* Test Item Value Reference Range Interpretation Comments Monocytes # (Auto) (test code = 742-7) 0.6 0.2-0.8 [facility] HospitalEosinophils # (Auto)2018-04-27 11:17:00* Test Item Value Reference Range Interpretation Comments Eosinophils # (Auto) (test code = 711-2) 0.1 0.0-0.4 [facility] HospitalBasophils # (Auto)2018-04-27 11:17:00* Test Item Value Reference Range Interpretation Comments Basophils # (Auto) (test code = 704-7) 0.1 0.0-0.1 [facility] HospitalAbsolute Immature Granulocyte (auto 2018-04-27 11:17:00* Test Item Value Reference Range Interpretation Comments Absolute Immature Granulocyte (auto (katie t code = Absolute Immature Granulocyte (auto) 0.02 0-0.1 [facility] Ueydzcp2478-03-11 07:37:00* Test Item Value Reference Range Interpretation Comments Bedside Glucose (test code = 95472-6) 140 70-120 H Meter ID: [id number] [facility] Glucose 2018-03-30 07:37:00* Test Item Value Reference Range Interpretation Comments Bedside Glucose (test code = 67268-2) 140 70-120 H Meter ID: [id number] [facility] Glucose 2018-03-30 07:37:00* Test Item Value Reference Range Interpretation Comments Bedside Glucose (test code = 18775-5) 140 70-120 H Meter ID: [id number] [facility] Glucose 2018-03-30 07:37:00* Test Item Value Reference Range Interpretation Comments Bedside Glucose (test code = 96669-3) 140 70-120 H Meter ID: [id number]. [facility] HospitalWhite Blood Count 2018-03-30 06:50:00* Test Item Value Reference Range Interpretation Comments White Blood Count (test code = 6690-2) 9.04 4.8-10.8 [facility] HospitalRed Blood Nlsjp6826-52-93 06:50:00* Test Item Value Reference Range Interpretation Comments Red Blood Count (test code = 789-8) 4.27 3.6-5.1 [facility] HospitalHemoglobin2018-08-19 06:50:00* Test Item Value Reference Range Interpretation Comments Hemoglobin (test code = 64522-5) 12.2 12.0-16.0 [facility] HospitalHematocrit2018-08-19 06:50:00* Test Item Value Reference Range Interpretation Comments Hematocrit (test code = 4544-3) 36.4 34.2-44.1 [facility] HospitalMean Corpuscular Jpcvvg5829-69-78 06:50:00* Test Item Value Reference Range Interpretation Comments Mean Corpuscular Volume (test code = 787-2) 85.2 81-99 [facility] HospitalMean Corpuscular Yxgebtnkve2832-08-66 06:50:00* Test Item Value Reference Range Interpretation Comments Mean Corpuscular Hemoglobin (test code = 785-6) 28.6 28-32 [facility] HospitalMean Corpuscular Hemoglobin Concent 2018-03-30 06:50:00* Test Item Value Reference Range Interpretation Comments Mean Corpuscular Hemoglobin Concent (test code = 786-4) 33.5 31-35 [facility] HospitalRed Cell Distribution Udcsn5295-39-10 06:50:00* Test Item Value Reference Range Interpretation Comments Red Cell Distribution Width (test code = 18977-6) 14.4 11.7 -14.4 [facility] HospitalPlatelet Ktuay0076-96-59 06:50:00* Test Item Value Reference Range Interpretation Comments Platelet Count (test code = 777-3) 462 140-[address] [facility] HospitalNeutrophils (%) (Auto)2018-03-30 06:50:00 * Test Item Value Reference Range Interpretation Comments Neutrophils (%) (Auto) (test code = 72615-1) 52.9 38.7-80.0 [facility] HospitalLymphocytes (%) (Auto)2018-03-30 06:50:00 * Test Item Value Reference Range Interpretation Comments Lymphocytes (%) (Auto) (test code = 736-9) 33.7 18.0-39.1 [facility] HospitalMonocytes (%) (Auto)2018-03-30 06:50:00* Test Item Value Reference Range Interpretation Comments Monocytes (%) (Auto) (test code = 5905-5) 8.7 4.4-11.3 [facility] HospitalEosinophils (%) (Auto)2018-03-30 06:50:00 * Test Item Value Reference Range Interpretation Comments Eosinophils (%) (Auto) (test code = 713-8) 3.1 0.0-6.0 [facility] HospitalBasophils (%) (Auto)2018-03-30 06:50:00* Test Item Value Reference Range Interpretation Comments Basophils (%) (Auto) (test code = 706-2) 0.7 0.0-1.0 [facility] HospitalIM GRANULOCYTES %2018-03-30 06:50:00* Test Item Value Reference Range Interpretation Comments IM GRANULOCYTES % (test code = IM GRANULOCYTES %) 0.9 0.0- 1.0 [facility] HospitalNeutrophils # (Auto)2018-03-30 06:50:00* Test Item Value Reference Range Interpretation Comments Neutrophils # (Auto) (test code = 751-8) 4.8 2.1-6.9 [facility] HospitalLymphocytes # (Auto)2018-03-30 06:50:00* Test Item Value Reference Range Interpretation Comments Lymphocytes # (Auto) (test code = 22806-1) 3.1 1.0-3.2 [facility] HospitalMonocytes # (Auto)2018-03-30 06:50:00* Test Item Value Reference Range Interpretation Comments Monocytes # (Auto) (test code = 742-7) 0.8 0.2-0.8 [facility] HospitalEosinophils # (Auto)2018-03-30 06:50:00* Test Item Value Reference Range Interpretation Comments Eosinophils # (Auto) (test code = 711-2) 0.3 0.0-0.4 [facility] HospitalBasophils # (Auto)2018-03-30 06:50:00* Test Item Value Reference Range Interpretation Comments Basophils # (Auto) (test code = 704-7) 0.1 0.0-0.1 [facility] HospitalAbsolute Immature Granulocyte (auto 2018-03-30 06:50:00* Test Item Value Reference Range Interpretation Comments Absolute Immature Granulocyte (auto (katie t code = Absolute Immature Granulocyte (auto) 0.08 0-0.1 [facility] HospitalFree Isasieuwy4369-70-43 06:22:00* Test Item Value Reference Range Interpretation Comments Free Thyroxine (test code = 3024-7) 1.02 0.9-1.8 [facility] HospitalThyroid Stimulating Hormone (TSH) 2018-03-30 06:22:00* Test Item Value Reference Range Interpretation Comments Thyroid Stimulating Hormone (TSH) (test code = 20789-7) 1.128 0.350-4.940 [facility] Aboiippoa0580-59-95 06:22:00* Test Item Value Reference Range Interpretation Comments Free Thyroxine (test code = 3024-7) 1.02 0.9-1.8 [facility] HospitalThyroid Stimulating Hormone (TSH) 2018-03-30 06:22:00* Test Item Value Reference Range Interpretation Comments Thyroid Stimulating Hormone (TSH) (test code = 82477-4) 1.128 0.350-4.940 [facility] Niqhmsuza2803-87-47 06:22:00* Test Item Value Reference Range Interpretation Comments Free Thyroxine (test code = 3024-7) 1.02 0.9-1.8 [facility] HospitalThyroid Stimulating Hormone (TSH) 2018-03-30 06:22:00* Test Item Value Reference Range Interpretation Comments Thyroid Stimulating Hormone (TSH) (test code = 16589-3) 1.128 0.350-4.940 [facility] Ltytqqyvt9634-69-73 06:22:00* Test Item Value Reference Range Interpretation Comments Free Thyroxine (test code = 3024-7) 1.02 0.9-1.8 [facility] HospitalThyroid Stimulating Hormone (TSH) 2018-03-30 06:22:00* Test Item Value Reference Range Interpretation Comments Thyroid Stimulating Hormone (TSH) (test code = 24622-9) 1.128 0.350-4.940 [facility] Planoodium Jvlny7252-91-54 06:02:00* Test Item Value Reference Range Interpretation Comments Sodium Level (test code = 2951-2) 138 136-145 [facility] HospitalPotassium Kwqsm9106-38-91 06:02:00* Test Item Value Reference Range Interpretation Comments Potassium Level (test code = 2823-3) 3.2 3.5-5.[address] [facility] HospitalChloride Sbrot0490-29-97 06:02:00* Test Item Value Reference Range Interpretation Comments Chloride Level (test code = 2075-0) 99 98-107 [facility] HospitalCarbon Dioxide Wwujj9116-52-15 06:02:00* Test Item Value Reference Range Interpretation Comments Carbon Dioxide Level (test code = 2028-9) 25 22-29 [facility] HospitalAnion Ooi9960-18-41 06:02:00* Test Item Value Reference Range Interpretation Comments Anion Gap (test code = 67797-6) 17.2 8-[address] [facility] HospitalBlood Urea Bbwhoyjy9076-09-71 06:02:00* Test Item Value Reference Range Interpretation Comments Blood Urea Nitrogen (test code = 3094-0) 8 7-26 [facility] HospitalCreatinine2018-08-19 06:02:00* Test Item Value Reference Range Interpretation Comments Creatinine (test code = 2160-0) 0.69 0.57-1.11 [facility] HospitalBUN/Creatinine Ordch3221-47-12 06:02:00* Test Item Value Reference Range Interpretation Comments BUN/Creatinine Ratio (test code = 3097-3) 12 6- [facility] HospitalEstimat Glomerular Filtration Rate 2018-03-30 06:02:00* Test Item Value Reference Range Interpretation Comments Estimat Glomerular Filtration Rate (test code = 08525-3) 60- >60 Ranges were taken from the National Kidney Disease Education Program and the [facility] [employer] literature.Reference ranges:60 or greater: Pzbwrm28-62 ( for 3 consecutive months): Chronic kidney disease 15 or less: Kidney failureSt. Luke's Health – [facility] HospitalGlucose Ylxlm0037-16-38 06:02:00* Test Item Value Reference Range Interpretation Comments Glucose Level (test code = IEQ1124) 152 74-[address] [facility] HospitalCalcium Dufpm9758-81-29 06:02:00* Test Item Value Reference Range Interpretation Comments Calcium Level (test code = 30211-5) 8.9 8.4-10.2 [facility] HospitalMagnesium Vjcsm0485-25-88 06:02:00* Test Item Value Reference Range Interpretation Comments Magnesium Level (test code = 30443-0) 1.7 1.3-2.1 [facility] HospitalMagnesium Dxupc9472-33-42 06:02:00* Test Item Value Reference Range Interpretation Comments Magnesium Level (test code = 94394-6) 1.7 1.3-2.1 [facility] HospitalHemoglobin A1c Qewshgp3120-22-76 05:46:00 * Test Item Value Reference Range Interpretation Comments Hemoglobin A1c Percent (test code = Hemoglobin A1c Percent) 6.9 4.0-7.0 [facility] HospitalHemoglobin A1c Qahlbxb9733-20-68 05:46:00 * Test Item Value Reference Range Interpretation Comments Hemoglobin A1c Percent (test code = Hemoglobin A1c Percent) 6.9 4.0-7.0 [facility] HospitalHemoglobin A1c Yfuyopu6948-77-56 05:46:00 * Test Item Value Reference Range Interpretation Comments Hemoglobin A1c Percent (test code = Hemoglobin A1c Percent) 6.9 4.0-7.0 [facility] HospitalHemoglobin A1c Ajudglo6908-61-64 05:46:00 * Test Item Value Reference Range Interpretation Comments Hemoglobin A1c Percent (test code = Hemoglobin A1c Percent) 6.9 4.0-7.0 [facility] HospitalCreatine Rmvcpi3459-20-37 15:23:00* Test Item Value Reference Range Interpretation Comments Creatine Kinase (test code = 2157-6) 62 29-168 [facility] HospitalCreatine Kinase [id number] 15:23:00* Test Item Value Reference Range Interpretation Comments Creatine Kinase MB (test code = 53042-8) 0.50 0-5.0 [facility] HospitalTroponin R6520-01-04 15:23:00* Test Item Value Reference Range Interpretation Comments Troponin I (test code = PEJ2951) 0.004 0-0.300 [facility] HospitalTotal Dyafmcjal2522-47-76 05:55:00* Test Item Value Reference Range Interpretation Comments Total Bilirubin (test code = 1975-2) 1.2 0.2-1.2 [facility] HospitalAspartate Amino Transf (AST/SGOT) 2018-03-29 05:55:00* Test Item Value Reference Range Interpretation Comments Aspartate Amino Transf (AST/SGOT) (test code = Aspartate Amino Transf (AST/SGOT)) 32 5-34 [facility] HospitalAlanine Aminotransferase (ALT/SGPT) 2018-03-29 05:55:00* Test Item Value Reference Range Interpretation Comments Alanine Aminotransferase (ALT/SGPT) (test code = 1742-6) 26 0-55 [facility] HospitalTotal Kuqmvof0618-90-54 05:55:00* Test Item Value Reference Range Interpretation Comments Total Protein (test code = 2885-2) 6.1 6.5-8.[address] [facility] HospitalAlbumin2018-08-18 05:55:00* Test Item Value Reference Range Interpretation Comments Albumin (test code = 1751-7) 3.2 3.5-5.[address] [facility] HospitalGlobulin2018-08-18 05:55:00* Test Item Value Reference Range Interpretation Comments Globulin (test code = 62895-8) 2.9 2.3-3.5 [facility] HospitalAlbumin/Globulin Lxwty0019-39-76 05:55:00 * Test Item Value Reference Range Interpretation Comments Albumin/Globulin Ratio (test code = 1759-0) 1.1 0.8-2.0 [facility] HospitalAlkaline Bejdcxqkilo3988-45-97 05:55:00* Test Item Value Reference Range Interpretation Comments Alkaline Phosphatase (test code = 6768-6) 54 40-150 [facility] HospitalUrine NIB4032-43-77 17:50:00* Test Item Value Reference Range Interpretation Comments Urine WBC (test code = 5821-4) NONE 0-5 [facility] HospitalUrine GGV0847-34-60 17:50:00* Test Item Value Reference Range Interpretation Comments Urine RBC (test code = 18917-1) 0-5 0-5 [facility] HospitalUrine Fstrqnoj0789-62-63 17:50:00* Test Item Value Reference Range Interpretation Comments Urine Bacteria (test code = 81260-4) MODERATE NONE H [facility] HospitalUrine Epithelial Nrbsc7629-52-02 17:50:00 * Test Item Value Reference Range Interpretation Comments Urine Epithelial Cells (test code = 12548-5) FEW NONE [facility] HospitalUrine Opiates Eclkbp4459-05-89 17:41:00* Test Item Value Reference Range Interpretation Comments Urine Opiates Screen (test code = 61655-7) NEGATIVE NEGATIVE [facility] HospitalUrine Barbiturates Wxoovs8101-23-13 17:41:00* Test Item Value Reference Range Interpretation Comments Urine Barbiturates Screen (test code = 184993114) NEGATIVE NEGA TIVE [facility] HospitalUrine Phencyclidine Zvsjtp8420-44-78 17:41:00* Test Item Value Reference Range Interpretation Comments Urine Phencyclidine Screen (test code = 71105-6) NEGATIVE NEGAT DANI [facility] Amphetamines Wojmkv0366-10-07 17:41:00* Test Item Value Reference Range Interpretation Comments Urine Amphetamines Screen (test code = 79726-7) NEGATIVE NEGATI VE [facility] HospitalUrine Methamphetamines Jbsuco9629-47-99 17:41:00* Test Item Value Reference Range Interpretation Comments Urine Methamphetamines Screen (test code = Urine Metha mphetamines Screen) NEGATIVE NEGATIVE [facility] HospitalUrine Benzodiazepines Yrajea6703-97-04 17:41:00* Test Item Value Reference Range Interpretation Comments Urine Benzodiazepines Screen (test code = 28994-8) NEGATIVE NEG ATIVE [facility] HospitalUrine Cocaine Sxzrkq5771-87-76 17:41:00* Test Item Value Reference Range Interpretation Comments Urine Cocaine Screen (test code = 3398-5) NEGATIVE NEGATIVE [facility] HospitalUrine Cannabinoids Cahjzw8529-46-19 17:41:00* Test Item Value Reference Range Interpretation Comments Urine Cannabinoids Screen (test code = 95494-8) NEGATIVE NEGATI VE THESE RESULTS ARE FOR MEDICAL TREATMENT ONLYTHIS REPORT CONTAINS UNCONFIR MED SCREENING RESULTS*POSITIVE RESULTS WILL BE CONFIRMED BY REFERENCE LAB UPON R EQUEST CUT-OFFDRUG CLASS CONCENTRATION ng/mLAmphetamines 1000Methamphetamines 1000Cocaine 300Opiate 300Phencyc lidine 25Cannabinoid 50Barbiturates 300Benzodiazepine 300Methadone 300 --- 1741 ---[facility] previously reported as: THESE RESULTS ARE FOR MEDICAL TREATM ENT ONLYTHIS REPORT CONTAINS UNCONFIRMED SCREENING RESULTS*POSITIVE RESULTS WILL BE CONFIRMED BY REFERENCE LAB UPON REQUEST CUT-OF FDRUG CLASS CONCENTRATION ng/mLAmphetamin es 1000Methamphetamines 1000Cocaine 300Opiate 300Phencyclidine 25Cannabinoid 50Barbiturates 300Benzodiazepine 300Me thadone 300[facility] Opiates Gnzxzs2345-14-72 17:41:00* Test Item Value Reference Range Interpretation Comments Urine Opiates Screen (test code = 61044-2) NEGATIVE NEGATIVE [facility] HospitalUrine Barbiturates Vlmxya5057-71-70 17:41:00* Test Item Value Reference Range Interpretation Comments Urine Barbiturates Screen (test code = 803895700) NEGATIVE NEGA TIVE [facility] HospitalUrine Phencyclidine Xzvwup0921-33-32 17:41:00* Test Item Value Reference Range Interpretation Comments Urine Phencyclidine Screen (test code = 16296-5) NEGATIVE NEGAT DANI [facility] HospitalUrine Amphetamines Feidub9828-94-91 17:41:00* Test Item Value Reference Range Interpretation Comments Urine Amphetamines Screen (test code = 46789-8) NEGATIVE NEGATI VE [facility] HospitalUrine Methamphetamines Jmlrkh4951-24-86 17:41:00* Test Item Value Reference Range Interpretation Comments Urine Methamphetamines Screen (test code = Urine Metha mphetamines Screen) NEGATIVE NEGATIVE [facility] HospitalUrine Benzodiazepines Hobeao8531-68-77 17:41:00* Test Item Value Reference Range Interpretation Comments Urine Benzodiazepines Screen (test code = 78888-0) NEGATIVE NEG ATIVE [facility] HospitalUrine Cocaine Qtzecb3349-44-81 17:41:00* Test Item Value Reference Range Interpretation Comments Urine Cocaine Screen (test code = 3398-5) NEGATIVE NEGATIVE [facility] HospitalUrine Cannabinoids Dfscwc0670-16-36 17:41:00* Test Item Value Reference Range Interpretation Comments Urine Cannabinoids Screen (test code = 57394-6) NEGATIVE NEGATI VE THESE RESULTS ARE FOR MEDICAL TREATMENT ONLYTHIS REPORT CONTAINS UNCONFIR MED SCREENING RESULTS*POSITIVE RESULTS WILL BE CONFIRMED BY REFERENCE LAB UPON R EQUEST CUT-OFFDRUG CLASS CONCENTRATION ng/mLAmphetamines 1000Methamphetamines 1000Cocaine 300Opiate 300Phencyc lidine 25Cannabinoid 50Barbiturates 300Benzodiazepine 300Methadone 300 --- 1741 ---[facility] previously reported as: THESE RESULTS ARE FOR MEDICAL TREATM ENT ONLYTHIS REPORT CONTAINS UNCONFIRMED SCREENING RESULTS*POSITIVE RESULTS WILL BE CONFIRMED BY REFERENCE LAB UPON REQUEST CUT-OF FDRUG CLASS CONCENTRATION ng/mLAmphetamin es 1000Methamphetamines 1000Cocaine 300Opiate 300Phencyclidine 25Cannabinoid 50Barbiturates 300Benzodiazepine 300Me thadone 300[facility]ressU[facility] Opiates Pbpoba8824-28-30 17:41:00* Test Item Value Reference Range Interpretation Comments Urine Opiates Screen (test code = 20153-0) NEGATIVE NEGATIVE [facility] HospitalUrine Barbiturates Khktli3215-43-97 17:41:00* Test Item Value Reference Range Interpretation Comments Urine Barbiturates Screen (test code = 296037422) NEGATIVE NEGA TIVE [facility] HospitalUrine Phencyclidine Wmaybc8054-54-30 17:41:00* Test Item Value Reference Range Interpretation Comments Urine Phencyclidine Screen (test code = 10680-0) NEGATIVE NEGAT DANI [facility] HospitalUrine Amphetamines Xoyjsb8806-88-50 17:41:00* Test Item Value Reference Range Interpretation Comments Urine Amphetamines Screen (test code = 34905-8) NEGATIVE NEGATI VE [facility] HospitalUrine Methamphetamines Lgcvkl9881-94-09 17:41:00* Test Item Value Reference Range Interpretation Comments Urine Methamphetamines Screen (test code = Urine Metha mphetamines Screen) NEGATIVE NEGATIVE [facility] HospitalUrine Benzodiazepines Sgtexw8310-67-27 17:41:00* Test Item Value Reference Range Interpretation Comments Urine Benzodiazepines Screen (test code = 52817-5) NEGATIVE NEG ATIVE [facility] HospitalUrine Cocaine Gwizti9056-65-26 17:41:00* Test Item Value Reference Range Interpretation Comments Urine Cocaine Screen (test code = 3398-5) NEGATIVE NEGATIVE [facility] HospitalUrine Cannabinoids Vansfy0120-76-24 17:41:00* Test Item Value Reference Range Interpretation Comments Urine Cannabinoids Screen (test code = 96854-5) NEGATIVE NEGATI VE THESE RESULTS ARE FOR MEDICAL TREATMENT ONLYTHIS REPORT CONTAINS UNCONFIR MED SCREENING RESULTS*POSITIVE RESULTS WILL BE CONFIRMED BY REFERENCE LAB UPON R EQUEST CUT-OFFDRUG CLASS CONCENTRATION ng/mLAmphetamines 1000Methamphetamines 1000Cocaine 300Opiate 300Phencyc lidine 25Cannabinoid 50Barbiturates 300Benzodiazepine 300Methadone 300 --- 1741 ---[facility] previously reported as: THESE RESULTS ARE FOR MEDICAL TREATM ENT ONLYTHIS REPORT CONTAINS UNCONFIRMED SCREENING RESULTS*POSITIVE RESULTS WILL BE CONFIRMED BY REFERENCE LAB UPON REQUEST CUT-OF FDRUG CLASS CONCENTRATION ng/mLAmphetamin es 1000Methamphetamines 1000Cocaine 300Opiate 300Phencyclidine 25Cannabinoid 50Barbiturates 300Benzodiazepine 300Me thadone 300[facility]ressUrine Opiates Helyci2490-55-34 17:41:00* Test Item Value Reference Range Interpretation Comments Urine Opiates Screen (test code = 19463-9) NEGATIVE NEGATIVE [facility] HospitalUrine Barbiturates Enapbq1139-37-51 17:41:00* Test Item Value Reference Range Interpretation Comments Urine Barbiturates Screen (test code = 147162996) NEGATIVE NEGA TIVE [facility] HospitalUrine Phencyclidine Slfzgh8548-44-32 17:41:00* Test Item Value Reference Range Interpretation Comments Urine Phencyclidine Screen (test code = 33261-9) NEGATIVE NEGAT DANI [facility] HospitalUrine Amphetamines Lbceyn9204-22-10 17:41:00* Test Item Value Reference Range Interpretation Comments Urine Amphetamines Screen (test code = 67137-5) NEGATIVE NEGATI VE [facility] HospitalUrine Methamphetamines Dhbfsg2932-45-73 17:41:00* Test Item Value Reference Range Interpretation Comments Urine Methamphetamines Screen (test code = Urine Metha mphetamines Screen) NEGATIVE NEGATIVE [facility] HospitalUrine Benzodiazepines Ahajvr7277-46-76 17:41:00* Test Item Value Reference Range Interpretation Comments Urine Benzodiazepines Screen (test code = 47746-3) NEGATIVE NEG ATIVE [facility] HospitalUrine Cocaine Vglrdi2667-72-47 17:41:00* Test Item Value Reference Range Interpretation Comments Urine Cocaine Screen (test code = 3398-5) NEGATIVE NEGATIVE [facility] HospitalUrine Cannabinoids Sarauh4453-64-47 17:41:00* Test Item Value Reference Range Interpretation Comments Urine Cannabinoids Screen (test code = 94326-7) NEGATIVE NEGATI VE THESE RESULTS ARE FOR MEDICAL TREATMENT ONLYTHIS REPORT CONTAINS UNCONFIR MED SCREENING RESULTS*POSITIVE RESULTS WILL BE CONFIRMED BY REFERENCE LAB UPON R EQUEST CUT-OFFDRUG CLASS CONCENTRATION ng/mLAmphetamines 1000Methamphetamines 1000Cocaine 300Opiate 300Phencyc lidine 25Cannabinoid 50Barbiturates 300Benzodiazepine 300Methadone 300 --- 1741 ---[facility] previously reported as: THESE RESULTS ARE FOR MEDICAL TREATM ENT ONLYTHIS REPORT CONTAINS UNCONFIRMED SCREENING RESULTS*POSITIVE RESULTS WILL BE CONFIRMED BY REFERENCE LAB UPON REQUEST CUT-OF FDRUG CLASS CONCENTRATION ng/mLAmphetamin es 1000Methamphetamines 1000Cocaine 300Opiate 300Phencyclidine 25Cannabinoid 50Barbiturates 300Benzodiazepine 300Me thadone 300[facility]ressUrine Color 2018-03-28 17:37:00* Test Item Value Reference Range Interpretation Comments Urine Color (test code = 5778-6) YELLOW YELLOW [facility] HospitalUrine Cygfcpz7077-63-05 17:37:00* Test Item Value Reference Range Interpretation Comments Urine Clarity (test code = 45519-0) CLEAR CLEAR [facility] HospitalUrine Specific Cmhsdyd6678-98-85 17:37:00 * Test Item Value Reference Range Interpretation Comments Urine Specific [place] (test code = 5811-5) 1.005 1.010-1.[address] [facility] HospitalUrine [id number] 17:37:00* Test Item Value Reference Range Interpretation Comments Urine pH (test code = 98041-7) 6 5-7 [facility] HospitalUrine Leukocyte Dbevtnve6099-52-93 17:37:00* Test Item Value Reference Range Interpretation Comments Urine Leukocyte Esterase (test code = 5799-2) NEGATIVE NEGATIVE [facility] HospitalUrine Mbzsgrs2602-17-38 17:37:00* Test Item Value Reference Range Interpretation Comments Urine Nitrite (test code = 92128-4) NEGATIVE NEGATIVE [facility] HospitalUrine Qbmgfef7763-24-73 17:37:00* Test Item Value Reference Range Interpretation Comments Urine Protein (test code = 5804-0) NEGATIVE NEGATIVE [facility] HospitalUrine Glucose (UA)2018-03-28 17:37:00* Test Item Value Reference Range Interpretation Comments Urine Glucose (UA) (test code = 2349-9) NEGATIVE NEGATIVE [facility] HospitalUrine Mhehpks6745-56-25 17:37:00* Test Item Value Reference Range Interpretation Comments Urine Ketones (test code = 77541-2) 1+ NEGATIVE H [facility] Jcckjzhuuukj1212-31-90 17:37:00* Test Item Value Reference Range Interpretation Comments Urine Urobilinogen (test code = 01150-8) 0.2 0.2-1 [facility] Ntwacuixt5139-63-54 17:37:00* Test Item Value Reference Range Interpretation Comments Urine Bilirubin (test code = 1978-6) NEGATIVE NEGATIVE [facility] Vwcad5441-72-84 17:37:00* Test Item Value Reference Range Interpretation Comments Urine Blood (test code = 82547-2) 1+ NEGATIVE H [facility] HospitalEthyl Alcohol Posia5297-06-18 16:47:00* Test Item Value Reference Range Interpretation Comments Ethyl Alcohol Level (test code = 5643-2) -10.0 0.0-10.0 [facility] HospitalEth[facility] Alcohol Nhrbt8071-86-99 16:47:00* Test Item Value Reference Range Interpretation Comments Ethyl Alcohol Level (test code = 5643-2) -10.0 0.0-10.0 [facility] Alcohol Nvdsn2893-29-86 16:47:00* Test Item Value Reference Range Interpretation Comments Ethyl Alcohol Level (test code = 5643-2) < 10.0 0.0-10.0 [facility] HospitalEth[facility] Alcohol Audbk4541-31-67 16:47:00* Test Item Value Reference Range Interpretation Comments Ethyl Alcohol Level (test code = 5643-2) < 10.0 0.0-10.0 [facility] HospitalCHEST 2 UVQKO1534-28-97 16:19:00 [facility] [address] [address] Patient Name: MARGY BAIN MR #: [id number] : 0 1975 Age/Sex: 43/F Req #: [id number] Adm Physician: Ordered by: BRAD ARVIZU MD Report #: [id number] Location: ER Room/Be d: Procedure: [id number] DX/CHEST 2 VIEWS Exam Date: Exam Time: REPORT STATUS: Signed EXAMINATI ON: CHEST 2 VIEWS INDICATION: Heart palpitations, hyperglycemia, hyper tension COMPARISON: Chest x-ray 01/09/2017, chest x-ray 01/06/2016 FINDINGS: PA and lateral views TUBES and LINES: None. LUNGS: Lungs are well inflated. There is no evidence of pneumonia or pulmonary edema. PLEURA: No pleural effusion or pneumothorax. HEART AND MEDIASTINUM: The heart is normal in size. Aorta is mildly ectatic and stable in morphology. BONES AND SOFT TISSUES: No focal osseous lesions. Soft tissues are unr emarkable. UPPER ABDOMEN: No free air under the diaphragm. IMPRESSION : No acute thoracic abnormality. Signed by: Dr. Kai Tadeo MD on 03/28/2018 4:20 PM Dictated By: KAI TADEO MD Electronicall y Signed By: KAI TADEO MD on 03/28/181619 Transcribed By: FRANCIS on 0 03/28/18 1620 COPY TO: BRAD ARVIZU MD CT BRAIN RP1124-19-30 15:56:00 [facility] [address] [place] [address] Patient Name: MARGY BAIN MR #: [id number] : 1975 Age/Sex: 43/F Req #: [id number] Adm Physician: Ordered by: BRAD ARVIZU MD Report #: [id number] Location: Room/Bed: Procedure: [id number] CT/CT BRAIN WO Exam Date: Exam Time: 1531 REPORT STATUS: Signed Exam: Head CT without contrast History: Headache, hypertension, diabetes, fabián amoya disease Comparison studies: Multiple prior head CTs which date to 06/01, most recent 2017. Brain MRI 04/01/2017 Technique: Axial image s were obtained from the skull base to the vertex. Coronal and sagittal images reconstructed from the axial data. Radiation dose: Total DLP: 728 mGy*cm. Est imated effective dose: DLP x 0.015 Intravenous contrast: None Findings: Scalp: No abnormalities. Bones: No fractures, blastic or lytic lesions. Brain sulci: Appropriate for age. Ventricles: Normal in size and configura tion. No hydrocephalus. Extra-axial spaces: No masses, no fluid collection. Parenchyma: No mass, acute hemorrhage or acute cortical vascular insults. Small chronic lacunar insult in the head of the right caudate nucleus. A few subtle hypodensities in the supratentorial white matter are nonspecific most compatible with chronic microvascular ischemic changes. Sellar/suprasellar region: No abnormalities. Craniocervical junction: Patent foramen magnum. No Chiari one malformation. IMPRESSION: 1. No acute intracranial abnorm alities. 2. No changes from the previous brain MRI of 04/01/2017 when allowing for differences in modality. 3. Small chronic lacunar infarct in the right caudate nucleus. 4. Mild chronic microvascular ischemic changes. Signed by: Dr. Leslie Mcrae M.D. on 03/28/2018 4:07 PM Dictated By: LESLIE MOREL MD 06 Transcr ibed By: FRANCIS on 03/28/181606 COPY TO: BRAD ARVIZU MD Human Chorionic Gonadotropin, Vkyk0790-47-11 15:35:00* Test Item Value Reference Range Interpretation Comments Human Chorionic Gonadotropin, Qual (test code = 2118-8) NEGATIVE NEGATIVE [facility] Chorionic Gonadotropin, [facility] 2018-03-28 15:35:00* Test Item Value Reference Range Interpretation Comments Human Chorionic Gonadotropin, Qual (test code = 2118-8) NEGATIVE NEGATIVE [facility] Chorionic Gonadotropin, [facility] 2018-03-28 15:35:00* Test Item Value Reference Range Interpretation Comments Human Chorionic Gonadotropin, Qual (test code = 2118-8) NEGATIVE NEGATIVE [facility] Chorionic Gonadotropin, [facility] 2018-03-28 15:35:00* Test Item Value Reference Range Interpretation Comments Human Chorionic Gonadotropin, Qual (test code = 2118-8) NEGATIVE NEGATIVE [facility] CMTEKOX8810-27-41 12:38:00* Test Item Value Reference Range Interpretation Comments CULTURE (BEAKER) (test code = 1095) See comment <10,000 col/mL Gram Negative mcdz93-50,000 col/mL skin floraBASIC METABOLIC QONHB2770-49-70 08:05:00* Test Item Value Reference Range Interpretation Comments SODIUM (BEAKER) (test code = 381) 140 meq/L 136-145 POTASSIUM (BEAKER) (test code = 379) 3.4 meq/L 3.5-5.1 L CHLORIDE (BEAKER) (test code = 382) 107 meq/L 98-107 CO2 (BEAKER) (test code = 355) 26 meq/L 22-29 BLOOD UREA NITROGEN (BEAKER) (test code = 354) 10 mg/dL 7-21 CREATININE (BEAKER) (test code = 358) 0.70 mg/dL 0.57-1.25 GLUCOSE RANDOM (BEAKER) (test code = 652) 112 mg/dL 70-105 H CALCIUM (BEAKER) (test code = 697) 8.3 mg/dL 8.4-10.2 L EGFR (BEAKER) (test code = 1092) 92 mL/min/1.73 sq m ESTIMATED GFR IS NOT ACCURATE CREATININE CLEARANCE IN PREDICTING GLOMERULAR FILTRATION RATE. ESTIMATED GFR IS NOT APPLICABLE FOR DIALYSIS PATIENTS. POCT-GLUCOSE [id number] 07:52:00* Test Item Value Reference Range Interpretation Comments POC-GLUCOSE METER (BEAKER) (test code = 1538) 135 mg/dL 70-110 H TESTED AT [address] [address] POCT-GLUCOSE [id number] 20:37:00* Test Item Value Reference Range Interpretation Comments POC-GLUCOSE METER (BEAKER) (test code = 1538) 115 mg/dL 70-110 H TESTED AT [address] [address] LIPID [id number] 14:33:00* Test Item Value Reference Range Interpretation Comments TRIGLYCERIDES (BEAKER) (test code = 540) 99 mg/dL CHOLESTEROL (BEAKER) (test code = 631) 144 mg/dL HDL CHOLESTEROL (BEAKER) (test code = 976) 37 mg/dL LDL CHOLESTEROL CALCULATED (BEAKER) (test code = 633) 87 mg/dL Triglyceride Reference Range: Low Risk <150 Borderline 150-199 High Risk 200-499 Very High Risk >=500Cholesterol Reference Range: Low Risk <200 Borderline 200-239 High Risk >240HDL Cholesterol Reference Range: Low Risk >=60 High Risk <40LDL Cholesterol Reference Range: Optimal <100 Near Optimal 100-129 Borderline 130-159 High 160-189 Very High >=190 POCT- GLUCOSE [id number] 12:14:00* Test Item Value Reference Range Interpretation Comments POC-GLUCOSE METER (BEAKER) (test code = 1538) 127 mg/dL 70-110 H TESTED AT [facility] [address] [facility] [address] POCT-GLUCOSE [id number] 08:22:00* Test Item Value Reference Range Interpretation Comments POC-GLUCOSE METER (BEAKER) (test code = 1538) 144 mg/dL 70-110 H TESTED AT [facility] [address] [facility] [address] CBC W/PLT COUNT & AUTO LVRYETAFXQFG7684-81-50 06:28:00* Test Item Value Reference Range Interpretation Comments WHITE BLOOD CELL COUNT (BEAKER) (test code = 775) 11.7 K/ L 3.5- 10.5 H RED BLOOD CELL COUNT (BEAKER) (test code = 761) 4.18 M/ L 3.93-5 .22 HEMOGLOBIN (BEAKER) (test code = 410) 11.7 GM/DL 11.2-15.7 HEMATOCRIT (BEAKER) (test code = 411) 36.4 % 34.1-44.9 MEAN CORPUSCULAR VOLUME (BEAKER) (test code = 753) 87.1 fL 79. 4-94.8 MEAN CORPUSCULAR HEMOGLOBIN (BEAKER) (test code = 751) 28.0 pg 25.6-32.2 MEAN CORPUSCULAR HEMOGLOBIN CONC (BEAKER) (test code = 752) 32.1 GM/DL 32.2-35.5 L RED CELL DISTRIBUTION WIDTH (BEAKER) (test code = 412) 14.3 % 11.7-14.4 PLATELET COUNT (BEAKER) (test code = 756) 463 K/CU MM 150-450 H MEAN PLATELET VOLUME (BEAKER) (test code = 754) 9.6 fL 9.4-12 .3 NUCLEATED RED BLOOD CELLS (BEAKER) (test code = 413) 0 /100 WBC 0 -0 NEUTROPHILS RELATIVE PERCENT (BEAKER) (test code = 429) 75 % LYMPHOCYTES RELATIVE PERCENT (BEAKER) (test code = 430) 19 % MONOCYTES RELATIVE PERCENT (BEAKER) (test code = 431) 5 % EOSINOPHILS RELATIVE PERCENT (BEAKER) (test code = 432) 0 % BASOPHILS RELATIVE PERCENT (BEAKER) (test code = 437) 0 % NEUTROPHILS ABSOLUTE COUNT (BEAKER) (test code = 670) 8.75 K/ L 1.56-6.13 H LYMPHOCYTES ABSOLUTE COUNT (BEAKER) (test code = 414) 2.22 K/ L 1.18-3.74 MONOCYTES ABSOLUTE COUNT (BEAKER) (test code = 415) 0.60 K/ L 0. 24-0.36 H EOSINOPHILS ABSOLUTE COUNT (BEAKER) (test code = 416) 0.03 K/ L 0.04-0.36 L BASOPHILS ABSOLUTE COUNT (BEAKER) (test code = 417) 0.03 K/ L 0. 01-0.08 IMMATURE GRANULOCYTES-RELATIVE PERCENT (BEAKER) (test code = 2801) 1 % 0-1 BASIC METABOLIC [id number] 06:24:00* Test Item Value Reference Range Interpretation Comments SODIUM (BEAKER) (test code = 381) 138 meq/L 136-145 POTASSIUM (BEAKER) (test code = 379) 3.9 meq/L 3.5-5.1 CHLORIDE (BEAKER) (test code = 382) 103 meq/L 98-107 CO2 (BEAKER) (test code = 355) 24 meq/L 22-29 BLOOD UREA NITROGEN (BEAKER) (test code = 354) 10 mg/dL 7-21 CREATININE (BEAKER) (test code = 358) 0.70 mg/dL 0.57-1.25 GLUCOSE RANDOM (BEAKER) (test code = 652) 177 mg/dL 70-105 H CALCIUM (BEAKER) (test code = 697) 9.2 mg/dL 8.4-10.2 EGFR (BEAKER) (test code = 1092) 92 mL/min/1.73 sq m ESTIMATED GFR IS NOT ACCURATE CREATININE CLEARANCE IN PREDICTING GLOMERULAR FILTRATION RATE. ESTIMATED GFR IS NOT APPLICABLE FOR DIALYSIS PATIENTS. URINALYSIS W/ [id number] 22:02:00* Test Item Value Reference Range Interpretation Comments COLOR (BEAKER) (test code = 470) Light Yellow CLARITY (BEAKER) (test code = 469) Clear SPECIFIC GRAVITY UA (BEAKER) (test code = 468) 1.008 1.001-1 .035 PH UA (BEAKER) (test code = 467) 5.5 5.0-8.0 PROTEIN UA (BEAKER) (test code = 464) Negative Negative GLUCOSE UA (BEAKER) (test code = 365) Negative Negative KETONES UA (BEAKER) (test code = 371) 10 mg/dL Negative A BILIRUBIN UA (BEAKER) (test code = 462) Negative Negative BLOOD UA (BEAKER) (test code = 461) Negative Negative NITRITE UA (BEAKER) (test code = 465) Negative Negative LEUKOCYTE ESTERASE UA (BEAKER) (test code = 466) Negative Negat dani UROBILINOGEN UA (BEAKER) (test code = 463) 0.2 mg/dL 0.2-1.0 RBC UA (BEAKER) (test code = 519) 0 /HPF WBC UA (BEAKER) (test code = 520) < /HPF SQUAMOUS EPITHELIAL (BEAKER) (test code = 516) < /HPF SOURCE(BEAKER) (test code = 2795) SCREEN, [id number] 22:02:00* Test Item Value Reference Range Interpretation Comments TEST URINE (BEAKER) (test code = 583) Negative POCT-GLUCOSE [id number] 20:47:00* Test Item Value Reference Range Interpretation Comments POC-GLUCOSE METER (BEAKER) (test code = 1538) 159 mg/dL 70-110 H TESTED AT [facility] [address] [facility] [address] HEMOGLOBIN [id number] 19:18:00* Test Item Value Reference Range Interpretation Comments HEMOGLOBIN A1C (BEAKER) (test code = 368) 6.7 % 4.3-6.1 H TSH/FREE T4 IF [id number] 18:51:00* Test Item Value Reference Range Interpretation Comments THYROID STIMULATING HORMONE (BEAKER) (test code = 772) 0.99 uIU/mL 0.35-4.94 BASIC METABOLIC [id number] 18:32:00* Test Item Value Reference Range Interpretation Comments SODIUM (BEAKER) (test code = 381) 140 meq/L 136-145 POTASSIUM (BEAKER) (test code = 379) 3.2 meq/L 3.5-5.1 L CHLORIDE (BEAKER) (test code = 382) 103 meq/L 98-107 CO2 (BEAKER) (test code = 355) 24 meq/L 22-29 BLOOD UREA NITROGEN (BEAKER) (test code = 354) 10 mg/dL 7-21 CREATININE (BEAKER) (test code = 358) 0.67 mg/dL 0.57-1.25 GLUCOSE RANDOM (BEAKER) (test code = 652) 112 mg/dL 70-105 H CALCIUM (BEAKER) (test code = 697) 9.2 mg/dL 8.4-10.2 EGFR (BEAKER) (test code = 1092) 97 mL/min/1.73 sq m ESTIMATED GFR IS NOT ACCURATE CREATININE CLEARANCE IN PREDICTING GLOMERULAR FILTRATION RATE. ESTIMATED GFR IS NOT APPLICABLE FOR DIALYSIS PATIENTS. C-REACTIVE [id number] 18:31:00* Test Item Value Reference Range Interpretation Comments C-REACTIVE PROTEIN (BEAKER) (test code = 676) 0.57 mg/dL 0.00-0.5 0 H PT/[id number] 18:18:00* Test Item Value Reference Range Interpretation Comments PROTIME (BEAKER) (test code = 759) 14.5 seconds 11.7-14.7 INR (BEAKER) (test code = 370) 1.1 <=5.9 PARTIAL THROMBOPLASTIN TIME (BEAKER) (test code = 760) 29.7 seconds 22.5-36.0 RECOMMENDED COUMADIN/WARFARIN INR THERAPY RANGESSTANDARD DOSE: 2.0 - 3.0 Inclu jennie: PROPHYLAXIS for venous thrombosis, systemic embolization; TREATMENT for javad ous thrombosis and/or pulmonary embolus.HIGH RISK: Target INR is 2.5-3.5 for pat ients with mechanical heart valves.CBC W/PLT COUNT & AUTO [id number] 18:15:00* Test Item Value Reference Range Interpretation Comments WHITE BLOOD CELL COUNT (BEAKER) (test code = 775) 12.2 K/ L 3.5- 10.5 H RED BLOOD CELL COUNT (BEAKER) (test code = 761) 4.28 M/ L 3.93-5 .22 HEMOGLOBIN (BEAKER) (test code = 410) 12.0 GM/DL 11.2-15.7 HEMATOCRIT (BEAKER) (test code = 411) 36.1 % 34.1-44.9 MEAN CORPUSCULAR VOLUME (BEAKER) (test code = 753) 84.3 fL 79. 4-94.8 MEAN CORPUSCULAR HEMOGLOBIN (BEAKER) (test code = 751) 28.0 pg 25.6-32.2 MEAN CORPUSCULAR HEMOGLOBIN CONC (BEAKER) (test code = 752) 33.2 GM/DL 32.2-35.5 RED CELL DISTRIBUTION WIDTH (BEAKER) (test code = 412) 14.0 % 11.7-14.4 PLATELET COUNT (BEAKER) (test code = 756) 479 K/CU MM 150-450 H MEAN PLATELET VOLUME (BEAKER) (test code = 754) 9.0 fL 9.4-12 .3 L NUCLEATED RED BLOOD CELLS (BEAKER) (test code = 413) 0 /100 WBC 0 -0 NEUTROPHILS RELATIVE PERCENT (BEAKER) (test code = 429) 67 % LYMPHOCYTES RELATIVE PERCENT (BEAKER) (test code = 430) 26 % MONOCYTES RELATIVE PERCENT (BEAKER) (test code = 431) 5 % EOSINOPHILS RELATIVE PERCENT (BEAKER) (test code = 432) 1 % BASOPHILS RELATIVE PERCENT (BEAKER) (test code = 437) 1 % NEUTROPHILS ABSOLUTE COUNT (BEAKER) (test code = 670) 8.24 K/ L 1.56-6.13 H LYMPHOCYTES ABSOLUTE COUNT (BEAKER) (test code = 414) 3.11 K/ L 1.18-3.74 MONOCYTES ABSOLUTE COUNT (BEAKER) (test code = 415) 0.66 K/ L 0. 24-0.36 H EOSINOPHILS ABSOLUTE COUNT (BEAKER) (test code = 416) 0.08 K/ L 0.04-0.36 BASOPHILS ABSOLUTE COUNT (BEAKER) (test code = 417) 0.07 K/ L 0. 01-0.08 IMMATURE GRANULOCYTES-RELATIVE PERCENT (BEAKER) (test code = 2801) 1 % 0-1 WLKRTBSLTJ3251-67-39 09:27:000.2[facility] RvnpbcoRAUJOTWFXT5915-46-57 09:27:000.8 [facility] WqoydxsKTORBRZNZA6908-08-40 09:27:000.1[facility]annHEMATOLOGY 2016-12-26 09:27:003.8[facility] ExzcmpjCUGXQJWVEI9570-32-56 09:27:001.9[facility] AtrrmmdWQLDZCVUJO6930-74-49 09:27:000.8[facility] GnyanaxLHUCCHKCXS2643-70-25 09:27:005.8[facility] GvzuaysYUVYBGJWCF4178-24-90 09:27:007.9[facility] Toni VHLPCGYKCK6691-66-53 09:27:0054.2[facility] TkppddpSJITBYSNGO3461-58-57 09:27:00 35.2[facility] HycojdhUPZLUKQYZM9885-53-54 09:27:00Normal (12/26/16 4:27 AM) [facility] GzfgsgrLEKNMXCIQU3469-03-16 09:27:00Normal (12/26/16 4:27 AM)[facility] BhjgwytJOOASQTMTH9713-77-04 09:27:0010.7[facility] MxjukuiYHMLPVBEXD5283-03-40 09:27:004.53[facility] GkcisnrYTKVVZVCDQ4384-75-06 09:27:06586Bekkbjcb Toni UGJEWFWYKL1987-11-08 09:27:007.8[facility] XdepsbbWMNLTZENSU7733-98-10 09:27:00 12.8[facility] EqzyukjYVTIBASUNN2983-01-70 09:27:0083.7[facility]annHEMATOLOGY 2016-12-26 09:27:0037.9[facility] RaefxesZJDURFCZHK2308-22-92 09:27:0033.7[facility] CjryvchWVNAEQVQHA1483-54-86 09:27:00* Test Item Value Reference Range Interpretation Comments MCH (test code = MCH) 28.2 pg 27.0-31.0 [facility] WutigixBNVAOVUACQ1370-55-33 09:27:0014.3[facility] HermannCHEM PANEL 2016-12-25 19:31:002.9[facility] HermannCHEM IHGYX1393-44-64 19:31:002.1[facility] MzexeotTYBAPOTOXSAS3816-43-00 19:31:0011.1[facility] XneqxpmXTDRGELGFYIJ7118-25-95 19:31:80362Bogtknvz RhpjlhvXCKQEPCQQMYC5587-22-74 19:31:0027[facility] Toni RSOGAOSHXOZA0456-40-75 19:31:009.0[facility] SnivnfzHZDXCDBESIPY3129-09-80 19:31:88503Lifzbqpj MfiqxxqSSYUHFAXGWAY7201-04-62 19:31:007[facility] XXMVIWLAGNMD4764-72-48 19:31:000.57[facility] VxffqhrZGBWNRAAFTHZ7791-65-36 19:31:21393Dldaacdf WkbaifuUAQYBWDQSIEU7233-18-43 19:31:004.1[facility] RFTDAHLRZZZS0060-64-47 19:31:57656Upcpzext WsmovwpIWROAHAOSD8706-40-10 19:31:00 84.7[facility] CfprsnjCFTXSLTVCG8093-19-40 19:31:0042.2[facility]annHEMATOLOGY 2016-12-25 19:31:004.98[facility] QccafsfSVRRHBJJYY9566-67-55 19:31:0013.9[facility] UgpbmoiJAJPLGZFTW8418-21-42 19:31:76612Bcosmgbr VhoymfzYSTJSSBXMM6133-87-54 19:31:00* Test Item Value Reference Range Interpretation Comments MCH (test code = MCH) 27.8 pg 27.0-31.0 [facility] HewtntePMQQLEHUCE0110-26-13 19:31:007.7[facility]annHEMATOLOGY 2016-12-25 19:31:0014.3[facility] AwcrlwnNNMANZKJLQ0287-02-29 19:31:0032.8[facility] DnddntcQPWBXMESWV0085-95-98 19:31:0011.7[facility] EkdxhzbTTVGBEWYGQ3644-75-38 19:31:00* Test Item Value Reference Range Interpretation Comments PT (test code = PT) 12.8 s 12.0-14.7 [facility] NpeqwdiDIYBNAIQVS0862-97-75 19:31:000.94[facility]annHEMATOLOGY 2016-12-25 19:31:005.0[facility] PylxalkGJFQQIWKQG0475-28-46 19:31:0021.4[facility] IjylcuhSPABFTQMJE5921-46-21 19:31:0072.6[facility] LpdfwdkQWYDBWJRDF7960-98-31 19:31:000.4[facility] IzoqqbiPUXSQAFDLD1411-52-96 19:31:000.1[facility] Toni NHPSPJYBCY5904-50-01 19:31:000.1[facility] MrtocgkXOXHTXBGCJ3650-24-18 19:31:000.6 [facility] DhzpomrGFIVURBQZK7494-65-23 19:31:002.5[facility]annHEMATOLOGY 2016-12-25 19:31:000.6[facility] RgdupzwSGOOXWACXI0996-13-23 19:31:008.5[facility]annURINE AND ZRIWM4751-33-39 19:31:002[facility]ann[facility] AND STOOL 2016-12-25 19:31:001[facility] AND HSJOQ7156-36-82 19:31:00Negative (12/25/16 2:31 PM)[facility] AND EFBSG8206-70-88 19:31:00Negative (12/25/16 2:31 PM)[facility] AND NRTTV5548-55-41 19:31:00Moderate *ABN*(12/25/16 2:31 PM)[facility] PVNZS9410-63-29 19:31:00Negative *NA*(12/25/16 2:31 PM)[facility] AND VZBFG0315-27-47 19:31:006.0 [facility] AND TKVGD9548-50-95 19:31:001.004[facility] AND AFFCP5928-93-28 19:31:00Clear (12/25/16 2:31 PM)[facility] AND STOOL 2016-12-25 19:31:00Light Yellow *NA*(12/25/16 2:31 PM)[facility] CHEM 2016-12-25 19:31:00Negative (12/25/16 2:31 PM)[facility] HermannCARDIAC ENZYMES 2015-03-29 17:26:0068[facility] HermannCARDIAC YZMVOFJ0821-57-41 17:26:00<0.5 [facility]annCARDIAC OUHJFCY4491-51-14 17:26:00<0.02[facility] HermannCARDIAC XAWYADX5465-94-14 17:26:00<0.7[facility] HermannCHEM LNUGH1745-36-90 17:26:74430 [facility]annCHEM LTNOH1320-13-08 17:26:004.1[facility] HermannCHEM PANEL 2015-03-29 17:26:000.9[facility] HermannCHEM TAIYU3515-38-22 17:26:009[facility] HermannCHEM GEIRP3459-75-42 17:26:0093[facility] HermannCHEM HXRNE4734-98-56 17:26:000.8[facility] HermannCHEM LQTAD2115-38-97 17:26:008.6[facility] HermannCHEM CJTYC6061-04-48 17:26:007.8[facility] HermannCHEM QHXMV6871-95-49 17:26:003.7 [facility] HermannCHEM TVKBI6019-39-71 17:26:008.7[facility] HermannCHEM PANEL 2015-03-29 17:26:0016[facility] HermannCHEM UBZPP2968-41-26 17:26:0012[facility] HermannCHEM KFFGZ6766-04-01 17:26:11761Anecxggj HermannCHEM XCYXR3658-12-85 17:26:0027[facility] HermannCHEM MUZOA9998-67-55 17:26:003.6[facility] HermannCHEM KWSRW6573-30-64 17:26:61667Ijqngfws HermannCHEM TMQNI5695-21-03 17:26:000.7 [facility] HermannCHEM BZMGL9786-51-13 17:26:73876Rgbnoooi HermannCHEM PANEL 2015-03-29 17:26:006[facility] EoobvlgCHVRCRTIWEXOM8498-81-68 17:26:00Negative *NA*(03/29/15 12:26 PM)[facility] XyazjesSPAFHYCTRS1264-41-02 17:26:001.02[facility] AzfdviyIORMUBHALW5816-22-15 17:26:00* Test Item Value Reference Range Interpretation Comments PT (test code = PT) 13.4 s 12.0-14.7 [facility] BoftzpgMEPWLBGYIE2531-23-08 17:26:00* Test Item Value Reference Range Interpretation Comments PTT (test code = PTT) 32.6 s 22.9-35.8 [facility] JskhlzqTUVEMBNVAG5936-54-95 17:26:0014.5[facility]annHEMATOLOGY 2015-03-29 17:26:90751Wjgikxfv MxlljlhNQFKCKAIAJ6128-45-51 17:26:0032.3[facility] YnuvadaITYZNXKWSV8064-51-68 17:26:007.8[facility] IwvggwmFFOVARYWQD5332-69-10 17:26:0085.7[facility] XzcjqocGGNNKWBQZE7851-30-56 17:26:00* Test Item Value Reference Range Interpretation Comments MCH (test code = MCH) 27.7 pg 27.0-31.0 [facility] YgyxhffDNGCYNEHJP2884-37-79 17:26:0012.6[facility] 2015-03-29 17:26:0038.9[facility] HebanweNFVSSWYNKB8223-74-21 17:26:004.54[facility] EmhmlbkTBKHFUGZQN7144-68-29 17:26:0010.1[facility] YjwmibyRGRARNKJIW2782-21-46 17:26:0018[facility] ZddtqubFLHXZJFLNC8692-44-46 17:26:000.1[facility] FDPYZUZQXK8274-13-60 17:26:000.1[facility] KlhbtpeWCGLFCTREW6670-12-66 17:26:000.7 [facility] GsxziliCLFNQKYCOJ1409-99-27 17:26:007.0[facility] 2015-03-29 17:26:000.5[facility] HyfnnknRMHTWQSPIJ1741-45-22 17:26:002.4[facility] VywnzecNNYLZKNVRG7707-05-97 17:26:005.4[facility] NpffnoyKJTSSOBCGS5550-81-50 17:26:000.9[facility] XizuhgcJFJPDIHSBL8117-87-85 17:26:0023.9[facility] VGYRWQEDTH9487-14-32 17:26:0069.1[facility]annCARDIAC VAZCPIV1151-09-27 20:50:002[facility]annCARDIAC XFIOZHJ4696-32-28 20:50:00<0.02[facility] CHEM LDKRC8376-97-68 20:50:001.6[facility]annCHEM KNELK4338-40-49 20:50:77834 [facility]annCHE[facility] WZVQR9727-10-51 20:50:86268Yczijvfu HermannCHEM PANEL 2014-11-09 20:50:0027[facility]annCHEM KIUJZ2600-28-15 20:50:009.1[facility]annCHEM NDXKQ5963-85-69 20:50:13216Wjagtdcq HermannCHEM SIHBQ1728-82-18 20:50:003.7[facility]annCHEM VOIXZ2858-13-44 20:50:009[facility]annCHEM ZWQOT6986-74-84 20:50:000.7[facility]annCHEM FHDFS3364-05-74 20:50:55288 [facility]annCHE[facility] UYMYW7838-76-16 20:50:0010.7[facility]annHEMATOLOGY 2014-11-09 20:50:007.4[facility] EoytmluLXQBUAAODK7640-79-65 20:50:14712Ghvodxyw TwcoorbBPVSNSAPIT4617-82-41 20:50:0013.8[facility] QutremfUMFBQJTMXB2100-51-96 20:50:0033.4[facility] GjkunaeRELRZXTQWP9547-81-15 20:50:0013.5[facility] TIRXGVTFRM6526-64-88 20:50:004.34[facility] SakkkhgASBXVKMRLW1203-33-69 20:50:00 12.7[facility] GpojgwbYKPWDJYIOD3590-67-95 20:50:00* Test Item Value Reference Range Interpretation Comments MCH (test code = MCH) 29.2 pg 27.0-31.0 [facility] BtihzezZPPZJEDJBH9082-04-38 20:50:0037.9[facility] 2014-11-09 20:50:0087.3[facility] CwqyocmFAHQFXHYWQ9361-42-02 20:50:00* Test Item Value Reference Range Interpretation Comments PT (test code = PT) 13.1 s 12.0-14.7 [facility] RbznpucGZILIOXDTZ7517-36-87 20:50:000.99[facility] 2014-11-09 20:50:00* Test Item Value Reference Range Interpretation Comments PTT (test code = PTT) 29.8 s 22.9-35.8 [facility] RhjafedDJZYOMKKEI6645-80-40 20:50:005.1[facility]HE[facility] 2014-11-09 20:50:0016.4[facility] HiuvgiyBYQDINBSNZ8183-32-83 20:50:0077.0[facility] IvbqipmUCMHRBEZFT0772-49-87 20:50:000.7[facility] CvsorpsCWQTNYITUC2152-51-40 20:50:002.2[facility] TxxaljmWKQSKWBQBH0891-32-55 20:50:0010.4[facility] EFPSKOFXIV4656-40-51 20:50:000.9[facility] XwshwxnBYNOOIPDLD8094-51-52 20:50:000.6 [facility] XoaboqkHWFAXNWCEA5642-69-88 20:50:000.1[facility]HE[facility] 2014-11-09 20:50:000.1[facility]annURINE AND DDRBY9682-27-73 20:50:00Not Indicated (11/09/14 3:50 PM)[facility] ZEDGY4223-39-23 20:50:00 Negative (11/09/14 3:50 PM)[facility] ZRYRG8194-05-58 20:50:00 Negative (11/09/14 3:50 PM)[facility] FJKTS8033-26-28 20:50:000.2 [facility] MHERB6356-93-83 20:50:00Negative (11/09/14 3:50 PM) [facility] YAPZE6490-25-23 20:50:00* Test Item Value Reference Range Interpretation Comments UA pH (test code = UA pH) 6.0 1 5.0-8.0 [facility] RBXBJ1958-74-83 20:50:00Clear (11/09/14 3:50 PM) [facility] EZEIW0668-60-62 20:50:00<=1.005 *NA*(11/09/14 3:50 PM) [facility] AIVTO5423-38-48 20:50:00Yellow *NA*(11/09/14 3:50 PM) [facility] ONKXG8153-42-55 20:50:00Trace *ABN*(11/09/14 3:50 PM) [facility] VENPY6597-74-24 20:50:00Negative *NA*(11/09/14 3:50 PM) [facility] AEOMA6375-87-19 20:50:00Negative (11/09/14 3:50 PM) [facility] WDPIF3655-72-90 20:50:00Negative (11/09/14 3:50 PM) [facility] GLIO0335-67-99 20:50:00Negative (11/09/14 3:50 PM)[facility] IsuciagRVNMMUZVJEXZ8596-99-06 11:45:0011.5[facility] IfotwcfERFIFMYSAJKK5818-97-15 11:45:0094[facility] NkelktcSAWEGTHYGEJN1284-42-85 11:45:84995Iskbezbg [place] NVLYSSXPZHFO2115-68-84 11:45:000.8[facility] AytbthjYFFHGKZMCMJA1780-44-61 11:45:0014[facility] WxdfponMNHFWQPOGAVA7627-27-70 11:45:008.7[facility] [place] YTSHHFADPDBT6316-88-74 11:45:0024[facility] RknvozuXXVOEXOOCKFU2023-96-87 11:45:00 105[facility] SuwlykjPTNPXVYQSODL2094-23-24 11:45:003.5[facility] OYXBVOJZTMNV1397-71-39 11:45:42555Omusadpb BtbmprbCKVZRNYBNA8232-38-97 11:45:00 0.8[facility] OtqbxgiMWKTGWVBPZ1030-10-87 11:45:000.2[facility]annHEMATOLOGY 2014-09-04 11:45:003.3[facility] VstomoqODFVTKZQHT9980-37-73 11:45:0061.0[facility] XykxfqoATSAYLGCNS3786-80-71 11:45:0029.8[facility] BfnbicaRPDLZMRBIX1403-03-94 11:45:000.1[facility] RdcdyuuCSCHLHUVRU4682-44-15 11:45:006.8[facility] NPVECGTLYR8879-95-29 11:45:001.6[facility] AgbegcaMKOHMOGVUA2925-54-56 11:45:000.6 [facility] UyrmhbsZHRINNOFEZ8090-37-10 11:45:007.0[facility]annHEMATOLOGY 2014-09-04 11:45:007.8[facility] EuqcjmkVIPIDUCRCA9111-35-64 11:45:0014.4[facility] EwphsmhOYZBFYTIEL1306-87-65 11:45:74968Wcbtsbsv VpdjhtnFHTNEMFAGC0048-84-37 11:45:0036.7[facility] EuixcdmQPCOXMISVF3125-35-98 11:45:0089.3[facility] XCYNAYLICQ9249-37-36 11:45:00* Test Item Value Reference Range Interpretation Comments MCH (test code = MCH) 29.7 pg 27.0-31.0 [facility] TzwgiieAHYJVBNOHQ7486-71-33 11:45:0033.3[facility]annHEMATOLOGY 2014-09-04 11:45:0012.2[facility] JgnjonbEZZTZVJLOM7623-39-80 11:45:0011.1[facility] LdsgxtiDDKKRYCRMC5110-70-81 11:45:004.11[facility] HermannCHEM QRJDU6297-88-91 10:50:25214Syemxvwx HermannCHEM BGOYM2440-65-39 10:50:008.6[facility] HermannCHEM RWKWX8097-98-54 10:50:0025[facility] HermannCHEM IHIZA3809-30-30 10:50:20518 [facility]annCHEM MLAMY0996-32-98 10:50:16668Emhangxw HermannCHEM PANEL 2014-09-03 10:50:003.4[facility]annCHEM KIWGD4791-99-69 10:50:000.7[facility]annCHEM LSZTN2616-50-98 10:50:0010[facility] HermannCHEM BUVZV4140-15-34 10:50:01167Qnhhamca HermannCHEM CIBFP1687-09-31 10:50:0010.4[facility] KRGKSAMTTH0555-91-99 10:50:0010.8[facility] YjiobqdRTJOEUYAVS0448-63-00 10:50:00 33.7[facility] AireapwQSRDTFXCNF2588-72-75 10:50:0014.8[facility]annHEMATOLOGY 2014-09-03 10:50:60453Rrknsilp AvfinglMDYSJZSCVS3969-61-19 10:50:007.6[facility] HkurnbbOTWTQUQELQ0780-40-68 10:50:0012.4[facility] AsmkpewEFQNXXFJQF1032-90-39 10:50:004.14[facility] LbqbybwUJEKJLDBJO2387-74-08 10:50:0089.1[facility] OPBCLODUUO9189-49-02 10:50:0036.9[facility] BmdvmmqJHDJZLMSJG1922-54-50 10:50:00* Test Item Value Reference Range Interpretation Comments MCH (test code = MCH) 30.0 pg 27.0-31.0 [facility] HyciwouTUWGPVBBHK3339-28-23 10:50:000.9[facility]annHEMATOLOGY 2014-09-03 10:50:006.1[facility] JmkqsbsVOVUMXKJYI5605-13-54 10:50:000.6[facility] AekjojvZTUGSWQPVN6958-54-02 10:50:000.9[facility] ElzlrmhCITJSJXKUR2887-31-12 10:50:003.5[facility] TkcuszpKLWQTRFPRL4181-80-15 10:50:000.1[facility] YLWAMHFIIF8225-75-20 10:50:0057.0[facility] RhrhqsbQICGMUBKBG4331-71-31 10:50:00 33.0[facility] FnaiuvhRLYXJAUQFZ8233-98-54 10:50:008.5[facility]annHEMATOLOGY 2014-09-03 10:50:000.1[facility] FjwffayIZICWTIFRBJU3171-44-75 10:42:0014.7 [facility] LncyzjjPPBIKVJRRLRH7297-28-85 10:42:97762Alhkgxqc HermannELECTROLYTES 2014-09-02 10:42:008.7[facility] TmxfoqpZXRJGSSKUIOT3071-64-15 10:42:32248Xfbsjdhn ObjryvwYHINMYMGPBUJ9104-29-43 10:42:0023[facility] MfgyxwsZBOXNOPZUGOL1736-77-87 10:42:89018Jrblmanf DiasuzbQRNFHMLLEGJH2496-83-29 10:42:003.7[facility] [place] DYOLVVFPYMZG8797-64-35 10:42:0015[facility] UshnnevGYTTPCZLRRKX6083-03-26 10:42:00 0.7[facility] MwjiagnQXSBKXYQGHXH7986-76-23 10:42:16737Wszhjhgi HermannHEMATOLOGY 2014-09-02 10:42:002.0[facility] TbafdhfVNMMILFEDG6254-92-87 10:42:0042.0[facility] MfhildwEUSWZTXEPU6253-68-39 10:42:000.0[facility] HahceshNOPGDGTFXG5236-28-24 10:42:0056.0[facility] JnifmybDKCNXZMNPO4340-50-82 10:42:00Normal (09/02/14 4:42 AM)[facility] AovtuxvIOMTQZRUCY8008-39-03 10:42:000.0[facility]annHEMATOLOGY 2014-09-02 10:42:00Normal (09/02/14 4:42 AM)[facility] WiigchcNNWQGUAAHT1551-24-32 10:42:000.2[facility] FqzhxfdJITUEKGFBW6356-73-81 10:42:004.3[facility] [place] MEZFOYLCAG9005-43-98 10:42:005.8[facility] KkbhdfmAPEQVBUFFX6248-80-04 10:42:00 33.2[facility] HmcubdpQWAFWWDFHO7783-54-16 10:42:00* Test Item Value Reference Range Interpretation Comments MCH (test code = MCH) 29.6 pg 27.0-31.0 [facility] HrmpitdJSXWCIXORE0701-93-46 10:42:21879Vdvqibbf HermannHEMATOLOGY 2014-09-02 10:42:007.7[facility] YgggzctIRZZGSEYCR3681-05-02 10:42:0014.6[facility] IbqwrnzAQCCRYCYLJ7198-08-55 10:42:0034.2[facility] PsxcelnYSUBUBPCSA3651-77-54 10:42:0089.1[facility] XqaztjkYAEEVHPOZC5352-25-74 10:42:0011.4[facility] LFAKRDZPIQ3657-22-58 10:42:003.84[facility] IlnqxhkQQLSSDCRNU1540-91-00 10:42:00 10.3[facility] KjqsfxwTJEWFG2958-86-60 10:42:69917Foihvoqb DyftoqlAYZQDE7240-23-86 10:42:0053[facility] DognreaKLFQCE9784-25-56 10:42:006.12[facility] HermannLIPIDS 2014-09-02 10:42:00352Odisydjm BqiakboSNBEKJ3357-05-03 10:42:07713Zbatasux PcagqkfDTPCDE1434-19-20 10:42:0034[facility]annSPECIAL OWFTSMKUP6413-47-05 10:42:006.7[facility] HermannBODY ZUVBSW3151-33-88 00:10:004[facility]annBODY MIRFOC8551-52-37 00:10:00Colorless (09/01/14 6:10 PM)[facility]ann[facility] FLUIDS 2014-09-02 00:10:002[facility]annBODY EGLLOF6486-64-94 00:10:00Clear (09/01/14 6:10 PM)[facility]annB[facility] UPYBHB9225-08-29 00:10:00Colorless (09/01/14 6:10 PM)[facility]annBODY LHBYSA8157-72-41 00:10:00* Test Item Value Reference Range Interpretation Comments Tube Num CSF (test code = Tube Num CSF) 3 1 [facility]annB[facility] UWOKHK6400-08-31 00:10:0049[facility]annBODY FLUIDS 2014-09-02 00:10:0074[facility]annFUNGAL - ZXUXOERB4942-54-34 00:10:00 Negative (09/01/14 6:10 PM)[facility] CzkroilECMOPHOGLG3121-82-87 00:10:00Negative (09/01/14 6:10 PM)[facility] FxbayleKLQFXLEDOC7318-92-21 00:10:00Negative 7(09/01/14 6:10 PM)[facility] AesbjxsASGLAOHIDG7151-43-61 00:10:00Negative (09/01/14 6:10 PM) [facility] RolxlqnQDQLTKKACC0869-01-29 00:10:00Negative (09/01/14 6:10 PM)[facility] AharuehBDPVDAHJBT4928-85-62 00:10:00Negative (09/01/14 6:10 PM)[facility] ODHDBPGNZF1595-26-75 00:10:00Negative (09/01/14 6:10 PM)[facility] HermannMOLECULAR NFVQKMKRGS6246-28-99 00:10:00Not Performed 9, 10(09/01/14 6:10 PM)[facility]annMOLECULAR YVCZEBDMZP5482-37-89 00:10:00Not Performed 8(09/01/14 6:10 PM) [facility]annVIRAL - LJINTPSV3393-97-70 00:10:00Negative 11(09/01/14 6:10 PM) [facility]annCARDIAC WDBFAJW2528-56-12 19:24:00<0.02[facility]annCARDIAC JSZHTVJ8367-78-36 19:24:000.6[facility]annCARDIAC SYMMBNK2724-44-30 19:24:00 61[facility]annCARDIAC GFIWFYA0208-82-52 19:24:001.0[facility] HermannCHEM EGLUX8389-43-98 19:24:001.0[facility] HermannCHEM ZULOH3555-20-63 19:24:004.2 [facility]annCHEM EODYS1279-84-10 19:24:000.8[facility]annCHEM PANEL 2014-09-01 19:24:0014Mem[facility] HermannCHEM ZGFPM3574-92-74 19:24:004.1[facility] HermannCHEM QJTOB5380-94-76 19:24:008.3[facility] HermannCHEM AQKFA6214-61-49 19:24:0028[facility] HermannCHEM IBKVQ0027-95-67 19:24:0077[facility] HermannCHEM PNKIK8938-39-70 19:24:0017[facility] IldrqvwIFIRSJEZHL9103-25-98 19:24:000.0 [facility] KohzykqJCLNZHMSHW9500-57-78 19:24:000.0[facility]annHEMATOLOGY 2014-09-01 19:24:000.1[facility] HvpkgdeHXUQAOQUCC3808-79-43 19:24:000.1[facility]annSPECIAL RAUPKCJVS2598-10-63 19:24:006.8[facility] HermannTHYROID PANEL 2014-09-01 19:24:001.710[facility]annMRI [facility]RAIN WO [facility] [address] [place] [address] Patient Name: MARGY TODD MR #: [id number] : 1975 Age/Sex: 42/F Req #: [id number] Adm Physician: Ordered by: CHAPO NI MD Report #: [id number] Location: [facility] Room/Bed: Procedure: [id number] MRI/MRI BRAIN WO Exam Date: 04/01/17 Exam Time: 1918 REPORT STATUS: Signed History: Right hand and foot numbness Comparison studies: Head CT on and 2017. Brain MRI and intracranial MRA on 2017 Techni que: Sagittal T2; axial DWI, FLAIR, MPGR, T1, Coronal FLAIR. Intravenous co ntrast: None Findings: Scalp: Normal in signal . No masses . Bone ma rrow: Normal in signal intensity. Extra-axial: No masses or fluid collect ions. Brain sulci: Appropriate for age. Ventricles: Normal in size . No h ydrocephalus . Parenchyma: A few scattered T2 FLAIR hyperintense foci in the supratentorial white matter are nonspecific small vessel ischemic changes. An old lacunar insult is centered in the head of the right caudate. Increas ed bilateral symmetric T2 FLAIR signal throughout the peripheral branches of t he anterior and middle cerebral arteries is consistent with slow flow in this patient with known underlying moyamoya. No masses, hemorrhage, acute or chr onic cortical ischemic insults. Suprasellar region: No abnormalities. Slipper Maker niocervical junction: No abnormalities. Patent foramen magnum. No Chiari one malformation. Vessels: Normal flow-voids in the arteries and sinuses. IM PRESSION: 1. No acute abnormalities. 2. No changes when compared to the brain MRI on 2017. 3. Increased signal in the peripheral branches of the anterior and middle cerebral arteries throughout the convexities due to slow flow in this patient with known underlying moyamoya. Chronic findings: 1. Mild supratentorial white matter is normal vessel ischemic changes. 2. Fo romi lacunar insult in the head of the right caudate Signed by: Dr. Alexia Fung M.D. on 04/01/2017 9:07 PM Dictated By: ALEXIA Child MD 06 Tra nscribed By: FRANCIS on 04/01/172106 COPY TO: CHAPO NI MD
[2020-04-08] MEDS ORDERED: ACETAMINOPHEN 325 MG TAB PO ONE (04:45)
--- NOTE | 2020-04-08 04:59 | Emergency Department Note ---
History of Present Illnes History of Present Illness Chief Complaint: General Medicine Complaints History of Present Illness This is a 45 year old female STATES THAT EARLIER TODAY WHEN LEAVING WORK SHE STARTED FEELING LIKE SHES CATCHING A " BUG". 2 HOURS AGO PATIENT WOKE UP FROM BED WITH MALAISE, FATIGUE, AND GENERALIZED BODY ACHES. PATIENT STATES THAT SHE HAS HAD DIARRHA SINCE 2AM. AND A DRY COUGH . 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 Onset (how long ago): hour(s) (8) Location: ALL OVER Quality: BODY ACHES, COUGH, DIARRHEA Radiation: Reports non-radiation Severity: mild Onset quality: gradual Duration (how long): hour(s) (8) Timing of current episode: constant Progression: worsening Chronicity: new Context: Denies recent illness, Denies recent surgery, Denies trauma/injury Relieving factors: none Exacerbating factors: none Associated symptoms: Reports cough, Reports malaise, Reports weakness, Reports other (BODY ACHES) Treatments prior to arrival: none Past Medical/Family History Physician Review I have reviewed the patient's past medical and family history. Any updates have been documented here. Past Medical History Recent Fever: No Clinical Suspicion of Infectio: No New/Unexplained Change in Ment: No Past Medical History: Hypertension, Diabetes, TIA, GERD, Hyperlipedemia Other Medical History: MOYAMOYA (CEREBRAL DISEASE) Past Surgical History: Hysterectomy Social History Smoking Cessation: Never Smoker Alcohol Use: None Any Illegal Drug Use: No Physically hurt or threatened: No Family History Family history of heart diseas: No Other family history HTN,DM Other Last Tetanus: OOD Review of Systems Review of Systems Constitutional: Reports as per HPI EENTM: Reports no symptoms Cardiovascular: Reports no symptoms Respiratory: Reports as per HPI Gastrointestinal: Reports no symptoms Genitourinary: Reports no symptoms Musculoskeletal: Reports no symptoms Integumentary: Reports no symptoms Neurological: Reports no symptoms Psychological: Reports no symptoms Endocrine: Reports no symptoms Hematological/Lymphatic: Reports no symptoms Physical Exam Related Data Allergies: Coded Allergies: olmesartan (Verified Allergy, Severe, 01/19/19) Iodine and Iodide Containing Produc (Verified Adverse Reaction, Mild, NAUSEA, 01/19/19) Triage Vital Signs Vital Signs Date Time Temp Pulse Resp B/P (MAP) Pulse Ox O2 Delivery O2 Flow Rate FiO2 04/08/20 04:19 99.0 100 20 169/99 98 Room Air Vital signs reviewed: Yes Physical Exam CONSTITUTIONAL Constitutional: Present well-developed, Present well-nourished; Absent distressed HENT HENT: Present normocephalic, Present atraumatic, Present oropharynx clear/moist, Present nose normal HENT L/R: Present left ext ear normal, Present right ext ear normal EYES Eyes: Reports PERRL, Reports conjunctivae normal NECK Neck: Present ROM normal PULMONARY Pulmonary: Present effort normal, Present breath sounds normal CARDIOVASCULAR Cardiovascular: Present regular rhythm, Present heart sounds normal, Present capillary refill normal, Present normal rate GASTROINTESTINAL Abdominal: Present soft, Present nontender, Present bowel sounds normal GENITOURINARY Genitourinary: Present exam deferred SKIN Skin: Present warm, Present dry MUSCULOSKELETAL Musculoskeletal: Present ROM normal NEUROLOGICAL Neurological: Present alert, Present oriented x 3, Present no gross motor or sensory deficits PSYCHOLOGICAL Psychological: Present mood/affect normal, Present judgement normal Results Laboratory Laboratory Laboratory Tests Test 04/08/20 04:36 04/08/20 04:30 Urine Color Yellow (YELLOW) Urine Clarity Clear (CLEAR) Urine pH 5.5 (5 - 7) Urine Specific Hayes 1.025 (1.010-1.025) Urine Protein Negative (NEGATIVE) Urine Glucose (UA) Negative (NEGATIVE) Urine Ketones >=160 (NEGATIVE) Urine Blood Moderate (NEGATIVE) Urine Nitrite Negative (NEGATIVE) Urine Bilirubin Negative (NEGATIVE) Urine Urobilinogen 0.2 mg/dL (0.2 - 1) Urine Leukocyte Esterase Negative (NEGATIVE) Influenza Virus Types A,B Antigen Negative (NEGATIVE) Lab results reviewed: Yes Imaging Imaging results reviewed: Yes Impressions Procedure: [id number] DX/CHEST SINGLE (PORTABLE) Exam Date: 04/08/20 Exam Time: 0500 REPORT STATUS: Signed EXAMINATION: CHEST SINGLE (PORTABLE) INDICATION: ^COUGH,FEVER COMPARISON: None FINDINGS: TUBES and LINES: None. LUNGS: Normal lung volumes. Lungs are clear. No consolidations. PLEURA: No pleural effusion or pneumothorax. HEART AND MEDIASTINUM: The cardiomediastinal silhouette is unremarkable. BONES AND SOFT TISSUES: No acute osseous lesion. Soft tissues are unremarkable. UPPER ABDOMEN: No free air under the diaphragm. IMPRESSION: No acute thoracic radiographic abnormality. Signed by: Sydney Trent MD on 04/08/2020 5:32 AM Dictated By: SYDNEY TRENT MD 1 Transcribed By: FRANCIS on 04/08/20531 COPY TO: LATOYA DWYER MD~ Assessment & Plan Medical Decision Making MDM Patient with body aches, malaise, weakness, dry cough, and diarrhea. The sympt oms are concerning for Covid 19 infection however is not possible the patient did have fluids well. Chest x-ray, UA, rapid flu ordered to eval for viral pneumonia, UTI, influenza Assessment & Plan Final Impression: (1) Diarrhea (2) Viral syndrome (3) Suspected 2019 novel coronavirus infection Depart Disposition: HOME, SELF-CARE Last Vital Signs Date Time Temp Pulse Resp B/P (MAP) Pulse Ox O2 Delivery O2 Flow Rate FiO2 04/08/20 04:19 99.0 100 20 169/99 98 Room Air Home Meds Reported Medications Glipizide (GLIPIZIDE) 5 Mg Tablet, 2.5 MG PO ACL, TAB 03/29/18 Atorvastatin Calcium (ATORVASTATIN CALCIUM) 20 Mg Tablet, 20 MG PO DAILY, #30 TAB 01/09/17 Ergocalciferol (Vitamin D2) (VITAMIN D2) 50,000 Unit Capsule, 1 TAB PO WEEKLY ADMIN ON Saturday01/09/17 Losartan Potassium (LOSARTAN POTASSIUM) 100 Mg Tablet, 100 MG PO DAILY, TAB 10/07/15 Metformin Hcl (METFORMIN HCL ER) 500 Mg Tab.er.24, 500 MG PO BID, #60 TAB 10/07/15 Clopidogrel Bisulfate* (PLAVIX) 75 Mg Tablet, 75 MG PO HS, #30 TAB 06/01/15 LATOYA DWYER MD Apr 08, 2020 04:59
--- NOTE | 2020-04-08 05:35 | Diagnostic Imaging Report ---
EXAMINATION: CHEST SINGLE (PORTABLE) INDICATION: ^COUGH,FEVER COMPARISON: None FINDINGS: TUBES and LINES: None. LUNGS: Normal lung volumes. Lungs are clear. No consolidations. PLEURA: No pleural effusion or pneumothorax. HEART AND MEDIASTINUM: The cardiomediastinal silhouette is unremarkable. BONES AND SOFT TISSUES: No acute osseous lesion. Soft tissues are unremarkable. UPPER ABDOMEN: No free air under the diaphragm. IMPRESSION: No acute thoracic radiographic abnormality. Signed by: Navdeep Garcia MD on 04/08/2020 5:32 AM
[2020-04-08 05:41] LABS: CLARITY,URINE CLEAR (CLEAR); COLOR,URINE YELLOW (YELLOW)
[2020-04-08 05:42] LABS: BILIRUBIN,URINE NEGATIVE (NEGATIVE); KETONES,URINE >=160 (NEGATIVE); LEUKOCYTE ESTERASE ,URINE NEGATIVE (NEGATIVE); NITRITE,URINE NEGATIVE (NEGATIVE); PROTEIN,URINE DIPSTICK NEGATIVE (NEGATIVE); URINE UROBILINOGEN 0.2 mg/dL (0.2 - 1)
[2020-04-08 05:44] VITALS: BP 149/62
[2020-04-08 05:52] LABS: WBC,URINE (MAN) 0-5 /HPF (0-5)
[2020-04-08 05:53] LABS: BACTERIA,URINE FEW /HPF; EPITHELIAL CELLS,URINE FEW /LPF; RBC,URINE 0-5 /HPF (0-5)
== END 2020-04-08 06:01 | disposition home or self-care (01) ==
LOC: ER 04:20
DX: B34.9 Viral infection, unspecified (principal); R19.7 Diarrhea, unspecified; R50.9 Fever, unspecified; R05 Cough; I10 Essential (primary) hypertension; E11.9 Type 2 diabetes mellitus without complications; E78.5 Hyperlipidemia, unspecified; K21.9 Gastro-esophageal reflux disease without esophagitis; I67.5 Moyamoya disease; Z86.73 Personal history of transient ischemic attack (TIA), and cerebral infarction without residual deficits
CPT/HCPCS: 71045; 81001; 87400; 99283